=== PATIENT | male | born 1965 | race Caucasian/White ===

== ENCOUNTER → 2016-09-25 | Outpatient (CLI) | payer BC ==
[2016-09-25 17:41] LABS: Basophils % (A) 0 %; CH 32.7; CHCM 33.3; Eosinophils # (A) 0.2 k/uL (0-0.7); Eosinophils % (A) 3 %; HCT 44.3 % (39.0-53.0); HDW 2.22; HGB 14.6 gm/dL (13.0-17.5); Luc # (Auto) 0.14; Luc % (Auto) 2; Lymphocytes # (A) 1.4 k/uL (1.0-4.8); Lymphocytes % (A) 20 %; MCH 32.5 pg (25.0-35.0); MCHC 32.9 g/dL (31.0-37.0); MCV 98.5 fL (80.0-100.0); Mean Platelet Volume 7.2; Monocytes # (A) 0.7 k/uL (0-1.0); Monocytes % (A) 10 %; Neutrophils # (A) 4.5 k/uL (1.3-7.7); Neutrophils % (A) 66 %; WBC 6.9 k/uL (3.8-10.6); WBC (Perox) 7.45
[2016-09-25 17:45] LABS: INR 1.1 (<1.1); Prothrombin Time 11.4 sec (9.0-12.0)
[2016-09-25 17:52] LABS: Anion Gap 9 mmol/L; Blood Urea Nitrogen 8 mg/dL (9-20); Calcium 9.2 mg/dL (8.4-10.2); Carbon Dioxide 30 mmol/L (22-30); Chloride 96 mmol/L (98-107); Glucose 94 mg/dL (74-99); Non-African American GFR(MDRD) >60 (>60 ml/min/1.73 sqM); Potassium 3.9 mmol/L (3.5-5.1); Sodium 135 mmol/L (137-145)
== END | disposition home or self-care (01) ==
LOC: LABPAT 17:00
PROVIDERS: ATTEND Internal Medicine
DX: Z01.812 Encounter for preprocedural laboratory examination (principal)
CPT/HCPCS: 36415; 80048; 85025; 85027; 85610

== ENCOUNTER → 2016-10-09 | Outpatient (CLI) | payer BC ==
[2016-10-09 18:20] LABS: Anion Gap 11 mmol/L; Blood Urea Nitrogen 10 mg/dL (9-20); Calcium 9.6 mg/dL (8.4-10.2); Carbon Dioxide 30 mmol/L (22-30); Chloride 93 mmol/L (98-107); Glucose 87 mg/dL (74-99); Non-African American GFR(MDRD) >60 (>60 ml/min/1.73 sqM); Potassium 4.3 mmol/L (3.5-5.1); Sodium 134 mmol/L (137-145)
== END | disposition home or self-care (01) ==
LOC: LABWHC1 16:57
PROVIDERS: ATTEND Nurse Practitioner
DX: I50.9 Heart failure, unspecified (principal)
CPT/HCPCS: 36415; 80048; 83880

== ENCOUNTER → 2016-10-16 | Outpatient (CLI) | payer BC ==
[2016-10-16 17:38] LABS: ALT 26 U/L (21-72); AST 28 U/L (17-59); Alkaline Phosphatase 55 U/L (38-126); Anion Gap 10 mmol/L; Blood Urea Nitrogen 10 mg/dL (9-20); Calcium 9.5 mg/dL (8.4-10.2); Carbon Dioxide 32 mmol/L (22-30); Chloride 93 mmol/L (98-107); Glucose 86 mg/dL (74-99); Non-African American GFR(MDRD) >60 (>60 ml/min/1.73 sqM); Potassium 4.2 mmol/L (3.5-5.1); Sodium 135 mmol/L (137-145); Total Bilirubin 0.6 mg/dL (0.2-1.3); Total Protein 7.5 g/dL (6.3-8.2)
== END | disposition home or self-care (01) ==
LOC: LABWHC1 16:57
PROVIDERS: ATTEND Internal Medicine
DX: I50.9 Heart failure, unspecified (principal)
CPT/HCPCS: 36415; 80053; 83880

== ENCOUNTER → 2016-12-27 | Outpatient (CLI) | payer BC ==
[2016-12-27 18:02] LABS: ALT 32 U/L (21-72); AST 26 U/L (17-59); Alkaline Phosphatase 57 U/L (38-126); Anion Gap 11 mmol/L; Blood Urea Nitrogen 13 mg/dL (9-20); Calcium 9.6 mg/dL (8.4-10.2); Carbon Dioxide 27 mmol/L (22-30); Chloride 93 mmol/L (98-107); Glucose 93 mg/dL (74-99); Non-African American GFR(MDRD) >60 (>60 ml/min/1.73 sqM); Potassium 4.3 mmol/L (3.5-5.1); Sodium 131 mmol/L (137-145); Total Bilirubin 0.8 mg/dL (0.2-1.3); Total Protein 7.1 g/dL (6.3-8.2)
== END | disposition home or self-care (01) ==
LOC: LABWHC1 17:12
PROVIDERS: ATTEND Internal Medicine
DX: J84.9 Interstitial pulmonary disease, unspecified (principal); M34.9 Systemic sclerosis, unspecified
CPT/HCPCS: 36415; 80053

== ENCOUNTER → 2017-09-01 | Outpatient (CLI) | payer BC ==
--- NOTE | 2017-09-01 21:34 | EST ---
EXERCISE STRESS DATE OF SERVICE: 09/01/17 AGE: 52 SEX: Male HT: 5'11" WT: 163 lb PROTOCOL: Ariel STAGE: Stage 2 DURATION OF EXERCISE: 4.04 minutes HEART RATE REST: 83 BLOOD PRESSURE REST: 145/65 MAXIMUM HEART RATE ACHIEVED: 150 MAXIMUM BLOOD PRESSURE: 171/103 85% MPHR: 143 100% MPHR: 168 METS: 5.8 INDICATIONS: Abnormal EKG CLINICAL INFORMATION: Abnormal EKG RESULTS: Baseline EKG revealed normal sinus rhythm with leftward axis and incomplete right bundle branch block type pattern with isolated PVCs. Patient walked for 4 minutes 4 seconds on the standard Ariel protocol, developed fatigue and shortness of breath. Maximal heart rate was 150 beats per minute which is more than 85% of predicted maximal. There was a lot of artifact, isolated ventricular ectopy were seen during exercise as well as in the rest and recovery. In the recovery period occasional couplet, 1 or 2 couplets were also noted. EKG did not reveal any significant ST- segment changes to indicate ischemia, but because of resting EKG changes, this is considered an inconclusive stress test. Baseline EKG revealed a sinus mechanism with isolated PVCs, nonspecific ST-T changes and incomplete right bundle branch block pattern. FINAL IMPRESSION: 1. Limited exercise capacity. 2. Technically inconclusive stress test because of resting EKG changes. 3. If ischemia is strongly suspected a Lexiscan stress test may be a more reasonable test under the circumstances. JADEN / WALTER: [id number] /
== END | disposition home or self-care (01) ==
LOC: RADNMMAIN 11:05
PROVIDERS: ATTEND Nurse Practitioner Acute Care
DX: R94.31 Abnormal electrocardiogram [ECG] [EKG] (principal)
CPT/HCPCS: 93017

== ENCOUNTER → 2018-03-24 | Outpatient (CLI) | payer BC ==
[2018-03-24 07:19] LABS: Basophils % (A) 0 %; Eosinophils # (A) 0.2 k/uL (0-0.7); Eosinophils % (A) 3 %; HCT 45.9 % (39.0-53.0); HGB 14.9 gm/dL (13.0-17.5); Lymphocytes % (A) 13 %; MCH 31.5 pg (25.0-35.0); MCHC 32.5 g/dL (31.0-37.0); MCV 97.1 fL (80.0-100.0); Mean Platelet Volume 7.2; Monocytes # (A) 0.7 k/uL (0-1.0); Monocytes % (A) 10 %; Neutrophils # (A) 5.5 k/uL (1.3-7.7); Neutrophils % (A) 72 %; Platelet Count 304 k/uL (150-450); RBC 4.73 m/uL (4.30-5.90); RDW 12.7 % (11.5-15.5); WBC 7.7 k/uL (3.8-10.6)
[2018-03-24 07:24] LABS: INR 1.2 (<1.2); Prothrombin Time 11.8 sec (9.0-12.0)
[2018-03-24 07:38] LABS: Anion Gap 9 mmol/L; Blood Urea Nitrogen 7 mg/dL (9-20); Calcium 9.7 mg/dL (8.4-10.2); Carbon Dioxide 31 mmol/L (22-30); Chloride 94 mmol/L (98-107); Glucose 97 mg/dL (74-99); Potassium 4.7 mmol/L (3.5-5.1); Sodium 134 mmol/L (137-145)
== END | disposition home or self-care (01) ==
LOC: LABWHC1 06:32
PROVIDERS: ATTEND Internal Medicine Cardiovascular Disease
DX: I48.92 Unspecified atrial flutter (principal)
CPT/HCPCS: 36415; 80048; 85025; 85610

== ENCOUNTER → 2018-08-01 | Outpatient (CLI) | payer BC | END | disposition home or self-care (01) | LOC: LABWHC1 11:47 | PROVIDERS: ATTEND Internal Medicine | DX: R63.4 Abnormal weight loss (principal) | CPT/HCPCS: 82656 ==

== ENCOUNTER → 2019-01-06 | Outpatient (CLI) | payer BC ==
[2019-01-06 17:40] LABS: HCT 40.4 % (39.0-53.0); HGB 13.3 gm/dL (13.0-17.5); MCH 32.1 pg (25.0-35.0); MCHC 32.8 g/dL (31.0-37.0); MCV 97.8 fL (80.0-100.0); Mean Platelet Volume 6.9; Platelet Count 296 k/uL (150-450); RBC 4.13 m/uL (4.30-5.90); RDW 13.4 % (11.5-15.5); WBC 7.8 k/uL (3.8-10.6)
[2019-01-06 17:47] LABS: Prothrombin Time 10.4 sec (9.0-12.0)
[2019-01-06 17:51] LABS: African American GFR (CKD) >90 (>60 ml/min/1.73 sqM); Anion Gap 9 mmol/L; Blood Urea Nitrogen 16 mg/dL (9-20); Calcium 9.1 mg/dL (8.4-10.2); Carbon Dioxide 32 mmol/L (22-30); Chloride 96 mmol/L (98-107); Glucose 93 mg/dL (74-99); Non-African American GFR(CKD) >90 (>60 ml/min/1.73 sqM); Potassium 4.5 mmol/L (3.5-5.1); Sodium 137 mmol/L (137-145)
== END | disposition home or self-care (01) ==
LOC: LABWHC1 17:13
PROVIDERS: ATTEND Internal Medicine
DX: Z01.812 Encounter for preprocedural laboratory examination (principal); I25.10 Atherosclerotic heart disease of native coronary artery without angina pectoris
CPT/HCPCS: 36415; 80048; 85027; 85610

== ENCOUNTER 2019-02-27 00:31 | Emergency (ER) | payer BC ==
--- NOTE | 2019-02-27 01:20 | XR ---
EXAMINATION TYPE: XR KUB DATE OF EXAM: 02/27/2019 COMPARISON: 06/27/2014 HISTORY: Lower abdominal pain TECHNIQUE: 2 views FINDINGS: There are some distended gas-filled loops of bowel in the upper abdomen. There is airspace infiltrate in both lower lobes. There is increased density over the abdomen that could relate to asci winifred. IMPRESSION: Distended bowel more likely related to intestinal ileus. No free air. Possible ascites. A bnormal bowel appears new compared to old exam. Interstitial extensive nodular infiltrate in the lowe r lung lehman could be significant fibrosis and has progressed compared to old exam.
[2019-02-27 01:27] LABS: Appearance,Urine Clear (Clear); Bilirubin,Urine Negative (Negative); Blood,Urine Negative (Negative); Calcium Oxalate Crystals,Urine Occasional /hpf; Color,Urine Yellow; Glucose,Urine (UA) Negative (Negative); Hyaline Casts,Urine 25 /lpf (0-2); Ketones,Urine 1+ (Negative); Leukocyte Esterase,Urine Negative (Negative); Mucus,Urine Moderate /hpf; Nitrite,Urine Negative (Negative); Protein,Urine 1+ (Negative); RBC,Urine 3 /hpf (0-5)
[2019-02-27 02:44] LABS: Basophils # (A) 0.1 k/uL (0-0.2); Basophils % (A) 1 %; Eosinophils # (A) 0.1 k/uL (0-0.7); Eosinophils % (A) 1 %; HCT 46.2 % (39.0-53.0); HGB 15.6 gm/dL (13.0-17.5); Lymphocytes # (A) 0.7 k/uL (1.0-4.8); Lymphocytes % (A) 8 %; MCH 32.7 pg (25.0-35.0); MCHC 33.7 g/dL (31.0-37.0); MCV 96.9 fL (80.0-100.0); Mean Platelet Volume 7.4; Monocytes # (A) 0.5 k/uL (0-1.0); Monocytes % (A) 6 %; Neutrophils # (A) 6.7 k/uL (1.3-7.7); Neutrophils % (A) 84 %; Platelet Count 307 k/uL (150-450); RBC 4.77 m/uL (4.30-5.90); RDW 13.5 % (11.5-15.5)
[2019-02-27 02:48] LABS: ALT 20 U/L (21-72); AST 35 U/L (17-59); African American GFR (CKD) >90 (>60 ml/min/1.73 sqM); Albumin 4.3 g/dL (3.5-5.0); Alkaline Phosphatase 56 U/L (38-126); Amylase 44 U/L (30-110); Anion Gap 10 mmol/L; Blood Urea Nitrogen 14 mg/dL (9-20); Calcium 9.5 mg/dL (8.4-10.2); Carbon Dioxide 28 mmol/L (22-30); Chloride 92 mmol/L (98-107); Glucose 93 mg/dL (74-99); Potassium 4.6 mmol/L (3.5-5.1); Sodium 130 mmol/L (137-145); Total Bilirubin 0.7 mg/dL (0.2-1.3); Total Protein 7.5 g/dL (6.3-8.2)
[2019-02-27] MEDS ORDERED: SODIUM CHLORIDE 0.9% 1,000 ML IV STA (03:00)
[2019-02-27] MEDS ORDERED: ONDANSETRON 4 MG/2 ML VIAL IVP STA (03:01)
--- NOTE | 2019-02-27 04:14 | ED ---
Abdominal Pain HPI - General Chief Complaint: Abdominal Pain Stated Complaint: Abdominal Pain Source: patient Mode of arrival: ambulatory Limitations: no limitations - History of Present Illness Initial Comments: The patient is a 54 old male with past medical history scleroderma who presents emergency room with reported abdominal pain for the past week. The patient states that he has a chronic ileus for which she does see a GI doctor out of [facility]. States that he will chronically have abdominal pain. He does have a prokinetic medication which she takes every day. When he does have acute exacerbations of his abdominal pain he will start taking either Au gmentin or rifaximin. He stated he has been taking rifaximin since Friday. He has been having some loose bowel movements which is not uncommon for him. Denies any melanotic stools or hematochezia. Did have a bowel movement earlier today. Denies any recent travel. Around 2 PM this afternoon the patient did have worsening abdominal cramping with bloating. Because of the worsening of his symptoms he did present to the emergency room for evaluation. States he did have a colonoscopy earlier this year. Admits to nausea without vomiting. Has had poor oral intake today. No ripping or tearing sensation to his back. Denies any back pain or chest pain. There are no other alleviating, preci pitating or modifying factors - Related Data Home Medications Medication Instructions Recorded Confirmed Olmesartan/Hydrochlorothiazide 1 tab PO DAILY 05/26/14 05/30/14 [Benicar Hct 40-25 mg Tablet] Pantoprazole Sodium [Protonix] 40 mg PO DAILY 05/26/14 05/30/14 Testosterone Injection 1 injection INJ Q14D 05/26/14 05/30/14 Previous Rx's Medication Instructions Recorded HYDROcodone/APAP 7.5-325MG [[place] 1 each PO Q4-6H PRN #30 tab 06/01/14 7.5-325] Allergies Allergy/AdvReac Type Severity Reaction Status Date / Time No Known Allergies Allergy Verified 02/27/19 00:40 Review of Systems ROS Statement: Those systems with pertinent positive or pertinent negative responses have been documented in the HPI. ROS Other: All systems not noted in ROS Statement are negative. Past Medical History Past Medical History: GERD/Reflux, Hypertension, Supraventricular Tachycardia ( SVT) Additional Past Medical History / Comment(s): Pulmonary fibrosis, scleroderma, SIBO, Raynauds, History of Any Multi-Drug Resistant Organisms: None Reported Past Surgical History: Appendectomy, Heart Catheterization Past Anesthesia/Blood Transfusion Reactions: No Reported Reaction Past Psychological History: No Psychological Hx Reported Smoking Status: Former smoker Past Alcohol Use History: Daily Past Drug Use History: None Reported - Past Family History Father Family Medical History: Myocardial Infarction ([place]) General Exam Limitations: no limitations Course Vital Signs 02/27/19 02/27/19 00:35 04:46 Temperature 98.1 F 98.6 F Pulse Rate 115 H 62 Respiratory 18 16 Rate Blood Pressure 126/87 126/93 O2 Sat by Pulse 96 95 Oximetry Medical Decision Making - Medical Decision Making Upon arrival the patient is placed into room 17. He is hooked up to continuous pulse ox and cardiac monitoring. A thorough history and physical exam was performed. Per 5 is established. Because the patient's poor oral intake he is given a liter bolus of normal saline. I offered the patient something for nausea and pain control however he did refuse pain control. I did provide him with 4 mg of Zofran for nausea. Laboratory studies were conducted. The patient does have a little to count of 8. Sodium 1:30, chloride 92, ALTs 20. Urinalysis is remarkable for 1+ protein one plus ketones. There are occasional calcium oxalate crystals. 25 hyalin casts and moderate mucus. I did recommend a CT of the patient's tendon pelvis because of this significant history. The patient refused stating he has had multiple CTs in the past. I did recommend at least a KUB reports patient did agree. KUB demonstrates distended bowel more likely related to intestinal ileus. No free air. Possible ascites. Abnormal bowel appears new compared to old exam. Interstitial extensive nodular inf iltrate in the lower lung lehman. I discussed this with the patient. The patient reports that this is his chronic ileus. He states that he feels improved at this time. I did once again recommended CT of the patient's abdomen and pelvis however he continues to refuse. I offered hospital admission for evaluation by our GI doctors. The patient states that he wanted to be discharged home and follow-up with his GI physician Julian in the outpatient setting. The patient will be discharged home. I will not make any medication changes. The patient is a new or worsening symptoms he should return to the emergency room. The patient was then discharged with condition - Lab Data Result diagrams: 02/27/19 01:31 02/27/19 01:31 Lab Results 02/27/19 02/27/19 02/27/19 Range/Units 00:40 01:31 01:31 WBC 8.0 (3.8-10.6) k/uL RBC 4.77 (4.30-5.90) m/uL Hgb 15.6 (13.0-17.5) gm/dL Hct 46.2 (39.0-53.0) % MCV 96.9 (80.0-100.0) fL MCH 32.7 (25.0-35.0) pg MCHC 33.7 (31.0-37.0) g/dL RDW 13.5 (11.5-15.5) % Plt Count 307 (150-450) k/uL Neutrophils % 84 % Lymphocytes % 8 % Monocytes % 6 % Eosinophils % 1 % Basophils % 1 % Neutrophils # 6.7 (1.3-7.7) k/uL Lymphocytes # 0.7 L (1.0-4.8) k/uL Monocytes # 0.5 (0-1.0) k/uL Eosinophils # 0.1 (0-0.7) k/uL Basophils # 0.1 (0-0.2) k/uL Sodium 130 L (137-145) mmol/L Potassium 4.6 (3.5-5.1) mmol/L Chloride 92 L (98-107) mmol/L Carbon Dioxide 28 (22-30) mmol/L Anion Gap 10 mmol/L BUN 14 (9-20) mg/dL Creatinine 0.71 (0.66-1.25) mg/dL Est GFR (CKD-EPI)AfAm >90 (>60 ml/min/1.73 sqM) Est GFR (CKD-EPI)NonAf >90 (>60 ml/min/1.73 sqM) Glucose 93 (74-99) mg/dL Calcium 9.5 (8.4-10.2) mg/dL Total Bilirubin 0.7 (0.2-1.3) mg/dL AST 35 (17-59) U/L ALT 20 L (21-72) U/L Alkaline Phosphatase 56 (38-126) U/L Total Protein 7.5 (6.3-8.2) g/dL Albumin 4.3 (3.5-5.0) g/dL Amylase 44 (30-110) U/L Lipase 53 (23-300) U/L Urine Color Yellow Urine Appearance Clear (Clear) Urine pH 6.0 (5.0-8.0) Ur Specific [place] 1.030 (1.001-1.035) Urine Protein 1+ H (Negative) Urine Glucose (UA) Negative (Negative) Urine Ketones 1+ H (Negative) Urine Blood Negative (Negative) Urine Nitrite Negative (Negative) Urine Bilirubin Negative (Negative) Urine Urobilinogen 2.0 (<2.0) mg/dL Ur Leukocyte Esterase Negative (Negative) Urine RBC 3 (0-5) /hpf Urine WBC 1 (0-5) /hpf Calcium Oxalate Crystal Occasional H (None) /hpf Hyaline Casts 25 H (0-2) /lpf Urine Mucus Moderate H (None) /hpf Disposition Clinical Impression: Abdominal pain, Ileus Disposition: HOME SELF-CARE Condition: Serious Instructions (If sedation given, give patient instructions): Abdominal Pain (ED) Additional Instructions: Please follow-up with your doctor at [facility] as soon as possible. I did recommend a CT of your abdomen and pelvis with contrast. Return to the emergency room for any new or worsening symptoms Is patient prescribed a controlled substance at d/c from ED?: No Referrals: Madhavi Melo MD [Primary Care Provider] - 1-2 days Time of Disposition: 04:14
[2019-02-27 04:47] VITALS: BP 126/93; PULSE 62; RESP 16; TEMP 98.6
== END 2019-02-27 04:51 | disposition home or self-care (01) ==
LOC: EC 00:31
DX: K56.7 Ileus, unspecified (principal); K21.9 Gastro-esophageal reflux disease without esophagitis; I10 Essential (primary) hypertension; Z79.899 Other long term (current) drug therapy; Z87.891 Personal history of nicotine dependence; Z95.5 Presence of coronary angioplasty implant and graft
CPT/HCPCS: 36415; 80053; 82150; 83690; 85025; 81001; 74018; 99284; 96374; 96361; J2405

== ENCOUNTER → 2019-05-03 | Outpatient (CLI) | payer BC ==
[2019-05-03 17:56] LABS: Basophils # (A) 0.1 k/uL (0-0.2); Basophils % (A) 2 %; Eosinophils # (A) 0.2 k/uL (0-0.7); Eosinophils % (A) 2 %; HCT 38.8 % (39.0-53.0); Lymphocytes # (A) 0.7 k/uL (1.0-4.8); Lymphocytes % (A) 8 %; MCH 32.6 pg (25.0-35.0); MCHC 33.6 g/dL (31.0-37.0); MCV 96.9 fL (80.0-100.0); Mean Platelet Volume 6.5; Monocytes # (A) 0.7 k/uL (0-1.0); Monocytes % (A) 8 %; Neutrophils % (A) 79 %; Platelet Count 311 k/uL (150-450); RDW 12.6 % (11.5-15.5); WBC 8.9 k/uL (3.8-10.6)
[2019-05-04 06:47] LABS: Albumin/Globulin Ratio 1.67 (1.60-3.17); Anion Gap 8.8 mmol/L (4.00-12.00); BUN/Creat Ratio 17.14 Ratio (12.00-20.00); Calcium 8.9 mg/dL (8.7-10.3); Carbon Dioxide 31.2 mmol/L (21.6-31.8); Globulin 2.4 g/dL (1.6-3.3); Total Bilirubin 0.4 mg/dL (0.3-1.2); Total Protein 6.4 g/dL (6.2-8.2)
== END ==
LOC: LABWHC1 17:36
PROVIDERS: ATTEND Internal Medicine
DX: M34.9 Systemic sclerosis, unspecified (principal); Z51.81 Encounter for therapeutic drug level monitoring
CPT/HCPCS: 36415; 80053; 85025

== ENCOUNTER → 2019-11-02 | Outpatient (CLI) | payer BC | END | disposition home or self-care (01) | LOC: LABWHC1 07:46 | PROVIDERS: ATTEND Internal Medicine | DX: Z20.828 Contact with and (suspected) exposure to other viral communicable diseases (principal) | CPT/HCPCS: 87635 ==

== ENCOUNTER → 2019-11-16 | Outpatient (CLI) | payer BC | END | disposition home or self-care (01) | LOC: LABWHC1 12:57 | PROVIDERS: ATTEND Internal Medicine | DX: U07.1 COVID-19 (principal) ==

== ENCOUNTER → 2020-03-20 | Outpatient (CLI) | payer BC | END | disposition home or self-care (01) | LOC: LABWHC1 08:30 | PROVIDERS: ATTEND Internal Medicine Cardiovascular Disease | DX: Z20.828 Contact with and (suspected) exposure to other viral communicable diseases (principal) | CPT/HCPCS: U0003; C9803 ==

== ENCOUNTER → 2020-03-20 | Outpatient (CLI) | payer BC ==
[2020-03-20 10:27] LABS: HCT 42.9 % (39.0-53.0); HGB 14.3 gm/dL (13.0-17.5); MCHC 33.4 g/dL (31.0-37.0); MCV 101.8 fL (80.0-100.0); Macrocytosis Slight; Mean Platelet Volume 7.7; Platelet Count 216 k/uL (150-450); RBC 4.21 m/uL (4.30-5.90); RDW 13.1 % (11.5-15.5); WBC 7.5 k/uL (3.8-10.6)
[2020-03-20 10:31] LABS: African American GFR (CKD) >90 (>60 ml/min/1.73 sqM); Anion Gap 5 mmol/L; Blood Urea Nitrogen 11 mg/dL (9-20); Calcium 9.2 mg/dL (8.4-10.2); Carbon Dioxide 35 mmol/L (22-30); Chloride 87 mmol/L (98-107); Glucose 94 mg/dL (74-99); Non-African American GFR(CKD) >90 (>60 ml/min/1.73 sqM); Potassium 3.9 mmol/L (3.5-5.1); Sodium 127 mmol/L (137-145)
[2020-03-20 10:32] LABS: Prothrombin Time 10.7 sec (9.0-12.0)
== END | disposition home or self-care (01) ==
LOC: LABWHC1 09:05
PROVIDERS: ATTEND Internal Medicine Cardiovascular Disease
DX: I47.1 Supraventricular tachycardia (principal)
CPT/HCPCS: 36415; 80048; 85027; 85610

== ENCOUNTER 2020-08-05 18:45 | Inpatient (IN) | payer BC ==
--- NOTE | 2020-08-05 19:34 | ED ---
General Adult HPI <Dennis Carreon - Last Filed: 08/05/20 21:22> - General Source: patient Mode of arrival: wheelchair Limitations: no limitations <Shelley Shoemaker - Last Filed: 08/05/20 21:28> - General Chief complaint: Shortness of Breath Stated complaint: SOB Time Seen by Provider: 08/05/20 18:59 - History of Present Illness Initial comments: 55-year-old male patient with past medical history significant for scleroderma with pulmonary arterial hypertension, fibrotic lung disease currently being evaluated for double lung transplant presents to the emergency department today for evaluation of increased shortness of breath and anxiety. Patient states that his daughter and were diagnosed with round the of this month, that symptoms started about 3 days prior. States he has been quarantining in a different area of the house but he is concerned due to his condition. States he has had increased congestion and shortness of breath over the last week. States he did get a test at his doctor's office but they have not gone results yet. Patient denies any fever or chills. States it had decreased appetite. He does wear oxygen at home. Follows with the [facility] for his condition. Patient denies any recent rash, chest pain, abdominal pain, nausea, vomiting, diarrhea, constipation, back pain, numbness, tingling, dizziness, weakness, hematuria, dysuria, urinary urgency, urinary frequency, headache, visual changes, or any other complaints. (Shelley Shoemaker) - Related Data Home Medications Medication Instructions Recorded Confirmed Olmesartan/Hydrochlorothiazide 1 tab PO DAILY 05/26/14 05/30/14 [Benicar Hct 40-25 mg Tablet] Pantoprazole Sodium [Protonix] 40 mg PO DAILY 05/26/14 05/30/14 Testosterone Injection 1 injection INJ Q14D 05/26/14 05/30/14 Previous Rx's Medication Instructions Recorded HYDROcodone/APAP 7.5-325MG [[place] 1 each PO Q4-6H PRN #30 tab 06/01/14 7.5-325] Allergies Allergy/AdvReac Type Severity Reaction Status Date / Time No Known Allergies Allergy Verified 08/05/20 18:53 Review of Systems ROS Other: All systems not noted in ROS Statement are negative. <Dennis Carreon - Last Filed: 08/05/20 21:22> ROS Other: All systems not noted in ROS Statement are negative. <Shelley Shoemaker Joselin - Last Filed: 08/05/20 21:28> ROS Statement: Those systems with pertinent positive or pertinent negative responses have been documented in the HPI. Past Medical History Past Medical History: GERD/Reflux, Hypertension, Supraventricular Tachycardia (SVT) Additional Past Medical History / Comment(s): Pulmonary fibrosis, scleroderma, SIBO, Raynauds, History of Any Multi-Drug Resistant Organisms: None Reported Past Surgical History: Appendectomy, Heart Catheterization Past Anesthesia/Blood Transfusion Reactions: No Reported Reaction Past Psychological History: No Psychological Hx Reported Smoking Status: Former smoker Past Alcohol Use History: Daily Past Drug Use History: None Reported - Past Family History Father Family Medical History: Myocardial Infarction ([place]) <Shelley Shoemaker Joselin - Last Filed: 08/05/20 21:28> General Exam Limitations: no limitations General appearance: alert, in no apparent distress, other (Physical well- developed, well-nourished adult male patient in no acute distress. Vital signs upon presentation are temperature 98.5F, pulse 98, respirations 24, blood pressure 144/94, pulse ox 95% on 3 L.) Eye exam: Present: normal appearance, PERRL, EOMI. Absent: scleral icterus, conjunctival injection, periorbital swelling ENT exam: Present: normal exam, normal oropharynx, mucous membranes moist Respiratory exam: Present: normal lung sounds bilaterally, other (Tachypnea). Absent: respiratory distress, wheezes, rales, rhonchi, stridor Cardiovascular Exam: Present: regular rate, normal rhythm, normal heart sounds. Absent: systolic murmur, diastolic murmur, rubs, gallop, clicks GI/Abdominal exam: Present: soft, normal bowel sounds. Absent: distended, tenderness, guarding, rebound, rigid Neurological exam: Present: alert, oriented X3, CN II-XII intact Psychiatric exam: Present: normal affect, normal mood Skin exam: Present: warm, dry, intact, normal color. Absent: rash <Shelley Shoemaker Joselin - Last Filed: 08/05/20 21:28> Course Vital Signs 08/05/20 08/05/20 18:49 21:06 Temperature 98.5 F Pulse Rate 98 85 Respiratory 24 16 Rate Blood Pressure 144/94 102/73 O2 Sat by Pulse 95 100 Oximetry EKG Findings - EKG Comments: EKG Findings:: EKG obtained in 190 shows sinus rhythm with occasional PVCs. T here is right bundle branch block and left anterior fascicular block. Ventricular rate 95, VA interval 162, QRS duration 122, QT 362, QTc 454. <Shelley Shoemaker - Last Filed: 08/05/20 21:28> Medical Decision Making - Lab Data Result diagrams: 08/05/20 19:35 08/05/20 19:35 <Dennis Carreon - Last Filed: 08/05/20 21:22> - Lab Data Result diagrams: 08/05/20 19:35 08/05/20 19:35 - Radiology Data Radiology results: report reviewed, image reviewed <Shelley Shoemaker - Last Filed: 08/05/20 21:28> - Medical Decision Making Case was discussed with industrial boilermaker Dr. Otoole was 160 patient's care to the ICU. Nephrology was also contacted recommended patient be started on hypertonic normal saline at 20 mL an hour. (Dennis Carreon) 55-year-old male patient with past medical history significant for scleroderma with fibrotic lung disease and pulmonary arterial hypertension presents to the emergency department today with complaints of increased congestion and cough over the last week. 2 family members in his household are positive for COVID- 19. Patient is also reporting increased anxiety and itchiness. Physical examination did reveal diminished lung sounds bilaterally. He is a thin appearing adult. Chest x-ray showed fibrotic changes worse than previous exam as well as possible bilateral pneumonia. Labs reviewed and did reveal decreased sodium at 105, positive COVID-19 test. Case was discussed with my attending Dr. Carreon who consulted critical care and nephrology. (Shelley Shoemaker) - Lab Data Lab Results 08/05/20 08/05/20 08/05/20 Range/Units 19:35 19:35 19:35 WBC 10.7 H (3.8-10.6) k/uL RBC 4.44 (4.30-5.90) m/uL Hgb 14.4 (13.0-17.5) gm/dL Hct 41.0 (39.0-53.0) % MCV 92.3 D (80.0-100.0) fL MCH 32.4 (25.0-35.0) pg MCHC 35.1 (31.0-37.0) g/dL RDW 12.7 (11.5-15.5) % Plt Count 139 L (150-450) k/uL MPV 8.2 Neutrophils % (Manual) 76 % Band Neuts % (Manual) 17 % Lymphocytes % (Manual) 4 % Monocytes % (Manual) 2 % Metamyelocytes % 2 % Neutrophils # (Manual) 9.90 H (1.3-7.7) k/uL Lymphocytes # (Manual) 0.43 L (1.0-4.8) k/uL Monocytes # (Manual) 0.21 (0-1.0) k/uL Metamyelocytes # (Man) 0.21 H (0) k/uL Nucleated RBCs 0 (0-0) /100 WBC Manual Slide Review Performed PT 10.4 (9.0-12.0) sec INR 1.0 (<1.2) APTT 36.9 H (22.0-30.0) sec D-Dimer 0.22 (<0.60) mg/L FEU Sodium 105 L* (137-145) mmol/L Potassium 3.7 (3.5-5.1) mmol/L Chloride 64 L* (98-107) mmol/L Carbon Dioxide 33 H (22-30) mmol/L Anion Gap 8 mmol/L BUN 15 (9-20) mg/dL Creatinine 0.27 L (0.66-1.25) mg/dL Est GFR (CKD-EPI)AfAm >90 (>60 ml/min/1.73 sqM) Est GFR (CKD-EPI)NonAf >90 (>60 ml/min/1.73 sqM) Glucose 108 H (74-99) mg/dL Plasma Lactic Acid Kevin (0.7-2.0) mmol/L Calcium 8.3 L (8.4-10.2) mg/dL Magnesium 1.6 (1.6-2.3) mg/dL Total Bilirubin 0.8 (0.2-1.3) mg/dL AST 80 H (17-59) U/L ALT 34 (4-49) U/L Alkaline Phosphatase 50 (38-126) U/L Lactate Dehydrogenase 563 (313-618) U/L C-Reactive Protein 28.7 H (<10.0) mg/L Total Protein 6.6 (6.3-8.2) g/dL Albumin 3.9 (3.5-5.0) g/dL Coronavirus (PCR) (Not Detectd) 08/05/20 08/05/20 Range/Units 19:35 20:02 WBC (3.8-10.6) k/uL RBC (4.30-5.90) m/uL Hgb (13.0-17.5) gm/dL Hct (39.0-53.0) % MCV (80.0-100.0) fL MCH (25.0-35.0) pg MCHC (31.0-37.0) g/dL RDW (11.5-15.5) % Plt Count (150-450) k/uL MPV Neutrophils % (Manual) % Band Neuts % (Manual) % Lymphocytes % (Manual) % Monocytes % (Manual) % Metamyelocytes % % Neutrophils # (Manual) (1.3-7.7) k/uL Lymphocytes # (Manual) (1.0-4.8) k/uL Monocytes # (Manual) (0-1.0) k/uL Metamyelocytes # (Man) (0) k/uL Nucleated RBCs (0-0) /100 WBC Manual Slide Review PT (9.0-12.0) sec INR (<1.2) APTT (22.0-30.0) sec D-Dimer (<0.60) mg/L FEU Sodium (137-145) mmol/L Potassium (3.5-5.1) mmol/L Chloride (98-107) mmol/L Carbon Dioxide (22-30) mmol/L Anion Gap mmol/L BUN (9-20) mg/dL Creatinine (0.66-1.25) mg/dL Est GFR (CKD-EPI)AfAm (>60 ml/min/1.73 sqM) Est GFR (CKD-EPI)NonAf (>60 ml/min/1.73 sqM) Glucose (74-99) mg/dL Plasma Lactic Acid Kevin 1.0 (0.7-2.0) mmol/L Calcium (8.4-10.2) mg/dL Magnesium (1.6-2.3) mg/dL Total Bilirubin (0.2-1.3) mg/dL AST (17-59) U/L ALT (4-49) U/L Alkaline Phosphatase (38-126) U/L Lactate Dehydrogenase (313-618) U/L C-Reactive Protein (<10.0) mg/L Total Protein (6.3-8.2) g/dL Albumin (3.5-5.0) g/dL Coronavirus (PCR) Detected A (Not Detectd) - Radiology Data One view x-ray of the chest is obtained. Report was reviewed in its entirety. Impression by Dr. Acosta shows extensive pulmonary interstitial fibrosis has progressed compared to old exam. There is probably some degree of acute pn eumonia in both lower lobes. (Shelley Shoemaker) Disposition <Dennis Carreon - Last Filed: 08/05/20 21:22> Decision to Admit Reason: Admit from EC Decision Date: 08/05/20 Decision Time: 21:28 <Shelley Shoemaker - Last Filed: 08/05/20 21:28> Clinical Impression: COVID-19, Pneumonia due to COVID-19 virus, Hyponatremia Disposition: ADMITTED IP TO THIS [facility] Condition: Serious Referrals: Madhavi Melo MD [Primary Care Provider] - 1-2 days
[2020-08-05 19:48] LABS: HGB 14.4 gm/dL (13.0-17.5); MCH 32.4 pg (25.0-35.0); MCHC 35.1 g/dL (31.0-37.0); Mean Platelet Volume 8.2; Platelet Count 139 k/uL (150-450); RBC 4.44 m/uL (4.30-5.90); RDW 12.7 % (11.5-15.5); WBC 10.7 k/uL (3.8-10.6)
[2020-08-05] MEDS ORDERED: LORazepam 2 MG/ML INJ IV STA (19:57)
[2020-08-05 20:10] LABS: Partial Thromboplastin Time 36.9 sec (22.0-30.0); Prothrombin Time 10.4 sec (9.0-12.0)
[2020-08-05 20:19] LABS: ALT 34 U/L (4-49); AST 80 U/L (17-59); African American GFR (CKD) >90 (>60 ml/min/1.73 sqM); Albumin 3.9 g/dL (3.5-5.0); Alkaline Phosphatase 50 U/L (38-126); Anion Gap 8 mmol/L; Blood Urea Nitrogen 15 mg/dL (9-20); C Reactive Protein 28.7 mg/L (<10.0); Calcium 8.3 mg/dL (8.4-10.2); Carbon Dioxide 33 mmol/L (22-30); Glucose 108 mg/dL (74-99); LDH 563 U/L (313-618); Magnesium 1.6 mg/dL (1.6-2.3); Non-African American GFR(CKD) >90 (>60 ml/min/1.73 sqM); Potassium 3.7 mmol/L (3.5-5.1); Total Bilirubin 0.8 mg/dL (0.2-1.3); Total Protein 6.6 g/dL (6.3-8.2)
[2020-08-05 20:20] LABS: Chloride 64 mmol/L (98-107); Sodium 105 mmol/L (137-145)
--- NOTE | 2020-08-05 20:20 | XR ---
EXAMINATION TYPE: XR chest 1V portable DATE OF EXAM: 08/05/2020 COMPARISON: June 10, 2014 HISTORY: Short of breath. Cough TECHNIQUE: Single view FINDINGS: There is general coarsening infiltrate throughout the lungs. There is thickening of the rig ht minor fissure. Heart size is normal. There are chest leads. There is some blunting of the right co stophrenic angle IMPRESSION: Extensive pulmonary interstitial fibrosis that has progressed compared to old exam. There is probably some degree of acute pneumonia in both lower lobes.
[2020-08-05 20:24] LABS: MCV 92.3 fL (80.0-100.0)
[2020-08-05 20:37] LABS: Band Neutrophils % 17 %; Lymphocytes # (M) 0.43 k/uL (1.0-4.8); Metamyelocytes # (M) 0.21 k/uL (0); Metamyelocytes % 2 %; Monocytes # (M) 0.21 k/uL (0-1.0); Neutrophils % (M) 76 %; Nucleated Red Blood Cells 0 /100 WBC (0-0); Total Cells Counted 200
[2020-08-05] MEDS ORDERED: SODIUM CHLORIDE 0.9% 500 ML 500 ML IV ONE (21:04)
[2020-08-05] MEDS ORDERED: SODIUM CHLORIDE 0.9% 1,000 ML IV SCH (21:15)
[2020-08-05] MEDS ORDERED: NALOXONE 0.4 MG/ML 1 ML VIAL IV PRN (21:20)
[2020-08-05] MEDS ORDERED: SODIUM CHLORIDE 3%(HYPERTONIC) 500 ML IV SCH (21:30)
[2020-08-05 23:23] LABS: Ferritin 664.8 ng/mL (22.0-322.0)
[2020-08-06 01:51] LABS: African American GFR (CKD) >90 (>60 ml/min/1.73 sqM); Anion Gap 6 mmol/L; Blood Urea Nitrogen 14 mg/dL (9-20); Calcium 8.1 mg/dL (8.4-10.2); Carbon Dioxide 33 mmol/L (22-30); Glucose 98 mg/dL (74-99); Non-African American GFR(CKD) >90 (>60 ml/min/1.73 sqM); Potassium 3.7 mmol/L (3.5-5.1)
[2020-08-06 01:52] LABS: Chloride 67 mmol/L (98-107); Sodium 106 mmol/L (137-145)
[2020-08-06] MEDS ORDERED: HYDROcodone/APAP 7.5-325MG 1 EACH TAB PO ONE (02:00)
[2020-08-06] MEDS: ACETAMINOPHEN TAB 325 MG TAB PO PRN (02:07)
[2020-08-06 03:59] LABS: African American GFR (CKD) >90 (>60 ml/min/1.73 sqM); Anion Gap 2 mmol/L; Blood Urea Nitrogen 14 mg/dL (9-20); Calcium 7.9 mg/dL (8.4-10.2); Carbon Dioxide 35 mmol/L (22-30); Glucose 90 mg/dL (74-99); Non-African American GFR(CKD) >90 (>60 ml/min/1.73 sqM); Potassium 3.7 mmol/L (3.5-5.1)
[2020-08-06 04:18] LABS: Sodium 105 mmol/L (137-145)
[2020-08-06 04:19] LABS: Chloride 68 mmol/L (98-107)
[2020-08-06 05:57] LABS: African American GFR (CKD) >90 (>60 ml/min/1.73 sqM); Anion Gap 4 mmol/L; Blood Urea Nitrogen 13 mg/dL (9-20); Calcium 7.9 mg/dL (8.4-10.2); Carbon Dioxide 34 mmol/L (22-30); Glucose 88 mg/dL (74-99); Non-African American GFR(CKD) >90 (>60 ml/min/1.73 sqM); Potassium 3.6 mmol/L (3.5-5.1)
[2020-08-06 06:12] LABS: Chloride 69 mmol/L (98-107); Sodium 107 mmol/L (137-145)
[2020-08-06 07:39] LABS: African American GFR (CKD) >90 (>60 ml/min/1.73 sqM); Anion Gap 4 mmol/L; Blood Urea Nitrogen 12 mg/dL (9-20); Calcium 7.9 mg/dL (8.4-10.2); Carbon Dioxide 33 mmol/L (22-30); Glucose 88 mg/dL (74-99); Non-African American GFR(CKD) >90 (>60 ml/min/1.73 sqM); Potassium 3.7 mmol/L (3.5-5.1)
[2020-08-06 07:43] LABS: Sodium 108 mmol/L (137-145)
[2020-08-06 07:44] LABS: Chloride 71 mmol/L (98-107)
[2020-08-06] MEDS ORDERED: Potassium Replacement Protocol 1 EACH MISC MISCELLANE PRN (08:40)
[2020-08-06] MEDS ORDERED: RIFAXIMIN 550 MG TABLET PO PRN (08:59)
[2020-08-06] MEDS ORDERED: ONDANSETRON 4 MG TAB PO PRN (08:59)
[2020-08-06] MEDS ORDERED: ALBUTEROL NEBULIZED 2.5 MG/3 ML INHALATION PRN (08:59)
[2020-08-06] MEDS ORDERED: HYOSCYAMINE SULFATE 0.125 MG TAB PO PRN (08:59)
[2020-08-06] MEDS ORDERED: POTASSIUM CHLORIDE ER 20 MEQ TAB.ER PO SCH (09:00)
--- NOTE | 2020-08-06 09:33 | P.NPCON ---
History of Present Illness - Reason for Consult hyponatremia - History of Present Illness Reason for consultation: Hyponatremia History of present illness: Patient is a 55-year-old male seen in consultation for hyponatremia. Patient states that for the last few days he hasn't been feeling well overall. His oral intake has been poor. He's been drinking Pedialyte as well as premier protein to keep himself hydrated. He does take antihypertensives including hydrochlorothiazide at home. Patient's sodium level on admission last night was 105. He did receive a liter bolus of normal saline and was then started on 3%. Sodium level has been gradually improving. He was 108 as of this morning. No history of kidney disease. GFR at baseline. He did test positive for COVID-19. Patient states his and daughter were tested positive for Covid about a week ago. He denies chest pain or shortness of breath. He does have history of scleroderma and follows at [facility]. He also has history of SVT and has undergone ablations in the past. He denies vomiting or diarrhea. Blood pressure stable. Denies use of nonsteroidals. No edema. Denies family history of renal disease. Vital signs are stable. General: The patient appeared well nourished and normally developed. HEENT: Head exam is unremarkable. Neck is without jugular venous distension. LUNGS: Breath sounds decreased. HEART: Rate and Rhythm are regular. ABDOMEN: Abdominal exam reveals normal bowel sounds. Non-tender and non- distended. No evidence of peritonitis. EXTREMITITES: No soft, nontender. edema. Past Medical History Past Medical History: GERD/Reflux, Hypertension, Supraventricular Tachycardia (SVT) Additional Past Medical History / Comment(s): Pulmonary fibrosis, scleroderma, SIBO, Raynauds, History of Any Multi-Drug Resistant Organisms: None Reported Past Surgical History: Appendectomy, Heart Catheterization Additional Past Surgical History / Comment(s): double lung transplant Past Anesthesia/Blood Transfusion Reactions: No Reported Reaction Past Psychological History: No Psychological Hx Reported Smoking Status: Former smoker Past Alcohol Use History: Daily Past Drug Use History: None Reported - Past Family History Father Family Medical History: Myocardial Infarction ([place]) Medications and Allergies Home Medications Medication Instructions Recorded Confirmed Type Olmesartan/Hydrochlorothiazide 1 tab PO DAILY 05/26/14 08/05/20 History [Benicar Hct 40-25 mg Tablet] Albuterol Inhaler [Ventolin Hfa 4 puff INHALATION RT-Q4H PRN 08/05/20 08/05/20 History Inhaler] Apixaban [Eliquis] 5 mg PO BID 08/05/20 08/05/20 History Fluticasone Nasal [place] [Flonase 2 spr EA NOSTRIL DAILY 08/05/20 08/05/20 History Nasal [place]] Hyoscyamine Sulfate [Levsin-Sl] 0.125 mg SL Q4-6H PRN 08/05/20 08/05/20 History Ipratropium [place] 0.06%Nasal 2 spray EA NOSTRIL BID 08/05/20 08/05/20 History [Atrovent Nasal 0.06%] Metoprolol Succinate [Toprol XL] 25 mg PO DAILY 08/05/20 08/05/20 History Multivitamins, Thera [Multivitamin 1 tab PO DAILY 08/05/20 08/05/20 History (formulary)] Omeprazole 40 mg PO BID 08/05/20 08/05/20 History Ondansetron HCl [Zofran] 4 mg PO Q8H PRN 08/05/20 08/05/20 History Prucalopride Succinate [Motegrity] 2 mg PO DAILY 08/05/20 08/05/20 History Rifaximin [Xifaxan] 550 mg PO BID PRN 08/05/20 08/05/20 History Sandostatin 50mcg/Ml 50 mcg SQ HS 08/05/20 08/05/20 History Sildenafil [Revatio] 20 mg PO TID 08/05/20 08/05/20 History Tyvaso 0.6mg/Ml 3 - 9 puff INHALATION RT-QID 08/05/20 08/05/20 History mycophenolate mofetiL [Cellcept] 1,500 mg PO BID 08/05/20 08/05/20 History Allergies Allergy/AdvReac Type Severity Reaction Status Date / Time hydrochlorothiazide Allergy Confusion Verified 08/06/20 09:03 Physical Exam Vitals: Vital Signs Temp Pulse Resp BP Pulse Ox 08/06/20 08:00 97.9 F 75 28 H 129/93 100 08/06/20 07:00 75 18 124/93 99 08/06/20 06:00 77 18 121/85 98 02/28/21 05:00 76 18 130/86 99 08/06/20 04:00 75 18 135/91 97 08/06/20 03:00 85 18 133/85 98 08/06/20 02:00 78 18 133/85 98 08/06/20 01:00 76 115/79 97 08/06/20 00:13 78 18 115/79 97 08/06/20 00:00 77 125/83 08/05/20 23:00 77 123/89 08/05/20 22:07 87 16 123/89 97 08/05/20 22:00 86 102/73 72 L 08/05/20 21:06 85 16 102/73 100 08/05/20 21:00 88 08/05/20 20:00 89 99 08/05/20 19:05 99 08/05/20 18:49 98.5 F 98 24 144/94 95 Intake and Output 08/05/20 08/06/20 08/06/20 22:59 06:59 14:59 Output Total 800 85 Balance -800 -85 Output: Urine 800 85 Other: Weight 61.235 kg Results - Lab Results Most recent lab results Calcium 7.9 mg/dL (8.4-10.2) L 08/06/20 07:17 Magnesium 1.6 mg/dL (1.6-2.3) 08/05/20 19:35 08/05/20 19:35 08/06/20 07:17 Assessment and Plan Plan: Assessment: 1. Hypovolemic hyponatremia with component of poor solute intake. Sodium level gradually improving with 3% saline. 2. Benign hypertension. Controlled. 3. Scleroderma. Follows at [facility]. 4. Hypomagnesemia from poor intake and diuretics. Because replace. 5. Hypokalemia from poor intake and diuretics. Being replaced. Plan: Maintain 3%. Monitor sodium level every 2 hours. Goal rate of correction 6-7 mEq per 24 hours. Maintain Patterson catheter. Strict I's and O's. Avoid thiazide diuretics in the future. Check serum and urine osmolality and urine random sodium level. Check TSH. Thank you for the consultation. I will continue to follow the patient with you during his hospital stay.
[2020-08-06 09:51] LABS: African American GFR (CKD) >90 (>60 ml/min/1.73 sqM); Anion Gap 6 mmol/L; Blood Urea Nitrogen 12 mg/dL (9-20); Calcium 8.3 mg/dL (8.4-10.2); Carbon Dioxide 34 mmol/L (22-30); Glucose 87 mg/dL (74-99); Non-African American GFR(CKD) >90 (>60 ml/min/1.73 sqM); Potassium 3.6 mmol/L (3.5-5.1)
[2020-08-06 09:53] LABS: Chloride 70 mmol/L (98-107); Sodium 110 mmol/L (137-145)
[2020-08-06] MEDS ORDERED: REMDESIVIR 200 MG in SODIUM CHLORIDE 0.9% 250 ML IVPB ONE (10:00)
[2020-08-06] MEDS: APIXABAN 5 MG TAB PO SCH ×2 (10:03→20:24)
[2020-08-06] MEDS: METOPROLOL SUCCINATE (ER) 25 MG TAB.ER.24H PO SCH (10:03)
[2020-08-06] MEDS: MULTIVITAMINS, THERA 1 EACH TAB PO SCH (10:03)
[2020-08-06] MEDS: SILDENAFIL 20 MG TAB PO SCH ×3 (10:03→20:24)
[2020-08-06] MEDS: PANTOPRAZOLE 40 MG TABLET PO SCH ×2 (10:04→16:36)
[2020-08-06] MEDS: ZINC SULFATE 220 MG CAP PO SCH (10:04)
[2020-08-06] MEDS: FLUTICASONE 50MCG/SPRAY NASAL 16GM EA NOSTRIL SCH (10:04)
[2020-08-06] MEDS: CHOLECALCIFEROL 25 MCG (1000 IU) TABLET PO SCH (10:04)
[2020-08-06] MEDS: dexAMETHasone 2 MG TAB PO SCH (10:04)
[2020-08-06] MEDS: ASCORBIC ACID 500 MG TAB PO SCH (10:04)
[2020-08-06] MEDS: MAGNESIUM SULFATE-D5W PMX 1 GM in DEXTROSE/WATER 1 100ML.BAG IVPB SCH ×2 (10:04→10:06)
[2020-08-06] MEDS: IPRATROPIUM BROMIDE 0.06% NASAL SPRAY (15 ML) EA NOSTRIL SCH ×2 (10:05→20:48)
[2020-08-06] MEDS: PRUCALOPRIDE SUCCINATE PO SCH (11:03)
[2020-08-06 11:39] LABS: African American GFR (CKD) >90 (>60 ml/min/1.73 sqM); Anion Gap 3 mmol/L; Blood Urea Nitrogen 12 mg/dL (9-20); Carbon Dioxide 36 mmol/L (22-30); Glucose 103 mg/dL (74-99); Non-African American GFR(CKD) >90 (>60 ml/min/1.73 sqM); Potassium 3.5 mmol/L (3.5-5.1)
[2020-08-06 11:41] LABS: Chloride 70 mmol/L (98-107); Sodium 109 mmol/L (137-145)
[2020-08-06] MEDS ORDERED: ALBUTEROL NEBULIZED 2.5 MG/3 ML INHALATION SCH (12:00)
--- NOTE | 2020-08-06 12:35 | P.CNPUL ---
History of Present Illness Consult date: 08/06/20 Requesting physician: Madhavi Melo Reason for consult: dyspnea, cough, hypoxemia, pneumonia, pulmonary fibrosis, pulmonary hypertension, abnormal CXR/CT Chief complaint: Shortness of breath, weakness, hyponatremia. History of present illness: 55-year-old male who was seen in the emergency department on 08/05/2020. The patient presents with increasing shortness of breath, and anxiety, as well as cough, and chest congestion. His symptoms began a couple days ago. Both his and his daughter apparently tested positive for coronavirus. He also tested positive for coronavirus. The patient does have baseline shortness of breath, secondary to his history of pulmonary fibrosis secondary to his progressive systemic sclerosis or scleroderma. 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 He is currently being managed at the [facility], by lung doctors and corporate banking officer, and apparently was recently referred to the [facility] for consideration of lung transplantation. The patient denies any phlegm production. His cough is mostly dry. He is on 3 L nasal cannula at home, . His appetite has been poor. He denies any chest pain or pressure. He denies any nausea, vomiting, diarrhea, and he also denies any abdominal pain or any genitourinary complaints. In addition to the above, the ER physician noted that his sodium was quite low, at 105, and I recommended that he start the patient on 3% saline. Nephrology has also been consulted. I asked him whether or not his shortness of breath was at baseline or worse, and he states that his shortness of breath is definitely worse. His medical history includes gastroesophageal reflux disease and esophageal dysmotility, essential hypertension, secondary pulmonary hypertension, supraventricular tachycardia, pulmonary fibrosis, scleroderma, Raynaud disease, among other things. Currently, the patient's on 3 L nasal cannula, and getting 3% saline at 20 mL an hour. He is getting a basic metabolic profile ordered every 2 hours. Review of Systems REVIEW OF SYSTEMS: CONSTITUTIONAL: Weakness. NEUROLOGIC: Anxiety. HEENT: Sore throat and nasal congestion. CARDIAC: [Negative.] PULMONARY: Worsening shortness of breath, mostly dry cough, chest congestion. GI: [Negative.] : [Negative.] RHEUMATOLOGIC: [ Negative.] IMMUNOLOGIC: [ Negative.] ENDOCRINE: [Negative. ] DERMATOLOGIC: Ulcerated fingertip. Past Medical History Past Medical History: GERD/Reflux, Hypertension, Supraventricular Tachycardia (SVT) Additional Past Medical History / Comment(s): Pulmonary fibrosis, scleroderma, SIBO, Raynauds, History of Any Multi-Drug Resistant Organisms: None Reported Past Surgical History: Appendectomy, Heart Catheterization Additional Past Surgical History / Comment(s): double lung transplant Past Anesthesia/Blood Transfusion Reactions: No Reported Reaction Past Psychological History: No Psychological Hx Reported Smoking Status: Former smoker Past Alcohol Use History: Daily Past Drug Use History: None Reported - Past Family History Father Family Medical History: Myocardial Infarction ([place]) Medications and Allergies Home Medications Medication Instructions Recorded Confirmed Type Olmesartan/Hydrochlorothiazide 1 tab PO DAILY 05/26/14 08/05/20 History [Benicar Hct 40-25 mg Tablet] Albuterol Inhaler [Ventolin Hfa 4 puff INHALATION RT-Q4H PRN 08/05/20 08/05/20 History Inhaler] Apixaban [Eliquis] 5 mg PO BID 08/05/20 08/05/20 History Fluticasone Nasal [place] [Flonase 2 spr EA NOSTRIL DAILY 08/05/20 08/05/20 History Nasal [place]] Hyoscyamine Sulfate [Levsin-Sl] 0.125 mg SL Q4-6H PRN 08/05/20 08/05/20 History Ipratropium [place] 0.06%Nasal 2 spray EA NOSTRIL BID 08/05/20 08/05/20 History [Atrovent Nasal 0.06%] Metoprolol Succinate [Toprol XL] 25 mg PO DAILY 08/05/20 08/05/20 History Multivitamins, Thera [Multivitamin 1 tab PO DAILY 08/05/20 08/05/20 History (formulary)] Omeprazole 40 mg PO BID 08/05/20 08/05/20 History Ondansetron HCl [Zofran] 4 mg PO Q8H PRN 08/05/20 08/05/20 History Prucalopride Succinate [Motegrity] 2 mg PO DAILY 08/05/20 08/05/20 History Rifaximin [Xifaxan] 550 mg PO BID PRN 08/05/20 08/05/20 History Sandostatin 50mcg/Ml 50 mcg SQ HS 08/05/20 08/05/20 History Sildenafil [Revatio] 20 mg PO TID 08/05/20 08/05/20 History Tyvaso 0.6mg/Ml 3 - 9 puff INHALATION RT-QID 08/05/20 08/05/20 History mycophenolate mofetiL [Cellcept] 1,500 mg PO BID 08/05/20 08/05/20 History Allergies Allergy/AdvReac Type Severity Reaction Status Date / Time hydrochlorothiazide Allergy Confusion Verified 08/06/20 09:03 Physical Exam Osteopathic Statement: *. No significant issues noted on an osteopathic structural exam other than those noted in the History and Physical/Consult. Vitals: Vital Signs Temp Pulse Resp BP Pulse Ox 08/06/20 11:00 77 31 H 122/92 98 08/06/20 10:00 76 27 H 127/94 94 L 08/06/20 09:00 78 30 H 117/88 98 08/06/20 08:00 97.9 F 75 28 H 129/93 100 08/06/20 07:00 75 18 124/93 99 08/06/20 06:00 77 18 121/85 98 08/06/20 05:00 76 18 130/86 99 08/06/20 04:00 75 18 135/91 97 08/06/20 03:00 85 18 133/85 98 08/06/20 02:00 78 18 133/85 98 08/06/20 01:00 76 115/79 97 08/06/20 00:13 78 18 115/79 97 08/06/20 00:00 77 125/83 08/05/20 23:00 77 123/89 08/05/20 22:07 87 16 123/89 97 08/05/20 22:00 86 102/73 72 L 08/05/20 21:06 85 16 102/73 100 08/05/20 21:00 88 08/05/20 20:00 89 99 08/05/20 19:05 99 08/05/20 18:49 98.5 F 98 24 144/94 95 Intake and Output 08/05/20 08/06/20 08/06/20 22:59 06:59 14:59 Intake Total 360 Output Total 800 305 Balance -800 55 Intake: IV 240 Magnesium Sulfate-D5w Pmx 200 1 gm In Dextrose/Water 1 100ml.bag @ 100 mls/hr IVPB Q1H [facility] Rx#: [id number] Sodium Chloride 3%( 40 Hypertonic) 500 ml @ 20 mls/hr IV .Q24H [facility] Rx#: [id number] Oral 120 Output: Urine 800 305 Other: # Bowel Movements 1 Weight 61.235 kg 61.235 kg No acute distress, oriented 3. Anxious, without audible wheezing, use of accessory muscles, or conversational dyspnea. HEENT examination is grossly unremarkable. Mucous membranes are moist. No oral lesions. Nasal O2 at 3 L noted. Neck supple. Full range of motion. No adenopathy thyromegaly or neck vein distention. Cardiovascular examination reveals regular rhythm rate. S1-S2 normal. No S3 or S4. No discernible murmur noted. Heart rate 77 bpm. Lungs reveal bibasilar Velcro crackles. No wheezes. There are also diffuse rh onchi particularly noted on exhalation. Breath sounds equal bilaterally. He is mildly restricted in his breathing. Abdomen soft bowel sounds are heard. No masses or tenderness. Extremities are intact. No cyanosis clubbing or edema. Skin reveals a fingertip ulcer. In addition, he has the classic findings of cutaneous scleroderma. Neurologic examination is brief but nonfocal. Results - Laboratory Findings CBC and BMP: 08/05/20 19:35 08/06/20 11:17 PT/INR, D-dimer PT 10.4 sec (9.0-12.0) 08/05/20 19:35 INR 1.0 (<1.2) 08/05/20 19:35 D-Dimer 0.22 mg/L FEU (<0.60) 08/05/20 19:35 Abnormal lab findings: Abnormal Labs 08/05/20 08/05/20 08/05/20 19:35 19:35 19:35 WBC 10.7 H Plt Count 139 L Neutrophils # (Manual) 9.90 H Lymphocytes # (Manual) 0.43 L Metamyelocytes # (Man) 0.21 H APTT 36.9 H Sodium 105 L* Chloride 64 L* Carbon Dioxide 33 H Creatinine 0.27 L Glucose 108 H Osmolality Calcium 8.3 L Ferritin 664.8 H AST 80 H C-Reactive Protein 28.7 H Procalcitonin Coronavirus (PCR) 08/05/20 08/05/20 08/05/20 19:35 20:02 21:33 WBC Plt Count Neutrophils # (Manual) Lymphocytes # (Manual) Metamyelocytes # (Man) APTT Sodium 103 L* Chloride Carbon Dioxide Creatinine Glucose Osmolality Calcium Ferritin AST C-Reactive Protein Procalcitonin 0.15 H Coronavirus (PCR) Detected A 08/05/20 08/06/20 08/06/20 23:30 01:22 03:23 WBC Plt Count Neutrophils # (Manual) Lymphocytes # (Manual) Metamyelocytes # (Man) APTT Sodium 106 L* 106 L* 105 L* Chloride 67 L* 68 L* Carbon Dioxide 33 H 35 H Creatinine 0.33 L 0.37 L Glucose Osmolality Calcium 8.1 L 7.9 L Ferritin AST C-Reactive Protein Procalcitonin Coronavirus (PCR) 08/06/20 08/06/20 08/06/20 05:23 07:17 09:24 WBC Plt Count Neutrophils # (Manual) Lymphocytes # (Manual) Metamyelocytes # (Man) APTT Sodium 107 L* 108 L* 110 L* Chloride 69 L* 71 L* 70 L* Carbon Dioxide 34 H 33 H 34 H Creatinine 0.29 L 0.34 L 0.37 L Glucose Osmolality Calcium 7.9 L 7.9 L 8.3 L Ferritin AST C-Reactive Protein Procalcitonin Coronavirus (PCR) 08/06/20 08/06/20 09:24 11:17 WBC Plt Count Neutrophils # (Manual) Lymphocytes # (Manual) Metamyelocytes # (Man) APTT Sodium 109 L* Chloride 70 L* Carbon Dioxide 36 H Creatinine 0.35 L Glucose 103 H Osmolality 229 L* Calcium 8.0 L Ferritin AST C-Reactive Protein Procalcitonin Coronavirus (PCR) - Diagnostic Findings Chest x-ray: image reviewed Assessment and Plan Assessment: Acute hypoxemic respiratory failure, multifactorial, in part related to underlying scleroderma lung/pulmonary fibrosis, as well as a new diagnosis of COVID 19 pneumonitis. Severe hyponatremia, early on 3% saline. History of SVT, status post ablation. 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 History of Raynaud's disease, with digital ulceration. History of essential hypertension. History of pulmonary hypertension. History of gastroesophageal reflux disease. History of hyperlipidemia. Chronic hypoxemic respiratory failure, with recent referral to [facility] for consideration of lung transplantation. Plan: Plan dated 08/06/2020. The patient is started on remdesivir, Decadron, vitamin C, vitamin D3, and zinc, albuterol inhaler, and convalescent plasma. Appropriate inflammatory markers have been ordered. The patient is currently on 3% saline for his severe hyponatremia. This is being monitored by nephrology. The patient is having a basic metabolic profile ordered every 2 hours. Paperwork from the [facility] is reviewed. At one point, the patient was on a research protocol to [facility], but is no longer enrolled in that study. He has recently been referred to the [facility] for consideration of a lung transplantation. His overall prognosis remains guarded. We will continue to follow closely. He will stay in the intensive care unit for the time being. Time with Patient: Greater than 30
[2020-08-06 13:54] LABS: African American GFR (CKD) >90 (>60 ml/min/1.73 sqM); Anion Gap 4 mmol/L; Blood Urea Nitrogen 11 mg/dL (9-20); Calcium 7.8 mg/dL (8.4-10.2); Carbon Dioxide 33 mmol/L (22-30); Glucose 98 mg/dL (74-99); Non-African American GFR(CKD) >90 (>60 ml/min/1.73 sqM); Potassium 3.9 mmol/L (3.5-5.1)
[2020-08-06] MEDS: POTASSIUM CHLORIDE ER 20 MEQ TAB.ER PO SCH ×2 (13:56→15:38)
[2020-08-06] MEDS: ALPRAZolam 0.25 MG TAB PO PRN ×2 (13:56→20:23)
[2020-08-06 14:04] LABS: Chloride 71 mmol/L (98-107); Sodium 108 mmol/L (137-145)
--- NOTE | 2020-08-06 14:38 | P.HPIM ---
History of Present Illness Patient came in with comments of shortness of breath found to have Covid19 infection patient was having cough condition for couple days multiple family members are positive for coronavirus. Patient does have history of scleroderma, systemic sclerosis regards disease and does have some ulcerations in the fingertips because of the nuts and complaining of pain in that area as well. Patient has a lung disease was concerned for lung transplantation the past. Patient usually wears 3-4 oxygen at home. Patient has not been eating well and has been drinking Pedialyte quite a bit and found to have serum sodium of 103 year and patient was started on 3% saline which was later switched to normal saline patient presents sodium is around 109. Patient was also on diuretics that growth is at home Review of Systems REVIEW OF SYSTEMS: CONSTITUTIONAL: As mentioned in HPI HEENT: No recent visual problems or hearing problems. Denied any sore throat. CARDIOVASCULAR: No chest pain, orthopnea, PND, no palpitations, no syncope. PULMONARY: no cough, no hemoptysis. GASTROINTESTINAL: No diarrhea, no nausea, no vomiting, no abdominal pain. NEUROLOGICAL: No headaches, no weakness, no numbness. HEMATOLOGICAL: Denies any bleeding or petechiae. GENITOURINARY: Denies any burning micturition, frequency, or urgency. MUSCULOSKELETAL/RHEUMATOLOGICAL: Denies any joint pain, swelling, or any muscle pain. ENDOCRINE: Denies any polyuria or polydipsia. The rest of the 14-point review of systems is negative. Past Medical History Past Medical History: GERD/Reflux, Hypertension, Supraventricular Tachycardia (SVT) Additional Past Medical History / Comment(s): Pulmonary fibrosis, scleroderma, SIBO, Raynauds, History of Any Multi-Drug Resistant Organisms: None Reported Past Surgical History: Appendectomy, Heart Catheterization Additional Past Surgical History / Comment(s): double lung transplant Past Anesthesia/Blood Transfusion Reactions: No Reported Reaction Past Psychological History: No Psychological Hx Reported Smoking Status: Former smoker Past Alcohol Use History: Daily Past Drug Use History: None Reported - Past Family History Father Family Medical History: Myocardial Infarction ([place]) Medications and Allergies Home Medications Medication Instructions Recorded Confirmed Type Olmesartan/Hydrochlorothiazide 1 tab PO DAILY 05/26/14 08/05/20 History [Benicar Hct 40-25 mg Tablet] Albuterol Inhaler [Ventolin Hfa 4 puff INHALATION RT-Q4H PRN 02/27/21 02/27/21 History Inhaler] Apixaban [Eliquis] 5 mg PO BID 08/05/20 08/05/20 History Fluticasone Nasal [place] [Flonase 2 spr EA NOSTRIL DAILY 08/05/20 08/05/20 History Nasal [place]] Hyoscyamine Sulfate [Levsin-Sl] 0.125 mg SL Q4-6H PRN 08/05/20 08/05/20 History Ipratropium [place] 0.06%Nasal 2 spray EA NOSTRIL BID 08/05/20 08/05/20 History [Atrovent Nasal 0.06%] Metoprolol Succinate [Toprol XL] 25 mg PO DAILY 08/05/20 08/05/20 History Multivitamins, Thera [Multivitamin 1 tab PO DAILY 08/05/20 08/05/20 History (formulary)] Omeprazole 40 mg PO BID 08/05/20 08/05/20 History Ondansetron HCl [Zofran] 4 mg PO Q8H PRN 08/05/20 08/05/20 History Prucalopride Succinate [Motegrity] 2 mg PO DAILY 08/05/20 08/05/20 History Rifaximin [Xifaxan] 550 mg PO BID PRN 08/05/20 08/05/20 History Sandostatin 50mcg/Ml 50 mcg SQ HS 08/05/20 08/05/20 History Sildenafil [Revatio] 20 mg PO TID 08/05/20 08/05/20 History Tyvaso 0.6mg/Ml 3 - 9 puff INHALATION RT-QID 08/05/20 08/05/20 History mycophenolate mofetiL [Cellcept] 1,500 mg PO BID 08/05/20 08/05/20 History Allergies Allergy/AdvReac Type Severity Reaction Status Date / Time hydrochlorothiazide Allergy Confusion Verified 08/06/20 09:03 Physical Exam Vitals: Vital Signs Temp Pulse Resp BP Pulse Ox 08/06/20 14:10 76 18 111/76 92 L 08/06/20 14:00 75 21 91 L 08/06/20 13:50 74 10 L 98 08/06/20 13:40 70 11 L 100 08/06/20 13:30 74 9 L 96 08/06/20 13:20 74 19 99 08/06/20 13:00 78 16 118/85 91 L 08/06/20 12:00 85 23 145/65 99 08/06/20 11:00 77 31 H 122/92 98 08/06/20 10:00 76 27 H 127/94 94 L 08/06/20 09:00 78 30 H 117/88 98 08/06/20 08:00 97.9 F 75 28 H 129/93 100 08/06/20 07:00 75 18 124/93 99 08/06/20 06:00 77 18 121/85 98 08/06/20 05:00 76 18 130/86 99 08/06/20 04:00 75 18 135/91 97 08/06/20 03:00 85 18 133/85 98 08/06/20 02:00 78 18 133/85 98 08/06/20 01:00 76 115/79 97 08/06/20 00:13 78 18 115/79 97 08/06/20 00:00 77 125/83 08/05/20 23:00 77 123/89 08/05/20 22:07 87 16 123/89 97 08/05/20 22:00 86 102/73 72 L 08/05/20 21:06 85 16 102/73 100 08/05/20 21:00 88 08/05/20 20:00 89 99 08/05/20 19:05 99 08/05/20 18:49 98.5 F 98 24 144/94 95 Intake and Output 08/05/20 08/06/20 08/06/20 22:59 06:59 14:59 Intake Total 730 Output Total 800 465 Balance -800 265 Intake: IV 490 Magnesium Sulfate-D5w Pmx 200 1 gm In Dextrose/Water 1 100ml.bag @ 100 mls/hr IVPB Q1H [facility] Rx#: [id number] Remdesivir 200 mg In 250 Sodium Chloride 0.9% 250 ml @ 250 mls/hr IVPB ONCE ONE Rx#:[id number] Sodium Chloride 3%( 40 Hypertonic) 500 ml @ 20 mls/hr IV .Q24H [facility] Rx#: [id number] Oral 240 Blood Product 0 Ffp Convalescent Plasma 0 Cpd Unit [id number] Output: Urine 800 465 Other: # Bowel Movements 1 Weight 61.235 kg 61.235 kg PHYSICAL EXAMINATION: GENERAL: The patient is alert and oriented x3, not in any acute distress. Well developed, well nourished. HEENT: Pupils are round and equally reacting to light. EOMI. No scleral icterus. No conjunctival pallor. Normocephalic, atraumatic. No pharyngeal erythema. No thyromegaly. CARDIOVASCULAR: S1 and S2 present. No murmurs, rubs, or gallops. PULMONARY: Chest is clear to auscultation, no wheezing or crackles. ABDOMEN: Soft, nontender, nondistended, normoactive bowel sounds. No palpable organomegaly. MUSCULOSKELETAL: No joint swelling or deformity. EXTREMITIES: No cyanosis, clubbing, or pedal edema. NEUROLOGICAL: Gross neurological examination did not reveal any focal deficits. SKIN: Shiny skin which is typical of her scleroderma. Some ulcerations in the tips of the fingers and patient is complaining of pain in those areas Results CBC & Chem 7: 08/05/20 19:35 08/06/20 13:19 Labs: Abnormal Lab Results - Last 24 Hours (Table) 08/05/20 08/05/20 08/05/20 Range/Units 19:35 19:35 19:35 WBC 10.7 H (3.8-10.6) k/uL Plt Count 139 L (150-450) k/uL Neutrophils # (Manual) 9.90 H (1.3-7.7) k/uL Lymphocytes # (Manual) 0.43 L (1.0-4.8) k/uL Metamyelocytes # (Man) 0.21 H (0) k/uL APTT 36.9 H (22.0-30.0) sec Sodium 105 L* (137-145) mmol/L Chloride 64 L* (98-107) mmol/L Carbon Dioxide 33 H (22-30) mmol/L Creatinine 0.27 L (0.66-1.25) mg/dL Glucose 108 H (74-99) mg/dL Osmolality (280-301) mosm/kg Calcium 8.3 L (8.4-10.2) mg/dL Ferritin 664.8 H (22.0-322.0) ng/mL AST 80 H (17-59) U/L C-Reactive Protein 28.7 H (<10.0) mg/L Procalcitonin (0.02-0.09) ng/mL Coronavirus (PCR) (Not Detectd) 08/05/20 08/05/20 08/05/20 Range/Units 19:35 20:02 21:33 WBC (3.8-10.6) k/uL Plt Count (150-450) k/uL Neutrophils # (Manual) (1.3-7.7) k/uL Lymphocytes # (Manual) (1.0-4.8) k/uL Metamyelocytes # (Man) (0) k/uL APTT (22.0-30.0) sec Sodium 103 L* (137-145) mmol/L Chloride (98-107) mmol/L Carbon Dioxide (22-30) mmol/L Creatinine (0.66-1.25) mg/dL Glucose (74-99) mg/dL Osmolality (280-301) mosm/kg Calcium (8.4-10.2) mg/dL Ferritin (22.0-322.0) ng/mL AST (17-59) U/L C-Reactive Protein (<10.0) mg/L Procalcitonin 0.15 H (0.02-0.09) ng/mL Coronavirus (PCR) Detected A (Not Detectd) 08/05/20 08/06/20 08/06/20 Range/Units 23:30 01:22 03:23 WBC (3.8-10.6) k/uL Plt Count (150-450) k/uL Neutrophils # (Manual) (1.3-7.7) k/uL Lymphocytes # (Manual) (1.0-4.8) k/uL Metamyelocytes # (Man) (0) k/uL APTT (22.0-30.0) sec Sodium 106 L* 106 L* 105 L* (137-145) mmol/L Chloride 67 L* 68 L* (98-107) mmol/L Carbon Dioxide 33 H 35 H (22-30) mmol/L Creatinine 0.33 L 0.37 L (0.66-1.25) mg/dL Glucose (74-99) mg/dL Osmolality (280-301) mosm/kg Calcium 8.1 L 7.9 L (8.4-10.2) mg/dL Ferritin (22.0-322.0) ng/mL AST (17-59) U/L C-Reactive Protein (<10.0) mg/L Procalcitonin (0.02-0.09) ng/mL Coronavirus (PCR) (Not Detectd) 08/06/20 08/06/20 08/06/20 Range/Units 05:23 07:17 09:24 WBC (3.8-10.6) k/uL Plt Count (150-450) k/uL Neutrophils # (Manual) (1.3-7.7) k/uL Lymphocytes # (Manual) (1.0-4.8) k/uL Metamyelocytes # (Man) (0) k/uL APTT (22.0-30.0) sec Sodium 107 L* 108 L* 110 L* (137-145) mmol/L Chloride 69 L* 71 L* 70 L* (98-107) mmol/L Carbon Dioxide 34 H 33 H 34 H (22-30) mmol/L Creatinine 0.29 L 0.34 L 0.37 L (0.66-1.25) mg/dL Glucose (74-99) mg/dL Osmolality (280-301) mosm/kg Calcium 7.9 L 7.9 L 8.3 L (8.4-10.2) mg/dL Ferritin (22.0-322.0) ng/mL AST (17-59) U/L C-Reactive Protein (<10.0) mg/L Procalcitonin (0.02-0.09) ng/mL Coronavirus (PCR) (Not Detectd) 08/06/20 08/06/20 08/06/20 Range/Units 09:24 11:17 13:19 WBC (3.8-10.6) k/uL Plt Count (150-450) k/uL Neutrophils # (Manual) (1.3-7.7) k/uL Lymphocytes # (Manual) (1.0-4.8) k/uL Metamyelocytes # (Man) (0) k/uL APTT (22.0-30.0) sec Sodium 109 L* 108 L* (137-145) mmol/L Chloride 70 L* 71 L* (98-107) mmol/L Carbon Dioxide 36 H 33 H (22-30) mmol/L Creatinine 0.35 L 0.29 L (0.66-1.25) mg/dL Glucose 103 H (74-99) mg/dL Osmolality 229 L* (280-301) mosm/kg Calcium 8.0 L 7.8 L (8.4-10.2) mg/dL Ferritin (22.0-322.0) ng/mL AST (17-59) U/L C-Reactive Protein (<10.0) mg/L Procalcitonin (0.02-0.09) ng/mL Coronavirus (PCR) (Not Detectd) Thrombosis Risk Factor Assmnt - Choose All That Apply Each Factor Represents 1 point: Age 41-60 years, Hx of IBD, Serious lung disease incl. pneumonia (< 1month) Other Risk Factors: No Other congenital or acquired thrombophilia - If yes, enter type in comment: No Thrombosis Risk Factor Assessment Total Risk Factor Score: 3 Thrombosis Risk Factor Assessment Level: Moderate Risk Assessment and Plan Plan: 1 severe hyponatremia: Secondary to hypovolemia hypovolemic hyponatremia along with hydrochlorothiazide. Patient is presently on normal saline was on 3% saline. 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 Patient is also on Octeotride which will be continued -DVT Prophylaxis: Patient is already on anticoagulation which will be continued
[2020-08-06 16:11] LABS: African American GFR (CKD) >90 (>60 ml/min/1.73 sqM); Anion Gap 3 mmol/L; Blood Urea Nitrogen 10 mg/dL (9-20); Calcium 7.9 mg/dL (8.4-10.2); Carbon Dioxide 36 mmol/L (22-30); Glucose 113 mg/dL (74-99); Non-African American GFR(CKD) >90 (>60 ml/min/1.73 sqM); Potassium 4.1 mmol/L (3.5-5.1)
[2020-08-06 16:12] LABS: Sodium 110 mmol/L (137-145)
[2020-08-06 16:13] LABS: Chloride 71 mmol/L (98-107)
[2020-08-06 17:53] LABS: African American GFR (CKD) >90 (>60 ml/min/1.73 sqM); Anion Gap 4 mmol/L; Blood Urea Nitrogen 9 mg/dL (9-20); Calcium 7.9 mg/dL (8.4-10.2); Carbon Dioxide 34 mmol/L (22-30); Glucose 123 mg/dL (74-99); Non-African American GFR(CKD) >90 (>60 ml/min/1.73 sqM); Potassium 4.1 mmol/L (3.5-5.1)
[2020-08-06 17:54] LABS: Chloride 71 mmol/L (98-107); Sodium 109 mmol/L (137-145)
[2020-08-06 20:09] LABS: African American GFR (CKD) >90 (>60 ml/min/1.73 sqM); Anion Gap 4 mmol/L; Blood Urea Nitrogen 10 mg/dL (9-20); Calcium 7.8 mg/dL (8.4-10.2); Carbon Dioxide 34 mmol/L (22-30); Glucose 118 mg/dL (74-99); Non-African American GFR(CKD) >90 (>60 ml/min/1.73 sqM); Potassium 4.3 mmol/L (3.5-5.1)
[2020-08-06 20:19] LABS: Chloride 73 mmol/L (98-107); Sodium 111 mmol/L (137-145)
[2020-08-06] MEDS: OCTREOTIDE 100 MCG/ML INJ SQ SCH (21:01)
[2020-08-07] MEDS ORDERED: SODIUM CHLORIDE 3%(HYPERTONIC) 500 ML IV SCH (00:30)
[2020-08-07 04:27] LABS: Basophils % (A) 0 %; Eosinophils % (A) 0 %; HCT 34.8 % (39.0-53.0); HGB 12.1 gm/dL (13.0-17.5); Lymphocytes # (A) 0.2 k/uL (1.0-4.8); Lymphocytes % (A) 4 %; MCH 32.5 pg (25.0-35.0); MCHC 34.7 g/dL (31.0-37.0); MCV 93.6 fL (80.0-100.0); Mean Platelet Volume 7.8; Monocytes # (A) 0.5 k/uL (0-1.0); Monocytes % (A) 8 %; Neutrophils # (A) 5.7 k/uL (1.3-7.7); Neutrophils % (A) 87 %; Platelet Count 147 k/uL (150-450); RBC 3.72 m/uL (4.30-5.90); WBC 6.5 k/uL (3.8-10.6)
[2020-08-07 04:37] LABS: ALT 28 U/L (4-49); AST 52 U/L (17-59); African American GFR (CKD) >90 (>60 ml/min/1.73 sqM); Albumin 3.1 g/dL (3.5-5.0); Alkaline Phosphatase 44 U/L (38-126); Anion Gap 2 mmol/L; Blood Urea Nitrogen 10 mg/dL (9-20); C Reactive Protein 45.1 mg/L (<10.0); Carbon Dioxide 34 mmol/L (22-30); Chloride 76 mmol/L (98-107); Creatine Kinase 82 U/L (55-170); Glucose 111 mg/dL (74-99); LDH 407 U/L (313-618); Magnesium 2.1 mg/dL (1.6-2.3); Non-African American GFR(CKD) >90 (>60 ml/min/1.73 sqM); Potassium 4.5 mmol/L (3.5-5.1); Total Bilirubin 0.4 mg/dL (0.2-1.3); Total Protein 5.5 g/dL (6.3-8.2)
[2020-08-07 04:39] LABS: Sodium 112 mmol/L (137-145)
[2020-08-07] MEDS: PANTOPRAZOLE 40 MG TABLET PO SCH ×2 (05:33→17:22)
[2020-08-07] MEDS: BENZOCAINE/MENTHOL LOZENG 1 EACH LOZENGE MUCOUS MEM PRN (05:33)
[2020-08-07 05:46] LABS: T4, Free (Free Thyroxine) 0.93 ng/dL (0.78-2.19)
--- NOTE | 2020-08-07 08:13 | XR ---
EXAMINATION TYPE: XR chest 1V portable DATE OF EXAM: 08/07/2020 COMPARISON: Chest x-ray 08/05/2020 HISTORY: Covid, abnormal chest x-ray TECHNIQUE: Single frontal view of the chest is obtained. FINDINGS: Findings are similar to prior exam. There is no evident pneumothorax. Cardiomediastinal si lhouette is unchanged. No sizable effusion evident. Patchy basilar density is present, interstitium i s increased. Aorta is dense. IMPRESSION: Findings similar to prior exam, interstitial lung disease, difficult to exclude intersti tial edema, pneumonia, there is cardiomegaly.
[2020-08-07] MEDS: ZINC SULFATE 220 MG CAP PO SCH (08:24)
[2020-08-07] MEDS: ASCORBIC ACID 500 MG TAB PO SCH (08:24)
[2020-08-07] MEDS: CHOLECALCIFEROL 25 MCG (1000 IU) TABLET PO SCH (08:24)
[2020-08-07] MEDS: SILDENAFIL 20 MG TAB PO SCH ×3 (08:24→20:27)
[2020-08-07] MEDS: APIXABAN 5 MG TAB PO SCH ×2 (08:24→20:27)
[2020-08-07] MEDS: MULTIVITAMINS, THERA 1 EACH TAB PO SCH (08:24)
[2020-08-07] MEDS: METOPROLOL SUCCINATE (ER) 25 MG TAB.ER.24H PO SCH (08:24)
[2020-08-07] MEDS: dexAMETHasone 2 MG TAB PO SCH (08:25)
[2020-08-07] MEDS: PRUCALOPRIDE SUCCINATE PO SCH (08:25)
[2020-08-07] MEDS: FLUTICASONE 50MCG/SPRAY NASAL 16GM EA NOSTRIL SCH (08:26)
[2020-08-07] MEDS: IPRATROPIUM BROMIDE 0.06% NASAL SPRAY (15 ML) EA NOSTRIL SCH ×2 (08:26→20:27)
[2020-08-07 09:36] LABS: Ferritin 489.4 ng/mL (22.0-322.0)
[2020-08-07] MEDS: REMDESIVIR 100 MG in SODIUM CHLORIDE 0.9% 250 ML IVPB SCH (09:39)
--- NOTE | 2020-08-07 09:47 | P.PN ---
Subjective Progress Note Date: 08/07/20 55-year-old male who was seen in the emergency department on 08/05/2020. The patient presents with increasing shortness of breath, and anxiety, as well as cough, and chest congestion. His symptoms began a couple days ago. Both his and his daughter apparently tested positive for coronavirus. He also tested positive for coronavirus. The patient does have baseline shortness of breath, secondary to his history of pulmonary fibrosis secondary to his progressive systemic sclerosis or scleroderma. 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 for consideration of lung transplantation. The patient denies any phlegm production. His cough is mostly dry. He is on 3 L nasal cannula at home, . His appetite has been poor. He denies any chest pain or pressu re. He denies any nausea, vomiting, diarrhea, and he also denies any abdominal pain or any genitourinary complaints. In addition to the above, the ER physician noted that his sodium was quite low, at 105, and I recommended that he start the patient on 3% saline. Nephrology has also been consulted. I asked him whether or not his shortness of breath was at baseline or worse, and he states that his shortness of breath is definitely worse. His medical history includes gastroesophageal reflux disease and esophageal dysmotility, essential hypertension, secondary pulmonary hypertension, supraventricular tachycardia, pulmonary fibrosis, scleroderma, Raynaud disease, among other things. Current ly, the patient's on 3 L nasal cannula, and getting 3% saline at 20 mL an hour. He is getting a basic metabolic profile ordered every 2 hours. On today's evaluation of 08/07/2020, seeing the patient for a follow-up. The patient is still on 3 L of oxygen by nasal cannula. The chest is a showing diffuse bilateral pulmonary fibrosis related to scleroderma. The patient has scleroderma with crest syndrome. The patient also has pulmonary hypertension. The patient was declined from transplantation is very sensitive and currently is being evaluated at the [facility]. He is als COVID 19 Positive. He presented to us with severe hyponatremia. On today's evaluation, the patient is still on 3% hypertonic saline and sodium gradually is improving and is up 114. We'll continue the hypertonic saline for now. No Altered mentation. No headaches. No focal neurological deficits. He has a chronic dry cough. He was having some limited congestion . There was no significant worsening in his oxygenation on overall respiratory status. He remains on 3 L and the pulses are 99%. He is currently on CellCept and the patient was also started on Decadron 6 mg by mouth daily. He is on Remdesivir day 2 and the patient has a CVA units of bolus and plasma. No other new complaints for now. Is able to swallow although he has history of chronic esophageal dysmotility. IV fluids is in the form of 3%. He is on sildenafil regarding his pulmonary hypertension. Tyvaso was tried in the past and had to be discontinued because of side effects Objective - Vital Signs Vital signs: Vital Signs Temp 97.9 F 08/07/20 08:00 Pulse 63 08/07/20 09:00 Resp 29 H 08/07/20 09:00 BP 106/74 08/07/20 09:00 Pulse Ox 94 L 08/07/20 09:00 Intake & Output 08/06/20 08/07/20 08/07/20 18:59 06:59 18:59 Intake Total 1208 240 280 Output Total 645 515 110 Balance 563 -275 170 Weight 61.235 kg 67.5 kg Intake: IV 550 240 40 Magnesium Sulfate-D5w Pmx 200 1 gm In Dextrose/Water 1 100ml.bag @ 100 mls/hr IVPB Q1H REPLACED BY [facility] Rx#: [id number] Remdesivir 200 mg In 250 Sodium Chloride 0.9% 250 ml @ 250 mls/hr IVPB ONCE ONE Rx#:[id number] Sodium Chloride 3%( 100 240 40 Hypertonic) 500 ml @ 20 mls/hr IV .Q24H REPLACED BY [facility] Rx#: [id number] Oral 360 240 Blood Product 298 Ffp Convalescent Plasma 298 Cpd Unit [id number] Output: Urine 645 515 110 Other: Voiding Method Indwelling Catheter Indwelling Catheter # Bowel Movements 1 - Exam No acute distress, oriented 3. Anxious, without audible wheezing, use of accessory muscles, or conversational dyspnea. HEENT examination is grossly unremarkable. Mucous membranes are moist. No oral lesions. Nasal O2 at 3 L noted. Neck supple. Full range of motion. No adenopathy thyromegaly or neck vein distention. Cardiovascular examination reveals regular rhythm rate. S1-S2 normal. No S3 or S4. No discernible murmur noted. Lungs reveal bibasilar Velcro crackles. No wheezes. There are also diffuse rhonchi particularly noted on exhalation. Breath sounds equal bilaterally. He is mildly restricted in his breathing. Abdominal exam revealed normal bowel sounds. The abdomen was soft, non-tender, and without masses, organomegaly, or appreciable enlargement of the abdominal aorta. Extremities are intact. No cyanosis clubbing or edema. The patient has scleroderma hands with extensive skin fibrosis. Skin reveals a fingertip ulcer. In addition, he has the classic findings of cutaneous scleroderma. The patient has ulcers in his fingertips in addition to calcinosis. Neurologic examination is brief but nonfocal.Neurologically, the patient is awake and alert and the patient does not have any focal neurological deficit. Cranial nerves are essentially intact. - Labs CBC & Chem 7: 08/07/20 04:07 08/07/20 07:16 Labs: Abnormal Lab Results - Last 24 Hours (Table) 08/06/20 08/06/20 08/06/20 Range/Units 09:24 09:24 11:17 RBC (4.30-5.90) m/uL Hgb (13.0-17.5) gm/dL Hct (39.0-53.0) % Plt Count (150-450) k/uL Lymphocytes # (1.0-4.8) k/uL Sodium 110 L* 109 L* (137-145) mmol/L Chloride 70 L* 70 L* (98-107) mmol/L Carbon Dioxide 34 H 36 H (22-30) mmol/L Creatinine 0.37 L 0.35 L (0.66-1.25) mg/dL Glucose 103 H (74-99) mg/dL Osmolality 229 L* (280-301) mosm/kg Calcium 8.3 L 8.0 L (8.4-10.2) mg/dL C-Reactive Protein (<10.0) mg/L Total Protein (6.3-8.2) g/dL Albumin (3.5-5.0) g/dL TSH (0.465-4.680) mIU/L 08/06/20 08/06/20 08/06/20 Range/Units 13:19 15:29 17:24 RBC (4.30-5.90) m/uL Hgb (13.0-17.5) gm/dL Hct (39.0-53.0) % Plt Count (150-450) k/uL Lymphocytes # (1.0-4.8) k/uL Sodium 108 L* 110 L* 109 L* (137-145) mmol/L Chloride 71 L* 71 L* 71 L* (98-107) mmol/L Carbon Dioxide 33 H 36 H 34 H (22-30) mmol/L Creatinine 0.29 L 0.34 L 0.36 L (0.66-1.25) mg/dL Glucose 113 H 123 H (74-99) mg/dL Osmolality (280-301) mosm/kg Calcium 7.8 L 7.9 L 7.9 L (8.4-10.2) mg/dL C-Reactive Protein (<10.0) mg/L Total Protein (6.3-8.2) g/dL Albumin (3.5-5.0) g/dL TSH (0.465-4.680) mIU/L 08/06/20 08/06/20 08/06/20 Range/Units 19:25 21:20 23:45 RBC (4.30-5.90) m/uL Hgb (13.0-17.5) gm/dL Hct (39.0-53.0) % Plt Count (150-450) k/uL Lymphocytes # (1.0-4.8) k/uL Sodium 111 L* 110 L* 109 L* (137-145) mmol/L Chloride 73 L* (98-107) mmol/L Carbon Dioxide 34 H (22-30) mmol/L Creatinine 0.37 L (0.66-1.25) mg/dL Glucose 118 H (74-99) mg/dL Osmolality (280-301) mosm/kg Calcium 7.8 L (8.4-10.2) mg/dL C-Reactive Protein (<10.0) mg/L Total Protein (6.3-8.2) g/dL Albumin (3.5-5.0) g/dL TSH (0.465-4.680) mIU/L 08/07/20 08/07/20 08/07/20 Range/Units 01:52 04:07 04:10 RBC 3.72 L (4.30-5.90) m/uL Hgb 12.1 L (13.0-17.5) gm/dL Hct 34.8 L (39.0-53.0) % Plt Count 147 L (150-450) k/uL Lymphocytes # 0.2 L (1.0-4.8) k/uL Sodium 111 L* 112 L* (137-145) mmol/L Chloride 76 L (98-107) mmol/L Carbon Dioxide 34 H (22-30) mmol/L Creatinine 0.40 L (0.66-1.25) mg/dL Glucose 111 H (74-99) mg/dL Osmolality (280-301) mosm/kg Calcium 8.0 L (8.4-10.2) mg/dL C-Reactive Protein 45.1 H (<10.0) mg/L Total Protein 5.5 L (6.3-8.2) g/dL Albumin 3.1 L (3.5-5.0) g/dL TSH 0.442 L (0.465-4.680) mIU/L 08/07/20 Range/Units 07:16 RBC (4.30-5.90) m/uL Hgb (13.0-17.5) gm/dL Hct (39.0-53.0) % Plt Count (150-450) k/uL Lymphocytes # (1.0-4.8) k/uL Sodium 114 L* (137-145) mmol/L Chloride (98-107) mmol/L Carbon Dioxide (22-30) mmol/L Creatinine (0.66-1.25) mg/dL Glucose (74-99) mg/dL Osmolality (280-301) mosm/kg Calcium (8.4-10.2) mg/dL C-Reactive Protein (<10.0) mg/L Total Protein (6.3-8.2) g/dL Albumin (3.5-5.0) g/dL TSH (0.465-4.680) mIU/L Microbiology - Last 24 Hours (Table) 08/05/20 23:30 Blood Culture - Preliminary Blood No Growth after 24 hours 08/05/20 19:35 Blood Culture - Preliminary Blood No Growth after 24 hours Assessment and Plan Plan: 1 Acute on chronic hypoxemic respiratory failure, multifactorial, in part related to underlying scleroderma lung/pulmonary fibrosis, as well as a new diagnosis of COVID 19 pneumonitis. Nevertheless, the patient has chronic hypoxic respiratory failure. Patient is on oxygen at 3 L per minute nasal cannula regarding chronic pulmonary fibrosis. No previous chest x-rays are available for comparison. The chest x-ray from today was reviewed and showed smaller lung volumes and chronic fibrotic changes in lung bases bilaterally right more than left. Superinfection cannot be completely ruled out because of the chronic bilateral pulmonary infiltration. The patient is oxidation is stable right now and he is on 3 L per minute nasal cannula. Findings on today's chest x-ray is similar compared to yesterday's chest x-ray. 2 Severe hyponatremia, early on 3% saline. The sodium level is up 214 and we decided to continue the hypertonic saline and will increase by increments of milliequivalents every 24 hours. 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 5 History of Raynaud's disease, with digital ulceration. 6 History of essential hypertension. 7 History of pulmonary hypertension. The patient is currently on sildenafil 8 History of gastroesophageal reflux disease, along with history of esophageal dysmotility 9 History of hyperlipidemia. 10 Chronic hypoxemic respiratory failure, with recent referral to [facility] for consideration of lung transplantation. Plan: Continue remdesivir day #2 , Decadron, vitamin C, vitamin D3, and zinc, albuterol inhaler, and 1 U convalescent plasma. CellCept was being given for systemic sclerosis and this will be continued. Appropriate inflammatory markers have been ordered. The CRP is at 45.1 and LDH level is at 407 d-dimer of 0.34. Continue Eliquis 5 mg by mouth twice a day currently on 3% saline for his severe hyponatremia, Na level is 114 we'll continue the hypertonic saline achieve another 5 mEq of increased sodium level over the next 24 hours Paperwork from the [facility] is reviewed. At one point, the patient was on a research protocol to [facility], but is no longer enrolled in that study. He has recently been referred to the [facility] for consideration of a lung transplantation. His overall prognosis remains guarded. We will continue to follow closely. He will stay in the intensive care unit for the time being.
--- NOTE | 2020-08-07 10:35 | P.PN ---
Subjective Patient is seen in follow-up for hyponatremia. Sodium level gradually improving with 3%. Sodium level CXIV this morning. Patient is awake and alert. No chest pain or shortness of breath. Oral intake is just fair. No vomiting or diarrhea. Blood pressure stable. Vital signs are stable. General: The patient appeared well nourished and normally developed. HEENT: Head exam is unremarkable. Neck is without jugular venous distension. LUNGS: Breath sounds decreased. HEART: Rate and Rhythm are regular. ABDOMEN: Soft, nontender. EXTREMITITES: No edema. Objective - Vital Signs Vital signs: Vital Signs Temp 97.9 F 08/07/20 08:00 Pulse 70 08/07/20 10:00 Resp 9 L 08/07/20 10:00 BP 109/77 08/07/20 10:00 Pulse Ox 98 08/07/20 10:00 Intake & Output 08/06/20 08/07/20 08/07/20 18:59 06:59 18:59 Intake Total 1208 240 550 Output Total 645 515 140 Balance 563 -275 410 Weight 61.235 kg 67.5 kg Intake: IV 550 240 310 Magnesium Sulfate-D5w Pmx 200 1 gm In Dextrose/Water 1 100ml.bag @ 100 mls/hr IVPB Q1H [facility] Rx#: [id number] Remdesivir 200 mg In 250 250 Sodium Chloride 0.9% 250 ml @ 250 mls/hr IVPB ONCE ONE Rx#:[id number] Sodium Chloride 3%( 100 240 60 Hypertonic) 500 ml @ 20 mls/hr IV .Q24H [facility] Rx#: [id number] Oral 360 240 Blood Product 298 Ffp Convalescent Plasma 298 Cpd Unit [id number] Output: Urine 645 515 140 Other: Voiding Method Indwelling Catheter Indwelling Catheter # Bowel Movements 1 - Labs CBC & Chem 7: 08/07/20 04:07 08/07/20 07:16 Labs: Abnormal Lab Results - Last 24 Hours (Table) 08/06/20 08/06/20 08/06/20 Range/Units 09:24 11:17 13:19 RBC (4.30-5.90) m/uL Hgb (13.0-17.5) gm/dL Hct (39.0-53.0) % Plt Count (150-450) k/uL Lymphocytes # (1.0-4.8) k/uL Sodium 109 L* 108 L* (137-145) mmol/L Chloride 70 L* 71 L* (98-107) mmol/L Carbon Dioxide 36 H 33 H (22-30) mmol/L Creatinine 0.35 L 0.29 L (0.66-1.25) mg/dL Glucose 103 H (74-99) mg/dL Osmolality 229 L* (280-301) mosm/kg Calcium 8.0 L 7.8 L (8.4-10.2) mg/dL Ferritin (22.0-322.0) ng/mL C-Reactive Protein (<10.0) mg/L Total Protein (6.3-8.2) g/dL Albumin (3.5-5.0) g/dL TSH (0.465-4.680) mIU/L 08/06/20 08/06/20 08/06/20 Range/Units 15:29 17:24 19:25 RBC (4.30-5.90) m/uL Hgb (13.0-17.5) gm/dL Hct (39.0-53.0) % Plt Count (150-450) k/uL Lymphocytes # (1.0-4.8) k/uL Sodium 110 L* 109 L* 111 L* (137-145) mmol/L Chloride 71 L* 71 L* 73 L* (98-107) mmol/L Carbon Dioxide 36 H 34 H 34 H (22-30) mmol/L Creatinine 0.34 L 0.36 L 0.37 L (0.66-1.25) mg/dL Glucose 113 H 123 H 118 H (74-99) mg/dL Osmolality (280-301) mosm/kg Calcium 7.9 L 7.9 L 7.8 L (8.4-10.2) mg/dL Ferritin (22.0-322.0) ng/mL C-Reactive Protein (<10.0) mg/L Total Protein (6.3-8.2) g/dL Albumin (3.5-5.0) g/dL TSH (0.465-4.680) mIU/L 08/06/20 08/06/20 08/07/20 Range/Units 21:20 23:45 01:52 RBC (4.30-5.90) m/uL Hgb (13.0-17.5) gm/dL Hct (39.0-53.0) % Plt Count (150-450) k/uL Lymphocytes # (1.0-4.8) k/uL Sodium 110 L* 109 L* 111 L* (137-145) mmol/L Chloride (98-107) mmol/L Carbon Dioxide (22-30) mmol/L Creatinine (0.66-1.25) mg/dL Glucose (74-99) mg/dL Osmolality (280-301) mosm/kg Calcium (8.4-10.2) mg/dL Ferritin (22.0-322.0) ng/mL C-Reactive Protein (<10.0) mg/L Total Protein (6.3-8.2) g/dL Albumin (3.5-5.0) g/dL TSH (0.465-4.680) mIU/L 08/07/20 08/07/20 08/07/20 Range/Units 04:07 04:10 07:16 RBC 3.72 L (4.30-5.90) m/uL Hgb 12.1 L (13.0-17.5) gm/dL Hct 34.8 L (39.0-53.0) % Plt Count 147 L (150-450) k/uL Lymphocytes # 0.2 L (1.0-4.8) k/uL Sodium 112 L* 114 L* (137-145) mmol/L Chloride 76 L (98-107) mmol/L Carbon Dioxide 34 H (22-30) mmol/L Creatinine 0.40 L (0.66-1.25) mg/dL Glucose 111 H (74-99) mg/dL Osmolality (280-301) mosm/kg Calcium 8.0 L (8.4-10.2) mg/dL Ferritin 489.4 H (22.0-322.0) ng/mL C-Reactive Protein 45.1 H (<10.0) mg/L Total Protein 5.5 L (6.3-8.2) g/dL Albumin 3.1 L (3.5-5.0) g/dL TSH 0.442 L (0.465-4.680) mIU/L Microbiology - Last 24 Hours (Table) 08/05/20 23:30 Blood Culture - Preliminary Blood No Growth after 24 hours 08/05/20 19:35 Blood Culture - Preliminary Blood No Growth after 24 hours Assessment and Plan Plan: Assessment: 1. Hypovolemic hyponatremia with component of poor solute intake and further worsened with the use of thiazide diuretic. Sodium level gradually improving with 3% saline. Urine sodium 13 and urine osmolality 635. TSH slightly on the lower side. 2. Benign hypertension. Controlled. 3. Scleroderma. Follows at [facility]. Maintained on CellCept. 4. Hypomagnesemia from poor intake and diuretics. Improved posterior placement. 5. Hypokalemia from poor intake and diuretics. Improved posterior placement. Plan: Maintain 3%. Monitor sodium level every 2 hours. Goal rate of correction 6-7 mEq per 24 hours. Maintain Patterson catheter. Strict I's and O's. Avoid thiazide diuretics in the future.
[2020-08-07 10:54] LABS: African American GFR (CKD) >90 (>60 ml/min/1.73 sqM); Anion Gap 2 mmol/L; Blood Urea Nitrogen 11 mg/dL (9-20); Carbon Dioxide 35 mmol/L (22-30); Chloride 78 mmol/L (98-107); Glucose 100 mg/dL (74-99); Non-African American GFR(CKD) >90 (>60 ml/min/1.73 sqM); Potassium 4.5 mmol/L (3.5-5.1)
[2020-08-07 10:56] LABS: Sodium 115 mmol/L (137-145)
--- NOTE | 2020-08-07 13:15 | P.PN ---
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 Biopsy in 2013 showed evidence of usual interstitial pneumonia. He follows regularly with pulmonary and rheumatology at [facility] and was recently referred to [facility] for consideration of lung transplantation. Patient presented to the hospital due to increasing shortness of breath, cough without sputum production, poor appetite, anxiety. No nausea, vomiting, diarrhea. He was positive for coronavirus patient also experienced weakness. He came into [facility] emergency center for evaluation was found to have a sodium of 105. He was placed on 3% saline and nephrology, pulmonary medicine have been following him in the intensive care unit. 08/07: Sodium today is 112. Potassium 4.5, chloride 76, CO2 34, BUN 10 and creatinine 0.4. Blood sugar 111. C-reactive protein 45.1. TSH 0.442 with normal free T4 of 0.93. WBC 6.5, hemoglobin 12.1, platelet count 147. Blood cultures are showing no growth at 24 hours. Patient is followed by pulmonary medicine and has been started on Remdesivir day #2/5, dexamethasone and supplements. He is currently on IV fluids of 3% at 20 MLS per hour per nephrology. Afebrile, pulse ox 94% on 3 L nasal cannula, heart rate 68, respiratory rate 24, blood pressure 110/80. end finder twisting department sinus rhythm. He r emains in the intensive care unit with close monitoring. Objective - Vital Signs Vital signs: Vital Signs Temp 97.8 F 08/07/20 04:00 Pulse 58 L 08/07/20 07:00 Resp 24 08/07/20 07:00 BP 110/80 08/07/20 07:00 Pulse Ox 94 L 08/07/20 07:00 Intake & Output 08/06/20 08/07/20 08/07/20 18:59 06:59 18:59 Intake Total 1208 240 20 Output Total 645 515 60 Balance 563 -275 -40 Weight 61.235 kg 67.5 kg Intake: IV 550 240 20 Magnesium Sulfate-D5w Pmx 200 1 gm In Dextrose/Water 1 100ml.bag @ 100 mls/hr IVPB Q1H [facility] Rx#: [id number] Remdesivir 200 mg In 250 Sodium Chloride 0.9% 250 ml @ 250 mls/hr IVPB ONCE ONE Rx#:[id number] Sodium Chloride 3%( 100 240 20 Hypertonic) 500 ml @ 20 mls/hr IV .Q24H [facility] Rx#: [id number] Oral 360 Blood Product 298 Ffp Convalescent Plasma 298 Cpd Unit [id number] Output: Urine 645 515 60 Other: Voiding Method Indwelling Catheter Indwelling Catheter # Bowel Movements 1 - Exam Review Of Systems: Constitutional: No fever, no chills, no night sweats. No weight change. Repor ts weakness, Reports fatigue. No daytime sleepiness. EENT: No headache. No blurred vision or double vision, no loss of vision. No loss of Hearing, no ringing in the ears, no dizziness. No nasal drainage or congestion. No epistaxis. Reports sore throat. Lungs: Reports shortness of breath, Reports cough, no sputum production. No wheezing. Cardiovascular: No chest pain, no lower extremity edema. No palpitations. No paroxysmal nocturnal dyspnea. No orthopnea. No lightheadedness or dizziness. No syncopal episodes. Abdominal: No abdominal pain. No nausea, vomiting. No diarrhea. No con stipation. No bloody or tarry stools.. No loss of appetite. Genitourinary: No dysuria, increased frequency, urgency. No urinary retention. Musculoskeletal: No myalgias. Reports muscle weakness, no gait dysfunction, no frequent falls. No back pain. No neck pain. Integumentary: Reports wounds, no lesions. No rash or pruritus. No unusual bruising. No change in hair or nails. Neurologic: No aphasia. No facial droop. No change in mentation. No head injury. No headache. No paralysis. No paresthesia. Psychiatric: No depression. No anxiety. No mood swings. Endocrine: No abnormal blood sugars. No weight change. Physical Examination Gen: This is a 55-year-old male. He is resting in the ICU bed and appears to be comfortable at restand in no acute distress. HEENT: Head is atraumatic, normocephalic. Pupils equal, round. Sclerae is anicteric. NECK: Supple. No JVD. No lymphadenopathy. No thyromegaly. LUNGS: Rhonchi bilaterally. No intercostal retractions. HEART: Regular rate and rhythm. No murmur. ABDOMEN: Soft. Bowel sounds are present. No masses. No tenderness. EXTREMITIES: No pedal edema. No calf tenderness. Fingertip ulcerations secondary to scleroderma. NEUROLOGICAL: Patient is awake, alert and oriented x3. Cranial nerves 2 through 12 are grossly intact. - Labs CBC & Chem 7: 08/07/20 04:07 08/07/20 10:28 Labs: Abnormal Lab Results - Last 24 Hours (Table) 08/06/20 08/06/20 08/06/20 Range/Units 07:17 09:24 09:24 RBC (4.30-5.90) m/uL Hgb (13.0-17.5) gm/dL Hct (39.0-53.0) % Plt Count (150-450) k/uL Lymphocytes # (1.0-4.8) k/uL Sodium 108 L* 110 L* (137-145) mmol/L Chloride 71 L* 70 L* (98-107) mmol/L Carbon Dioxide 33 H 34 H (22-30) mmol/L Creatinine 0.34 L 0.37 L (0.66-1.25) mg/dL Glucose (74-99) mg/dL Osmolality 229 L* (280-301) mosm/kg Calcium 7.9 L 8.3 L (8.4-10.2) mg/dL C-Reactive Protein (<10.0) mg/L Total Protein (6.3-8.2) g/dL Albumin (3.5-5.0) g/dL TSH (0.465-4.680) mIU/L 08/06/20 08/06/20 08/06/20 Range/Units 11:17 13:19 15:29 RBC (4.30-5.90) m/uL Hgb (13.0-17.5) gm/dL Hct (39.0-53.0) % Plt Count (150-450) k/uL Lymphocytes # (1.0-4.8) k/uL Sodium 109 L* 108 L* 110 L* (137-145) mmol/L Chloride 70 L* 71 L* 71 L* (98-107) mmol/L Carbon Dioxide 36 H 33 H 36 H (22-30) mmol/L Creatinine 0.35 L 0.29 L 0.34 L (0.66-1.25) mg/dL Glucose 103 H 113 H (74-99) mg/dL Osmolality (280-301) mosm/kg Calcium 8.0 L 7.8 L 7.9 L (8.4-10.2) mg/dL C-Reactive Protein (<10.0) mg/L Total Protein (6.3-8.2) g/dL Albumin (3.5-5.0) g/dL TSH (0.465-4.680) mIU/L 08/06/20 08/06/20 08/06/20 Range/Units 17:24 19:25 21:20 RBC (4.30-5.90) m/uL Hgb (13.0-17.5) gm/dL Hct (39.0-53.0) % Plt Count (150-450) k/uL Lymphocytes # (1.0-4.8) k/uL Sodium 109 L* 111 L* 110 L* (137-145) mmol/L Chloride 71 L* 73 L* (98-107) mmol/L Carbon Dioxide 34 H 34 H (22-30) mmol/L Creatinine 0.36 L 0.37 L (0.66-1.25) mg/dL Glucose 123 H 118 H (74-99) mg/dL Osmolality (280-301) mosm/kg Calcium 7.9 L 7.8 L (8.4-10.2) mg/dL C-Reactive Protein (<10.0) mg/L Total Protein (6.3-8.2) g/dL Albumin (3.5-5.0) g/dL TSH (0.465-4.680) mIU/L 08/06/20 08/07/20 08/07/20 Range/Units 23:45 01:52 04:07 RBC 3.72 L (4.30-5.90) m/uL Hgb 12.1 L (13.0-17.5) gm/dL Hct 34.8 L (39.0-53.0) % Plt Count 147 L (150-450) k/uL Lymphocytes # 0.2 L (1.0-4.8) k/uL Sodium 109 L* 111 L* (137-145) mmol/L Chloride (98-107) mmol/L Carbon Dioxide (22-30) mmol/L Creatinine (0.66-1.25) mg/dL Glucose (74-99) mg/dL Osmolality (280-301) mosm/kg Calcium (8.4-10.2) mg/dL C-Reactive Protein (<10.0) mg/L Total Protein (6.3-8.2) g/dL Albumin (3.5-5.0) g/dL TSH (0.465-4.680) mIU/L 08/07/20 Range/Units 04:10 RBC (4.30-5.90) m/uL Hgb (13.0-17.5) gm/dL Hct (39.0-53.0) % Plt Count (150-450) k/uL Lymphocytes # (1.0-4.8) k/uL Sodium 112 L* (137-145) mmol/L Chloride 76 L (98-107) mmol/L Carbon Dioxide 34 H (22-30) mmol/L Creatinine 0.40 L (0.66-1.25) mg/dL Glucose 111 H (74-99) mg/dL Osmolality (280-301) mosm/kg Calcium 8.0 L (8.4-10.2) mg/dL C-Reactive Protein 45.1 H (<10.0) mg/L Total Protein 5.5 L (6.3-8.2) g/dL Albumin 3.1 L (3.5-5.0) g/dL TSH 0.442 L (0.465-4.680) mIU/L Microbiology - Last 24 Hours (Table) 08/05/20 23:30 Blood Culture - Preliminary Blood No Growth after 24 hours 08/05/20 19:35 Blood Culture - Preliminary Blood No Growth after 24 hours Assessment and Plan Plan: 1. Acute hypoxemic respiratory failure, multifactorial, in part related to underlying scleroderma lung/pulmonary fibrosis, as well as a new diagnosis of COVID 19 pneumonitis. Continue Remdesivir day #2/5, dexamethasone 6 mg daily, supplements. Continue Ventolin inhaler 4 times daily as needed. Consult with pulmonary medicine appreciated. 2. Severe hyponatremia. Patient is followed closely in the ICU. Consult with nephrology appreciated. Patient is currently on 3% saline at 20 MLS per hour. 3. Paroxysmal atrial fibrillation, status post ablation. Continue eliquis 5 mg twice daily, Toprol-XL 25 mg daily. 4. 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 Patient had recent referral to [facility] for consideration of lung transplantation. 5. Raynaud's disease, with digital ulceration. 6. Hypertension. Continue Toprol-XL 25 mg daily. 7. Pulmonary hypertension. Continue Revatio 20 mg 3 times daily oral. 8. Gastroesophageal reflux disease and GI prophylaxis. Continue Protonix 40 mg oral twice daily. 9. Esophageal dysmotility secondary to scleroderma. Continue rifaximin 550 mg twice daily as needed, Revatio 20 mg 3 times daily, Prucalopride 2 mg daily. 10. Hyperlipidemia. 10. Chronic hypoxemic respiratory failure on home O2 at 3 L nasal cannula. 11. Thrombocytopenia, continue to monitor. 12. DVT prophylaxis. Continue eliquis 5 mg twice daily. Discharge plan: Most likely return home Impression and plan of care have been directed as dictated by the signing physician. Shana Iverson nurse practitioner acting as scribe for signing physician.
[2020-08-07 13:16] LABS: African American GFR (CKD) >90 (>60 ml/min/1.73 sqM); Anion Gap 4 mmol/L; Blood Urea Nitrogen 10 mg/dL (9-20); Calcium 8.1 mg/dL (8.4-10.2); Carbon Dioxide 32 mmol/L (22-30); Chloride 80 mmol/L (98-107); Glucose 108 mg/dL (74-99); Non-African American GFR(CKD) >90 (>60 ml/min/1.73 sqM); Potassium 4.6 mmol/L (3.5-5.1)
[2020-08-07 13:18] LABS: Sodium 116 mmol/L (137-145)
[2020-08-07 14:33] LABS: African American GFR (CKD) >90 (>60 ml/min/1.73 sqM); Anion Gap 4 mmol/L; Blood Urea Nitrogen 11 mg/dL (9-20); Calcium 7.9 mg/dL (8.4-10.2); Carbon Dioxide 32 mmol/L (22-30); Chloride 79 mmol/L (98-107); Glucose 120 mg/dL (74-99); Non-African American GFR(CKD) >90 (>60 ml/min/1.73 sqM); Potassium 4.8 mmol/L (3.5-5.1)
[2020-08-07 14:47] LABS: Sodium 115 mmol/L (137-145)
[2020-08-07 16:32] LABS: African American GFR (CKD) >90 (>60 ml/min/1.73 sqM); Anion Gap 2 mmol/L; Blood Urea Nitrogen 10 mg/dL (9-20); Carbon Dioxide 34 mmol/L (22-30); Chloride 79 mmol/L (98-107); Glucose 118 mg/dL (74-99); Non-African American GFR(CKD) >90 (>60 ml/min/1.73 sqM); Potassium 4.6 mmol/L (3.5-5.1)
[2020-08-07 16:46] LABS: Sodium 115 mmol/L (137-145)
[2020-08-07 18:45] LABS: African American GFR (CKD) >90 (>60 ml/min/1.73 sqM); Anion Gap 3 mmol/L; Blood Urea Nitrogen 10 mg/dL (9-20); Calcium 8.1 mg/dL (8.4-10.2); Carbon Dioxide 34 mmol/L (22-30); Chloride 80 mmol/L (98-107); Glucose 118 mg/dL (74-99); Non-African American GFR(CKD) >90 (>60 ml/min/1.73 sqM); Potassium 4.4 mmol/L (3.5-5.1)
[2020-08-07 19:01] LABS: Sodium 117 mmol/L (137-145)
[2020-08-07] MEDS: ALPRAZolam 0.25 MG TAB PO PRN (19:04)
[2020-08-07] MEDS ORDERED: PETROLATUM, WHITE OINT 50 GM TUBE TOPICAL PRN (20:14)
[2020-08-07] MEDS: OCTREOTIDE 100 MCG/ML INJ SQ SCH (20:26)
[2020-08-07] MEDS: ACETAMINOPHEN TAB 325 MG TAB PO PRN (20:28)
[2020-08-07 20:35] LABS: African American GFR (CKD) >90 (>60 ml/min/1.73 sqM); Anion Gap 5 mmol/L; Blood Urea Nitrogen 12 mg/dL (9-20); Calcium 8.2 mg/dL (8.4-10.2); Carbon Dioxide 33 mmol/L (22-30); Chloride 79 mmol/L (98-107); Glucose 111 mg/dL (74-99); Non-African American GFR(CKD) >90 (>60 ml/min/1.73 sqM); Potassium 4.4 mmol/L (3.5-5.1)
[2020-08-07 20:38] LABS: Sodium 117 mmol/L (137-145)
[2020-08-07 23:33] LABS: African American GFR (CKD) >90 (>60 ml/min/1.73 sqM); Anion Gap 5 mmol/L; Blood Urea Nitrogen 13 mg/dL (9-20); Carbon Dioxide 32 mmol/L (22-30); Chloride 79 mmol/L (98-107); Glucose 155 mg/dL (74-99); Non-African American GFR(CKD) >90 (>60 ml/min/1.73 sqM); Potassium 5.2 mmol/L (3.5-5.1)
[2020-08-07 23:46] LABS: Sodium 116 mmol/L (137-145)
[2020-08-08 00:56] LABS: African American GFR (CKD) >90 (>60 ml/min/1.73 sqM); Blood Urea Nitrogen 12 mg/dL (9-20); Carbon Dioxide 33 mmol/L (22-30); Chloride 81 mmol/L (98-107); Glucose 140 mg/dL (74-99); Non-African American GFR(CKD) >90 (>60 ml/min/1.73 sqM)
[2020-08-08 01:04] LABS: Anion Gap 1 mmol/L; Potassium 4.6 mmol/L (3.5-5.1)
[2020-08-08 01:14] LABS: Sodium 115 mmol/L (137-145)
[2020-08-08 02:29] LABS: African American GFR (CKD) >90 (>60 ml/min/1.73 sqM); Anion Gap 1 mmol/L; Blood Urea Nitrogen 12 mg/dL (9-20); Calcium 8.1 mg/dL (8.4-10.2); Carbon Dioxide 32 mmol/L (22-30); Chloride 82 mmol/L (98-107); Glucose 125 mg/dL (74-99); Non-African American GFR(CKD) >90 (>60 ml/min/1.73 sqM); Potassium 4.7 mmol/L (3.5-5.1)
[2020-08-08 02:45] LABS: Sodium 115 mmol/L (137-145)
[2020-08-08] MEDS: ACETAMINOPHEN TAB 325 MG TAB PO PRN (03:06)
[2020-08-08] MEDS: SODIUM CHLORIDE 3%(HYPERTONIC) 500 ML IV SCH (03:21)
[2020-08-08] MEDS: ALPRAZolam 0.25 MG TAB PO PRN (04:00)
[2020-08-08 04:18] LABS: Basophils % (A) 0 %; Eosinophils % (A) 0 %; HCT 34.6 % (39.0-53.0); Lymphocytes # (A) 0.4 k/uL (1.0-4.8); Lymphocytes % (A) 6 %; MCH 32.9 pg (25.0-35.0); MCHC 34.6 g/dL (31.0-37.0); MCV 95.2 fL (80.0-100.0); Mean Platelet Volume 7.8; Monocytes # (A) 0.5 k/uL (0-1.0); Monocytes % (A) 8 %; Neutrophils # (A) 5.4 k/uL (1.3-7.7); Neutrophils % (A) 85 %; Platelet Count 165 k/uL (150-450); RBC 3.64 m/uL (4.30-5.90); RDW 12.3 % (11.5-15.5); WBC 6.3 k/uL (3.8-10.6)
[2020-08-08 04:31] LABS: African American GFR (CKD) >90 (>60 ml/min/1.73 sqM); Anion Gap 2 mmol/L; Blood Urea Nitrogen 13 mg/dL (9-20); Calcium 8.2 mg/dL (8.4-10.2); Carbon Dioxide 34 mmol/L (22-30); Chloride 81 mmol/L (98-107); Glucose 111 mg/dL (74-99); Non-African American GFR(CKD) >90 (>60 ml/min/1.73 sqM)
[2020-08-08 04:39] LABS: Potassium 4.6 mmol/L (3.5-5.1); Sodium 117 mmol/L (137-145)
[2020-08-08 07:15] LABS: African American GFR (CKD) >90 (>60 ml/min/1.73 sqM); Blood Urea Nitrogen 13 mg/dL (9-20); Calcium 8.1 mg/dL (8.4-10.2); Carbon Dioxide 34 mmol/L (22-30); Chloride 82 mmol/L (98-107); Glucose 108 mg/dL (74-99); Non-African American GFR(CKD) >90 (>60 ml/min/1.73 sqM); Potassium 4.5 mmol/L (3.5-5.1)
[2020-08-08] MEDS: PANTOPRAZOLE 40 MG TABLET PO SCH ×2 (07:16→16:35)
[2020-08-08 07:19] LABS: Anion Gap 1 mmol/L; Sodium 117 mmol/L (137-145)
[2020-08-08 08:36] LABS: African American GFR (CKD) >90 (>60 ml/min/1.73 sqM); Anion Gap 1 mmol/L; Blood Urea Nitrogen 13 mg/dL (9-20); Calcium 8.2 mg/dL (8.4-10.2); Carbon Dioxide 35 mmol/L (22-30); Chloride 82 mmol/L (98-107); Glucose 93 mg/dL (74-99); Non-African American GFR(CKD) >90 (>60 ml/min/1.73 sqM); Potassium 4.8 mmol/L (3.5-5.1)
[2020-08-08 08:43] LABS: Sodium 118 mmol/L (137-145)
[2020-08-08] MEDS: MULTIVITAMINS, THERA 1 EACH TAB PO SCH (08:48)
[2020-08-08] MEDS: dexAMETHasone 2 MG TAB PO SCH (08:48)
[2020-08-08] MEDS: PRUCALOPRIDE SUCCINATE PO SCH (08:48)
[2020-08-08] MEDS: ZINC SULFATE 220 MG CAP PO SCH (08:48)
[2020-08-08] MEDS: ASCORBIC ACID 500 MG TAB PO SCH (08:49)
[2020-08-08] MEDS: SILDENAFIL 20 MG TAB PO SCH ×3 (08:49→22:12)
[2020-08-08] MEDS: CHOLECALCIFEROL 25 MCG (1000 IU) TABLET PO SCH (08:49)
[2020-08-08] MEDS: METOPROLOL SUCCINATE (ER) 25 MG TAB.ER.24H PO SCH ×2 (08:49→22:11)
[2020-08-08] MEDS: APIXABAN 5 MG TAB PO SCH ×2 (08:49→22:11)
[2020-08-08] MEDS: IPRATROPIUM BROMIDE 0.06% NASAL SPRAY (15 ML) EA NOSTRIL SCH (08:49)
[2020-08-08] MEDS: FLUTICASONE 50MCG/SPRAY NASAL 16GM EA NOSTRIL SCH (08:49)
--- NOTE | 2020-08-08 08:54 | XR ---
EXAMINATION TYPE: XR chest 1V portable DATE OF EXAM: 08/08/2020 COMPARISON: Prior chest x-ray 08/07/2020 HISTORY: Covid pneumonia TECHNIQUE: Single frontal view of the chest is obtained. FINDINGS: Pleural parenchymal changes are similar to prior exam. No evident pneumothorax or pleural effusion. Right hemidiaphragm is elevated. Cardiac mediastinal silhouette is unchanged. IMPRESSION: No significant interval change. Findings consistent with patient's history of pneumonia. Interstitial lung disease, cardiomegaly
[2020-08-08] MEDS: REMDESIVIR 100 MG in SODIUM CHLORIDE 0.9% 250 ML IVPB SCH (08:57)
--- NOTE | 2020-08-08 09:03 | P.PN ---
Subjective Progress Note Date: 08/08/20 55-year-old male who was seen in the emergency department on 08/05/2020. The patient presents with increasing shortness of breath, and anxiety, as well as cough, and chest congestion. His symptoms began a couple days ago. Both his and his daughter apparently tested positive for coronavirus. He also tested positive for coronavirus. The patient does have baseline shortness of breath, secondary to his history of pulmonary fibrosis secondary to his progressive systemic sclerosis or scleroderma. 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 He is currently being managed at the [facility], by lung doctors and auto clutch rebuilder, and apparently was recently referred to the [facility] for consideration of lung transplantation. The patient denies any phlegm production. His cough is mostly dry. He is on 3 L nasal cannula at home, . His appetite has been poor. He denies any chest pain or pressu re. He denies any nausea, vomiting, diarrhea, and he also denies any abdominal pain or any genitourinary complaints. In addition to the above, the ER physician noted that his sodium was quite low, at 105, and I recommended that he start the patient on 3% saline. Nephrology has also been consulted. I asked him whether or not his shortness of breath was at baseline or worse, and he states that his shortness of breath is definitely worse. His medical history includes gastroesophageal reflux disease and esophageal dysmotility, essential hypertension, secondary pulmonary hypertension, supraventricular tachycardia, pulmonary fibrosis, scleroderma, Raynaud disease, among other things. Current ly, the patient's on 3 L nasal cannula, and getting 3% saline at 20 mL an hour. He is getting a basic metabolic profile ordered every 2 hours. On today's evaluation of 08/07/2020, seeing the patient for a follow-up. The patient is still on 3 L of oxygen by nasal cannula. The chest is a showing diffuse bilateral pulmonary fibrosis related to scleroderma. The patient has scleroderma with crest syndrome. The patient also has pulmonary hypertension. The patient was declined from transplantation is very sensitive and currently is being evaluated at the [place]. He is als COVID 19 Positive. He presented to us with severe hyponatremia. On today's evaluation, the patient is still on 3% hypertonic saline and sodium gradually is improving and is up 114. We'll continue the hypertonic saline for now. No Altered mentation. No headaches. No focal neurological deficits. He has a chronic dry cough. He was having some limited congestion . There was no significant worsening in his oxygenation on overall respiratory status. He remains on 3 L and the pulses are 99%. He is currently on CellCept and the patient was also started on Decadron 6 mg by mouth daily. He is on Remdesivir day 2 and the patient has a CVA units of bolus and plasma. No other new complaints for now. Is able to swallow although he has history of chronic esophageal dysmotility. IV fluids is in the form of 3%. He is on sildenafil regarding his pulmonary hypertension. Tyvaso was tried in the past and had to be discontinued because of side effects On 08/08/2020 the patient is being seen for a follow-up. The patient is currently on 2 L of oxygen by nasal cannula. No worsening in his respiratory status and he is still being treated for COVID 19 infection. Remdesivir day 3 and the patient is also on Decadron 6 mg by mouth daily. They communicated with his auto clutch rebuilder with eyes stopping the also for now. In terms of his sodium level, the patient 25 on hypertonic saline at rate of these an hour. The sodium level monitoring shows that his sodium level is gradually coming up at 118. No altered mentation. No headaches. No focal neurological deficits. No other significant events otherwise over the past 24 hours. Creatinine is stable at 0.4. Inflammatory markers showed a normal LDH of 407 and his CRP is down to 45.1. He remains on long-term anticoagulation with Eliquis 4 previous history of SVT, cardiac arrhythmias and ablation Objective - Vital Signs Vital signs: Vital Signs Temp 97.8 F 08/08/20 04:00 Pulse 60 08/08/20 07:00 Resp 20 08/08/20 07:00 BP 128/91 08/08/20 07:00 Pulse Ox 100 08/08/20 07:00 Intake & Output 08/07/20 08/08/20 08/08/20 18:59 06:59 18:59 Intake Total 970 400 25 Output Total 740 490 35 Balance 230 -90 -10 Weight 61.1 kg Intake: IV 370 40 Remdesivir 200 mg In 250 Sodium Chloride 0.9% 250 ml @ 250 mls/hr IVPB ONCE ONE Rx#:[id number] Sodium Chloride 3%( 120 40 Hypertonic) 500 ml @ 20 mls/hr IV .Q24H [facility] Rx#: [id number] Intake, IV Titration 240 25 Amount Sodium Chloride 3%( 140 Hypertonic) 500 ml @ 20 mls/hr IV .Q24H [facility] Rx#: [id number] Sodium Chloride 3%( 100 25 Hypertonic) 500 ml @ 25 mls/hr IV .Q20H [facility] Rx#: [id number] Oral 600 120 Output: Urine 740 490 35 Other: Voiding Method Indwelling Catheter Indwelling Catheter - Exam No acute distress, oriented 3. Anxious, without audible wheezing, use of accessory muscles, or conversational dyspnea. HEENT examination is grossly unremarkable. Mucous membranes are moist. No oral lesions. Nasal O2 at 3 L noted. Neck supple. Full range of motion. No adenopathy thyromegaly or neck vein distention. Cardiovascular examination reveals regular rhythm rate. S1-S2 normal. No S3 or S4. No discernible murmur noted. Lungs reveal bibasilar Velcro crackles. No wheezes. There are also diffuse rhonchi particularly noted on exhalation. Breath sounds equal bilaterally. He is mildly restricted in his breathing. Abdominal exam revealed normal bowel sounds. The abdomen was soft, non-tender, and without masses, organomegaly, or appreciable enlargement of the abdominal ao rta. Extremities are intact. No cyanosis clubbing or edema. The patient has scleroderma hands with extensive skin fibrosis. Skin reveals a fingertip ulcer. In addition, he has the classic findings of cutaneous scleroderma. The patient has ulcers in his fingertips in addition to calcinosis. Neurologic examination is brief but nonfocal.Neurologically, the patient is awake and alert and the patient does not have any focal neurological deficit. Cranial nerves are essentially intact. - Labs CBC & Chem 7: 08/08/20 03:58 08/08/20 07:59 Labs: Abnormal Lab Results - Last 24 Hours (Table) 08/07/20 08/07/20 08/07/20 Range/Units 04:10 10:28 12:24 RBC (4.30-5.90) m/uL Hgb (13.0-17.5) gm/dL Hct (39.0-53.0) % Lymphocytes # (1.0-4.8) k/uL Sodium 115 L* 116 L* (137-145) mmol/L Potassium (3.5-5.1) mmol/L Chloride 78 L 80 L (98-107) mmol/L Carbon Dioxide 35 H 32 H (22-30) mmol/L Creatinine 0.45 L 0.36 L (0.66-1.25) mg/dL Glucose 100 H 108 H (74-99) mg/dL Calcium 8.0 L 8.1 L (8.4-10.2) mg/dL Ferritin 489.4 H (22.0-322.0) ng/mL 08/07/20 08/07/20 08/07/20 Range/Units 14:10 16:08 18:05 RBC (4.30-5.90) m/uL Hgb (13.0-17.5) gm/dL Hct (39.0-53.0) % Lymphocytes # (1.0-4.8) k/uL Sodium 115 L* 115 L* 117 L* (137-145) mmol/L Potassium (3.5-5.1) mmol/L Chloride 79 L 79 L 80 L (98-107) mmol/L Carbon Dioxide 32 H 34 H 34 H (22-30) mmol/L Creatinine 0.40 L 0.39 L 0.39 L (0.66-1.25) mg/dL Glucose 120 H 118 H 118 H (74-99) mg/dL Calcium 7.9 L 8.0 L 8.1 L (8.4-10.2) mg/dL Ferritin (22.0-322.0) ng/mL 08/07/20 08/07/20 08/08/20 Range/Units 20:09 22:15 00:04 RBC (4.30-5.90) m/uL Hgb (13.0-17.5) gm/dL Hct (39.0-53.0) % Lymphocytes # (1.0-4.8) k/uL Sodium 117 L* 116 L* 115 L* (137-145) mmol/L Potassium 5.2 H (3.5-5.1) mmol/L Chloride 79 L 79 L 81 L (98-107) mmol/L Carbon Dioxide 33 H 32 H 33 H (22-30) mmol/L Creatinine 0.40 L 0.39 L 0.42 L (0.66-1.25) mg/dL Glucose 111 H 155 H 140 H (74-99) mg/dL Calcium 8.2 L 8.0 L 8.0 L (8.4-10.2) mg/dL Ferritin (22.0-322.0) ng/mL 08/08/20 08/08/20 08/08/20 Range/Units 01:54 03:58 03:58 RBC 3.64 L (4.30-5.90) m/uL Hgb 12.0 L (13.0-17.5) gm/dL Hct 34.6 L (39.0-53.0) % Lymphocytes # 0.4 L (1.0-4.8) k/uL Sodium 115 L* 117 L* (137-145) mmol/L Potassium (3.5-5.1) mmol/L Chloride 82 L 81 L (98-107) mmol/L Carbon Dioxide 32 H 34 H (22-30) mmol/L Creatinine 0.41 L 0.45 L (0.66-1.25) mg/dL Glucose 125 H 111 H (74-99) mg/dL Calcium 8.1 L 8.2 L (8.4-10.2) mg/dL Ferritin (22.0-322.0) ng/mL 08/08/20 08/08/20 Range/Units 06:16 07:59 RBC (4.30-5.90) m/uL Hgb (13.0-17.5) gm/dL Hct (39.0-53.0) % Lymphocytes # (1.0-4.8) k/uL Sodium 117 L* 118 L* (137-145) mmol/L Potassium (3.5-5.1) mmol/L Chloride 82 L 82 L (98-107) mmol/L Carbon Dioxide 34 H 35 H (22-30) mmol/L Creatinine 0.49 L 0.41 L (0.66-1.25) mg/dL Glucose 108 H (74-99) mg/dL Calcium 8.1 L 8.2 L (8.4-10.2) mg/dL Ferritin (22.0-322.0) ng/mL Microbiology - Last 24 Hours (Table) 08/05/20 23:30 Blood Culture - Preliminary Blood No Growth after 48 hours 08/05/20 19:35 Blood Culture - Preliminary Blood No Growth after 48 hours Assessment and Plan Plan: 1 Acute on chronic hypoxemic respiratory failure, multifactorial, in part related to underlying scleroderma lung/pulmonary fibrosis, as well as a new diagnosis of COVID 19 pneumonitis. Nevertheless, the patient has chronic hypoxic respiratory failure. Patient is on oxygen at 3 L per minute nasal cannula regarding chronic pulmonary fibrosis. No previous chest x-rays are available for comparison. The chest x-ray from today was reviewed and showed smaller lung volumes and chronic fibrotic changes in lung bases bilaterally right more than left. Superinfection cannot be completely ruled out because of the chronic bilateral pulmonary infiltration. The patient is has a stable oxygenation between 2 and 3 L in the x-ray findings are consistent with chronic bilateral pulmonary fibrosis with some interval improvement and they basilar infiltration. 2 Severe hyponatremia, early on 3% saline. The sodium level is up 118 and we decided to continue the hypertonic saline and will increase by increments of 4-5 milliequivalents every 24 hours. 3 History of SVT, status post ablation.This was done at [facility], still on long-term anticoagulation with Eliquis 4 Progressive systemic sclerosis and possibly CREST syndrome. 5 History of Raynaud's disease, with digital ulceration. 6 History of essential hypertension. 7 History of pulmonary hypertension. The patient is currently on sildenafil 8 History of gastroesophageal reflux disease, along with history of esophageal dysmotility 9 History of hyperlipidemia. 10 Chronic hypoxemic respiratory failure, with recent referral to [facility] for consideration of lung transplantation. Plan: Continue remdesivir day #4 , Decadron 6mg , vitamin C, vitamin D3, and zinc, albuterol inhaler, and 1 U convalescent plasma. CellCept on hold Appropriate inflammatory markers have been ordered. The CRP is at 45.1 and LDH level is at 407 d-dimer of 0.34 and these levels are from yesterday, Continue Eliquis 5 mg by mouth twice a day Currently on 3% saline for his severe hyponatremia, Na level is 118 we'll continue the hypertonic saline and nephrology is to follow Paperwork from the [facility] is reviewed. At one point, the patient was on a research protocol to [facility], but is no longer enrolled in that study. He has recently been referred to the [place] for consideration of a lung transplantation. His overall prognosis remains guarded. We will continue to follow closely. He will stay in the intensive care unit for the time being.
--- NOTE | 2020-08-08 10:26 | P.PN ---
Subjective Patient is seen in follow-up for hyponatremia. Sodium level gradually improving with 3%. Sodium level 118 this morning. Patient is awake and alert. No chest pain or shortness of breath. Oral intake is slowly improving. No vomiting or diarrhea. Blood pressure stable. Vital signs are stable. General: The patient appeared well nourished and normally developed. HEENT: Head exam is unremarkable. Neck is without jugular venous distension. LUNGS: Breath sounds decreased. HEART: Rate and Rhythm are regular. ABDOMEN: Soft, nontender. EXTREMITITES: No edema. Objective - Vital Signs Vital signs: Vital Signs Temp 98.1 F 08/08/20 08:00 Pulse 61 08/08/20 09:00 Resp 27 H 08/08/20 09:00 BP 108/91 08/08/20 09:00 Pulse Ox 95 08/08/20 08:00 Intake & Output 08/07/20 08/08/20 08/08/20 18:59 06:59 18:59 Intake Total 970 400 685 Output Total 740 490 85 Balance 230 -90 600 Weight 61.1 kg Intake: IV 370 40 250 Remdesivir 200 mg In 250 250 Sodium Chloride 0.9% 250 ml @ 250 mls/hr IVPB ONCE ONE Rx#:[id number] Sodium Chloride 3%( 120 40 Hypertonic) 500 ml @ 20 mls/hr IV .Q24H [facility] Rx#: [id number] Intake, IV Titration 240 75 Amount Sodium Chloride 3%( 140 Hypertonic) 500 ml @ 20 mls/hr IV .Q24H [facility] Rx#: [id number] Sodium Chloride 3%( 100 75 Hypertonic) 500 ml @ 25 mls/hr IV .Q20H [facility] Rx#: [id number] Oral 600 120 360 Output: Urine 740 490 85 Other: Voiding Method Indwelling Catheter Indwelling Catheter - Labs CBC & Chem 7: 08/08/20 03:58 08/08/20 07:59 Labs: Abnormal Lab Results - Last 24 Hours (Table) 08/07/20 08/07/20 08/07/20 Range/Units 10:28 12:24 14:10 RBC (4.30-5.90) m/uL Hgb (13.0-17.5) gm/dL Hct (39.0-53.0) % Lymphocytes # (1.0-4.8) k/uL Sodium 115 L* 116 L* 115 L* (137-145) mmol/L Potassium (3.5-5.1) mmol/L Chloride 78 L 80 L 79 L (98-107) mmol/L Carbon Dioxide 35 H 32 H 32 H (22-30) mmol/L Creatinine 0.45 L 0.36 L 0.40 L (0.66-1.25) mg/dL Glucose 100 H 108 H 120 H (74-99) mg/dL Calcium 8.0 L 8.1 L 7.9 L (8.4-10.2) mg/dL 08/07/20 08/07/20 08/07/20 Range/Units 16:08 18:05 20:09 RBC (4.30-5.90) m/uL Hgb (13.0-17.5) gm/dL Hct (39.0-53.0) % Lymphocytes # (1.0-4.8) k/uL Sodium 115 L* 117 L* 117 L* (137-145) mmol/L Potassium (3.5-5.1) mmol/L Chloride 79 L 80 L 79 L (98-107) mmol/L Carbon Dioxide 34 H 34 H 33 H (22-30) mmol/L Creatinine 0.39 L 0.39 L 0.40 L (0.66-1.25) mg/dL Glucose 118 H 118 H 111 H (74-99) mg/dL Calcium 8.0 L 8.1 L 8.2 L (8.4-10.2) mg/dL 08/07/20 08/08/20 08/08/20 Range/Units 22:15 00:04 01:54 RBC (4.30-5.90) m/uL Hgb (13.0-17.5) gm/dL Hct (39.0-53.0) % Lymphocytes # (1.0-4.8) k/uL Sodium 116 L* 115 L* 115 L* (137-145) mmol/L Potassium 5.2 H (3.5-5.1) mmol/L Chloride 79 L 81 L 82 L (98-107) mmol/L Carbon Dioxide 32 H 33 H 32 H (22-30) mmol/L Creatinine 0.39 L 0.42 L 0.41 L (0.66-1.25) mg/dL Glucose 155 H 140 H 125 H (74-99) mg/dL Calcium 8.0 L 8.0 L 8.1 L (8.4-10.2) mg/dL 08/08/20 08/08/20 08/08/20 Range/Units 03:58 03:58 06:16 RBC 3.64 L (4.30-5.90) m/uL Hgb 12.0 L (13.0-17.5) gm/dL Hct 34.6 L (39.0-53.0) % Lymphocytes # 0.4 L (1.0-4.8) k/uL Sodium 117 L* 117 L* (137-145) mmol/L Potassium (3.5-5.1) mmol/L Chloride 81 L 82 L (98-107) mmol/L Carbon Dioxide 34 H 34 H (22-30) mmol/L Creatinine 0.45 L 0.49 L (0.66-1.25) mg/dL Glucose 111 H 108 H (74-99) mg/dL Calcium 8.2 L 8.1 L (8.4-10.2) mg/dL 08/08/20 Range/Units 07:59 RBC (4.30-5.90) m/uL Hgb (13.0-17.5) gm/dL Hct (39.0-53.0) % Lymphocytes # (1.0-4.8) k/uL Sodium 118 L* (137-145) mmol/L Potassium (3.5-5.1) mmol/L Chloride 82 L (98-107) mmol/L Carbon Dioxide 35 H (22-30) mmol/L Creatinine 0.41 L (0.66-1.25) mg/dL Glucose (74-99) mg/dL Calcium 8.2 L (8.4-10.2) mg/dL Microbiology - Last 24 Hours (Table) 08/05/20 23:30 Blood Culture - Preliminary Blood No Growth after 48 hours 08/05/20 19:35 Blood Culture - Preliminary Blood No Growth after 48 hours Assessment and Plan Plan: Assessment: 1. Hypovolemic hyponatremia with component of poor solute intake and further worsened with the use of thiazide diuretic. Sodium level gradually improving with 3% saline. Urine sodium 13 and urine osmolality 635. TSH slightly on the lower side. 2. Benign hypertension. Controlled. 3. Scleroderma. Follows at [facility]. Maintained on CellCept. 4. Hypomagnesemia from poor intake and diuretics. Improved post placement. 5. Hypokalemia from poor intake and diuretics. Improved post placement. Plan: Maintain 3%. Monitor sodium level closely. Goal rate of correction 6-7 mEq per 24 hours. Maintain Patterson catheter. Strict I's and O's. Avoid thiazide diuretics in the future.
[2020-08-08 12:34] LABS: Potassium 4.1 mmol/L (3.5-5.1)
[2020-08-08 12:35] LABS: African American GFR (CKD) >90 (>60 ml/min/1.73 sqM); Anion Gap 3 mmol/L; Blood Urea Nitrogen 14 mg/dL (9-20); Carbon Dioxide 33 mmol/L (22-30); Chloride 84 mmol/L (98-107); Glucose 93 mg/dL (74-99); Non-African American GFR(CKD) >90 (>60 ml/min/1.73 sqM); Sodium 120 mmol/L (137-145)
[2020-08-08] MEDS ORDERED: FUROSEMIDE 10 MG/ML 2 ML VIAL IV ONE (14:00)
[2020-08-08 17:39] LABS: African American GFR (CKD) >90 (>60 ml/min/1.73 sqM); Anion Gap 7 mmol/L; Blood Urea Nitrogen 15 mg/dL (9-20); Calcium 8.1 mg/dL (8.4-10.2); Carbon Dioxide 30 mmol/L (22-30); Chloride 83 mmol/L (98-107); Glucose 116 mg/dL (74-99); Non-African American GFR(CKD) >90 (>60 ml/min/1.73 sqM); Potassium 4.5 mmol/L (3.5-5.1); Sodium 120 mmol/L (137-145)
[2020-08-08 22:07] LABS: African American GFR (CKD) >90 (>60 ml/min/1.73 sqM); Anion Gap 2 mmol/L; Blood Urea Nitrogen 17 mg/dL (9-20); Calcium 7.8 mg/dL (8.4-10.2); Carbon Dioxide 31 mmol/L (22-30); Chloride 86 mmol/L (98-107); Glucose 105 mg/dL (74-99); Non-African American GFR(CKD) >90 (>60 ml/min/1.73 sqM); Potassium 4.1 mmol/L (3.5-5.1)
[2020-08-08] MEDS: OCTREOTIDE 100 MCG/ML INJ SQ SCH (22:12)
[2020-08-08 22:39] LABS: Sodium 119 mmol/L (137-145)
[2020-08-09 02:27] LABS: Basophils % (A) 0 %; Eosinophils % (A) 0 %; HCT 37.7 % (39.0-53.0); HGB 12.4 gm/dL (13.0-17.5); Lymphocytes # (A) 0.6 k/uL (1.0-4.8); Lymphocytes % (A) 7 %; MCV 96.9 fL (80.0-100.0); Mean Platelet Volume 7.6; Monocytes # (A) 0.7 k/uL (0-1.0); Monocytes % (A) 8 %; Neutrophils # (A) 7.4 k/uL (1.3-7.7); Neutrophils % (A) 84 %; Platelet Count 247 k/uL (150-450); RBC 3.89 m/uL (4.30-5.90); WBC 8.8 k/uL (3.8-10.6)
[2020-08-09 03:27] LABS: African American GFR (CKD) >90 (>60 ml/min/1.73 sqM); Anion Gap 3 mmol/L; Blood Urea Nitrogen 17 mg/dL (9-20); Carbon Dioxide 33 mmol/L (22-30); Chloride 85 mmol/L (98-107); Glucose 140 mg/dL (74-99); Non-African American GFR(CKD) >90 (>60 ml/min/1.73 sqM); Sodium 121 mmol/L (137-145)
[2020-08-09] MEDS ORDERED: SODIUM CHLORIDE 3%(HYPERTONIC) 500 ML IV SCH ×2 (03:30→22:45)
[2020-08-09] MEDS: PANTOPRAZOLE 40 MG TABLET PO SCH ×2 (06:52→19:02)
[2020-08-09] MEDS: SODIUM CHLORIDE 3%(HYPERTONIC) 500 ML IV SCH (06:52)
--- NOTE | 2020-08-09 08:08 | P.PN ---
Subjective Progress Note Date: 08/09/20 55-year-old male who was seen in the emergency department on 08/05/2020. The patient presents with increasing shortness of breath, and anxiety, as well as cough, and chest congestion. His symptoms began a couple days ago. Both his and his daughter apparently tested positive for coronavirus. He also tested positive for coronavirus. The patient does have baseline shortness of breath, secondary to his history of pulmonary fibrosis secondary to his progressive systemic sclerosis or scleroderma. 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 He is currently being managed at the [facility], by lung doctors and web marketing coordinator, and apparently was recently referred to the [facility] for consideration of lung transplantation. The patient denies any phlegm production. His cough is mostly dry. He is on 3 L nasal cannula at home, . His appetite has been poor. He denies any chest pain or pressu re. He denies any nausea, vomiting, diarrhea, and he also denies any abdominal pain or any genitourinary complaints. In addition to the above, the ER physician noted that his sodium was quite low, at 105, and I recommended that he start the patient on 3% saline. Nephrology has also been consulted. I asked him whether or not his shortness of breath was at baseline or worse, and he states that his shortness of breath is definitely worse. His medical history includes gastroesophageal reflux disease and esophageal dysmotility, essential hypertension, secondary pulmonary hypertension, supraventricular tachycardia, pulmonary fibrosis, scleroderma, Raynaud disease, among other things. Current ly, the patient's on 3 L nasal cannula, and getting 3% saline at 20 mL an hour. He is getting a basic metabolic profile ordered every 2 hours. On today's evaluation of 08/07/2020, seeing the patient for a follow-up. The patient is still on 3 L of oxygen by nasal cannula. The chest is a showing diffuse bilateral pulmonary fibrosis related to scleroderma. The patient has scleroderma with crest syndrome. The patient also has pulmonary hypertension. The patient was declined from transplantation is very sensitive and currently is being evaluated at the [facility]. He is als COVID 19 Positive. He presented to us with severe hyponatremia. On today's evaluation, the patient is still on 3% hypertonic saline and sodium gradually is improving and is up 114. We'll continue the hypertonic saline for now. No Altered mentation. No headaches. No focal neurological deficits. He has a chronic dry cough. He was having some limited congestion . There was no significant worsening in his oxygenation on overall respiratory status. He remains on 3 L and the pulses are 99%. He is currently on CellCept and the patient was also started on Decadron 6 mg by mouth daily. He is on Remdesivir day 2 and the patient has a CVA units of bolus and plasma. No other new complaints for now. Is able to swallow although he has history of chronic esophageal dysmotility. IV fluids is in the form of 3%. He is on sildenafil regarding his pulmonary hypertension. Tyvaso was tried in the past and had to be discontinued because of side effects On 08/08/2020 the patient is being seen for a follow-up. The patient is currently on 2 L of oxygen by nasal cannula. No worsening in his respiratory status and he is still being treated for COVID 19 infection. Remdesivir day 3 and the patient is also on Decadron 6 mg by mouth daily. They communicated with his web marketing coordinator with eyes stopping the also for now. In terms of his sodium level, the patient 25 on hypertonic saline at rate of these an hour. The sodium level monitoring shows that his sodium level is gradually coming up at 118. No altered mentation. No headaches. No focal neurological deficits. No other significant events otherwise over the past 24 hours. Creatinine is stable at 0.4. Inflammatory markers showed a normal LDH of 407 and his CRP is down to 45.1. He remains on long-term anticoagulation with Eliquis 4 previous history of SVT, cardiac arrhythmias and ablation 2020 the patient is stable. He is on 2 L of Oxymizer nasal cannula. In terms of his Covid 19, remains on Decadron 6 malignancy oh daily and he is taken before of Remdesivir and a chest x-ray shows chronic stable bilateral pulmonary fibrosis without any major interval change. No worsening shortness of breath. He is off the CellCept for now. In terms of his hyponatremia, the sodium level today is at 122 and the patient remains on 3% hypertonic saline and nephrology is monitoring this and hopefully they'll be able to 60 sodium within the next few days. The patient's inflammatory markers were nonelevated. I think he is only a mild case of Covid 19. He is tolerating diet. No nausea. No vomiting. No diarrhea. No abdominal pain. He has chronic dysphagia related to his systemic sclerosis. He remains on anticoagulation with Eliquis. No bleeding complications for now. Her neck rhythm is sinus for now. Objective - Vital Signs Vital signs: Vital Signs Temp 97.0 F L 08/08/20 21:00 Pulse 57 L 08/09/20 07:00 Resp 12 08/09/20 07:00 BP 110/86 08/09/20 07:00 Pulse Ox 97 08/09/20 06:00 Intake & Output 08/08/20 08/09/20 08/09/20 18:59 06:59 18:59 Intake Total 1265 820 30 Output Total 1395 495 30 Balance -130 325 0 Weight 66 kg Intake: IV 400 340 30 Remdesivir 200 mg In 250 Sodium Chloride 0.9% 250 ml @ 250 mls/hr IVPB ONCE ONE Rx#:[id number] Sodium Chloride 3%( 150 25 Hypertonic) 500 ml @ 20 mls/hr IV .Q24H [facility] Rx#: [id number] Sodium Chloride 3%( 315 30 Hypertonic) 500 ml @ 30 mls/hr IV .[id number] COUNTS INCLUDE 234 BEDS AT THE [facility] Rx #:[id number] Intake, IV Titration 25 Amount Sodium Chloride 3%( 25 Hypertonic) 500 ml @ 30 mls/hr IV .[id number] COUNTS INCLUDE 234 BEDS AT THE [facility] Rx #:[id number] Oral 840 480 Output: Urine 1395 495 30 Other: Voiding Method Indwelling Catheter Indwelling Catheter # Bowel Movements 1 - Exam No acute distress, oriented 3. Anxious, without audible wheezing, use of accessory muscles, or conversational dyspnea. HEENT examination is grossly unremarkable. Mucous membranes are moist. No oral lesions. Nasal O2 at 2 L noted. Neck supple. Full range of motion. No adenopathy thyromegaly or neck vein distention. Cardiovascular examination reveals regular rhythm rate. S1-S2 normal. No S3 or S4. No discernible murmur noted. Lungs reveal bibasilar Velcro crackles. No wheezes. There are also diffuse rhonchi particularly noted on exhalation. Breath sounds equal bilaterally. He is mildly restricted in his breathing. Abdominal exam revealed normal bowel sounds. The abdomen was soft, non-tender, and without masses, organomegaly, or appreciable enlargement of the abdominal aorta. Extremities are intact. No cyanosis clubbing or edema. The patient has scleroderma hands with extensive skin fibrosis. Skin reveals a fingertip ulcer. In addition, he has the classic findings of cutaneous scleroderma. The patient has ulcers in his fingertips in addition to calcinosis. Neurologic examination is brief but nonfocal.Neurologically, the patient is awake and alert and the patient does not have any focal neurological deficit. Cranial nerves are essentially intact. - Labs CBC & Chem 7: 08/09/20 02:19 08/09/20 05:58 Labs: Abnormal Lab Results - Last 24 Hours (Table) 08/08/20 08/08/20 08/08/20 Range/Units 07:59 12:06 16:57 RBC (4.30-5.90) m/uL Hgb (13.0-17.5) gm/dL Hct (39.0-53.0) % Lymphocytes # (1.0-4.8) k/uL Sodium 118 L* 120 L 120 L (137-145) mmol/L Chloride 82 L 84 L 83 L (98-107) mmol/L Carbon Dioxide 35 H 33 H (22-30) mmol/L Creatinine 0.41 L 0.35 L 0.35 L (0.66-1.25) mg/dL Glucose 116 H (74-99) mg/dL Calcium 8.2 L 8.0 L 8.1 L (8.4-10.2) mg/dL 08/08/20 08/09/20 08/09/20 Range/Units 21:18 02:19 02:19 RBC 3.89 L (4.30-5.90) m/uL Hgb 12.4 L (13.0-17.5) gm/dL Hct 37.7 L (39.0-53.0) % Lymphocytes # 0.6 L (1.0-4.8) k/uL Sodium 119 L* 121 L (137-145) mmol/L Chloride 86 L 85 L (98-107) mmol/L Carbon Dioxide 31 H 33 H (22-30) mmol/L Creatinine 0.33 L 0.46 L (0.66-1.25) mg/dL Glucose 105 H 140 H (74-99) mg/dL Calcium 7.8 L 8.0 L (8.4-10.2) mg/dL 08/09/20 Range/Units 05:58 RBC (4.30-5.90) m/uL Hgb (13.0-17.5) gm/dL Hct (39.0-53.0) % Lymphocytes # (1.0-4.8) k/uL Sodium 122 L (137-145) mmol/L Chloride (98-107) mmol/L Carbon Dioxide (22-30) mmol/L Creatinine (0.66-1.25) mg/dL Glucose (74-99) mg/dL Calcium (8.4-10.2) mg/dL Microbiology - Last 24 Hours (Table) 08/05/20 23:30 Blood Culture - Preliminary Blood No Growth after 72 hours 08/05/20 19:35 Blood Culture - Preliminary Blood No Growth after 72 hours Assessment and Plan Plan: 1 Acute on chronic hypoxemic respiratory failure, multifactorial, in part related to underlying scleroderma lung/pulmonary fibrosis, as well as a new diagnosis of COVID 19 pneumonitis. Nevertheless, the patient has chronic hypoxic respiratory failure. Patient is on oxygen at 3 L per minute nasal cannula regarding chronic pulmonary fibrosis. No previous chest x-rays are available for comparison. He continues to show stable bilateral pulmonary infiltrates/fibrosis which is probably chronic. He is currently on 2 L about 2 by nasal cannula. He remains on Decadron patient is currently off CellCept. 2 Severe hyponatremia, early on 3% saline. The sodium level is up 122 patient is currently on 3% hypertonic saline at the rate of 30 mL an hour. 3 History of SVT, status post ablation.This was done at [facility], still on long-term anticoagulation with Eliquis 4 Progressive systemic sclerosis and possibly CREST syndrome. 5 History of Raynaud's disease, with digital ulceration. 6 History of essential hypertension. 7 History of pulmonary hypertension. The patient is currently on sildenafil 8 History of gastroesophageal reflux disease, along with history of esophageal dysmotility 9 History of hyperlipidemia. 10 Chronic hypoxemic respiratory failure, with recent referral to [facility] for consideration of lung transplantation. Plan: Continue remdesivir day #4 , Decadron 6 mg , vitamin C, vitamin D3, and zinc, albuterol inhaler, and 1 U convalescent plasma. CellCept on hold Appropriate inflammatory markers drawn today and a follow-up levels will be obtained tomorrow Continue Eliquis 5 mg by mouth twice a day Currently on 3% saline for his severe hyponatremia at the rate of 30 mL an hour and sodium level is up to 122 and nephrology is to follow His overall prognosis remains guarded. We will continue to follow closely. He will stay in the intensive care unit for the time being.
--- NOTE | 2020-08-09 08:24 | XR ---
EXAMINATION TYPE: XR chest 1V portable DATE OF EXAM: 08/09/2020 COMPARISON: Prior chest x-ray 08/08/2020 HISTORY: Covid pneumonia TECHNIQUE: Single frontal view of the chest is obtained. FINDINGS: Pleural-parenchymal changes are similar to prior exam. Heart size is stable. No evident pn eumothorax or sizable effusion. IMPRESSION: Correlate for pneumonia.
[2020-08-09] MEDS: IPRATROPIUM BROMIDE 0.06% NASAL SPRAY (15 ML) EA NOSTRIL SCH ×2 (09:24→12:30)
[2020-08-09] MEDS: dexAMETHasone 2 MG TAB PO SCH (09:28)
[2020-08-09] MEDS: CHOLECALCIFEROL 25 MCG (1000 IU) TABLET PO SCH (09:28)
[2020-08-09] MEDS: ASCORBIC ACID 500 MG TAB PO SCH (09:28)
[2020-08-09] MEDS: APIXABAN 5 MG TAB PO SCH ×2 (09:28→21:19)
[2020-08-09] MEDS: METOPROLOL SUCCINATE (ER) 25 MG TAB.ER.24H PO SCH ×2 (09:28→21:19)
[2020-08-09] MEDS: MULTIVITAMINS, THERA 1 EACH TAB PO SCH (09:28)
[2020-08-09] MEDS: ZINC SULFATE 220 MG CAP PO SCH (09:29)
[2020-08-09] MEDS: PRUCALOPRIDE SUCCINATE PO SCH (09:29)
[2020-08-09] MEDS: SILDENAFIL 20 MG TAB PO SCH ×3 (09:29→21:19)
--- NOTE | 2020-08-09 10:32 | P.PN ---
Subjective Patient is seen in follow-up for hyponatremia. Sodium level gradually improving with 3%. Sodium level 124 this morning. Patient is awake and alert. No chest pain or shortness of breath. Oral intake is slowly improving. No vomiting or diarrhea. Blood pressure stable. Currently on 2 L nasal cannula. Vital signs are stable. General: The patient appeared well nourished and normally developed. HEENT: Head exam is unremarkable. Neck is without jugular venous distension. LUNGS: Breath sounds decreased. HEART: Rate and Rhythm are regular. ABDOMEN: Soft, nontender. EXTREMITITES: No edema. Objective - Vital Signs Vital signs: Vital Signs Temp 97.0 F L 08/08/20 21:00 Pulse 57 L 08/09/20 07:00 Resp 12 08/09/20 07:00 BP 110/86 08/09/20 07:00 Pulse Ox 97 08/09/20 06:00 Intake & Output 08/08/20 08/09/20 08/09/20 18:59 06:59 18:59 Intake Total 1265 820 90 Output Total 1395 495 105 Balance -130 325 -15 Weight 66 kg Intake: IV 400 340 90 Remdesivir 200 mg In 250 Sodium Chloride 0.9% 250 ml @ 250 mls/hr IVPB ONCE ONE Rx#:[id number] Sodium Chloride 3%( 150 25 Hypertonic) 500 ml @ 20 mls/hr IV .Q24H [facility] Rx#: [id number] Sodium Chloride 3%( 315 90 Hypertonic) 500 ml @ 30 mls/hr IV .[id number] [facility] Rx #:[id number] Intake, IV Titration 25 Amount Sodium Chloride 3%( 25 Hypertonic) 500 ml @ 30 mls/hr IV .[id number] [facility] Rx #:[id number] Oral 840 480 Output: Urine 1395 495 105 Other: Voiding Method Indwelling Catheter Indwelling Catheter Indwelling Catheter # Bowel Movements 1 - Labs CBC & Chem 7: 08/09/20 02:19 08/09/20 09:11 Labs: Abnormal Lab Results - Last 24 Hours (Table) 08/08/20 08/08/20 08/08/20 Range/Units 12:06 16:57 21:18 RBC (4.30-5.90) m/uL Hgb (13.0-17.5) gm/dL Hct (39.0-53.0) % Lymphocytes # (1.0-4.8) k/uL Sodium 120 L 120 L 119 L* (137-145) mmol/L Chloride 84 L 83 L 86 L (98-107) mmol/L Carbon Dioxide 33 H 31 H (22-30) mmol/L Creatinine 0.35 L 0.35 L 0.33 L (0.66-1.25) mg/dL Glucose 116 H 105 H (74-99) mg/dL Calcium 8.0 L 8.1 L 7.8 L (8.4-10.2) mg/dL 08/09/20 08/09/20 08/09/20 Range/Units 02:19 02:19 05:58 RBC 3.89 L (4.30-5.90) m/uL Hgb 12.4 L (13.0-17.5) gm/dL Hct 37.7 L (39.0-53.0) % Lymphocytes # 0.6 L (1.0-4.8) k/uL Sodium 121 L 122 L (137-145) mmol/L Chloride 85 L (98-107) mmol/L Carbon Dioxide 33 H (22-30) mmol/L Creatinine 0.46 L (0.66-1.25) mg/dL Glucose 140 H (74-99) mg/dL Calcium 8.0 L (8.4-10.2) mg/dL 08/09/20 Range/Units 09:11 RBC (4.30-5.90) m/uL Hgb (13.0-17.5) gm/dL Hct (39.0-53.0) % Lymphocytes # (1.0-4.8) k/uL Sodium 124 L (137-145) mmol/L Chloride (98-107) mmol/L Carbon Dioxide (22-30) mmol/L Creatinine (0.66-1.25) mg/dL Glucose (74-99) mg/dL Calcium (8.4-10.2) mg/dL Microbiology - Last 24 Hours (Table) 08/05/20 23:30 Blood Culture - Preliminary Blood No Growth after 72 hours 08/05/20 19:35 Blood Culture - Preliminary Blood No Growth after 72 hours Assessment and Plan Plan: Assessment: 1. Hypovolemic hyponatremia with component of poor solute intake and further worsened with the use of thiazide diuretic. Sodium level gradually improving with 3% saline. Urine sodium 13 and urine osmolality 635. TSH slightly on the lower side. 2. Benign hypertension. Controlled. 3. Scleroderma. Follows at [facility]. 4. Hypomagnesemia from poor intake and diuretics. Improved post placement. 5. Hypokalemia from poor intake and diuretics. Improved post replacement. Plan: Stop 3%. Encouraged oral intake, particularly protein. Add sodium chloride tablets 1 g twice daily. Monitor sodium level closely. Goal rate of correction 6-7 mEq per 24 hours. Okay to remove Patterson catheter. Avoid thiazide diuretics in the future.
[2020-08-09] MEDS: REMDESIVIR 100 MG in SODIUM CHLORIDE 0.9% 250 ML IVPB SCH (10:53)
[2020-08-09] MEDS: FLUTICASONE 50MCG/SPRAY NASAL 16GM EA NOSTRIL SCH (12:30)
--- NOTE | 2020-08-09 16:38 | P.PN ---
Subjective Progress Note Date: 08/08/20 This is a 55-year-old male patient with past medical history of gastroesophageal reflux disease and esophageal dysmotility, hypertension, secondary pulmonary hypertension, paroxysmal atrial fibrillation on eliquis, Raynaud's disease, remote history of tobacco use, chronic hypoxic respiratory failure on home O2 at 3 L nasal cannula, pulmonary fibrosis secondary to progressive systemic sclerosis or scleroderma. Biopsy in 2013 showed evidence of usual interstitial pneumonia. He follows regularly with pulmonary and rheumatology at [facility] and has considered lung transplant but has declined moving forward with this. Patient presented to the hospital due to increasing shortness of breath, cough without sputum production, poor appetite, anxiety. No nausea, vomiting, diarrhea. He was positive for coronavirus patient also experienced weakness. He came into [facility] emergency center for evaluation was found to have a sodium of 105. He was placed on 3% saline and nephrology, pulmonary medicine have been following him in the intensive care unit. 08/07: Sodium today is 112. Potassium 4.5, chloride 76, CO2 34, BUN 10 and creatinine 0.4. Blood sugar 111. C-reactive protein 45.1. TSH 0.442 with normal free T4 of 0.93. WBC 6.5, hemoglobin 12.1, platelet count 147. Blood cultures are showing no growth at 24 hours. Patient is followed by pulmonary medicine and has been started on Remdesivir day #2/5, dexamethasone and supplements. He is currently on IV fluids of 3% at 20 MLS per hour per nephrology. Afebrile, pulse ox 94% on 3 L nasal cannula, heart rate 68, respiratory rate 24, blood pressure 110/80. court recording monitor sinus rhythm. He remains in the intensive care unit with close monitoring. 08/08: Patient remains in the intensive care unit. He is seen today sitting up in a chair. Pulse ox is 100% on 2 L nasal cannula. He has been afebrile, heart rate in the 50s and 60s, blood pressure 128/91. 38 monitor is sinus rhythm with PACs. Metoprolol increased to twice daily Sodium this morning is 117, potassium 4.5, chloride 82, CO2 34, BUN 13 and creatinine 0.49. Hemoglobin 12, WBC 6.3, platelet count 165. Blood cultures show no growth at 48 hours. Repeat chest x- ray reveals no significant. Patient is on day #3/5 of Remdesivir. He is currently on 3% saline at 25 mL per hour. Objective - Vital Signs Vital signs: Vital Signs Temp 97.8 F 08/08/20 04:00 Pulse 60 08/08/20 07:00 Resp 20 08/08/20 07:00 BP 128/91 08/08/20 07:00 Pulse Ox 100 08/08/20 07:00 Intake & Output 08/07/20 08/08/20 08/08/20 18:59 06:59 18:59 Intake Total 970 400 25 Output Total 740 490 35 Balance 230 -90 -10 Weight 61.1 kg Intake: IV 370 40 Remdesivir 200 mg In 250 Sodium Chloride 0.9% 250 ml @ 250 mls/hr IVPB ONCE ONE Rx#:[id number] Sodium Chloride 3%( 120 40 Hypertonic) 500 ml @ 20 mls/hr IV .Q24H [facility] Rx#: [id number] Intake, IV Titration 240 25 Amount Sodium Chloride 3%( 140 Hypertonic) 500 ml @ 20 mls/hr IV .Q24H [facility] Rx#: [id number] Sodium Chloride 3%( 100 25 Hypertonic) 500 ml @ 25 mls/hr IV .Q20H [facility] Rx#: [id number] Oral 600 120 Output: Urine 740 490 35 Other: Voiding Method Indwelling Catheter Indwelling Catheter - Exam Review Of Systems: Constitutional: No fever, no chills, no night sweats. No weight change. Reports weakness, Reports fatigue. No daytime sleepiness. EENT: No headache. No blurred vision or double vision, no loss of vision. No loss of Hearing, no ringing in the ears, no dizziness. No nasal drainage or congestion. No epistaxis. Reports sore throat. Lungs: Reports shortness of breath, Reports cough, no sputum production. No wheezing. Cardiovascular: No chest pain, no lower extremity edema. No palpitations. No paroxysmal nocturnal dyspnea. No orthopnea. No lightheadedness or dizziness. No syncopal episodes. Abdominal: No abdominal pain. No nausea, vomiting. No diarrhea. No constipation. No bloody or tarry stools.. No loss of appetite. Genitourinary: No dysuria, increased frequency, urgency. No urinary retention. Musculoskeletal: No myalgias. Reports muscle weakness, no gait dysfunction, no frequent falls. No back pain. No neck pain. Integumentary: Reports wounds, no lesions. No rash or pruritus. No unusual bruising. No change in hair or nails. Neurologic: No aphasia. No facial droop. No change in mentation. No head injury. No headache. No paralysis. No paresthesia. Psychiatric: No depression. No anxiety. No mood swings. Endocrine: No abnormal blood sugars. No weight change. Physical Examination Gen: This is a 55-year-old male. He is resting in the ICU bed and appears to be comfortable at restand in no acute distress. HEENT: Head is atraumatic, normocephalic. Pupils equal, round. Sclerae is anicteric. NECK: Supple. No JVD. No lymphadenopathy. No thyromegaly. LUNGS: Rhonchi bilaterally. No intercostal retractions. HEART: Regular rate and rhythm. No murmur. ABDOMEN: Soft. Bowel sounds are present. No masses. No tenderness. EXTREMITIES: No pedal edema. No calf tenderness. Fingertip ulcerations secondary to scleroderma. NEUROLOGICAL: Patient is awake, alert and oriented x3. Cranial nerves 2 through 12 are grossly intact. - Labs CBC & Chem 7: 08/09/20 02:19 08/09/20 12:51 Labs: Abnormal Lab Results - Last 24 Hours (Table) 08/07/20 08/07/20 08/07/20 Range/Units 04:10 07:16 10:28 RBC (4.30-5.90) m/uL Hgb (13.0-17.5) gm/dL Hct (39.0-53.0) % Lymphocytes # (1.0-4.8) k/uL Sodium 114 L* 115 L* (137-145) mmol/L Potassium (3.5-5.1) mmol/L Chloride 78 L (98-107) mmol/L Carbon Dioxide 35 H (22-30) mmol/L Creatinine 0.45 L (0.66-1.25) mg/dL Glucose 100 H (74-99) mg/dL Calcium 8.0 L (8.4-10.2) mg/dL Ferritin 489.4 H (22.0-322.0) ng/mL 08/07/20 08/07/20 08/07/20 Range/Units 12:24 14:10 16:08 RBC (4.30-5.90) m/uL Hgb (13.0-17.5) gm/dL Hct (39.0-53.0) % Lymphocytes # (1.0-4.8) k/uL Sodium 116 L* 115 L* 115 L* (137-145) mmol/L Potassium (3.5-5.1) mmol/L Chloride 80 L 79 L 79 L (98-107) mmol/L Carbon Dioxide 32 H 32 H 34 H (22-30) mmol/L Creatinine 0.36 L 0.40 L 0.39 L (0.66-1.25) mg/dL Glucose 108 H 120 H 118 H (74-99) mg/dL Calcium 8.1 L 7.9 L 8.0 L (8.4-10.2) mg/dL Ferritin (22.0-322.0) ng/mL 08/07/20 08/07/20 08/07/20 Range/Units 18:05 20:09 22:15 RBC (4.30-5.90) m/uL Hgb (13.0-17.5) gm/dL Hct (39.0-53.0) % Lymphocytes # (1.0-4.8) k/uL Sodium 117 L* 117 L* 116 L* (137-145) mmol/L Potassium 5.2 H (3.5-5.1) mmol/L Chloride 80 L 79 L 79 L (98-107) mmol/L Carbon Dioxide 34 H 33 H 32 H (22-30) mmol/L Creatinine 0.39 L 0.40 L 0.39 L (0.66-1.25) mg/dL Glucose 118 H 111 H 155 H (74-99) mg/dL Calcium 8.1 L 8.2 L 8.0 L (8.4-10.2) mg/dL Ferritin (22.0-322.0) ng/mL 08/08/20 08/08/20 08/08/20 Range/Units 00:04 01:54 03:58 RBC 3.64 L (4.30-5.90) m/uL Hgb 12.0 L (13.0-17.5) gm/dL Hct 34.6 L (39.0-53.0) % Lymphocytes # 0.4 L (1.0-4.8) k/uL Sodium 115 L* 115 L* (137-145) mmol/L Potassium (3.5-5.1) mmol/L Chloride 81 L 82 L (98-107) mmol/L Carbon Dioxide 33 H 32 H (22-30) mmol/L Creatinine 0.42 L 0.41 L (0.66-1.25) mg/dL Glucose 140 H 125 H (74-99) mg/dL Calcium 8.0 L 8.1 L (8.4-10.2) mg/dL Ferritin (22.0-322.0) ng/mL 08/08/20 08/08/20 Range/Units 03:58 06:16 RBC (4.30-5.90) m/uL Hgb (13.0-17.5) gm/dL Hct (39.0-53.0) % Lymphocytes # (1.0-4.8) k/uL Sodium 117 L* 117 L* (137-145) mmol/L Potassium (3.5-5.1) mmol/L Chloride 81 L 82 L (98-107) mmol/L Carbon Dioxide 34 H 34 H (22-30) mmol/L Creatinine 0.45 L 0.49 L (0.66-1.25) mg/dL Glucose 111 H 108 H (74-99) mg/dL Calcium 8.2 L 8.1 L (8.4-10.2) mg/dL Ferritin (22.0-322.0) ng/mL Microbiology - Last 24 Hours (Table) 08/05/20 23:30 Blood Culture - Preliminary Blood No Growth after 48 hours 08/05/20 19:35 Blood Culture - Preliminary Blood No Growth after 48 hours Assessment and Plan Plan: 1. Acute hypoxemic respiratory failure, multifactorial, in part related to underlying scleroderma lung/pulmonary fibrosis, as well as a new diagnosis of COVID 19 pneumonitis. Continue Remdesivir day #3/5, dexamethasone 6 mg daily, supplements. Continue Ventolin inhaler 4 times daily as needed. Consult with pulmonary medicine appreciated. 2. Severe hyponatremia. Patient is followed closely in the ICU. Consult with nephrology appreciated. Patient is currently on 3% saline at 25 MLS per hour. 3. Paroxysmal atrial fibrillation, status post ablation. Continue eliquis 5 mg twice daily, Toprol-XL 25 mg increased frequency to twice daily. 4. 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 [facility] on hold. 5. Raynaud's disease, with digital ulceration. 6. Hypertension. Continue Toprol-XL 25 mg daily. 7. Pulmonary hypertension. Continue Revatio 20 mg 3 times daily oral. 8. Gastroesophageal reflux disease and GI prophylaxis. Continue Protonix 40 mg oral twice daily. 9. Esophageal dysmotility secondary to scleroderma. Continue rifaximin 550 mg twice daily as needed, Revatio 20 mg 3 times daily, Prucalopride 2 mg daily. 10. Hyperlipidemia. 10. Chronic hypoxemic respiratory failure on home O2 at 3 L nasal cannula. 11. Thrombocytopenia, continue to monitor. 12. DVT prophylaxis. Continue eliquis 5 mg twice daily. Discharge plan: Most likely return home Impression and plan of care have been directed as dictated by the signing physician. Shana Iverson nurse practitioner acting as scribe for signing kelley manley.
--- NOTE | 2020-08-09 16:39 | P.PN ---
Subjective Progress Note Date: 08/09/20 This is a 55-year-old male patient with past medical history of gastroesophageal reflux disease and esophageal dysmotility, hypertension, secondary pulmonary hypertension, paroxysmal atrial fibrillation on eliquis, Raynaud's disease, remote history of tobacco use, chronic hypoxic respiratory failure on home O2 at 3 L nasal cannula, pulmonary fibrosis secondary to progressive systemic sclerosis or scleroderma. Biopsy in 2013 showed evidence of usual interstitial pneumonia. He follows regularly with pulmonary and rheumatology at [facility] and has considered lung transplant but has declined moving forward with this. Patient presented to the hospital due to increasing shortness of breath, cough without sputum production, poor appetite, anxiety. No nausea, vomiting, diarrhea. He was positive for coronavirus patient also experienced weakness. He came into [facility] emergency center for evaluation was found to have a sodium of 105. He was placed on 3% saline and nephrology, pulmonary medicine have been following him in the intensive care unit. 08/07: Sodium today is 112. Potassium 4.5, chloride 76, CO2 34, BUN 10 and creatinine 0.4. Blood sugar 111. C-reactive protein 45.1. TSH 0.442 with normal free T4 of 0.93. WBC 6.5, hemoglobin 12.1, platelet count 147. Blood cultures are showing no growth at 24 hours. Patient is followed by pulmonary medicine and has been started on Remdesivir day #2/5, dexamethasone and supplements. He is currently on IV fluids of 3% at 20 MLS per hour per nephrology. Afebrile, pulse ox 94% on 3 L nasal cannula, heart rate 68, respiratory rate 24, blood pressure 110/80. cafeteria monitor sinus rhythm. He remains in the intensive care unit with close monitoring. 08/08: Patient remains in the intensive care unit. He is seen today sitting up in a chair. Pulse ox is 100% on 2 L nasal cannula. He has been afebrile, heart rate in the 50s and 60s, blood pressure 128/91. 38 monitor is sinus rhythm with PACs. Metoprolol increased to twice daily Sodium this morning is 117, potassium 4.5, chloride 82, CO2 34, BUN 13 and creatinine 0.49. Hemoglobin 12, WBC 6.3, platelet count 165. Blood cultures show no growth at 48 hours. Repeat chest x- ray reveals no significant. Patient is on day #3/5 of Remdesivir. He is currently on 3% saline at 25 mL per hour. 08/09: Patient remains in the ICU. Repeat sodium is 124. Dr. Aguilar has discontinued 3% normal saline and started him on sodium chloride tablets 1 g twice daily. Patterson catheter to be discontinued. Patient has had no vomiting or diarrhea. No chest pain. Repeat chest x-ray reveals correlate for pneumonia. He has been afebrile, heart rate in the 60s, respiratory rate 28, blood pressure 108/74, pulse ox 98% on 2 L nasal cannula. WBC 8.8, hemoglobin 12.4, platelet count 247. Sodium 124, potassium 4.0, chloride 85, CO2 33, BUN 17 and creatinine 0.46. Blood sugar 140. Patient is on day #4 of Remdesivir. Objective - Vital Signs Vital signs: Vital Signs Temp 98 F 08/09/20 12:00 Pulse 65 08/09/20 14:00 Resp 28 H 08/09/20 14:00 BP 108/74 08/09/20 14:00 Pulse Ox 98 08/09/20 14:00 Intake & Output 08/08/20 08/09/20 08/09/20 18:59 06:59 18:59 Intake Total 1265 820 90 Output Total 1395 495 305 Balance -130 325 -215 Weight 66 kg Intake: IV 400 340 90 Remdesivir 200 mg In 250 Sodium Chloride 0.9% 250 ml @ 250 mls/hr IVPB ONCE ONE Rx#:[id number] Sodium Chloride 3%( 150 25 Hypertonic) 500 ml @ 20 mls/hr IV .Q24H [facility] Rx#: [id number] Sodium Chloride 3%( 315 90 Hypertonic) 500 ml @ 30 mls/hr IV .[id number] [facility] Rx #:[id number] Intake, IV Titration 25 Amount Sodium Chloride 3%( 25 Hypertonic) 500 ml @ 30 mls/hr IV .[id number] [facility] Rx #:[id number] Oral 840 480 Output: Urine 1395 495 305 Other: Voiding Method Indwelling Catheter Indwelling Catheter Urinal # Voids 1 # Bowel Movements 1 1 - Exam Review Of Systems: Constitutional: No fever, no chills, no night sweats. No weight change. Reports weakness, Reports fatigue. No daytime sleepiness. EENT: No headache. No blurred vision or double vision, no loss of vision. No loss of Hearing, no ringing in the ears, no dizziness. No nasal drainage or congestion. No epistaxis. Reports sore throat. Lungs: Reports shortness of breath, Reports cough, no sputum production. No wheezing. Cardiovascular: No chest pain, no lower extremity edema. No palpitations. No paroxysmal nocturnal dyspnea. No orthopnea. No lightheadedness or dizziness. No syncopal episodes. Abdominal: No abdominal pain. No nausea, vomiting. No diarrhea. No constipation. No bloody or tarry stools.. No loss of appetite. Genitourinary: No dysuria, increased frequency, urgency. No urinary retention. Musculoskeletal: No myalgias. Reports muscle weakness, no gait dysfunction, no frequent falls. No back pain. No neck pain. Integumentary: Reports wounds, no lesions. No rash or pruritus. No unusual bruising. No change in hair or nails. Neurologic: No aphasia. No facial droop. No change in mentation. No head injury. No headache. No paralysis. No paresthesia. Psychiatric: No depression. No anxiety. No mood swings. Endocrine: No abnormal blood sugars. No weight change. Physical Examination Gen: This is a 55-year-old male. He is resting in the ICU bed and appears to be comfortable at rest and in no acute distress. HEENT: Head is atraumatic, normocephalic. Pupils equal, round. Sclerae is anicteric. NECK: Supple. No JVD. No lymphadenopathy. No thyromegaly. LUNGS: Rhonchi bilaterally. No intercostal retractions. HEART: Regular rate and rhythm. No murmur. ABDOMEN: Soft. Bowel sounds are present. No masses. No tenderness. EXTREMITIES: No pedal edema. No calf tenderness. Fingertip ulcerations secondary to scleroderma. NEUROLOGICAL: Patient is awake, alert and oriented x3. Cranial nerves 2 through 12 are grossly intact. - Labs CBC & Chem 7: 08/09/20 02:19 08/09/20 12:51 Labs: Abnormal Lab Results - Last 24 Hours (Table) 08/08/20 08/08/20 08/09/20 Range/Units 16:57 21:18 02:19 RBC 3.89 L (4.30-5.90) m/uL Hgb 12.4 L (13.0-17.5) gm/dL Hct 37.7 L (39.0-53.0) % Lymphocytes # 0.6 L (1.0-4.8) k/uL Sodium 120 L 119 L* (137-145) mmol/L Chloride 83 L 86 L (98-107) mmol/L Carbon Dioxide 31 H (22-30) mmol/L Creatinine 0.35 L 0.33 L (0.66-1.25) mg/dL Glucose 116 H 105 H (74-99) mg/dL Calcium 8.1 L 7.8 L (8.4-10.2) mg/dL 08/09/20 08/09/20 08/09/20 Range/Units 02:19 05:58 09:11 RBC (4.30-5.90) m/uL Hgb (13.0-17.5) gm/dL Hct (39.0-53.0) % Lymphocytes # (1.0-4.8) k/uL Sodium 121 L 122 L 124 L (137-145) mmol/L Chloride 85 L (98-107) mmol/L Carbon Dioxide 33 H (22-30) mmol/L Creatinine 0.46 L (0.66-1.25) mg/dL Glucose 140 H (74-99) mg/dL Calcium 8.0 L (8.4-10.2) mg/dL 08/09/20 Range/Units 12:51 RBC (4.30-5.90) m/uL Hgb (13.0-17.5) gm/dL Hct (39.0-53.0) % Lymphocytes # (1.0-4.8) k/uL Sodium 124 L (137-145) mmol/L Chloride (98-107) mmol/L Carbon Dioxide (22-30) mmol/L Creatinine (0.66-1.25) mg/dL Glucose (74-99) mg/dL Calcium (8.4-10.2) mg/dL Microbiology - Last 24 Hours (Table) 08/05/20 23:30 Blood Culture - Preliminary Blood No Growth after 72 hours 08/05/20 19:35 Blood Culture - Preliminary Blood No Growth after 72 hours Assessment and Plan Plan: 1. Acute hypoxemic respiratory failure, multifactorial, in part related to underlying scleroderma lung/pulmonary fibrosis, as well as a new diagnosis of COVID 19 pneumonitis. Continue Remdesivir day #4/5, dexamethasone 6 mg daily, supplements. Continue Ventolin inhaler 4 times daily as needed. Consult with pulmonary medicine appreciated. 2. Severe hyponatremia. Patient is followed closely in the ICU. Consult with nephrology appreciated. 3% saline has been discontinued and patient started on sodium chloride tablets 1 g twice daily. Patterson catheter be discontinued. 3. Paroxysmal atrial fibrillation, status post ablation. Continue eliquis 5 mg twice daily, Toprol-XL 25 mg increased frequency to twice daily. 4. 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 [facility] on hold. Patient does not have plans for lung transplant. 5. Raynaud's disease, with digital ulceration. 6. Hypertension. Continue Toprol-XL 25 mg daily. 7. Pulmonary hypertension. Continue Revatio 20 mg 3 times daily oral. 8. Gastroesophageal reflux disease and GI prophylaxis. Continue Protonix 40 mg oral twice daily. 9. Esophageal dysmotility secondary to scleroderma. Continue rifaximin 550 mg twice daily as needed, Revatio 20 mg 3 times daily, Prucalopride 2 mg daily. 10. Hyperlipidemia. 10. Chronic hypoxemic respiratory failure on home O2 at 3 L nasal cannula. 11. Thrombocytopenia, continue to monitor. 12. DVT prophylaxis. Continue eliquis 5 mg twice daily. Discharge plan: Most likely return home Impression and plan of care have been directed as dictated by the signing phys santiago. Shana Iverson nurse practitioner acting as scribe for signing physician.
[2020-08-09] MEDS: ALBUTEROL HFA INHALER INHALATION PRN (20:56)
[2020-08-09] MEDS: OCTREOTIDE 100 MCG/ML INJ SQ SCH (21:18)
[2020-08-09] MEDS: SODIUM CHLORIDE TAB 1 GM TAB PO SCH (21:18)
[2020-08-09] MEDS: ALPRAZolam 0.25 MG TAB PO PRN (21:19)
[2020-08-10 05:47] LABS: HCT 34.2 % (39.0-53.0); HGB 11.2 gm/dL (13.0-17.5); MCH 31.6 pg (25.0-35.0); MCHC 32.8 g/dL (31.0-37.0); MCV 96.2 fL (80.0-100.0); Mean Platelet Volume 7.2; Platelet Count 269 k/uL (150-450); RBC 3.56 m/uL (4.30-5.90); RDW 12.8 % (11.5-15.5); WBC 8.1 k/uL (3.8-10.6)
[2020-08-10 06:10] LABS: African American GFR (CKD) >90 (>60 ml/min/1.73 sqM); Anion Gap 2 mmol/L; Blood Urea Nitrogen 19 mg/dL (9-20); C Reactive Protein 14.4 mg/L (<10.0); Carbon Dioxide 34 mmol/L (22-30); Chloride 88 mmol/L (98-107); Glucose 78 mg/dL (74-99); LDH 362 U/L (313-618); Magnesium 1.6 mg/dL (1.6-2.3); Non-African American GFR(CKD) >90 (>60 ml/min/1.73 sqM); Phosphorus 3.4 mg/dL (2.5-4.5); Potassium 3.9 mmol/L (3.5-5.1); Sodium 124 mmol/L (137-145)
[2020-08-10] MEDS ORDERED: Magnesium Replacement Protocol 1 EACH MISC MISCELLANE PRN (06:19)
[2020-08-10] MEDS: PANTOPRAZOLE 40 MG TABLET PO SCH ×2 (06:53→16:56)
[2020-08-10] MEDS: MAGNESIUM SULFATE-D5W PMX 1 GM in DEXTROSE/WATER 1 100ML.BAG IVPB SCH ×2 (06:54→07:58)
[2020-08-10] MEDS: ALBUTEROL HFA INHALER INHALATION PRN ×4 (07:27→19:10)
[2020-08-10] MEDS: IPRATROPIUM BROMIDE 0.06% NASAL SPRAY (15 ML) EA NOSTRIL SCH ×3 (07:43→22:55)
[2020-08-10] MEDS: PRUCALOPRIDE SUCCINATE PO SCH (07:59)
[2020-08-10] MEDS: dexAMETHasone 2 MG TAB PO SCH (07:59)
[2020-08-10] MEDS ORDERED: POTASSIUM CHLORIDE ER 20 MEQ TAB.ER PO SCH (08:00)
[2020-08-10] MEDS: ZINC SULFATE 220 MG CAP PO SCH (08:00)
[2020-08-10] MEDS: APIXABAN 5 MG TAB PO SCH ×2 (08:00→19:59)
[2020-08-10] MEDS: ASCORBIC ACID 500 MG TAB PO SCH (08:00)
[2020-08-10] MEDS: SILDENAFIL 20 MG TAB PO SCH ×3 (08:01→19:59)
[2020-08-10] MEDS: MULTIVITAMINS, THERA 1 EACH TAB PO SCH (08:01)
[2020-08-10] MEDS: SODIUM CHLORIDE TAB 1 GM TAB PO SCH ×2 (08:01→19:59)
[2020-08-10] MEDS: CHOLECALCIFEROL 25 MCG (1000 IU) TABLET PO SCH (08:01)
[2020-08-10] MEDS: FLUTICASONE 50MCG/SPRAY NASAL 16GM EA NOSTRIL SCH (08:02)
[2020-08-10] MEDS: METOPROLOL SUCCINATE (ER) 25 MG TAB.ER.24H PO SCH (08:02)
--- NOTE | 2020-08-10 08:12 | P.PN ---
Subjective Progress Note Date: 08/10/20 55-year-old male who was seen in the emergency department on 08/05/2020. The patient presents with increasing shortness of breath, and anxiety, as well as cough, and chest congestion. His symptoms began a couple days ago. Both his and his daughter apparently tested positive for coronavirus. He also tested positive for coronavirus. The patient does have baseline shortness of breath, secondary to his history of pulmonary fibrosis secondary to his progressive systemic sclerosis or scleroderma. 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 He is currently being managed at the [facility], by lung doctors and territory business manager, and apparently was recently referred to the [facility] for consideration of lung transplantation. The patient denies any phlegm production. His cough is mostly dry. He is on 3 L nasal cannula at home, . His appetite has been poor. He denies any chest pain or pressu re. He denies any nausea, vomiting, diarrhea, and he also denies any abdominal pain or any genitourinary complaints. In addition to the above, the ER physician noted that his sodium was quite low, at 105, and I recommended that he start the patient on 3% saline. Nephrology has also been consulted. I asked him whether or not his shortness of breath was at baseline or worse, and he states that his shortness of breath is definitely worse. His medical history includes gastroesophageal reflux disease and esophageal dysmotility, essential hypertension, secondary pulmonary hypertension, supraventricular tachycardia, pulmonary fibrosis, scleroderma, Raynaud disease, among other things. Current ly, the patient's on 3 L nasal cannula, and getting 3% saline at 20 mL an hour. He is getting a basic metabolic profile ordered every 2 hours. On today's evaluation of 08/07/2020, seeing the patient for a follow-up. The patient is still on 3 L of oxygen by nasal cannula. The chest is a showing diffuse bilateral pulmonary fibrosis related to scleroderma. The patient has scleroderma with crest syndrome. The patient also has pulmonary hypertension. The patient was declined from transplantation is very sensitive and currently is being evaluated at the [facility]. He is als COVID 19 Positive. He presented to us with severe hyponatremia. On today's evaluation, the patient is still on 3% hypertonic saline and sodium gradually is improving and is up 114. We'll continue the hypertonic saline for now. No Altered mentation. No headaches. No focal neurological deficits. He has a chronic dry cough. He was having some limited congestion . There was no significant worsening in his oxygenation on overall respiratory status. He remains on 3 L and the pulses are 99%. He is currently on CellCept and the patient was also started on Decadron 6 mg by mouth daily. He is on Remdesivir day 2 and the patient has a CVA units of bolus and plasma. No other new complaints for now. Is able to swallow although he has history of chronic esophageal dysmotility. IV fluids is in the form of 3%. He is on sildenafil regarding his pulmonary hypertension. Tyvaso was tried in the past and had to be discontinued because of side effects On 08/08/2020 the patient is being seen for a follow-up. The patient is currently on 2 L of oxygen by nasal cannula. No worsening in his respiratory status and he is still being treated for COVID 19 infection. Remdesivir day 3 and the patient is also on Decadron 6 mg by mouth daily. They communicated with his territory business manager with eyes stopping the also for now. In terms of his sodium level, the patient 25 on hypertonic saline at rate of these an hour. The sodium level monitoring shows that his sodium level is gradually coming up at 118. No altered mentation. No headaches. No focal neurological deficits. No other significant events otherwise over the past 24 hours. Creatinine is stable at 0.4. Inflammatory markers showed a normal LDH of 407 and his CRP is down to 45.1. He remains on long-term anticoagulation with Eliquis 4 previous history of SVT, cardiac arrhythmias and ablation 2020 the patient is stable. He is on 2 L of Oxymizer nasal cannula. In terms of his Covid 19, remains on Decadron 6 malignancy oh daily and he is taken before of Remdesivir and a chest x-ray shows chronic stable bilateral pulmonary fibrosis without any major interval change. No worsening shortness of breath. He is off the CellCept for now. In terms of his hyponatremia, the sodium level today is at 122 and the patient remains on 3% hypertonic saline and nephrology is monitoring this and hopefully they'll be able to 60 sodium within the next few days. The patient's inflammatory markers were nonelevated. I think he is only a mild case of Covid 19. He is tolerating diet. No nausea. No vomiting. No diarrhea. No abdominal pain. He has chronic dysphagia related to his systemic sclerosis. He remains on anticoagulation with Eliquis. No bleeding complications for now. Her neck rhythm is sinus for now. 08/10/2020, the patient remains on oxygen at 2 L. Doing well. No worsening shortness of breath. He is taken Decadron 6 mg by mouth daily and he is also on Remdesivir day 5 of treatment. No respiratory issues. Sodium level continues to be low at 124. He was taken off the hypertonic saline solution and he is also on fluid restriction. Inflammatory markers were nonelevated. His d-dimer is at 0.4 and his CRP is down to 14. He is doing well. No specific complaints. He remains on Eliquis is on long-term anticoagulants for cardiac arrhythmias and SVTs for which she has undergone ablation. No other significant events overnight. He is able to swallow. He is currently off CellCept. He has been declined for transplantation and [facility] and he is seeking lung transplantation through the [facility]. Objective - Vital Signs Vital signs: Vital Signs Temp 97.8 F 08/10/20 04:00 Pulse 47 L 08/10/20 07:00 Resp 20 08/10/20 07:00 BP 103/83 08/10/20 07:00 Pulse Ox 99 08/10/20 07:27 Intake & Output 08/09/20 08/10/20 08/10/20 18:59 06:59 18:59 Intake Total 790 525 Output Total 405 200 Balance 385 325 Intake: IV 90 165 Sodium Chloride 3%( 90 Hypertonic) 500 ml @ 30 mls/hr IV .[id number] [facility] Rx #:[id number] Sodium Chloride 3%( 165 Hypertonic) 500 ml @ 30 mls/hr IV .[id number] [facility] Rx #:[id number] Oral 700 360 Output: Urine 405 200 Other: Voiding Method Urinal Urinal # Voids 1 0 0 # Bowel Movements 1 1 - Exam No acute distress, oriented 3. Anxious, without audible wheezing, use of accessory muscles, or conversational dyspnea. HEENT examination is grossly unremarkable. Mucous membranes are moist. No oral lesions. Nasal O2 at 2 L noted. Neck supple. Full range of motion. No adenopathy thyromegaly or neck vein distention. Cardiovascular examination reveals regular rhythm rate. S1-S2 normal. No S3 or S4. No discernible murmur noted. Lungs reveal bibasilar Velcro crackles. No wheezes. There are also diffuse rhonchi particularly noted on exhalation. Breath sounds equal bilaterally. He is mildly restricted in his breathing. Abdominal exam revealed normal bowel sounds. The abdomen was soft, non-tender, and without masses, organomegaly, or appreciable enlargement of the abdominal aorta. Extremities are intact. No cyanosis clubbing or edema. The patient has scleroderma hands with extensive skin fibrosis. Skin reveals a fingertip ulcer. In addition, he has the classic findings of cutaneous scleroderma. The patient has ulcers in his fingertips in addition to calcinosis. Neurologic examination is brief but nonfocal.Neurologically, the patient is awake and alert and the patient does not have any focal neurological deficit. Cranial nerves are essentially intact. - Labs CBC & Chem 7: 08/10/20 05:08/10/20 05:04 Labs: Abnormal Lab Results - Last 24 Hours (Table) 08/09/20 08/09/20 08/09/20 Range/Units 09:11 12:51 19:25 RBC (4.30-5.90) m/uL Hgb (13.0-17.5) gm/dL Hct (39.0-53.0) % Sodium 124 L 124 L 123 L (137-145) mmol/L Chloride (98-107) mmol/L Carbon Dioxide (22-30) mmol/L Creatinine (0.66-1.25) mg/dL Calcium (8.4-10.2) mg/dL C-Reactive Protein (<10.0) mg/L 08/10/20 08/10/20 08/10/20 Range/Units 01:45 05:04 05:04 RBC 3.56 L (4.30-5.90) m/uL Hgb 11.2 L (13.0-17.5) gm/dL Hct 34.2 L (39.0-53.0) % Sodium 123 L 124 L (137-145) mmol/L Chloride 88 L (98-107) mmol/L Carbon Dioxide 34 H (22-30) mmol/L Creatinine 0.40 L (0.66-1.25) mg/dL Calcium 8.0 L (8.4-10.2) mg/dL C-Reactive Protein 14.4 H (<10.0) mg/L Microbiology - Last 24 Hours (Table) 08/05/20 23:30 Blood Culture - Preliminary Blood No Growth after 96 hours 08/05/20 19:35 Blood Culture - Preliminary Blood No Growth after 96 hours Assessment and Plan Plan: 1 Acute on chronic hypoxemic respiratory failure, multifactorial, in part related to underlying scleroderma lung/pulmonary fibrosis, as well as a new diagnosis of COVID 19 pneumonitis. Nevertheless, the patient has chronic hypoxi c respiratory failure. Patient is on oxygen at 3 L per minute nasal cannula regarding chronic pulmonary fibrosis. No previous chest x-rays are available for comparison. He continues to show stable bilateral pulmonary infiltrates/fibrosis which is probably chronic. He is currently on 2 L about 2 by nasal cannula. He remains on Decadron patient is currently off CellCept. The inflammatory markers including CRP has declined and the d-dimer is low and the patient's overall respiratory status is stable and there is no signs of any acute respiratory decompensation on top of his chronic hypoxemic respiratory failure. His condition is consistent with chronic stable pulmonary fibrosis at this point in time. 2 Severe hyponatremia, early on 3% saline. The sodium level is up 124 patient is currently on 3% hypertonic saline and he was taken off them hypertonic saline 5 AM this morning. 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 5 History of Raynaud's disease, with digital ulceration. 6 History of essential hypertension. 7 History of pulmonary hypertension. The patient is currently on sildenafil 8 History of gastroesophageal reflux disease, along with history of esophageal dysmotility 9 History of hyperlipidemia. 10 Chronic hypoxemic respiratory failure, with recent referral to [facility] for consideration of lung transplantation. Plan: Continue remdesivir day #5 , Decadron 6 mg , vitamin C, vitamin D3, and zinc, albuterol inhaler, and 1 U convalescent plasma. CellCept on hold Appropriate inflammatory markers drawn today and CRP is dropping and the d-dimer is low Continue Eliquis 5 mg by mouth twice a day Currently is off hypertonic saline and the Na level is at 124 We will continue to follow closely. He May transfer outside the intensive care unit if okay with nephrology..
[2020-08-10 09:40] VITALS: BMI 20.8
[2020-08-10] MEDS ORDERED: SODIUM CHLORIDE 3%(HYPERTONIC) 500 ML IV SCH (10:15)
--- NOTE | 2020-08-10 10:49 | P.PN ---
Subjective Patient is seen in follow-up for hyponatremia. Sodium level stable at 124 this morning. He has been receiving 3% intermittently. He was also started on sodium chloride tablets yesterday. Oral intake is gradually improving. Patient is awake and alert. No chest pain or shortness of breath. No vomiting or diarrhea. Blood pressure stable. Vital signs are stable. General: The patient appeared well nourished and normally developed. HEENT: Head exam is unremarkable. Neck is without jugular venous distension. LUNGS: Breath sounds decreased. HEART: Rate and Rhythm are regular. ABDOMEN: Soft, nontender. EXTREMITITES: No edema. Objective - Vital Signs Vital signs: Vital Signs Temp 98.2 F 08/10/20 08:00 Pulse 54 L 08/10/20 10:00 Resp 18 08/10/20 10:00 BP 119/79 08/10/20 10:00 Pulse Ox 100 08/10/20 10:00 Intake & Output 08/09/20 08/10/20 08/10/20 18:59 06:59 18:59 Intake Total 790 525 200 Output Total 405 200 Balance 385 325 200 Weight 66 kg Intake: IV 90 165 Sodium Chloride 3%( 90 Hypertonic) 500 ml @ 30 mls/hr IV .[id number] [facility] Rx #:[id number] Sodium Chloride 3%( 165 Hypertonic) 500 ml @ 30 mls/hr IV .[id number] [facility] Rx #:[id number] Oral 700 360 200 Output: Urine 405 200 Other: Voiding Method Urinal Urinal # Voids 1 0 0 # Bowel Movements 1 1 1 - Labs CBC & Chem 7: 08/10/20 05:04 08/10/20 09:26 Labs: Abnormal Lab Results - Last 24 Hours (Table) 08/09/20 08/09/20 08/10/20 Range/Units 12:51 19:25 01:45 RBC (4.30-5.90) m/uL Hgb (13.0-17.5) gm/dL Hct (39.0-53.0) % Sodium 124 L 123 L 123 L (137-145) mmol/L Chloride (98-107) mmol/L Carbon Dioxide (22-30) mmol/L Creatinine (0.66-1.25) mg/dL Calcium (8.4-10.2) mg/dL C-Reactive Protein (<10.0) mg/L 08/10/20 08/10/20 08/10/20 Range/Units 05:04 05:04 09:26 RBC 3.56 L (4.30-5.90) m/uL Hgb 11.2 L (13.0-17.5) gm/dL Hct 34.2 L (39.0-53.0) % Sodium 124 L 124 L (137-145) mmol/L Chloride 88 L (98-107) mmol/L Carbon Dioxide 34 H (22-30) mmol/L Creatinine 0.40 L (0.66-1.25) mg/dL Calcium 8.0 L (8.4-10.2) mg/dL C-Reactive Protein 14.4 H (<10.0) mg/L Microbiology - Last 24 Hours (Table) 08/05/20 23:30 Blood Culture - Preliminary Blood No Growth after 96 hours 08/05/20 19:35 Blood Culture - Preliminary Blood No Growth after 96 hours Assessment and Plan Plan: Assessment: 1. Hypovolemic hyponatremia with component of poor solute intake and further worsened with the use of thiazide diuretic. Sodium level stable at 124 this morning. Urine sodium 13 and urine osmolality 635. TSH slightly on the lower side. 2. Benign hypertension. Controlled. 3. Scleroderma. Follows at [facility]. 4. Hypomagnesemia from poor intake and diuretics. Replaced. 5. Hypokalemia from poor intake and diuretics. Replaced. Plan: Resume 3% for another 2-3 hours. Encouraged oral intake, particularly protein. Maintain sodium chloride tablets 1 g twice daily. Repeat sodium level this afternoon. Avoid thiazide diuretics in the future. Okay to transfer out of the intensive care unit later today. Repeat urine sodium and urine osmolality.
[2020-08-10] MEDS: REMDESIVIR 100 MG in SODIUM CHLORIDE 0.9% 250 ML IVPB SCH (10:59)
--- NOTE | 2020-08-10 13:18 | P.PN ---
Subjective Progress Note Date: 08/10/20 This is a 55-year-old male patient with past medical history of gastroesophageal reflux disease and esophageal dysmotility, hypertension, secondary pulmonary hypertension, paroxysmal atrial fibrillation on eliquis, Raynaud's disease, remote history of tobacco use, chronic hypoxic respiratory failure on home O2 at 3 L nasal cannula, pulmonary fibrosis secondary to progressive systemic sclerosis or scleroderma. Biopsy in 2013 showed evidence of usual interstitial pneumonia. He follows regularly with pulmonary and rheumatology at [facility] and has considered lung transplant but has declined moving forward with this. Patient presented to the hospital due to increasing shortness of breath, cough without sputum production, poor appetite, anxiety. No nausea, vomiting, diarrhea. He was positive for coronavirus patient also experienced weakness. He came into [facility] emergency center for evaluation was found to have a sodium of 105. He was placed on 3% saline and nephrology, pulmonary medicine have been following him in the intensive care unit. 08/07: Sodium today is 112. Potassium 4.5, chloride 76, CO2 34, BUN 10 and creatinine 0.4. Blood sugar 111. C-reactive protein 45.1. TSH 0.442 with normal free T4 of 0.93. WBC 6.5, hemoglobin 12.1, platelet count 147. Blood cultures are showing no growth at 24 hours. Patient is followed by pulmonary medicine and has been started on Remdesivir day #2/5, dexamethasone and supplements. He is currently on IV fluids of 3% at 20 MLS per hour per nephrology. Afebrile, pulse ox 94% on 3 L nasal cannula, heart rate 68, respiratory rate 24, blood pressure 110/80. 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 He remains in the intensive care unit with close monitoring. 08/08: Patient remains in the intensive care unit. He is seen today sitting up in a chair. Pulse ox is 100% on 2 L nasal cannula. He has been afebrile, heart rate in the 50s and 60s, blood pressure 128/91. 38 monitor is sinus rhythm with PACs. Metoprolol increased to twice daily Sodium this morning is 117, potassium 4.5, chloride 82, CO2 34, BUN 13 and creatinine 0.49. Hemoglobin 12, WBC 6.3, platelet count 165. Blood cultures show no growth at 48 hours. Repeat chest x- ray reveals no significant. Patient is on day #3/5 of Remdesivir. He is currently on 3% saline at 25 mL per hour. 3/: Patient remains in the ICU. Repeat sodium is 124. Dr. Aguilar has discontinued 3% normal saline and started him on sodium chloride tablets 1 g twice daily. Patterson catheter to be discontinued. Patient has had no vomiting or diarrhea. No chest pain. Repeat chest x-ray reveals correlate for pneumonia. He has been afebrile, heart rate in the 60s, respiratory rate 28, blood pressure 108/74, pulse ox 98% on 2 L nasal cannula. WBC 8.8, hemoglobin 12.4, platelet count 247. Sodium 124, potassium 4.0, chloride 85, CO2 33, BUN 17 and creatinine 0.46. Blood sugar 140. Patient is on day #4/ of Remdesivir. 3: Repeat sodium today is [address] Aguilar has recommended to put patient back on 3% saline IV fluids for 2-3 hours, continue sodium chloride tablets and cleared for transfer out of the intensive care unit. He has been afebrile, heart rate 54, blood pressure 113/74, pulse ox 100% WBC 8.1, hemoglobin 11.2, platelet count 269. D-dimer 0.42. CRP 14.4, LDH 362. Magnesium 1.6. Sodium 124, potassium 3.9, chloride 88, CO2 34, BUN 19 and creatinine 0.4, blood sugar 78. Patient has completed course of Remdesivir.. Objective - Vital Signs Vital signs: Vital Signs Temp 97.8 F 08/10/20 04:00 Pulse 47 L 08/10/20 07:00 Resp 20 08/10/20 07:00 BP 103/83 08/10/20 07:00 Pulse Ox 99 08/10/20 07:00 Intake & Output 08/09/20 08/10/20 08/10/20 18:59 06:59 18:59 Intake Total 790 525 Output Total 405 200 Balance 385 325 Intake: IV 90 165 Sodium Chloride 3%( 90 Hypertonic) 500 ml @ 30 mls/hr IV .[id number] [facility] Rx #:[id number] Sodium Chloride 3%( 165 Hypertonic) 500 ml @ 30 mls/hr IV .[id number] [facility] Rx #:[id number] Oral 700 360 Output: Urine 405 200 Other: Voiding Method Urinal # Voids 1 0 0 # Bowel Movements 1 1 - Exam Review Of Systems: Constitutional: No fever, no chills, no night sweats. No weight change. Reports weakness, Reports fatigue. No daytime sleepiness. EENT: No headache. No blurred vision or double vision, no loss of vision. No loss of Hearing, no ringing in the ears, no dizziness. No nasal drainage or congestion. No epistaxis. Reports sore throat. Lungs: Reports shortness of breath, Reports cough, no sputum production. No wheezing. Reports shortness of breath with activity. Cardiovascular: No chest pain, no lower extremity edema. No palpitations. No paroxysmal nocturnal dyspnea. No orthopnea. No lightheadedness or dizziness. No syncopal episodes. Abdominal: No abdominal pain. No nausea, vomiting. No diarrhea. No constipation. No bloody or tarry stools.. No loss of appetite. Genitourinary: No dysuria, increased frequency, urgency. No urinary retention. Musculoskeletal: No myalgias. Reports muscle weakness, no gait dysfunction, no frequent falls. No back pain. No neck pain. Integumentary: Reports wounds, no lesions. No rash or pruritus. No unusual bruising. No change in hair or nails. Neurologic: No aphasia. No facial droop. No change in mentation. No head injury. No headache. No paralysis. No paresthesia. Psychiatric: No depression. No anxiety. No mood swings. Endocrine: No abnormal blood sugars. No weight change. Physical Examination Gen: This is a 55-year-old male. He is resting in recliner and appears to be comfortable at rest and in no acute distress. HEENT: Head is atraumatic, normocephalic. Pupils equal, round. Sclerae is anicteric. NECK: Supple. No JVD. No lymphadenopathy. No thyromegaly. LUNGS: Rhonchi bilaterally. No intercostal retractions. HEART: Regular rate and rhythm. No murmur. ABDOMEN: Soft. Bowel sounds are present. No masses. No tenderness. EXTREMITIES: No pedal edema. No calf tenderness. Fingertip ulcerations secondary to scleroderma. NEUROLOGICAL: Patient is awake, alert and oriented x3. Cranial nerves 2 through 12 are grossly intact. - Labs CBC & Chem 7: 08/10/20 05:04 08/10/20 09:26 Labs: Abnormal Lab Results - Last 24 Hours (Table) 08/09/20 08/09/20 08/09/20 Range/Units 09:11 12:51 19:25 RBC (4.30-5.90) m/uL Hgb (13.0-17.5) gm/dL Hct (39.0-53.0) % Sodium 124 L 124 L 123 L (137-145) mmol/L Chloride (98-107) mmol/L Carbon Dioxide (22-30) mmol/L Creatinine (0.66-1.25) mg/dL Calcium (8.4-10.2) mg/dL C-Reactive Protein (<10.0) mg/L 08/10/20 08/10/20 08/10/20 Range/Units 01:45 05:04 05:04 RBC 3.56 L (4.30-5.90) m/uL Hgb 11.2 L (13.0-17.5) gm/dL Hct 34.2 L (39.0-53.0) % Sodium 123 L 124 L (137-145) mmol/L Chloride 88 L (98-107) mmol/L Carbon Dioxide 34 H (22-30) mmol/L Creatinine 0.40 L (0.66-1.25) mg/dL Calcium 8.0 L (8.4-10.2) mg/dL C-Reactive Protein 14.4 H (<10.0) mg/L Microbiology - Last 24 Hours (Table) 08/05/20 23:30 Blood Culture - Preliminary Blood No Growth after 96 hours 08/05/20 19:35 Blood Culture - Preliminary Blood No Growth after 96 hours Assessment and Plan Plan: 1. Acute hypoxemic respiratory failure, multifactorial, in part related to underlying scleroderma lung/pulmonary fibrosis, as well as a new diagnosis of COVID 19 pneumonitis. Continue Remdesivir day #5/5, dexamethasone 6 mg daily, supplements. Continue Ventolin inhaler 4 times daily as needed. Consult with pulmonary medicine appreciated. 2. Severe hyponatremia. Patient is followed closely in the ICU. Consult with nephrology appreciated. 3% saline fluids for 2-3 hours, continue sodium chloride tablets 1 g twice daily. Patterson catheter discontinued. 3. Paroxysmal atrial fibrillation, status post ablation. Continue eliquis 5 mg twice daily, Toprol-XL 25 mg increased frequency to twice daily. 4. 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 [facility] on hold. Patient does not have plans for lung transplant. 5. Raynaud's disease, with digital ulceration. 6. Hypertension. Continue Toprol-XL 25 mg daily. 7. Pulmonary hypertension. Continue Revatio 20 mg 3 times daily oral. 8. Gastroesophageal reflux disease and GI prophylaxis. Continue Protonix 40 mg oral twice daily. 9. Esophageal dysmotility secondary to scleroderma. Continue rifaximin 550 mg twice daily as needed, Revatio 20 mg 3 times daily, Prucalopride 2 mg daily. 10. Hyperlipidemia. 10. Chronic hypoxemic respiratory failure on home O2 at 3 L nasal cannula. 11. Thrombocytopenia, continue to monitor. 12. DVT prophylaxis. Continue eliquis 5 mg twice daily. Discharge plan: Most likely return home Impression and plan of care have been directed as dictated by the signing physician. Shana Iverson nurse practitioner acting as scribe for signing physician.
[2020-08-10] MEDS ORDERED: FUROSEMIDE 10 MG/ML 2 ML VIAL IV ONE (15:45)
[2020-08-10] MEDS: OCTREOTIDE 100 MCG/ML INJ SQ SCH (19:59)
[2020-08-10] MEDS: ALPRAZolam 0.25 MG TAB PO PRN (22:54)
[2020-08-11 05:35] LABS: ALT 37 U/L (4-49); AST 43 U/L (17-59); African American GFR (CKD) >90 (>60 ml/min/1.73 sqM); Albumin 3.1 g/dL (3.5-5.0); Alkaline Phosphatase 47 U/L (38-126); Anion Gap 2 mmol/L; Blood Urea Nitrogen 16 mg/dL (9-20); Calcium 8.1 mg/dL (8.4-10.2); Carbon Dioxide 36 mmol/L (22-30); Chloride 86 mmol/L (98-107); Glucose 79 mg/dL (74-99); Magnesium 1.8 mg/dL (1.6-2.3); Non-African American GFR(CKD) >90 (>60 ml/min/1.73 sqM); Sodium 124 mmol/L (137-145); Total Bilirubin 0.4 mg/dL (0.2-1.3); Total Protein 5.5 g/dL (6.3-8.2)
[2020-08-11 05:36] LABS: HCT 34.9 % (39.0-53.0); HGB 11.7 gm/dL (13.0-17.5); MCH 32.6 pg (25.0-35.0); MCHC 33.5 g/dL (31.0-37.0); MCV 97.2 fL (80.0-100.0); Mean Platelet Volume 7.2; Platelet Count 310 k/uL (150-450); RBC 3.59 m/uL (4.30-5.90); RDW 12.4 % (11.5-15.5); WBC 8.6 k/uL (3.8-10.6)
[2020-08-11] MEDS: PANTOPRAZOLE 40 MG TABLET PO SCH ×2 (06:37→16:43)
[2020-08-11] MEDS: ALBUTEROL HFA INHALER INHALATION PRN ×4 (08:21→17:00)
--- NOTE | 2020-08-11 08:41 | P.PN ---
Subjective Progress Note Date: 08/11/20 This is a 55-year-old male patient with past medical history of gastroesophageal reflux disease and esophageal dysmotility, hypertension, secondary pulmonary hypertension, paroxysmal atrial fibrillation on eliquis, Raynaud's disease, remote history of tobacco use, chronic hypoxic respiratory failure on home O2 at 3 L nasal cannula, pulmonary fibrosis secondary to progressive systemic sclerosis or scleroderma. Biopsy in 2013 showed evidence of usual interstitial pneumonia. He follows regularly with pulmonary and rheumatology at [facility] and has considered lung transplant but has declined moving forward with this. Patient presented to the hospital due to increasing shortness of breath, cough without sputum production, poor appetite, anxiety. No nausea, vomiting, diarrhea. He was positive for coronavirus patient also experienced weakness. He came into [facility] emergency center for evaluation was found to have a sodium of 105. He was placed on 3% saline and nephrology, pulmonary medicine have been following him in the intensive care unit. 08/07: Sodium today is 112. Potassium 4.5, chloride 76, CO2 34, BUN 10 and creatinine 0.4. Blood sugar 111. C-reactive protein 45.1. TSH 0.442 with normal free T4 of 0.93. WBC 6.5, hemoglobin 12.1, platelet count 147. Blood cultures are showing no growth at 24 hours. Patient is followed by pulmonary medicine and has been started on Remdesivir day #2/5, dexamethasone and supplements. He is currently on IV fluids of 3% at 20 MLS per hour per nephrology. Afebrile, pulse ox 94% on 3 L nasal cannula, heart rate 68, respiratory rate 24, blood pressure 110/80. lunchroom monitor sinus rhythm. He remains in the intensive care unit with close monitoring. 08/08: Patient remains in the intensive care unit. He is seen today sitting up in a chair. Pulse ox is 100% on 2 L nasal cannula. He has been afebrile, heart rate in the 50s and 60s, blood pressure 128/91. 38 monitor is sinus rhythm with PACs. Metoprolol increased to twice daily Sodium this morning is 117, potassium 4.5, chloride 82, CO2 34, BUN 13 and creatinine 0.49. Hemoglobin 12, WBC 6.3, platelet count 165. Blood cultures show no growth at 48 hours. Repeat chest x- ray reveals no significant. Patient is on day #3/5 of Remdesivir. He is currently on 3% saline at 25 mL per hour. 3/3: Patient remains in the ICU. Repeat sodium is 124. Dr. Aguilar has discontinued 3% normal saline and started him on sodium chloride tablets 1 g twice daily. Patterson catheter to be discontinued. Patient has had no vomiting or diarrhea. No chest pain. Repeat chest x-ray reveals correlate for pneumonia. He has been afebrile, heart rate in the 60s, respiratory rate 28, blood pressure 108/74, pulse ox 98% on 2 L nasal cannula. WBC 8.8, hemoglobin 12.4, platelet count 247. Sodium 124, potassium 4.0, chloride 85, CO2 33, BUN 17 and creatinine 0.46. Blood sugar 140. Patient is on day #4/5 of Remdesivir. 3/: Repeat sodium today is [address] Aguilar has recommended to put patient back on 3% saline IV fluids for 2-3 hours, continue sodium chloride tablets and cleared for transfer out of the intensive care unit. He has been afebrile, heart rate 54, blood pressure 113/74, pulse ox 100% WBC 8.1, hemoglobin 11.2, platelet count 269. D-dimer 0.42. CRP 14.4, LDH 362. Magnesium 1.6. Sodium 124, potassium 3.9, chloride 88, CO2 34, BUN 19 and creatinine 0.4, blood sugar 78. Patient has completed course of Remdesivir.. 3/: Patient has been afebrile, heart rate 53, blood pressure 115/84, pulse ox 98% on 2 L nasal cannula. Repeat blood work reveals WBC 8.6, hemoglobin 11.7, platelet count 310. Sodium is 124. Potassium 4.0, chloride 86, CO2 36, BUN 16 and creatinine 0.36. Urine osmolality 802, urine sodium 151. D-dimer 0.42. Bl ood cultures remain with no growth. Case discussed with Dr. Aguilar and he is planning to give Lasix today, repeat sodium level this afternoon and may consider giving Samsca for 1 dose. If patient's sodium is stable by tomorrow, patient could be discharged tomorrow. He does not feel the patient is safe to go home today. Patient is very anxious to be discharged. Objective - Vital Signs Vital signs: Vital Signs Temp 98 F 03/05/21 04:00 Pulse 53 L 08/11/20 04:00 Resp 13 08/11/20 04:00 BP 115/84 08/11/20 04:00 Pulse Ox 98 08/11/20 04:00 Intake & Output 08/10/20 08/11/20 08/11/20 18:59 06:59 18:59 Intake Total 370 0 Output Total 500 Balance 370 -500 Weight 66 kg 62.596 kg Intake: IV 120 0 Sodium Chloride 3%( 120 0 Hypertonic) 500 ml @ 30 mls/hr IV .[id number] [facility] Rx #:[id number] Oral 250 Output: Urine 500 Other: Voiding Method Urinal Urinal Urinal # Voids 0 1 # Bowel Movements 1 1 - Exam Review Of Systems: Constitutional: No fever, no chills, no night sweats. No weight change. Reports weakness, Reports fatigue. No daytime sleepiness. EENT: No headache. No blurred vision or double vision, no loss of vision. No loss of Hearing, no ringing in the ears, no dizziness. No nasal drainage or congestion. No epistaxis. Reports sore throat. Lungs: Reports shortness of breath, Reports cough, no sputum production. No wheezing. Reports shortness of breath with activity. Cardiovascular: No chest pain, no lower extremity edema. No palpitations. No paroxysmal nocturnal dyspnea. No orthopnea. No lightheadedness or dizziness. No syncopal episodes. Abdominal: No abdominal pain. No nausea, vomiting. No diarrhea. No constipation. No bloody or tarry stools.. No loss of appetite. Genitourinary: No dysuria, increased frequency, urgency. No urinary retention. Musculoskeletal: No myalgias. Reports muscle weakness, no gait dysfunction, no frequent falls. No back pain. No neck pain. Integumentary: Reports wounds, no lesions. No rash or pruritus. No unusual bruising. No change in hair or nails. Neurologic: No aphasia. No facial droop. No change in mentation. No head injury. No headache. No paralysis. No paresthesia. Psychiatric: No depression. No anxiety. No mood swings. Endocrine: No abnormal blood sugars. No weight change. Physical Examination Gen: This is a 55-year-old male. He is resting in bed and appears to be comfortable at rest and in no acute distress. HEENT: Head is atraumatic, normocephalic. Pupils equal, round. Sclerae is anicteric. NECK: Supple. No JVD. No lymphadenopathy. No thyromegaly. LUNGS: Rhonchi bilaterally. No intercostal retractions. HEART: Regular rate and rhythm. No murmur. ABDOMEN: Soft. Bowel sounds are present. No masses. No tenderness. EXTREMITIES: No pedal edema. No calf tenderness. Fingertip ulcerations secondary to scleroderma. NEUROLOGICAL: Patient is awake, alert and oriented x3. Cranial nerves 2 through 12 are grossly intact. - Labs CBC & Chem 7: 08/11/20 04:40 08/11/20 04:40 Labs: Abnormal Lab Results - Last 24 Hours (Table) 08/10/20 08/10/20 08/10/20 Range/Units 09:26 14:03 17:28 RBC (4.30-5.90) m/uL Hgb (13.0-17.5) gm/dL Hct (39.0-53.0) % Sodium 124 L 125 L 124 L (137-145) mmol/L Chloride (98-107) mmol/L Carbon Dioxide (22-30) mmol/L Creatinine (0.66-1.25) mg/dL Calcium (8.4-10.2) mg/dL Total Protein (6.3-8.2) g/dL Albumin (3.5-5.0) g/dL 08/10/20 08/11/20 08/11/20 Range/Units 20:13 04:40 04:40 RBC 3.59 L (4.30-5.90) m/uL Hgb 11.7 L (13.0-17.5) gm/dL Hct 34.9 L (39.0-53.0) % Sodium 125 L 124 L (137-145) mmol/L Chloride 86 L (98-107) mmol/L Carbon Dioxide 36 H (22-30) mmol/L Creatinine 0.36 L (0.66-1.25) mg/dL Calcium 8.1 L (8.4-10.2) mg/dL Total Protein 5.5 L (6.3-8.2) g/dL Albumin 3.1 L (3.5-5.0) g/dL Microbiology - Last 24 Hours (Table) 08/05/20 23:30 Blood Culture - Preliminary Blood No Growth after 120 hours 08/05/20 19:35 Blood Culture - Preliminary Blood No Growth after 120 hours Assessment and Plan Plan: 1. Acute hypoxemic respiratory failure, multifactorial, in part related to underlying scleroderma lung/pulmonary fibrosis, as well as a new diagnosis of COVID 19 pneumonitis. Completed course of Remdesivir, continue dexamethasone 6 mg daily, supplements. Continue Ventolin inhaler 4 times daily as needed. Consult with pulmonary medicine appreciated. 2. Severe hyponatremia. Patient is followed closely in the ICU. Consult with nephrology appreciated. Continue sodium chloride tablets [address] Aguilar May consider Samsca. 3. Paroxysmal atrial fibrillation, status post ablation. Continue eliquis 5 mg twice daily, Toprol-XL 25 mg increased frequency to twice daily. 4. 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 [facility] on hold. Patient does not have plans for lung transplant. 5. Raynaud's disease, with digital ulceration. 6. Hypertension. Continue Toprol-XL 25 mg daily. 7. Pulmonary hypertension. Continue Revatio 20 mg 3 times daily oral. 8. Gastroesophageal reflux disease and GI prophylaxis. Continue Protonix 40 mg oral twice daily. 9. Esophageal dysmotility secondary to scleroderma. Continue rifaximin 550 mg twice daily as needed, Revatio 20 mg 3 times daily, Prucalopride 2 mg daily. 10. Hyperlipidemia. 10. Chronic hypoxemic respiratory failure on home O2 at 3 L nasal cannula. 11. Thrombocytopenia, continue to monitor. 12. DVT prophylaxis. Continue eliquis 5 mg twice daily. Discharge plan: Most likely return home on Friday Impression and plan of care have been directed as dictated by the signing physician. Shana Iverson nurse practitioner acting as scribe for signing physician.
--- NOTE | 2020-08-11 09:06 | P.PN ---
Subjective Progress Note Date: 08/11/20 55-year-old male who was seen in the emergency department on 08/05/2020. The patient presents with increasing shortness of breath, and anxiety, as well as cough, and chest congestion. His symptoms began a couple days ago. Both his and his daughter apparently tested positive for coronavirus. He also tested positive for coronavirus. The patient does have baseline shortness of breath, secondary to his history of pulmonary fibrosis secondary to his progressive systemic sclerosis or scleroderma. 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 He is currently being managed at the [facility], by lung doctors and property field inspector, and apparently was recently referred to the [facility] for consideration of lung transplantation. The patient denies any phlegm production. His cough is mostly dry. He is on 3 L nasal cannula at home, . His appetite has been poor. He denies any chest pain or pressu re. He denies any nausea, vomiting, diarrhea, and he also denies any abdominal pain or any genitourinary complaints. In addition to the above, the ER physician noted that his sodium was quite low, at 105, and I recommended that he start the patient on 3% saline. Nephrology has also been consulted. I asked him whether or not his shortness of breath was at baseline or worse, and he states that his shortness of breath is definitely worse. His medical history includes gastroesophageal reflux disease and esophageal dysmotility, essential hypertension, secondary pulmonary hypertension, supraventricular tachycardia, pulmonary fibrosis, scleroderma, Raynaud disease, among other things. Current ly, the patient's on 3 L nasal cannula, and getting 3% saline at 20 mL an hour. He is getting a basic metabolic profile ordered every 2 hours. On today's evaluation of 08/07/2020, seeing the patient for a follow-up. The patient is still on 3 L of oxygen by nasal cannula. The chest is a showing diffuse bilateral pulmonary fibrosis related to scleroderma. The patient has scleroderma with crest syndrome. The patient also has pulmonary hypertension. The patient was declined from transplantation is very sensitive and currently is being evaluated at the [facility]. He is als COVID 19 Positive. He presented to us with severe hyponatremia. On today's evaluation, the patient is still on 3% hypertonic saline and sodium gradually is improving and is up 114. We'll continue the hypertonic saline for now. No Altered mentation. No headaches. No focal neurological deficits. He has a chronic dry cough. He was having some limited congestion . There was no significant worsening in his oxygenation on overall respiratory status. He remains on 3 L and the pulses are 99%. He is currently on CellCept and the patient was also started on Decadron 6 mg by mouth daily. He is on Remdesivir day 2 and the patient has a CVA units of bolus and plasma. No other new complaints for now. Is able to swallow although he has history of chronic esophageal dysmotility. IV fluids is in the form of 3%. He is on sildenafil regarding his pulmonary hypertension. Tyvaso was tried in the past and had to be discontinued because of side effects On 08/08/2020 the patient is being seen for a follow-up. The patient is currently on 2 L of oxygen by nasal cannula. No worsening in his respiratory status and he is still being treated for COVID 19 infection. Remdesivir day 3 and the patient is also on Decadron 6 mg by mouth daily. They communicated with his property field inspector with eyes stopping the also for now. In terms of his sodium level, the patient 25 on hypertonic saline at rate of these an hour. The sodium level monitoring shows that his sodium level is gradually coming up at 118. No altered mentation. No headaches. No focal neurological deficits. No other significant events otherwise over the past 24 hours. Creatinine is stable at 0.4. Inflammatory markers showed a normal LDH of 407 and his CRP is down to 45.1. He remains on long-term anticoagulation with Eliquis 4 previous history of SVT, cardiac arrhythmias and ablation 2020 the patient is stable. He is on 2 L of Oxymizer nasal cannula. In terms of his Covid 19, remains on Decadron 6 malignancy oh daily and he is taken before of Remdesivir and a chest x-ray shows chronic stable bilateral pulmonary fibrosis without any major interval change. No worsening shortness of breath. He is off the CellCept for now. In terms of his hyponatremia, the sodium level today is at 122 and the patient remains on 3% hypertonic saline and nephrology is monitoring this and hopefully they'll be able to 60 sodium within the next few days. The patient's inflammatory markers were nonelevated. I think he is only a mild case of Covid 19. He is tolerating diet. No nausea. No vomiting. No diarrhea. No abdominal pain. He has chronic dysphagia related to his systemic sclerosis. He remains on anticoagulation with Eliquis. No bleeding complications for now. Her neck rhythm is sinus for now. 08/10/2020, the patient remains on oxygen at 2 L. Doing well. No worsening shortness of breath. He is taken Decadron 6 mg by mouth daily and he is also on Remdesivir day 5 of treatment. No respiratory issues. Sodium level continues to be low at 124. He was taken off the hypertonic saline solution and he is also on fluid restriction. Inflammatory markers were nonelevated. His d-dimer is at 0.4 and his CRP is down to 14. He is doing well. No specific complaints. He remains on Eliquis is on long-term anticoagulants for cardiac arrhythmias and SVTs for which she has undergone ablation. No other significant events overnight. He is able to swallow. He is currently off CellCept. He has been declined for transplantation and [facility] and [facility] and he is seeking lung transplantation through the [facility]. 08/11/2020, the patient is doing well. No complaints. Sodium level is at 124 and the patient will be given a dose of Lasix with a repeat sodium level. No respiratory difficulties. He remains on Decadron 6 mg orally. He has completed Remdesivir admission and the patient is off the hypertonic saline solution. No other new issues for now. No chest pain. No nausea. No vomiting. No diarrhea. No abdominal pain. Remains on anticoagulation. No bleeding complications. No altered mentation. Cardiac rhythm is sinus. Objective - Vital Signs Vital signs: Vital Signs Temp 98 F 08/11/20 04:00 Pulse 53 L 08/11/20 04:00 Resp 13 08/11/20 04:00 BP 115/84 08/11/20 04:00 Pulse Ox 98 08/11/20 04:00 Intake & Output 08/10/20 08/11/20 08/11/20 18:59 06:59 18:59 Intake Total 370 0 Output Total 500 Balance 370 -500 Weight 66 kg 62.596 kg Intake: IV 120 0 Sodium Chloride 3%( 120 0 Hypertonic) 500 ml @ 30 mls/hr IV .[id number] [facility] Rx #:[id number] Oral 250 Output: Urine 500 Other: Voiding Method Urinal Urinal Urinal # Voids 0 1 # Bowel Movements 1 1 - Exam No acute distress, oriented 3. Anxious, without audible wheezing, use of accessory muscles, or conversational dyspnea. HEENT examination is grossly unremarkable. Mucous membranes are moist. No oral lesions. The patient is on room air oxygen for now. Neck supple. Full range of motion. No adenopathy thyromegaly or neck vein distention. Cardiovascular examination reveals regular rhythm rate. S1-S2 normal. No S3 or S4. No discernible murmur noted. Lungs reveal bibasilar Velcro crackles. No wheezes. There are also diffuse rhonchi particularly noted on exhalation. Breath sounds equal bilaterally. He is mildly restricted in his breathing. Abdominal exam revealed normal bowel sounds. The abdomen was soft, non-tender, and without masses, organomegaly, or appreciable enlargement of the abdominal aorta. Extremities are intact. No cyanosis clubbing or edema. The patient has scleroderma hands with extensive skin fibrosis. Skin reveals a fingertip ulcer. In addition, he has the classic findings of cutaneous scleroderma. The patient has ulcers in his fingertips in addition to calcinosis. Neurologic examination is brief but nonfocal.Neurologically, the patient is awake and alert and the patient does not have any focal neurological deficit. Cranial nerves are essentially intact. - Labs CBC & Chem 7: 08/11/20 04:40 08/11/20 04:40 Labs: Abnormal Lab Results - Last 24 Hours (Table) 08/10/20 08/10/20 08/10/20 Range/Units 09:26 14:03 17:28 RBC (4.30-5.90) m/uL Hgb (13.0-17.5) gm/dL Hct (39.0-53.0) % Sodium 124 L 125 L 124 L (137-145) mmol/L Chloride (98-107) mmol/L Carbon Dioxide (22-30) mmol/L Creatinine (0.66-1.25) mg/dL Calcium (8.4-10.2) mg/dL Total Protein (6.3-8.2) g/dL Albumin (3.5-5.0) g/dL 08/10/20 08/11/20 08/11/20 Range/Units 20:13 04:40 04:40 RBC 3.59 L (4.30-5.90) m/uL Hgb 11.7 L (13.0-17.5) gm/dL Hct 34.9 L (39.0-53.0) % Sodium 125 L 124 L (137-145) mmol/L Chloride 86 L (98-107) mmol/L Carbon Dioxide 36 H (22-30) mmol/L Creatinine 0.36 L (0.66-1.25) mg/dL Calcium 8.1 L (8.4-10.2) mg/dL Total Protein 5.5 L (6.3-8.2) g/dL Albumin 3.1 L (3.5-5.0) g/dL Microbiology - Last 24 Hours (Table) 08/05/20 23:30 Blood Culture - Preliminary Blood No Growth after 120 hours 08/05/20 19:35 Blood Culture - Preliminary Blood No Growth after 120 hours Assessment and Plan Plan: 1 Acute on chronic hypoxemic respiratory failure, multifactorial, in part related to underlying scleroderma lung/pulmonary fibrosis, as well as a new diagnosis of COVID 19 pneumonitis. Nevertheless, the patient has chronic hypoxic respiratory failure. P He is currently on 2 L about 2 by nasal cannula. He remains on Decadron patient is currently off CellCept. The inflammatory markers including CRP has declined and the d-dimer is low and the patient's overall respiratory status is stable 2 Severe hyponatremia, CANDICE level is at 124, asymptomatic 3 History of SVT, status post ablation.This was done at [facility], still on long-term anticoagulation with Eliquis 4 Progressive systemic sclerosis and possibly CREST syndrome. 5 History of Raynaud's disease, with digital ulceration. 6 History of essential hypertension. 7 History of pulmonary hypertension. The patient is currently on sildenafil 8 History of gastroesophageal reflux disease, along with history of esophageal dysmotility 9 History of hyperlipidemia. 10 Chronic hypoxemic respiratory failure, with recent referral to [facility] for consideration of lung transplantation. Plan: Completed remdesivir , Decadron 6 mg , vitamin C, vitamin D3, and zinc, albuterol inhaler, and 1 U convalescent plasma. CellCept on hold Appropriate inflammatory markers drawn today and CRP is dropping and the d-dimer is low Continue Eliquis 5 mg by mouth twice a day Currently is off hypertonic saline and the Na level is at 124 , will be given a dose of Lasix We will continue to follow closely. Transfer out of the ICU please
[2020-08-11] MEDS: PRUCALOPRIDE SUCCINATE PO SCH (09:44)
[2020-08-11] MEDS: ASCORBIC ACID 500 MG TAB PO SCH (09:47)
[2020-08-11] MEDS: APIXABAN 5 MG TAB PO SCH ×2 (09:47→20:34)
[2020-08-11] MEDS: dexAMETHasone 2 MG TAB PO SCH (09:48)
[2020-08-11] MEDS: CHOLECALCIFEROL 25 MCG (1000 IU) TABLET PO SCH (09:48)
[2020-08-11] MEDS: FLUTICASONE 50MCG/SPRAY NASAL 16GM EA NOSTRIL SCH (09:49)
[2020-08-11] MEDS: IPRATROPIUM BROMIDE 0.06% NASAL SPRAY (15 ML) EA NOSTRIL SCH ×2 (09:49→20:48)
[2020-08-11] MEDS: MULTIVITAMINS, THERA 1 EACH TAB PO SCH (09:50)
[2020-08-11] MEDS: ZINC SULFATE 220 MG CAP PO SCH (09:50)
[2020-08-11] MEDS: SILDENAFIL 20 MG TAB PO SCH ×3 (09:50→20:35)
[2020-08-11] MEDS: SODIUM CHLORIDE TAB 1 GM TAB PO SCH ×2 (09:50→20:35)
[2020-08-11] MEDS ORDERED: FUROSEMIDE 10 MG/ML 4 ML VIAL IV STA (10:02)
--- NOTE | 2020-08-11 10:03 | P.PN ---
Subjective Patient is seen in follow-up for hyponatremia. Sodium level stable at 124 this morning. He has been receiving 3% intermittently. He is also on sodium chloride tablets. He is maintained on fluid restriction. Oral intake is good. Patient is awake and alert. No chest pain or shortness of breath. No vomiting or diarrhea. Blood pressure stable. Vital signs are stable. General: The patient appeared well nourished and normally developed. HEENT: Head exam is unremarkable. Neck is without jugular venous distension. LUNGS: Breath sounds decreased. HEART: Rate and Rhythm are regular. ABDOMEN: Soft, nontender. EXTREMITITES: No edema. Objective - Vital Signs Vital signs: Vital Signs Temp 98 F 08/11/20 04:00 Pulse 53 L 08/11/20 04:00 Resp 13 08/11/20 04:00 BP 115/84 08/11/20 04:00 Pulse Ox 98 08/11/20 04:00 Intake & Output 08/10/20 08/11/20 08/11/20 18:59 06:59 18:59 Intake Total 370 0 Output Total 500 Balance 370 -500 Weight 66 kg 62.596 kg Intake: IV 120 0 Sodium Chloride 3%( 120 0 Hypertonic) 500 ml @ 30 mls/hr IV .[id number] [facility] Rx #:[id number] Oral 250 Output: Urine 500 Other: Voiding Method Urinal Urinal Urinal # Voids 0 1 # Bowel Movements 1 1 - Labs CBC & Chem 7: 08/11/20 04:40 08/11/20 04:40 Labs: Abnormal Lab Results - Last 24 Hours (Table) 08/10/20 08/10/20 08/10/20 Range/Units 09:26 14:03 17:28 RBC (4.30-5.90) m/uL Hgb (13.0-17.5) gm/dL Hct (39.0-53.0) % Sodium 124 L 125 L 124 L (137-145) mmol/L Chloride (98-107) mmol/L Carbon Dioxide (22-30) mmol/L Creatinine (0.66-1.25) mg/dL Calcium (8.4-10.2) mg/dL Total Protein (6.3-8.2) g/dL Albumin (3.5-5.0) g/dL 08/10/20 08/11/2021 Range/Units 20:13 04:40 04:40 RBC 3.59 L (4.30-5.90) m/uL Hgb 11.7 L (13.0-17.5) gm/dL Hct 34.9 L (39.0-53.0) % Sodium 125 L 124 L (137-145) mmol/L Chloride 86 L (98-107) mmol/L Carbon Dioxide 36 H (22-30) mmol/L Creatinine 0.36 L (0.66-1.25) mg/dL Calcium 8.1 L (8.4-10.2) mg/dL Total Protein 5.5 L (6.3-8.2) g/dL Albumin 3.1 L (3.5-5.0) g/dL Microbiology - Last 24 Hours (Table) 08/05/20 23:30 Blood Culture - Preliminary Blood No Growth after 120 hours 08/05/20 19:35 Blood Culture - Preliminary Blood No Growth after 120 hours Assessment and Plan Plan: Assessment: 1. Hypovolemic hyponatremia with component of poor solute intake and further worsened with the use of thiazide diuretic. Sodium level stable at 124 this morning. Urine sodium 13 and urine osmolality 635 on admission. Repeat urine sodium 151 and urine osmolality 802. TSH slightly on the lower side. 2. Benign hypertension. Controlled. 3. Scleroderma. Follows at [facility]. 4. Hypomagnesemia from poor intake and diuretics. Replaced. 5. Hypokalemia from poor intake and diuretics. Replaced. Plan: Lasix 40 mg IV once now. Encouraged oral intake, particularly protein. Maintain sodium chloride tablets 1 g twice daily. Repeat sodium level this afternoon. Avoid thiazide diuretics in the future. If no improvement in his sodium level, will give him a dose of Samsca.
[2020-08-11] MEDS: BENZOCAINE/MENTHOL LOZENG 1 EACH LOZENGE MUCOUS MEM PRN (14:48)
[2020-08-11] MEDS ORDERED: METOPROLOL SUCCINATE (ER) 25 MG TAB.ER.24H PO STA (18:06)
[2020-08-11] MEDS ORDERED: FUROSEMIDE 10 MG/ML 2 ML VIAL IV ONE (18:23)
[2020-08-11] MEDS: OCTREOTIDE 100 MCG/ML INJ SQ SCH (20:48)
[2020-08-12] MEDS: ALPRAZolam 0.25 MG TAB PO PRN (01:23)
[2020-08-12 05:39] LABS: African American GFR (CKD) >90 (>60 ml/min/1.73 sqM); Anion Gap 2 mmol/L; Blood Urea Nitrogen 18 mg/dL (9-20); Calcium 8.1 mg/dL (8.4-10.2); Carbon Dioxide 38 mmol/L (22-30); Chloride 84 mmol/L (98-107); Glucose 73 mg/dL (74-99); Non-African American GFR(CKD) >90 (>60 ml/min/1.73 sqM); Potassium 3.8 mmol/L (3.5-5.1); Sodium 124 mmol/L (137-145)
[2020-08-12 05:47] LABS: HCT 33.7 % (39.0-53.0); HGB 11.4 gm/dL (13.0-17.5); MCH 32.8 pg (25.0-35.0); MCV 96.6 fL (80.0-100.0); Platelet Count 329 k/uL (150-450); RBC 3.49 m/uL (4.30-5.90); RDW 12.4 % (11.5-15.5); WBC 10.9 k/uL (3.8-10.6)
[2020-08-12] MEDS: PANTOPRAZOLE 40 MG TABLET PO SCH (06:50)
[2020-08-12] MEDS: ALBUTEROL HFA INHALER INHALATION PRN (08:46)
--- NOTE | 2020-08-12 08:50 | P.PN ---
Subjective Progress Note Date: 08/12/20 55-year-old male who was seen in the emergency department on 08/05/2020. The patient presents with increasing shortness of breath, and anxiety, as well as cough, and chest congestion. His symptoms began a couple days ago. Both his and his daughter apparently tested positive for coronavirus. He also tested positive for coronavirus. The patient does have baseline shortness of breath, secondary to his history of pulmonary fibrosis secondary to his progressive systemic sclerosis or scleroderma. 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 He is currently being managed at the [facility], by lung doctors and ordnance corps officer, and apparently was recently referred to the [facility] for consideration of lung transplantation. The patient denies any phlegm production. His cough is mostly dry. He is on 3 L nasal cannula at home, . His appetite has been poor. He denies any chest pain or pressu re. He denies any nausea, vomiting, diarrhea, and he also denies any abdominal pain or any genitourinary complaints. In addition to the above, the ER physician noted that his sodium was quite low, at 105, and I recommended that he start the patient on 3% saline. Nephrology has also been consulted. I asked him whether or not his shortness of breath was at baseline or worse, and he states that his shortness of breath is definitely worse. His medical history includes gastroesophageal reflux disease and esophageal dysmotility, essential hypertension, secondary pulmonary hypertension, supraventricular tachycardia, pulmonary fibrosis, scleroderma, Raynaud disease, among other things. Current ly, the patient's on 3 L nasal cannula, and getting 3% saline at 20 mL an hour. He is getting a basic metabolic profile ordered every 2 hours. On today's evaluation of 08/07/2020, seeing the patient for a follow-up. The patient is still on 3 L of oxygen by nasal cannula. The chest is a showing diffuse bilateral pulmonary fibrosis related to scleroderma. The patient has scleroderma with crest syndrome. The patient also has pulmonary hypertension. The patient was declined from transplantation is very sensitive and currently is being evaluated at the [facility]. He is als COVID 19 Positive. He presented to us with severe hyponatremia. On today's evaluation, the patient is still on 3% hypertonic saline and sodium gradually is improving and is up 114. We'll continue the hypertonic saline for now. No Altered mentation. No headaches. No focal neurological deficits. He has a chronic dry cough. He was having some limited congestion . There was no significant worsening in his oxygenation on overall respiratory status. He remains on 3 L and the pulses are 99%. He is currently on CellCept and the patient was also started on Decadron 6 mg by mouth daily. He is on Remdesivir day 2 and the patient has a CVA units of bolus and plasma. No other new complaints for now. Is able to swallow although he has history of chronic esophageal dysmotility. IV fluids is in the form of 3%. He is on sildenafil regarding his pulmonary hypertension. Tyvaso was tried in the past and had to be discontinued because of side effects On 08/08/2020 the patient is being seen for a follow-up. The patient is currently on 2 L of oxygen by nasal cannula. No worsening in his respiratory status and he is still being treated for COVID 19 infection. Remdesivir day 3 and the patient is also on Decadron 6 mg by mouth daily. They communicated with his ordnance corps officer with eyes stopping the also for now. In terms of his sodium level, the patient 25 on hypertonic saline at rate of these an hour. The sodium level monitoring shows that his sodium level is gradually coming up at 118. No altered mentation. No headaches. No focal neurological deficits. No other significant events otherwise over the past 24 hours. Creatinine is stable at 0.4. Inflammatory markers showed a normal LDH of 407 and his CRP is down to 45.1. He remains on long-term anticoagulation with Eliquis 4 previous history of SVT, cardiac arrhythmias and ablation 2020 the patient is stable. He is on 2 L of Oxymizer nasal cannula. In terms of his Covid 19, remains on Decadron 6 malignancy oh daily and he is taken before of Remdesivir and a chest x-ray shows chronic stable bilateral pulmonary fibrosis without any major interval change. No worsening shortness of breath. He is off the CellCept for now. In terms of his hyponatremia, the sodium level today is at 122 and the patient remains on 3% hypertonic saline and nephrology is monitoring this and hopefully they'll be able to 60 sodium within the next few days. The patient's inflammatory markers were nonelevated. I think he is only a mild case of Covid 19. He is tolerating diet. No nausea. No vomiting. No diarrhea. No abdominal pain. He has chronic dysphagia related to his systemic sclerosis. He remains on anticoagulation with Eliquis. No bleeding complications for now. Her neck rhythm is sinus for now. 08/10/2020, the patient remains on oxygen at 2 L. Doing well. No worsening shortness of breath. He is taken Decadron 6 mg by mouth daily and he is also on Remdesivir day 5 of treatment. No respiratory issues. Sodium level continues to be low at 124. He was taken off the hypertonic saline solution and he is also on fluid restriction. Inflammatory markers were nonelevated. His d-dimer is at 0.4 and his CRP is down to 14. He is doing well. No specific complaints. He remains on Eliquis is on long-term anticoagulants for cardiac arrhythmias and SVTs for which she has undergone ablation. No other significant events overnight. He is able to swallow. He is currently off CellCept. He has been declined for transplantation and [facility] and he is seeking lung transplantation through the [facility]. 08/11/2020, the patient is doing well. No complaints. Sodium level is at 124 and the patient will be given a dose of Lasix with a repeat sodium level. No respiratory difficulties. He remains on Decadron 6 mg orally. He has completed Remdesivir admission and the patient is off the hypertonic saline solution. No other new issues for now. No chest pain. No nausea. No vomiting. No diarrhea. No abdominal pain. Remains on anticoagulation. No bleeding complications. No altered mentation. Cardiac rhythm is sinus. 08/12/2020, the patient has no complaints. Na level is at 124.he is completely asymptomatic. No complaints for now. He is on oxygenroom air, no respiratory difficulties above and beyond his baseline. He is pulse oxing 95% on room air oxygen. No nausea. No vomiting. No altered mentation. Blood work otherwise is stable and the BUN is 18 with a creatinine of 0.4. He is on fluid restriction and drinking excess fluid at this point in time. He has completed Remdesivir and taking salt tablets. Objective - Vital Signs Vital signs: Vital Signs Temp 97.8 F 08/12/20 04:00 Pulse 57 L 08/12/20 04:00 Resp 18 08/12/20 04:00 BP 122/84 08/12/20 04:00 Pulse Ox 95 08/12/20 04:00 Intake & Output 08/11/20 08/12/20 08/12/20 18:59 06:59 18:59 Output Total 2200 600 Balance -2200 -600 Weight 62.9 kg Output: Urine 2200 600 Other: Voiding Method Urinal Urinal Urinal # Bowel Movements 1 - Exam No acute distress, oriented 3. Anxious, without audible wheezing, use of ac cessory muscles, or conversational dyspnea. HEENT examination is grossly unremarkable. Mucous membranes are moist. No oral lesions. The patient is on room air oxygen for now. Neck supple. Full range of motion. No adenopathy thyromegaly or neck vein distention. Cardiovascular examination reveals regular rhythm rate. S1-S2 normal. No S3 or S4. No discernible murmur noted. Lungs reveal bibasilar Velcro crackles. No wheezes. There are also diffuse rhonchi particularly noted on exhalation. Breath sounds equal bilaterally. He is mildly restricted in his breathing. Abdominal exam revealed normal bowel sounds. The abdomen was soft, non-tender, and without masses, organomegaly, or appreciable enlargement of the abdominal aorta. Extremities are intact. No cyanosis clubbing or edema. The patient has scleroderma hands with extensive skin fibrosis. Skin reveals a fingertip ulcer. In addition, he has the classic findings of cutaneous scleroderma. The patient has ulcers in his fingertips in addition to calcinosis. Neurologic examination is brief but nonfocal.Neurologically, the patient is awake and alert and the patient does not have any focal neurological deficit. Cranial nerves are essentially intact. - Labs CBC & Chem 7: 08/12/20 04:41 08/12/20 04:41 Labs: Abnormal Lab Results - Last 24 Hours (Table) 08/11/20 08/12/20 08/12/20 Range/Units 16:00 04:41 04:41 WBC 10.9 H (3.8-10.6) k/uL RBC 3.49 L (4.30-5.90) m/uL Hgb 11.4 L (13.0-17.5) gm/dL Hct 33.7 L (39.0-53.0) % Sodium 125 L 124 L (137-145) mmol/L Chloride 84 L (98-107) mmol/L Carbon Dioxide 38 H (22-30) mmol/L Creatinine 0.45 L (0.66-1.25) mg/dL Glucose 73 L (74-99) mg/dL Calcium 8.1 L (8.4-10.2) mg/dL Microbiology - Last 24 Hours (Table) 08/05/20 23:30 Blood Culture - Final Blood No Growth after 144 hours 08/05/20 19:35 Blood Culture - Final Blood No Growth after 144 hours Assessment and Plan Plan: 1 Acute on chronic hypoxemic respiratory failure, multifactorial, in part related to underlying scleroderma lung/pulmonary fibrosis, as well as a new diagnosis of COVID 19 pneumonitis. Nevertheless, the patient has chronic hypoxic respiratory failure. the patient is on room air oxygen. He is on Decadron. He completed Remdesivir and he is stable and in fact he looks great today on room air oxygen. 2 Severe hyponatremia, CANDICE level is at 124, asymptomatic 3 History of SVT, status post ablation.This was done at [facility], still on long-term anticoagulation with Eliquis 4 Progressive systemic sclerosis and possibly CREST syndrome. 5 History of Raynaud's disease, with digital ulceration. 6 History of essential hypertension. 7 History of pulmonary hypertension. The patient is currently on sildenafil 8 History of gastroesophageal reflux disease, along with history of esophageal dysmotility 9 History of hyperlipidemia. 10 Chronic hypoxemic respiratory failure, with recent referral to [facility] for consideration of lung transplantation. Plan: Completed remdesivir , Decadron 6 mgand will complete a total of 10 day course , vitamin C, vitamin D3, and zinc, albuterol inhaler, and 1 U convalescent plasma. CellCept on hold Appropriate inflammatory markers drawn today and CRP is dropping and the d-dimer is low Continue Eliquis 5 mg by mouth twice a day Currently is off hypertonic saline and the Na level is at 124 , consider fell back then and following that the patient can be discharged home and this will largely depend on his primary care physician and his field underwriter. I will like him to leave the ICU today. We will continue to follow closely. Transfer out of the ICU please
[2020-08-12 08:52] VITALS: BP 153/110; PULSE 77; RESP 20; TEMP 98
[2020-08-12] MEDS: CHOLECALCIFEROL 25 MCG (1000 IU) TABLET PO SCH (08:52)
[2020-08-12] MEDS: ASCORBIC ACID 500 MG TAB PO SCH (08:52)
[2020-08-12] MEDS: ZINC SULFATE 220 MG CAP PO SCH (08:52)
[2020-08-12] MEDS: APIXABAN 5 MG TAB PO SCH (08:52)
[2020-08-12] MEDS: SODIUM CHLORIDE TAB 1 GM TAB PO SCH (08:52)
[2020-08-12] MEDS: dexAMETHasone 2 MG TAB PO SCH (08:52)
[2020-08-12] MEDS: MULTIVITAMINS, THERA 1 EACH TAB PO SCH (08:52)
[2020-08-12] MEDS: SILDENAFIL 20 MG TAB PO SCH (08:52)
[2020-08-12] MEDS: FLUTICASONE 50MCG/SPRAY NASAL 16GM EA NOSTRIL SCH (08:53)
[2020-08-12] MEDS: PRUCALOPRIDE SUCCINATE PO SCH (08:53)
[2020-08-12] MEDS: IPRATROPIUM BROMIDE 0.06% NASAL SPRAY (15 ML) EA NOSTRIL SCH (08:53)
--- NOTE | 2020-08-12 10:07 | P.DS ---
Providers Date of admission: 08/05/20 21:21 Expected date of discharge: 08/12/20 Attending physician: Madhavi Melo Consults: 08/05/20 21:20 Consult Physician Stat Consulting Provider: Oscar Aguilar Consult Reason/Comments: hyponatremia Do you want consulting provider notified?: Already Contacted 08/05/20 21:21 Consult Physician Stat Consulting Provider: [place] Consult Reason/Comments: icu patient Do you want consulting provider notified?: Already Contacted Primary care physician: Madhavi Melo [facility] Course: This is a 55-year-old male patient with past medical history of gastroesophageal reflux disease and esophageal dysmotility, hypertension, secondary pulmonary hypertension, paroxysmal atrial fibrillation on eliquis, Raynaud's disease, remote history of tobacco use, chronic hypoxic respiratory failure on home O2 at 3 L nasal cannula, pulmonary fibrosis secondary to progressive systemic sclerosis or scleroderma. Biopsy in 2013 showed evidence of usual interstitial pneumonia. He follows regularly with pulmonary and rheumatology at [facility] and has considered lung transplant but has declined moving forward with this. Patient presented to the hospital due to increasing shortness of breath, cough without sputum production, poor appetite, anxiety. No nausea, vomiting, diarrhea. He was positive for coronavirus patient also experienced weakness. He came into [facility] emergency center for evaluation was found to have a sodium of 105. He was placed on 3% saline and nephrology, pulmonary medicine have been following him in the intensive care unit. 08/07: Sodium today is 112. Potassium 4.5, chloride 76, CO2 34, BUN 10 and creatinine 0.4. Blood sugar 111. C-reactive protein 45.1. TSH 0.442 with normal free T4 of 0.93. WBC 6.5, hemoglobin 12.1, platelet count 147. Blood cultures are showing no growth at 24 hours. Patient is followed by pulmonary medicine and has been started on Remdesivir day #2/5, dexamethasone and supplements. He is currently on IV fluids of 3% at 20 MLS per hour per nephrology. Afebrile, pulse ox 94% on 3 L nasal cannula, heart rate 68, respiratory rate 24, blood pressure 110/80. library monitor sinus rhythm. He remains in the intensive care unit with close monitoring. 08/08: Patient remains in the intensive care unit. He is seen today sitting up in a chair. Pulse ox is 100% on 2 L nasal cannula. He has been afebrile, heart rate in the 50s and 60s, blood pressure 128/91. 38 monitor is sinus rhythm with PACs. Metoprolol increased to twice daily Sodium this morning is 117, potassium 4.5, chloride 82, CO2 34, BUN 13 and creatinine 0.49. Hemoglobin 12, WBC 6.3, platelet count 165. Blood cultures show no growth at 48 hours. Repeat chest x- ray reveals no significant. Patient is on day #3/5 of Remdesivir. He is currently on 3% saline at 25 mL per hour. 3: Patient remains in the ICU. Repeat sodium is 124. Dr. Aguilar has discontinued 3% normal saline and started him on sodium chloride tablets 1 g twice daily. Patterson catheter to be discontinued. Patient has had no vomiting or diarrhea. No chest pain. Repeat chest x-ray reveals correlate for pneumonia. He has been afebrile, heart rate in the 60s, respiratory rate 28, blood pressure 108/74, pulse ox 98% on 2 L nasal cannula. WBC 8.8, hemoglobin 12.4, platelet count 247. Sodium 124, potassium 4.0, chloride 85, CO2 33, BUN 17 and creatinine 0.46. Blood sugar 140. Patient is on day #4/ of Remdesivir. 08/10: Repeat sodium today is [address] Aguilar has recommended to put patient back on 3% saline IV fluids for 2-3 hours, continue sodium chloride tablets and cleared for transfer out of the intensive care unit. He has been afebrile, heart rate 54, blood pressure 113/74, pulse ox 100% WBC 8.1, hemoglobin 11.2, platelet count 269. D-dimer 0.42. CRP 14.4, LDH 362. Magnesium 1.6. Sodium 124, potassium 3.9, chloride 88, CO2 34, BUN 19 and creatinine 0.4, blood sugar 78. Patient has completed course of Remdesivir.. 08/11: Patient has been afebrile, heart rate 53, blood pressure 115/84, pulse ox 98% on 2 L nasal cannula. Repeat blood work reveals WBC 8.6, hemoglobin 11.7, platelet count 310. Sodium is 124. Potassium 4.0, chloride 86, CO2 36, BUN 16 and creatinine 0.36. Urine osmolality 802, urine sodium 151. D-dimer 0.42. Blood cultures remain with no growth. Case discussed with Dr. Aguilar and he is planning to give Lasix today, repeat sodium level this afternoon and may consider giving Samsca for 1 dose. If patient's sodium is stable by tomorrow, patient could be discharged tomorrow. He does not feel the patient is safe to go home today. Patient is very anxious to be discharged. Discharge diagnoses: 1. Acute hypoxemic respiratory failure, multifactorial, in part related to underlying scleroderma lung/pulmonary fibrosis, as well as a new diagnosis of COVID 19 pneumonitis. 2. Severe hypovolemic hyponatremia with low solute intake. Post hypertonic sa line 3% infusion. 3. Paroxysmal atrial fibrillation, status post ablation. 4. 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 Cellcept on hold. Patient does not have plans for lung transplant. 5. Raynaud's disease, with sclerodactyly 6. Hypertension and hypertensive cardio vascular disease. 7. Pulmonary hypertension. 8. Gastroesophageal reflux disease and GI prophylaxis. 9. Esophageal dysmotility secondary to scleroderma. 10. Hyperlipidemia. 10. Chronic hypoxemic respiratory failure on home O2 at 3 L nasal cannula. 11. Thrombocytopenia 12. Covid pneumonia. 13. Moderate protein calorie malnutrition 14. Pulmonary fibrosis. 15. Medical debility. Patient Condition at Discharge: Serious Plan - Discharge Summary Discharge Rx Participant: Yes New Discharge Prescriptions: No Action Olmesartan/Hydrochlorothiazide [Benicar Hct 40-25 mg Tablet] 1 tab PO DAILY Hyoscyamine Sulfate [Levsin-Sl] 0.125 mg SL Q4-6H PRN PRN Reason: CRAMPING Multivitamins, Thera [Multivitamin (formulary)] 1 tab PO DAILY Metoprolol Succinate [Toprol XL] 25 mg PO DAILY Fluticasone Nasal [place] [Flonase Nasal [place]] 2 spr EA NOSTRIL DAILY Albuterol Inhaler [Ventolin Hfa Inhaler] 4 puff INHALATION RT-Q4H PRN PRN Reason: Shortness Of Breath Prucalopride Succinate [Motegrity] 2 mg PO DAILY Ondansetron HCl [Zofran] 4 mg PO Q8H PRN PRN Reason: Nausea And Vomiting Rifaximin [Xifaxan] 550 mg PO BID PRN PRN Reason: IBS Sildenafil [Revatio] 20 mg PO TID Omeprazole 40 mg PO BID Apixaban [Eliquis] 5 mg PO BID mycophenolate mofetiL [Cellcept] 1,500 mg PO BID Sandostatin 50mcg/Ml 50 mcg SQ HS Ipratropium [place] 0.06%Nasal [Atrovent Nasal 0.06%] 2 spray EA NOSTRIL BID Tyvaso 0.6mg/Ml 3 - 9 puff INHALATION RT-QID Discharge Medication List Olmesartan/Hydrochlorothiazide [Benicar Hct 40-25 mg Tablet] 1 tab PO DAILY 05/26/14 [History] Albuterol Inhaler [Ventolin Hfa Inhaler] 4 puff INHALATION RT-Q4H PRN 08/05/20 [History] Apixaban [Eliquis] 5 mg PO BID 08/05/20 [History] Fluticasone Nasal [place] [Flonase Nasal [place]] 2 spr EA NOSTRIL DAILY 08/05/20 [History] Hyoscyamine Sulfate [Levsin-Sl] 0.125 mg SL Q4-6H PRN 08/05/20 [History] Ipratropium [place] 0.06%Nasal [Atrovent Nasal 0.06%] 2 spray EA NOSTRIL BID 08/05/20 [History] Metoprolol Succinate [Toprol XL] 25 mg PO DAILY 08/05/20 [History] Multivitamins, Thera [Multivitamin (formulary)] 1 tab PO DAILY 08/05/20 [History ] Omeprazole 40 mg PO BID 08/05/20 [History] Ondansetron HCl [Zofran] 4 mg PO Q8H PRN 08/05/20 [History] Prucalopride Succinate [Motegrity] 2 mg PO DAILY 08/05/20 [History] Rifaximin [Xifaxan] 550 mg PO BID PRN 08/05/20 [History] Sandostatin 50mcg/Ml 50 mcg SQ HS 08/05/20 [History] Sildenafil [Revatio] 20 mg PO TID 08/05/20 [History] Tyvaso 0.6mg/Ml 3 - 9 puff INHALATION RT-QID 08/05/20 [History] mycophenolate mofetiL [Cellcept] 1,500 mg PO BID 08/05/20 [History] Follow up Appointment(s)/Referral(s): Madhavi Melo MD [Primary Care Provider] - 1-2 days
[2020-08-12] MEDS ORDERED: TOLVAPTAN 15 MG 1/2 TABLET PO ONE (12:00)
== END 2020-08-12 11:14 | disposition home or self-care (01) | DRG 177 ==
LOC: EC 18:45 → 2SICU 21:21
PROVIDERS: ADMIT Internal Medicine; ATTEND Internal Medicine
PROC: XW033E5 Introduction of Remdesivir Anti-infective into Peripheral Vein, Percutaneous Approach, New Technology Group 5 (ICD-10-PCS; principal; 2020-08-06)
PROC: XW13325 Transfusion of Convalescent Plasma (Nonautologous) into Peripheral Vein, Percutaneous Approach, New Technology Group 5 (ICD-10-PCS; principal; 2020-08-06)
DX: U07.1 COVID-19 (principal); J12.82 Pneumonia due to coronavirus disease 2019; J96.21 Acute and chronic respiratory failure with hypoxia; E87.1 Hypo-osmolality and hyponatremia; I45.2 Bifascicular block; E44.0 Moderate protein-calorie malnutrition; Z68.1 Body mass index [BMI] 19.9 or less, adult; Z76.82 Awaiting organ transplant status; I27.21 Secondary pulmonary arterial hypertension; D69.6 Thrombocytopenia, unspecified; I48.0 Paroxysmal atrial fibrillation; M34.1 CR(E)ST syndrome; J84.178 Other interstitial pulmonary diseases with fibrosis in diseases classified elsewhere; I27.29 Other secondary pulmonary hypertension; I73.00 Raynaud's syndrome without gangrene; E86.1 Hypovolemia; E83.42 Hypomagnesemia; E87.6 Hypokalemia; K22.4 Dyskinesia of esophagus; E78.5 Hyperlipidemia, unspecified; I10 Essential (primary) hypertension; K21.9 Gastro-esophageal reflux disease without esophagitis; F41.9 Anxiety disorder, unspecified; R53.81 Other malaise; Z99.81 Dependence on supplemental oxygen; Z79.01 Long term (current) use of anticoagulants; Z79.899 Other long term (current) drug therapy; Z86.79 Personal history of other diseases of the circulatory system; Z87.891 Personal history of nicotine dependence; Z90.49 Acquired absence of other specified parts of digestive tract; Z87.19 Personal history of other diseases of the digestive system; Z95.810 Presence of automatic (implantable) cardiac defibrillator; Z71.3 Dietary counseling and surveillance; Z88.8 Allergy status to other drugs, medicaments and biological substances; Z82.49 Family history of ischemic heart disease and other diseases of the circulatory system
CPT/HCPCS: 36415; 51702; 71045; 80048; 80053; 82550; 82728; 83605; 83615; 83735; 83930; 83935; 84100; 84145; 84295; 84300; 84439; 84443; 85025; 85027; 85379; 85610; 85730; 86140; 86850; 86900; 86901; 87040; 87635; 93005; 94640; 96361; 96374; 99285

== ENCOUNTER 2020-08-14 15:54 | Inpatient (IN) | payer BC ==
--- NOTE | 2020-08-14 16:38 | ED ---
General Adult HPI - General Chief complaint: Shortness of Breath Stated complaint: ams Time Seen by Provider: 08/14/20 15:59 Source: patient, EMS, old records reviewed Mode of arrival: EMS Limitations: no limitations - History of Present Illness Initial comments: 55-year-old male sent in from primary care office with hypoxia. Recent diagnosis of coronavirus. Patient was admitted approximately 10 days ago, was admitted for hyponatremia. He had been discharged home and was seen his primary care physician in follow-up. He was noted to be hypoxic. 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 He wears 2 L normally. He states his oxygen concentrator had run out of battery and he was unaware that is not plugged in. He states that he does have shortness of breath but this is his baseline. Denies new complaints. No fever. No chest pain. - Related Data Home Medications Medication Instructions Recorded Confirmed Albuterol Inhaler [Ventolin Hfa 4 puff INHALATION RT-Q4H PRN 08/05/20 08/05/20 Inhaler] Apixaban [Eliquis] 5 mg PO BID 08/05/20 08/05/20 Fluticasone Nasal [place] [Flonase 2 spr EA NOSTRIL DAILY 08/05/20 08/05/20 Nasal [place]] Hyoscyamine Sulfate [Levsin-Sl] 0.125 mg SL Q4-6H PRN 08/05/20 08/05/20 Ipratropium [place] 0.06%Nasal 2 spray EA NOSTRIL BID 08/05/20 08/05/20 [Atrovent Nasal 0.06%] Metoprolol Succinate [Toprol XL] 25 mg PO DAILY 08/05/20 08/05/20 Multivitamins, Thera [Multivitamin 1 tab PO DAILY 08/05/20 08/05/20 (formulary)] Omeprazole 40 mg PO BID 08/05/20 08/05/20 Ondansetron HCl [Zofran] 4 mg PO Q8H PRN 08/05/20 08/05/20 Prucalopride Succinate [Motegrity] 2 mg PO DAILY 08/05/20 08/05/20 Rifaximin [Xifaxan] 550 mg PO BID PRN 08/05/20 08/05/20 Sandostatin 50mcg/Ml 50 mcg SQ HS 08/05/20 08/05/20 Sildenafil [Revatio] 20 mg PO TID 08/05/20 08/05/20 Tyvaso 0.6mg/Ml 3 - 9 puff INHALATION RT-QID 08/05/20 08/05/20 Previous Rx's Medication Instructions Recorded Ascorbic Acid [Vitamin C] 1,000 mg PO DAILY tab 08/12/20 Cholecalciferol [Vitamin D3 (25 25 mcg PO DAILY tablet 08/12/20 Mcg = 1000 Iu)] Sodium Chloride Tab 1 gm PO BID #60 tab 08/12/20 Zinc Sulfate [Orazinc] 220 mg PO DAILY #30 cap 08/12/20 Allergies Allergy/AdvReac Type Severity Reaction Status Date / Time hydrochlorothiazide Allergy Confusion Verified 08/14/20 15:58 Review of Systems ROS Statement: Those systems with pertinent positive or pertinent negative responses have been documented in the HPI. ROS Other: All systems not noted in ROS Statement are negative. Past Medical History Past Medical History: GERD/Reflux, Hypertension, Supraventricular Tachycardia (SVT) Additional Past Medical History / Comment(s): Pulmonary fibrosis, scleroderma, SIBO, Raynauds, History of Any Multi-Drug Resistant Organisms: None Reported Past Surgical History: Appendectomy, Heart Catheterization Additional Past Surgical History / Comment(s): double lung transplant Past Anesthesia/Blood Transfusion Reactions: No Reported Reaction Past Psychological History: No Psychological Hx Reported Smoking Status: Former smoker Past Alcohol Use History: Daily Past Drug Use History: None Reported - Past Family History Father Family Medical History: Myocardial Infarction ([place]) General Exam Limitations: no limitations General appearance: alert, in no apparent distress Head exam: Present: atraumatic, normocephalic Eye exam: Present: normal appearance, PERRL ENT exam: Present: normal exam Neck exam: Present: normal inspection. Absent: tenderness, meningismus Respiratory exam: Present: rales, decreased breath sounds. Absent: respiratory distress Cardiovascular Exam: Present: regular rate, normal rhythm GI/Abdominal exam: Present: soft. Absent: distended, tenderness, guarding Extremities exam: Present: normal inspection, normal capillary refill. Absent: pedal edema, calf tenderness Neurological exam: Present: alert, oriented X3, CN II-XII intact. Absent: motor sensory deficit Psychiatric exam: Present: normal affect, normal mood Skin exam: Present: warm, dry, intact. Absent: cyanosis, diaphoretic Course Vital Signs 08/14/20 15:58 Temperature 97.5 F L Pulse Rate 76 Respiratory 18 Rate Blood Pressure 130/94 O2 Sat by Pulse 100 Oximetry EKG Findings - EKG Comments: EKG Findings:: EKG: Narrow complex rhythm, sinus tachycardia with occasional PVC incomplete right bundle, T-wave inversion in the precordial leads which appears similar to previous EKG. Rate of 103, WI interval 188, QRS duration 114, QTC 513. Medical Decision Making - Medical Decision Making 55-year-old male with recent coronavirus pneumonia, and hyponatremia presenting for evaluation of hypoxia at the primary care office. Chest x-ray showing bilateral infiltrates similar to prior. Patient has a mild leukocytosis. Stable hemoglobin. Sodium is 128 which is improved. I did discuss case with Dr. Melo who is familiar with this patient, will admit for close monitoring, repeat laboratory testing, consultation with pulmonology and nephrology. - Lab Data Result diagrams: 08/14/20 16:57 08/14/20 16:57 Lab Results 08/14/20 08/14/20 08/14/20 Range/Units 16:57 16:57 16:57 WBC 14.5 H (3.8-10.6) k/uL RBC 4.03 L (4.30-5.90) m/uL Hgb 13.0 (13.0-17.5) gm/dL Hct 38.5 L (39.0-53.0) % MCV 95.4 (80.0-100.0) fL MCH 32.3 (25.0-35.0) pg MCHC 33.9 (31.0-37.0) g/dL RDW 12.9 (11.5-15.5) % Plt Count 436 (150-450) k/uL MPV 6.7 Neutrophils % 91 % Lymphocytes % 3 % Monocytes % 4 % Eosinophils % 1 % Basophils % 0 % Neutrophils # 13.3 H (1.3-7.7) k/uL Lymphocytes # 0.5 L (1.0-4.8) k/uL Monocytes # 0.5 (0-1.0) k/uL Eosinophils # 0.1 (0-0.7) k/uL Basophils # 0.0 (0-0.2) k/uL PT 12.2 H (9.0-12.0) sec INR 1.2 H (<1.2) APTT 31.2 H (22.0-30.0) sec Sodium 128 L (137-145) mmol/L Potassium 3.7 (3.5-5.1) mmol/L Chloride 86 L (98-107) mmol/L Carbon Dioxide 35 H (22-30) mmol/L Anion Gap 7 mmol/L BUN 21 H (9-20) mg/dL Creatinine 0.42 L (0.66-1.25) mg/dL Est GFR (CKD-EPI)AfAm >90 (>60 ml/min/1.73 sqM) Est GFR (CKD-EPI)NonAf >90 (>60 ml/min/1.73 sqM) Glucose 67 L (74-99) mg/dL Plasma Lactic Acid Kevin (0.7-2.0) mmol/L Calcium 8.7 (8.4-10.2) mg/dL Magnesium 1.8 (1.6-2.3) mg/dL Total Bilirubin 1.2 (0.2-1.3) mg/dL AST 53 (17-59) U/L ALT 40 (4-49) U/L Alkaline Phosphatase 64 (38-126) U/L Total Protein 6.4 (6.3-8.2) g/dL Albumin 3.7 (3.5-5.0) g/dL 08/14/20 Range/Units 16:57 WBC (3.8-10.6) k/uL RBC (4.30-5.90) m/uL Hgb (13.0-17.5) gm/dL Hct (39.0-53.0) % MCV (80.0-100.0) fL MCH (25.0-35.0) pg MCHC (31.0-37.0) g/dL RDW (11.5-15.5) % Plt Count (150-450) k/uL MPV Neutrophils % % Lymphocytes % % Monocytes % % Eosinophils % % Basophils % % Neutrophils # (1.3-7.7) k/uL Lymphocytes # (1.0-4.8) k/uL Monocytes # (0-1.0) k/uL Eosinophils # (0-0.7) k/uL Basophils # (0-0.2) k/uL PT (9.0-12.0) sec INR (<1.2) APTT (22.0-30.0) sec Sodium (137-145) mmol/L Potassium (3.5-5.1) mmol/L Chloride (98-107) mmol/L Carbon Dioxide (22-30) mmol/L Anion Gap mmol/L BUN (9-20) mg/dL Creatinine (0.66-1.25) mg/dL Est GFR (CKD-EPI)AfAm (>60 ml/min/1.73 sqM) Est GFR (CKD-EPI)NonAf (>60 ml/min/1.73 sqM) Glucose (74-99) mg/dL Plasma Lactic Acid Kevin 1.1 (0.7-2.0) mmol/L Calcium (8.4-10.2) mg/dL Magnesium (1.6-2.3) mg/dL Total Bilirubin (0.2-1.3) mg/dL AST (17-59) U/L ALT (4-49) U/L Alkaline Phosphatase (38-126) U/L Total Protein (6.3-8.2) g/dL Albumin (3.5-5.0) g/dL Disposition Clinical Impression: COVID-19, Pneumonia due to COVID-19 virus, Hyponatremia Disposition: ADMITTED IP TO THIS [facility] Condition: Stable Is patient prescribed a controlled substance at d/c from ED?: No Referrals: Madhavi Melo MD [Primary Care Provider] - 1-2 days Decision to Admit Reason: Admit from EC Decision Date: 08/14/20 Decision Time: 18:20
[2020-08-14 17:10] LABS: Basophils % (A) 0 %; Eosinophils # (A) 0.1 k/uL (0-0.7); Eosinophils % (A) 1 %; HCT 38.5 % (39.0-53.0); Lymphocytes # (A) 0.5 k/uL (1.0-4.8); Lymphocytes % (A) 3 %; MCH 32.3 pg (25.0-35.0); MCHC 33.9 g/dL (31.0-37.0); MCV 95.4 fL (80.0-100.0); Mean Platelet Volume 6.7; Monocytes # (A) 0.5 k/uL (0-1.0); Monocytes % (A) 4 %; Neutrophils # (A) 13.3 k/uL (1.3-7.7); Neutrophils % (A) 91 %; Platelet Count 436 k/uL (150-450); RBC 4.03 m/uL (4.30-5.90); RDW 12.9 % (11.5-15.5); WBC 14.5 k/uL (3.8-10.6)
[2020-08-14 17:17] LABS: INR 1.2 (<1.2); Partial Thromboplastin Time 31.2 sec (22.0-30.0); Prothrombin Time 12.2 sec (9.0-12.0)
[2020-08-14 17:20] LABS: ALT 40 U/L (4-49); AST 53 U/L (17-59); African American GFR (CKD) >90 (>60 ml/min/1.73 sqM); Albumin 3.7 g/dL (3.5-5.0); Alkaline Phosphatase 64 U/L (38-126); Anion Gap 7 mmol/L; Blood Urea Nitrogen 21 mg/dL (9-20); Calcium 8.7 mg/dL (8.4-10.2); Carbon Dioxide 35 mmol/L (22-30); Chloride 86 mmol/L (98-107); Glucose 67 mg/dL (74-99); Magnesium 1.8 mg/dL (1.6-2.3); Non-African American GFR(CKD) >90 (>60 ml/min/1.73 sqM); Potassium 3.7 mmol/L (3.5-5.1); Sodium 128 mmol/L (137-145); Total Bilirubin 1.2 mg/dL (0.2-1.3); Total Protein 6.4 g/dL (6.3-8.2)
--- NOTE | 2020-08-14 18:11 | XR ---
EXAMINATION TYPE: XR chest 2V DATE OF EXAM: 08/14/2020 COMPARISON: Correlation made with x-rays from 09/05/2020. HISTORY: Shortness of breath TECHNIQUE: Frontal and lateral views of the chest are obtained. FINDINGS: There is redemonstration of bilateral airspace opacities as seen before. Airspace opacitie s are similar or slightly worse compared to prior examination. There is no pleural effusion or pneumo thorax. Heart and mediastinum are midline and within normal limits. IMPRESSION: Multifocal bilateral airspace opacities related to [place] pneumonia is unchanged or sligh tly worse compared to x-rays from 08/09/2020.
[2020-08-14] MEDS ORDERED: NALOXONE 0.4 MG/ML 1 ML VIAL IV PRN (18:16)
[2020-08-14] MEDS ORDERED: DEXAMETHASONE SOD PHOSPHATE 10 MG/ML 1 ML VIAL IV STA (18:16)
[2020-08-14] MEDS: SODIUM CHLORIDE 0.9% 1,000 ML IV SCH (19:48)
[2020-08-14] MEDS ORDERED: RIFAXIMIN 550 MG TABLET PO PRN (22:14)
[2020-08-14] MEDS ORDERED: ONDANSETRON 4 MG TAB PO PRN (22:14)
[2020-08-14] MEDS: PANTOPRAZOLE 40 MG TABLET PO SCH (22:48)
[2020-08-14] MEDS: METOPROLOL SUCCINATE (ER) 25 MG TAB.ER.24H PO SCH (22:48)
[2020-08-14] MEDS ORDERED: HYOSCYAMINE SULFATE 0.125 MG TAB PO PRN (23:00)
[2020-08-14] MEDS: SILDENAFIL 20 MG TAB PO SCH (23:39)
[2020-08-15] MEDS: ALBUTEROL HFA INHALER INHALATION PRN ×4 (02:29→16:31)
[2020-08-15] MEDS: SODIUM CHLORIDE 0.9% 1,000 ML IV SCH (08:09)
[2020-08-15] MEDS: SODIUM CHLORIDE TAB 1 GM TAB PO SCH ×2 (08:10→22:35)
[2020-08-15] MEDS: SILDENAFIL 20 MG TAB PO SCH ×3 (08:10→22:35)
[2020-08-15] MEDS: MULTIVITAMINS, THERA 1 EACH TAB PO SCH (08:10)
[2020-08-15] MEDS: FLUTICASONE 50MCG/SPRAY NASAL 16GM EA NOSTRIL SCH (08:10)
[2020-08-15] MEDS: APIXABAN 5 MG TAB PO SCH ×2 (08:10→22:35)
[2020-08-15] MEDS: METOPROLOL SUCCINATE (ER) 25 MG TAB.ER.24H PO SCH (08:10)
[2020-08-15] MEDS: PANTOPRAZOLE 40 MG TABLET PO SCH ×2 (08:10→22:36)
[2020-08-15 08:36] LABS: Basophils # (A) 0.01 X 10*3/uL (0.00-0.10); Basophils % (A) 0.1 %; Eosinophils # (A) 0 X 10*3/uL (0.04-0.35); Eosinophils % (A) 0 %; HCT 36.7 % (39.6-50.0); HGB 12.5 g/dL (13.0-17.0); Lymphocytes # (A) 0.51 X 10*3/uL (0.90-5.00); Lymphocytes % (A) 7.5 %; MCH 32.5 pg (27.0-32.0); MCHC 34.1 g/dL (32.0-37.0); MCV 95.3 fL (80.0-97.0); Mean Platelet Volume 9.3 fL (9.5-12.2); Monocytes # (A) 0.18 X 10*3/uL (0.20-1.00); Monocytes % (A) 2.6 %; Neutrophils % (A) 89.2 %; Platelet Count 395 X 10*3/uL (140-440); RBC 3.85 X 10*6/uL (4.40-5.60); RDW 12.5 % (11.5-14.5); WBC 6.84 X 10*3/uL (4.50-10.00)
[2020-08-15] MEDS ORDERED: PRUCALOPRIDE SUCCINATE 2 MG PO SCH (09:00)
[2020-08-15 09:39] LABS: African American GFR (CKD) 141.4 (60.0-200.0); Anion Gap 6.6 mmol/L (4.00-12.00); Calcium 8.7 mg/dL (8.7-10.3); Carbon Dioxide 34.4 mmol/L (21.6-31.8); Potassium 4.4 mmol/L (3.5-5.5)
[2020-08-15 13:39] VITALS: BMI 18.3
--- NOTE | 2020-08-15 14:27 | P.HPIM ---
History of Present Illness H&P Date: 08/15/20 HISTORY OF PRESENT ILLNESS This is a 55-year-old male patient with past medical history of gastroesophageal reflux disease and esophageal dysmotility, hypertension, secondary pulmonary hypertension, paroxysmal atrial fibrillation on eliquis, Raynaud's disease, remote history of tobacco use, chronic hypoxic respiratory failure on home O2 at 3 L nasal cannula, pulmonary fibrosis secondary to progressive systemic sclerosis or scleroderma. Biopsy in 2013 showed evidence of usual interstitial pneumonia. He follows regularly with pulmonary and rheumatology at [facility] and has considered lung transplant but has declined moving forward with this. He was hospitalized from August 05 through August 12 which time he was treated for acute hypoxic respiratory failure still secondary to scleroderma lung and pulmonary fibrosis along with COVID19 pneumonitis completed course of Remdesivir. Patient came into the office yesterday to have a recheck following admission and have blood work done. While in the office patient was found to be dyspneic with a pulse ox of 70% and that his portable oxygen tank was not working. Patient was afebrile, heart rate 76, blood pressure 130/94. Pulse ox 100% on oxygen. WBC 14.5, hemoglobin 13, platelet count 436. Sodium 128, potassium 3.7, chloride 86, BUN 35, creatinine 21, BUN 0.42. Blood sugar 67. Liver function tests normal. Lactic acid 1.16. Chest x-ray reveals multifocal bilateral airspace opacities related to Covid pneumonia unchanged. This morning, patient states that he is feeling much better from yesterday. He is complaining of significant right index finger pain due to ulceration. He states he woke up coughing this morning but improved at the time of the valve. He denies any nausea or vomiting. REVIEW OF SYSTEMS Constitutional: No fever, no chills, no night sweats. No weight change. Reports weakness, reports fatigue. No daytime sleepiness. EENT: No headache. No blurred vision or double vision, no loss of vision. No loss of Hearing, no ringing in the ears, no dizziness. No nasal drainage or congestion. No epistaxis. No sore throat. Lungs: Reports shortness of breath, reports cough, no sputum production. No wheezing. Cardiovascular: No chest pain, no lower extremity edema. No palpitations. No paroxysmal nocturnal dyspnea. No orthopnea. No lightheadedness or dizziness. No syncopal episodes. Abdominal: No abdominal pain. No nausea, vomiting. No diarrhea. No constipation. No bloody or tarry stools.. No loss of appetite. Genitourinary: No dysuria, increased frequency, urgency. No urinary retention. Musculoskeletal: No myalgias. No muscle weakness, no gait dysfunction, no frequent falls. No back pain. No neck pain. Integumentary: Reports wounds, no lesions. No rash or pruritus. No unusual bruising. No change in hair or nails. Neurologic: No aphasia. No facial droop. No change in mentation. No head injury. No headache. No paralysis. No paresthesia. Psychiatric: No depression. No anxiety. No mood swings. Endocrine: No abnormal blood sugars. No weight change. No excessive sweating or thirst. No cold intolerance. SOCIAL HISTORY Patient was a smoker of half a pack per day for 11 years and quit in 1993. Denies alcohol abuse. Patient lives at home with his . FAMILY HISTORY Mother at age 47 and causes not known to the patient, father at age 56 from his second heart attack with history of heavy smoking and alcohol intake. Patient's 1 brother with no major medical problems. Patient has 2 sisters and one is from a motor vehicle accident. Second sister he does not have any contact with. Patient is one daughter with no major medical problems. PHYSICAL EXAMINATION Gen: This is a 55-year-old male. He is resting in bed and appears to be comfortable at rest and in no acute distress. HEENT: Head is atraumatic, normocephalic. Pupils equal, round. Sclerae is anicteric. NECK: Supple. No JVD. No lymphadenopathy. No thyromegaly. LUNGS: Rhonchi bilaterally. No intercostal retractions. HEART: Regular rate and rhythm. No murmur. ABDOMEN: Soft. Bowel sounds are present. No masses. No tenderness. EXTREMITIES: No pedal edema. No calf tenderness. Fingertip ulcerations secondary to scleroderma. NEUROLOGICAL: Patient is awake, alert and oriented x3. Cranial nerves 2 through 12 are grossly intact. ASSESSMENT AND PLAN 1. Acute chronic hypoxemic respiratory failure, multifactorial, in part related to underlying scleroderma lung/pulmonary fibrosis, as well as COVID 19 pne umonitis. Continue Ventolin inhaler, eliquis, pulmonary medicine consult. 2. Chronic hyponatremia. Consult with nephrology. 3. Paroxysmal atrial fibrillation, status post ablation. Continue eliquis 5 mg twice daily, Toprol-XL 25 mg daily. 4. 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 No history of of lung transplantation. 5. Raynaud's disease, with digital ulceration and pain worse to the right index finger. 6. Hypertension. Continue Toprol-XL 25 mg daily. 7. Pulmonary hypertension. Continue Revatio 20 mg 3 times daily oral. 8. Gastroesophageal reflux disease and GI prophylaxis. Continue Protonix 40 mg oral twice daily. 9. Esophageal dysmotility secondary to scleroderma. Continue rifaximin 550 mg twice daily as needed, Revatio 20 mg 3 times daily, Prucalopride 2 mg daily. 10. Hyperlipidemia. 10. Chronic hypoxemic respiratory failure on home O2 at 3 L nasal cannula. 11. Thrombocytopenia, continue to monitor. 12. DVT prophylaxis. Continue eliquis 5 mg twice daily. Patient will be admitted to the hospital for a minimum of 2 night stay. DISCHARGE PLAN Return home. Impression and plan of care have been directed as dictated by the signing physician. Shana Iverson nurse practitioner acting as scribe for signing physician. Past Medical History Past Medical History: GERD/Reflux, Hypertension, Supraventricular Tachycardia (SVT) Additional Past Medical History / Comment(s): Pulmonary fibrosis, scleroderma, SIBO, Raynauds, History of Any Multi-Drug Resistant Organisms: None Reported Past Surgical History: Appendectomy, Heart Catheterization Additional Past Surgical History / Comment(s): double lung transplant Past Anesthesia/Blood Transfusion Reactions: No Reported Reaction Past Psychological History: No Psychological Hx Reported Smoking Status: Former smoker Past Alcohol Use History: Daily Past Drug Use History: None Reported - Past Family History Father Family Medical History: Myocardial Infarction (MD) Medications and Allergies Home Medications Medication Instructions Recorded Confirmed Type Albuterol Inhaler [Ventolin Hfa 4 puff INHALATION RT-Q4H PRN 08/05/20 08/14/20 History Inhaler] Apixaban [Eliquis] 5 mg PO BID 08/05/20 08/14/20 History Fluticasone Nasal [place] [Flonase 2 spr EA NOSTRIL DAILY 08/05/20 08/14/20 History Nasal [place]] Hyoscyamine Sulfate [Levsin-Sl] 0.125 mg SL Q4-6H PRN 08/05/20 08/14/20 History Ipratropium [place] 0.06%Nasal 2 spray EA NOSTRIL BID 08/05/20 08/14/20 History [Atrovent Nasal 0.06%] Metoprolol Succinate [Toprol XL] 25 mg PO DAILY 08/05/20 08/14/20 History Multivitamins, Thera [Multivitamin 1 tab PO DAILY 08/05/20 08/14/20 History (formulary)] Omeprazole 40 mg PO BID 08/05/20 08/14/20 History Ondansetron HCl [Zofran] 4 mg PO Q8H PRN 08/05/20 08/14/20 History Prucalopride Succinate [Motegrity] 2 mg PO DAILY 08/05/20 08/14/20 History Rifaximin [Xifaxan] 550 mg PO BID PRN 08/05/20 08/14/20 History Sandostatin 50mcg/Ml 50 mcg SQ HS 08/05/20 08/14/20 History Sildenafil [Revatio] 20 mg PO TID 08/05/20 08/14/20 History Tyvaso 0.6mg/Ml 3 - 9 puff INHALATION RT-QID 08/05/20 08/14/20 History Sodium Chloride Tab 1 gm PO BID #60 tab 08/12/20 08/14/20 Rx Allergies Allergy/AdvReac Type Severity Reaction Status Date / Time hydrochlorothiazide Allergy Confusion Verified 08/14/20 19:04 Physical Exam Vitals: Vital Signs Temp Pulse Pulse Resp BP BP Pulse Ox 08/15/20 07:04 95 08/15/20 05:28 97.8 F 62 14 141/90 98 08/15/20 02:23 97.6 F 76 13 142/93 100 08/14/20 20:51 97.9 F 80 18 128/81 08/14/20 20:32 18 08/14/20 20:20 18 92 L 08/14/20 19:52 80 16 120/87 99 08/14/20 15:58 97.5 F L 76 18 130/94 100 Intake and Output 08/14/20 08/15/20 08/15/20 22:59 06:59 14:59 Other: Voiding Method Toilet # Voids 2 Weight 56.245 kg Results CBC & Chem 7: 08/15/20 06:03 08/15/20 06:03 Labs: Abnormal Lab Results - Last 24 Hours (Table) 08/14/20 08/14/20 08/14/20 Range/Units 16:57 16:57 16:57 WBC 14.5 H (3.8-10.6) k/uL RBC 4.03 L (4.30-5.90) m/uL Hct 38.5 L (39.0-53.0) % Neutrophils # 13.3 H (1.3-7.7) k/uL Lymphocytes # 0.5 L (1.0-4.8) k/uL PT 12.2 H (9.0-12.0) sec INR 1.2 H (<1.2) APTT 31.2 H (22.0-30.0) sec Sodium 128 L (137-145) mmol/L Chloride 86 L (98-107) mmol/L Carbon Dioxide 35 H (22-30) mmol/L BUN 21 H (9-20) mg/dL Creatinine 0.42 L (0.66-1.25) mg/dL Glucose 67 L (74-99) mg/dL Thrombosis Risk Factor Assmnt - Choose All That Apply Each Factor Represents 1 point: Age 41-60 years Thrombosis Risk Factor Assessment Total Risk Factor Score: 1 Thrombosis Risk Factor Assessment Level: Low Risk
--- NOTE | 2020-08-15 15:16 | P.CNPUL ---
History of Present Illness Consult date: 08/15/20 Reason for consult: dyspnea (Chronic hypoxic respiratory failure, dyspnea), other Chief complaint: Chronic hypoxic respiratory failure, dyspnea History of present illness: 55-year-old white male patient with past medical history of scleroderma lung/pulmonary fibrosis on home oxygen usually at 3 L, patient follows with the scleroderma specialist at the [facility] scleroderma clinic and [facility], and undergoing evaluation for possible lung transplantation. Locally patient sees Dr. 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 Other medical history includes hypertension, hyperlipidemia, GERD. Patient is on mycophenolate on the regular basis. States his most recent vital Was on 2 L, overall he had a steady mild trend downward since 2014 his vital From 3.2 L down to 2 L most recently. Patient was recently hospitalized with severe hyponatremia related to poor oral intake, and COVID 19 infection from 08/05/2020 through 08/12/2020. Patient has recently had increasing esophageal dysmotility syndrome, and has been on promotility agents. Patient was treated with a combination of Remdesivir, dexamethasone, multivitamins for his acute COVID 19 pneumonia, clinically patient had improved, never required intubation. Nephrology managed patient's hyponatremia with 3% hypertonic saline. Patient was discharged home in stable condition on 08/12/2020. On 08/14/2020 patient came into the hospital sent in by his PCP with hypoxia. He stated the battery ran out on his oxygen concentrator as the patient did not plug again. He s tarted experiencing some mild increased shortness of breath, however patient has chronic shortness of breath at his baseline and this was not significantly worse. Denied any fever no chest pain, no increasing cough, he does have a dry cough at baseline, occasional, no phlegm production. No hemoptysis. His chest x-ray shows multifocal bilateral airspace opacities related to recent history of COVID 19 pneumonia which is unchanged. he was tested for COVID 19 and his PCR was negative. Vital signs are stable, he is on 2 L of oxygen, pulse ox 100%, afebrile, hemodynamically patient has been stable, lab work showed a white blood cell count of 14.5, hemoglobin of 13, INR is 1.2, sodium was 128, potassium 3.7, chloride is 86, CO2 35, BUN is 21 creatinine 0.42, LFTs within normal limits. His sodium has improved since his discharge when he was at 124. No nausea vomiting or diarrhea. Patient was restarted on all of his home medications he has completed his course of Decadron, he is on Eliquis for history of paroxysmal A. fib, EKG showed sinus tachycardia with PACs. His breathing is at his baseline today, he denies any acute complaints Review of Systems All systems: negative Constitutional: Denies chills, Denies fever Eyes: denies blurred vision, denies pain Ears, nose, mouth and throat: Denies headache, Denies sore throat Cardiovascular: Denies chest pain, Denies shortness of breath Respiratory: Reports dyspnea, Reports home oxygen, Denies cough Gastrointestinal: Denies abdominal pain, Denies diarrhea, Denies nausea, Denies vomiting Musculoskeletal: Denies myalgias Integumentary: Denies pruritus, Denies rash Neurological: Denies numbness, Denies weakness Psychiatric: Denies anxiety, Denies depression Endocrine: Denies fatigue, Denies weight change Past Medical History Past Medical History: GERD/Reflux, Hypertension, Supraventricular Tachycardia (SVT) Additional Past Medical History / Comment(s): Pulmonary fibrosis, scleroderma, SIBO, Raynauds, History of Any Multi-Drug Resistant Organisms: None Reported Past Surgical History: Appendectomy, Heart Catheterization Additional Past Surgical History / Comment(s): double lung transplant Past Anesthesia/Blood Transfusion Reactions: No Reported Reaction Past Psychological History: No Psychological Hx Reported Smoking Status: Former smoker Past Alcohol Use History: Daily Past Drug Use History: None Reported - Past Family History Father Family Medical History: Myocardial Infarction ([place]) Medications and Allergies Home Medications Medication Instructions Recorded Confirmed Type Albuterol Inhaler [Ventolin Hfa 4 puff INHALATION RT-Q4H PRN 08/05/20 08/14/20 History Inhaler] Apixaban [Eliquis] 5 mg PO BID 08/05/20 08/14/20 History Fluticasone Nasal [place] [Flonase 2 spr EA NOSTRIL DAILY 08/05/20 08/14/20 History Nasal [place]] Hyoscyamine Sulfate [Levsin-Sl] 0.125 mg SL Q4-6H PRN 08/05/20 08/14/20 History Ipratropium [place] 0.06%Nasal 2 spray EA NOSTRIL BID 08/05/20 08/14/20 History [Atrovent Nasal 0.06%] Metoprolol Succinate [Toprol XL] 25 mg PO DAILY 08/05/20 08/14/20 History Multivitamins, Thera [Multivitamin 1 tab PO DAILY 08/05/20 08/14/20 History (formulary)] Omeprazole 40 mg PO BID 08/05/20 08/14/20 History Ondansetron HCl [Zofran] 4 mg PO Q8H PRN 08/05/20 08/14/20 History Prucalopride Succinate [Motegrity] 2 mg PO DAILY 08/05/20 08/14/20 History Rifaximin [Xifaxan] 550 mg PO BID PRN 08/05/20 08/14/20 History Sandostatin 50mcg/Ml 50 mcg SQ HS 08/05/20 08/14/20 History Sildenafil [Revatio] 20 mg PO TID 08/05/20 08/14/20 History Tyvaso 0.6mg/Ml 3 - 9 puff INHALATION RT-QID 08/05/20 08/14/20 History Sodium Chloride Tab 1 gm PO BID #60 tab 08/12/20 08/14/20 Rx Allergies Allergy/AdvReac Type Severity Reaction Status Date / Time hydrochlorothiazide Allergy Confusion Verified 08/14/20 19:04 Physical Exam Vitals: Vital Signs Temp Pulse Pulse Resp BP BP Pulse Ox 08/15/20 10:00 97.4 F L 60 16 116/77 96 08/15/20 07:04 95 08/15/20 05:28 97.8 F 62 14 141/90 98 08/15/20 02:23 97.6 F 76 13 142/93 100 08/14/20 20:51 97.9 F 80 18 128/81 08/14/20 20:32 18 08/14/20 20:20 18 92 L 08/14/20 19:52 80 16 120/87 99 08/14/20 15:58 97.5 F L 76 18 130/94 100 Intake and Output 08/14/20 08/15/20 08/15/20 22:59 06:59 14:59 Other: Voiding Method Toilet # Voids 2 Weight 56.245 kg 56.245 kg GENERAL EXAM: Alert, very pleasant, 55-year-old white male, on 2 L of oxygen pulse ox of 100%, mildly short of breath with conversation which is baseline for this patient with history of chronic scleroderma lung/pulmonary fibrosis, comfortable in no apparent distress. HEAD: Normocephalic/atraumatic. EYES: Normal reaction of pupils, equal size. Conjunctiva pink, sclera white. NOSE: Clear with pink turbinates. THROAT: No erythema or exudates. NECK: No masses, no JVD, no thyroid enlargement, no adenopathy. CHEST: No chest wall deformity. Symmetrical expansion. LUNGS: Equal air entry with mild bibasilar crackles at the bases, wheeze, rhonchi or dullness. CVS: Regular rate and rhythm, normal S1 and S2, no gallops, no murmurs, no rubs ABDOMEN: Soft, nontender. No hepatosplenomegaly, normal bowel sounds, no guarding or rigidity. EXTREMITIES: No clubbing, no edema, no cyanosis, 2+ pulses and upper and lower extremities. MUSCULOSKELETAL: Muscle strength and tone normal. SPINE: No scoliosis or deformity SKIN: No rashes CENTRAL NERVOUS SYSTEM: Alert and oriented -3. No focal deficits, tone is normal in all 4 extremities. PSYCHIATRIC: Alert and oriented -3. Appropriate affect. Intact judgment and insight. Results - Laboratory Findings CBC and BMP: 08/15/20 06:03 08/15/20 06:03 PT/INR, D-dimer PT 12.2 sec (9.0-12.0) H 08/14/20 16:57 INR 1.2 (<1.2) H 08/14/20 16:57 Abnormal lab findings: Abnormal Labs 08/14/20 08/14/20 08/14/20 16:57 16:57 16:57 WBC 14.5 H RBC 4.03 L Hgb Hct 38.5 L MCH MPV Neutrophils # 13.3 H Lymphocytes # 0.5 L Monocytes # Eosinophils # PT 12.2 H INR 1.2 H APTT 31.2 H Sodium 128 L Chloride 86 L Carbon Dioxide 35 H BUN 21 H Creatinine 0.42 L BUN/Creatinine Ratio Glucose 67 L 08/15/20 08/15/20 06:03 06:03 WBC RBC 3.85 L Hgb 12.5 L Hct 36.7 L MCH 32.5 H MPV 9.3 L Neutrophils # Lymphocytes # 0.51 L Monocytes # 0.18 L Eosinophils # 0 L PT INR APTT Sodium 131 L Chloride 90 L Carbon Dioxide 34.4 H BUN Creatinine 0.5 L BUN/Creatinine Ratio 44.00 H Glucose - Diagnostic Findings Chest x-ray: report reviewed, image reviewed Additional studies: EKG reviewed Assessment and Plan Plan: Assessment: #1. Chronic hypoxia and dyspnea, related to recent history of COVID 19 pneumonitis, and underlying history of scleroderma lung, pulmonary fibrosis. #2. Recent history of COVID 19 pneumonitis, patient received treatment in the form of Decadron, and Remdesivir, hospitalized from 08/05/2020 through 08/12/2020 #3. 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 History of Raynaud's disease, with a digital ulceration #5. Recent history of severe hyponatremia requiring hospitalization patient was treated in the ICU and required hypertonic saline infusion #6. History of SVT status post ablation #7. History of scleroderma lung/pulmonary fibrosis diagnosed in 2014, patient follows at the [facility] scleroderma clinic and at [facility], she is undergoing evaluation for possibility of lung transplantation #8. Chronic hypoxic respiratory failure related to the above #9. History of esophageal dysmotility #10. History of pulmonary hypertension #11. History of hyperlipidemia Plan: Patient is at his baseline in terms of breathing, he is on his usual 2-3 L, maintaining stable O2 saturations, continue his usual inhalers. His sodium has improved, his vitals have been stable, he is having no fever chills, his chest x-ray has been reviewed socially multifocal bilateral airspace opacities related to recent history of COVID 19 pneumonia. Clinically stable, he can be considered for discharge home today. Follow-up with Dr. Jerez in the office in 7-10 days I performed a history & physical examination of the patient and discussed their management with my nurse practitioner, Cookie Pena. I reviewed the nurse practitioner's note and agree with the documented findings and plan of care. Lung sounds are positive for mild bibasilar crackles. The findings and the impression was discussed with the patient. I attest to the documentation by the nurse practitioner. Time with Patient: Greater than 30
[2020-08-15] MEDS: TYVASO 0.6 MG/ML INHALATION SCH ×2 (16:06→16:07)
[2020-08-15] MEDS: IPRATROPIUM BROMIDE 0.06% NASAL SPRAY (15 ML) EA NOSTRIL SCH ×2 (16:07→22:35)
[2020-08-15] MEDS: PRUCALOPRIDE SUCCINATE 2 MG PO SCH (16:07)
[2020-08-15 19:26] LABS: Glucose,Whole Blood 170 mg/dL (75-99)
--- NOTE | 2020-08-15 20:17 | P.EN ---
A team note Activated at 7:22 pm. Arrived on the scene shortly after. Discussed the case with the RN and reviewed the chart. The patient had a PMH of scleroderma with chronic hypoxic respiratory failure and was admitted to the hospital on 08/14 due to hypoxia. The patient was speaking to the RN, walking in his room when he stated that he doesn't feel well and proceeded to lay down on the bed. The RN notes that he subsequently became pale, closed his eyes, and became unresponsiveness. The patient was seen at the bedside. Vitals were BP 132/70, P 65, SpO2 95% on 15 L NC. The patient was previously on 3 L NC oxygen which was being tolerated well. He was then placed on non-rebreather. ABG was obtained which revealed pO2 276, pCO2 57, HCO3 28 (on non-rebreather 100%). EKG was obtained which revealed sinus rhythm with marked sinus arrhythma and RBBB @ 80 bpm. Physical examination immediately upon arrival was as follows: General: Thin chronically ill appearing M, in no acute distress, appears older than stated age HEENT: NC/AT, anicteric sclerae, moist conjunctiva, PERRL Cardiovascular: S1/S2 wnl, no murmurs, rubs, or gallops Lungs: Bilateral ronchi noted without wheezing, normal respiratory effort, no accessory muscle use Abdominal: Soft, non-tender, non-distended, no guarding, rebound, or rigidity Skin: Warm, dry Extremities: No edema or contractures Psychiatric: Unresponsive to sternal rub Neuro: Unable to perform During the evaluation, the patient's mentation gradually improved. He regained consciousness and began following directions and answer questions appropriately. Within 5-10 minutes of regaining consciousness, the patient was oriented to self and place but not to time. No urinary or bowel incontinence was noted. No tongue bites noted. RN denied noticing shaking movements. Patient did not have active complaints but reported feeling tired. Telemetry reported PVCs. Assessment/Plan Syncope, suspected secondary to seizure vs less likely arrhythmia -No prior history of seizure found in the chart -Hold off anti-epileptics for now since initial episode -Neuro-checks -Neurology consult -Fall, Aspiration, and seizure precautions -Repeat labs ordered. Patient previously admitted to the hospital with COVID and severe hyponatremia. Na from this am was 131. -Prolactin levels ordered -Primary notified by RN
[2020-08-15 20:37] LABS: Basophils % (A) 0 %; Eosinophils % (A) 0 %; HCT 34.3 % (39.0-53.0); HGB 11.2 gm/dL (13.0-17.5); Lymphocytes # (A) 0.7 k/uL (1.0-4.8); Lymphocytes % (A) 4 %; MCH 31.7 pg (25.0-35.0); MCHC 32.7 g/dL (31.0-37.0); Mean Platelet Volume 6.6; Monocytes # (A) 0.7 k/uL (0-1.0); Monocytes % (A) 4 %; Neutrophils # (A) 16.2 k/uL (1.3-7.7); Neutrophils % (A) 91 %; Platelet Count 442 k/uL (150-450); RBC 3.54 m/uL (4.30-5.90); WBC 17.8 k/uL (3.8-10.6)
--- NOTE | 2020-08-15 20:57 | XR ---
EXAMINATION TYPE: XR chest 1V portable DATE OF EXAM: 08/15/2020 CLINICAL HISTORY: Difficulty breathing progress study. TECHNIQUE: Single AP portable upright view of the chest is obtained. COMPARISON: Chest x-ray from one day earlier and older studies. FINDINGS: Background chronic parenchymal change with increased multifocal opacities bilaterally rede monstrated. Cardiac silhouette size is stable and upper limits of normal with atherosclerotic aorta. Osseous structures are intact. IMPRESSION: Chronic parenchymal changes with bilateral multifocal opacities consistent with covid-19 infection, no significant change from most recent x-ray.
[2020-08-15 20:59] LABS: African American GFR (CKD) >90 (>60 ml/min/1.73 sqM); Anion Gap 8 mmol/L; Blood Urea Nitrogen 30 mg/dL (9-20); Calcium 8.8 mg/dL (8.4-10.2); Carbon Dioxide 32 mmol/L (22-30); Chloride 88 mmol/L (98-107); Glucose 128 mg/dL (74-99); Magnesium 1.9 mg/dL (1.6-2.3); Non-African American GFR(CKD) >90 (>60 ml/min/1.73 sqM); Potassium 4.1 mmol/L (3.5-5.1); Sodium 128 mmol/L (137-145)
--- NOTE | 2020-08-15 22:05 | CONS ---
CONSULTATION REASON FOR CONSULT: Hyponatremia. HISTORY OF PRESENT ILLNESS: Patient is a 55-year-old male with a history of chronic hyponatremia, maintained on sodium chloride tabs as outpatient. He has a history of pulmonary fibrosis and severe chronic hypoxic respiratory failure. He also has a history of hypertension, secondary pulmonary hypertension, paroxysmal atrial fibrillation, Raynaud's disease. Patient was admitted to the hospital with complaints of shortness of breath and fever. He was found to have COVID-19 pneumonia. He is currently maintained on oxygen and states he is feeling slightly better. He has had good urine output. His sodium was 128 yesterday. Today it is up to 131. PAST MEDICAL HISTORY: Significant for hypertension, SVT, gastroesophageal reflux disease, pulmonary fibrosis, scleroderma, possible CREST syndrome, chronic hypoxic respiratory failure. PAST SURGICAL HISTORY: Appendectomy, cardiac catheterization. SOCIAL HISTORY: Patient is a former smoker. MEDICATIONS: Medications prior to admission included Eliquis, Toprol, Zofran, omeprazole, Sandostatin, Revatio, sodium chloride tabs. ALLERGIES: ALLERGIES include HYDROCHLOROTHIAZIDE, which causes confusion and worsening hyponatremia. PHYSICAL EXAMINATION: On examination today, patient is currently comfortable. He is not in any acute distress. Blood pressure was 116/77, heart rate 60 per minute. He is afebrile. Examination of lower extremities shows no evidence of edema. BOAT PILOT exam is grossly intact. Lungs and heart are not examined. LABS: Sodium 131, potassium 4.4, serum creatinine 0.5, hemoglobin of 12.5 g/dL. ASSESSMENT: 1. Chronic hyponatremia, maintained on sodium chloride tabs. Previous urine osmolality has been elevated as high as 800 on 08/11/2019. 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 If patient is maintained with sodium chloride tabs for now, we will continue with that. 2. COVID-19 pneumonia, status post Decadron. 3. Pulmonary hypertension. 4. History of atrial fibrillation. PLAN: Continue with the current dose of sodium chloride tabs. Increase protein intake. Maintain some degree of free water restriction. Repeat labs in a.m. Thank you for this consultation. Will continue to follow the patient with you during his hospitalization. MMODL / IJN: [id number] /
[2020-08-15] MEDS: OCTREOTIDE 100 MCG/ML INJ SQ SCH ×2 (23:13→23:19)
[2020-08-16] MEDS: TYVASO 0.6 MG/ML INHALATION SCH ×4 (06:40→19:17)
[2020-08-16] MEDS: ALBUTEROL HFA INHALER INHALATION PRN ×3 (07:55→15:40)
[2020-08-16] MEDS: SODIUM CHLORIDE TAB 1 GM TAB PO SCH ×2 (08:38→22:03)
[2020-08-16] MEDS: SILDENAFIL 20 MG TAB PO SCH ×3 (08:39→22:03)
[2020-08-16] MEDS: PANTOPRAZOLE 40 MG TABLET PO SCH ×2 (08:39→22:04)
[2020-08-16] MEDS: APIXABAN 5 MG TAB PO SCH ×2 (08:39→22:03)
[2020-08-16] MEDS: MULTIVITAMINS, THERA 1 EACH TAB PO SCH (08:39)
[2020-08-16] MEDS: METOPROLOL SUCCINATE (ER) 25 MG TAB.ER.24H PO SCH (08:39)
[2020-08-16] MEDS: PRUCALOPRIDE SUCCINATE 2 MG PO SCH (08:40)
[2020-08-16] MEDS: FLUTICASONE 50MCG/SPRAY NASAL 16GM EA NOSTRIL SCH (08:42)
--- NOTE | 2020-08-16 10:15 | P.CRDCN ---
History of Present Illness History of present illness: HISTORY OF PRESENTING ILLNESS This is a pleasant 55-year-old male past medical history significant for scleroderma, pulmonary fibrosis, paroxysmal atrial fibrillation on long-term anticoagulation, history of SVT status post ablation, hypertension and former nicotine dependence. He denies prior history of coronary artery disease. 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 We have been asked to see in consultation for normal EKG. He was diagnosed with COVID 08/03 and had a lengthy stay in the ICU. He was discharged from the hospital 08/12/2020. He was sent back to the hospital by his PCP for hypoxia. He states he accidentally had fallen asleep at home in the living room while using his portable oxygen concentrator and the battery is only good for up to 4 hours. So he believes he was without oxygen for around 6 hours times. Last night he was getting up to move around the room and eat when he knocked over this dinner tray. 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 He is not sure if he had positive LOC. He denies feeling chest pain, shortness of breath, palpitations, nausea/vomiting or diaphoresis prior to this episode or the reafter. According to the documentation there was some concern about a possible seizure. The patient denies having a history of seizure. Denies loss of bowel or bladder and did not bite his tongue. He is very adament that he stood up to quick and lost his balance. EKG obtained at the time revealed sinus mechanism with APC's and right bundle branch block and T-wave inversion in the septal anterior leads. Consistent with previous EKG with no acute changes. Telemetry tracings indicate he is having intermittent episodes of atrial fibrillation, however they do not correlate with last night episode. At that time he was in sinus with heart rates in the 70-80's range. Chest xray obtained reveals chronic parenchymal changes with bilateral multi-focal opacities consistent with Covid 19 infection. No significant change from previous. Laboratory data reviewed, WBC 17.8, hemoglobin 11.2, platelets 442, sodium 128, potassium 4.1, creatinine 0.42, lactic acid 2. 4 repeat 1.0, magnesium 1.9. Crit daily cardiac medications include Eliquis 5 mg twice a day, Toprol 25 mg daily, sildenafil 20 mg 3 times a day. Most recent echocardiogram obtained 2013 revealed preserved LV systolic function with ejection fraction 60-65%, mild to moderate enlarged right ventricle, mildly dilated left atrium, mild tricuspid regurgitation and at that time mild pulmonary hypertension with an RVSP of 43 mmHg. He also had a dilated aortic root measuring 4.1 cm. Aortic valve is trileaflet. REVIEW OF SYSTEMS At the time of my exam: CONSTITUTIONAL: Denies fever or chills. CARDIOVASCULAR: Denies chest pain, shortness of breath, orthopnea, PND or palpitations. RESPIRATORY: Complains of cough. GASTROINTESTINAL: Denies abdominal pain, diarrhea, constipation, nausea or vomiting. MUSCULOSKELETAL: Denies myalgias. NEUROLOGIC: Denies numbness, tingling, headacbe or weakness. ENDOCRINE: Denies fatigue, weight change, polydipsia or polyurina. GENITOURINARY: Denies burning, hematuria or urgency with micturation. HEMATOLOGIC: Denies history of anemia or bleeding. PHYSICAL EXAMINATION Blood pressure 102/70 heart rate 63 afebrile and maintaining oxygen saturation on days. CONSTITUTIONAL: No apparent distress. HEENT: Head is normocephalic. Pupils are equal, round. Sclerae anicteric. Mucous membranes of the mouth are moist. No JVD. No carotid bruit. CHEST EXAMINATION: Bilateral crackles and rhonchi throughout lung lehman. Faint expiratory wheeze noted. No chest wall tenderness is noted on palpation or with deep breathing. HEART EXAMINATION: Irregular rate and rhythm. S1, S2 heard. Soft systolic ejecti on murmur at the left sternal border, no gallops or rub. ABDOMEN: Soft, nontender. Positive bowel sounds. EXTREMITIES: 2+ peripheral pulses, no lower extremity edema and no calf tenderness. NEUROLOGIC EXAMINATION: Patient is awake, alert and oriented x3. ASSESSMENT Questionable syncope, sounds vasovagal in nature Hyponatremia Lactic acidosis Covid 19 Pulmonary fibrosis Paroxysmal atrial fibrillation, currently maintaining sinus mechanism. On Eliquis for thromboembolic protection. Right bundle branch block History of SVT status post ablation Hypertension Former nicotine dependence PLAN Telemetry tracings unremarkable for an arrhythmia at the time in question. No EKG changes when compared to previous. Clinically sounds like he had a vasovagal reaction. Obtain 2D echocardiogram and doppler study to assess cardiac structure and function. Thank you kindly for this consultation. Nurse Practitioner note has been reviewed, I agree with a documented findings and plan of care. Patient was seen and examined. Past Medical History Past Medical History: GERD/Reflux, Hypertension, Supraventricular Tachycardia (SVT) Additional Past Medical History / Comment(s): Pulmonary fibrosis, scleroderma, SIBO, Raynauds, History of Any Multi-Drug Resistant Organisms: None Reported Past Surgical History: Appendectomy, Heart Catheterization Additional Past Surgical History / Comment(s): double lung transplant Past Anesthesia/Blood Transfusion Reactions: No Reported Reaction Past Psychological History: No Psychological Hx Reported Smoking Status: Former smoker Past Alcohol Use History: Daily Past Drug Use History: None Reported - Past Family History Father Family Medical History: Myocardial Infarction (NH) Medications and Allergies Home Medications Medication Instructions Recorded Confirmed Type Albuterol Inhaler [Ventolin Hfa 4 puff INHALATION RT-Q4H PRN 08/05/20 08/14/20 History Inhaler] Apixaban [Eliquis] 5 mg PO BID 08/05/20 08/14/20 History Fluticasone Nasal [place] [Flonase 2 spr EA NOSTRIL DAILY 08/05/20 08/14/20 History Nasal [place]] Hyoscyamine Sulfate [Levsin-Sl] 0.125 mg SL Q4-6H PRN 08/05/20 08/14/20 History Ipratropium [place] 0.06%Nasal 2 spray EA NOSTRIL BID 08/05/20 08/14/20 History [Atrovent Nasal 0.06%] Metoprolol Succinate [Toprol XL] 25 mg PO DAILY 08/05/20 08/14/20 History Multivitamins, Thera [Multivitamin 1 tab PO DAILY 08/05/20 08/14/20 History (formulary)] Omeprazole 40 mg PO BID 08/05/20 08/14/20 History Ondansetron HCl [Zofran] 4 mg PO Q8H PRN 08/05/20 08/14/20 History Prucalopride Succinate [Motegrity] 2 mg PO DAILY 08/05/20 08/14/20 History Rifaximin [Xifaxan] 550 mg PO BID PRN 08/05/20 08/14/20 History Sandostatin 50mcg/Ml 50 mcg SQ HS 08/05/20 08/14/20 History Sildenafil [Revatio] 20 mg PO TID 08/05/20 08/14/20 History Tyvaso 0.6mg/Ml 3 - 9 puff INHALATION RT-QID 08/05/20 08/14/20 History Sodium Chloride Tab 1 gm PO BID #60 tab 08/12/20 08/14/20 Rx Allergies Allergy/AdvReac Type Severity Reaction Status Date / Time hydrochlorothiazide Allergy Confusion Verified 08/14/20 19:04 Physical Exam Vitals: Vital Signs Temp Pulse Resp BP Pulse Ox 08/16/20 06:00 99.1 F 63 18 102/70 93 L 08/16/20 02:14 98.4 F 70 16 101/62 98 08/15/20 22:00 97.9 F 87 19 132/84 94 L 08/15/20 18:00 98.2 F 61 16 106/69 100 08/15/20 14:00 98.2 F 86 16 118/74 96 08/15/20 10:00 97.4 F L 60 16 116/77 96 Intake and Output 08/15/20 08/16/20 08/16/20 22:59 06:59 14:59 Other: Voiding Method Toilet Urinal # Voids 5 3 Results 08/15/20 19:58 08/15/20 19:58 CBC 08/15/20 Range/Units 19:58 WBC 17.8 H (3.8-10.6) k/uL RBC 3.54 L (4.30-5.90) m/uL Hgb 11.2 L (13.0-17.5) gm/dL Hct 34.3 L (39.0-53.0) % Plt Count 442 (150-450) k/uL Comprehensive Metabolic Panel 08/15/20 08/15/20 Range/Units 06:03 19:58 Sodium 131 L 128 L (135-145) mmol/L Potassium 4.4 4.1 (3.5-5.5) mmol/L Chloride 90 L 88 L (96-109) mmol/L Carbon Dioxide 34.4 H 32 H (21.6-31.8) mmol/L BUN 22.0 30 H (9.0-27.0) mg/dL Creatinine 0.5 L 0.42 L (0.6-1.5) mg/dL Glucose 106 128 H (70-110) mg/dL Calcium 8.7 8.8 (8.7-10.3) mg/dL Current Medications Generic Name Dose Route Start Last Admin Trade Name Freq PRN Reason Stop Dose Admin Albuterol Sulfate 4 puff 08/14/20 22:14 08/16/20 07:55 Albuterol Hfa Inhaler INHALATION 4 puff RT-Q4H PRN Administration Shortness Of Breath Apixaban 5 mg 08/15/20 09:00 08/16/20 08:39 Apixaban 5 Mg Tab PO 5 mg BID PERCY Administration Fluticasone Propionate 2 spray 08/15/20 09:00 08/16/20 08:42 Fluticasone 50mcg/[place] Nasal 16gm EA NOSTRIL Not Given DAILY PERCY Hyoscyamine 0.125 mg 08/14/20 23:00 Hyoscyamine Sulfate 0.125 Mg Tab PO Q6H PRN CRAMPING Ipratropium [place]cl[place] 2 spray 08/15/20 09:00 08/15/20 22:35 Ipratropium [place] 0.06% Nasal [place] (15 Ml) EA NOSTRIL 2 spray BID PERCY Administration Metoprolol Succinate 25 mg 08/14/20 22:15 08/16/20 08:39 Metoprolol Succinate (Er) 25 Mg Tab.Er.24h PO 25 mg DAILY PERCY Administration Multivitamins 1 each 08/15/20 09:00 08/16/20 08:39 Multivitamins, Thera 1 Each Tab PO 1 each DAILY PERCY Administration Naloxone HCl 0.2 mg 08/14/20 18:16 Naloxone 0.4 Mg/Ml 1 Ml Vial IV Q2M PRN Opioid Reversal Non-Formulary Medication 2 mg 08/15/20 12:00 08/16/20 08:40 Prucalopride Succinate [Motegrity] PO 2 mg DAILY PERCY Administration Non-Formulary Medication 3 - 9 puff 08/16/20 02:44 08/16/20 08:42 Tyvaso 0.6mg/Ml INHALATION Not Given RT-QID PERCY Octreotide Acetate 50 mcg 08/15/20 21:00 08/15/20 23:19 Octreotide 100 Mcg/Ml Inj SQ 50 mcg HS PERCY Administration Ondansetron HCl 4 mg 08/14/20 22:14 Ondansetron 4 Mg Tab PO Q8H PRN Nausea And Vomiting Pantoprazole Sodium 40 mg 08/14/20 22:15 08/16/20 08:39 Pantoprazole 40 Mg Tablet PO 40 mg BID PERCY Administration Rifaximin 550 mg 08/14/20 22:14 Rifaximin 550 Mg Tablet PO 09/13/20 22:15 BID PRN IBS Sildenafil Citrate 20 mg 08/14/20 23:00 08/16/20 08:39 Sildenafil 20 Mg Tab PO 20 mg TID PERCY Administration Sodium Chloride 1 gm 08/15/20 09:00 08/16/20 08:38 Sodium Chloride Tab 1 Gm Tab PO 1 gm BID PERCY Administration Intake and Output 08/15/20 08/16/20 08/16/20 22:59 06:59 14:59 Other: Voiding Method Toilet Urinal # Voids 5 3 08/15/20 19:58 08/15/20 19:58
[2020-08-16] MEDS ORDERED: LIDOCAINE TOPICAL PRN (10:38)
[2020-08-16] MEDS ORDERED: [UNRECOGNIZED DRUG - OTHER] TOPICAL PRN (10:38)
[2020-08-16] MEDS: IPRATROPIUM BROMIDE 0.06% NASAL SPRAY (15 ML) EA NOSTRIL SCH ×2 (13:22→22:04)
--- NOTE | 2020-08-16 13:35 | ECHOF ---
Referral Reason:syncope, covid + 08/03 MEASUREMENTS -------- HEIGHT: 175.3 cm WEIGHT: 56.2 kg BP: 102/70 RVIDd: 4.4 cm (< 3.3) IVSd: 1.4 cm (0.6 - 1.1) LVIDd: 4.4 cm (3.9 - 5.3) LVPWd: 1.3 cm (0.6 - 1.1) IVSs: 1.6 cm LVIDs: 3.4 cm LVPWs: 1.9 cm Ao Diam: 3.2 cm (2.0 - 3.7) AV Cusp: 1.9 cm (1.5 - 2.6) LA Diam: 4.8 cm (2.7 - 3.8) MV EXCURSION: 14.703 mm (> 18.000) MV EF SLOPE: 67 mm/s (70 - 150) EPSS: 1.0 cm MV E Jethro: 0.76 m/s MV DecT: 182 ms MV A Jethro: 0.79 m/s MV E/A Ratio: 0.96 RAP: 5.00 mmHg RVSP: 38.11 mmHg FINDINGS -------- Sinus rhythm. This was a technically adequate study. The left ventricular size is normal. There is moderate concentric left ventricular hypertrophy. O verall left ventricular systolic function is low-normal with, an EF between 50 - 55 %. The right ventricle is moderate to severely enlarged. The right ventricular systolic function is m ildly impaired. The left atrial size is normal. The right atrial size is normal. Interatrial and interventricular septum intact. The aortic valve is trileaflet, and appears structurally normal. No aortic stenosis or regurgitation. There is no evidence of aortic regurgitation. The mitral valve is normal. Mild mitral regurgitation is present. The tricuspid valve appears structurally normal. [id number] tricuspid regurgitation present. There is mild pulmonary hypertension. The right ventricular systolic pressure, as measured by Dop pler, is 38.11mmHg. Trace/mild (physiologic) pulmonic regurgitation. The aortic root size is normal. IVC Not well visulized. There is no pericardial effusion. CONCLUSIONS -------- 1. There is moderate concentric left ventricular hypertrophy. 2. Overall left ventricular systolic function is low-normal with, an EF between 50 - 55 %. 3. The right ventricle is moderate to severely enlarged. 4. The left atrial size is normal. 5. The aortic valve is trileaflet, and appears structurally normal. No aortic stenosis or regurgitati on. 6. Mild mitral regurgitation is present. 7. There is mild pulmonary hypertension. 8. Trace/mild (physiologic) pulmonic regurgitation. 9. There is no pericardial effusion. AIRLINE CUSTOMER SERVICE AGENT: Lenore Bhardwaj RDCS
--- NOTE | 2020-08-16 15:06 | PN ---
PROGRESS NOTE The patient is seen for followup for hyponatremia. His sodium has been fluctuating between 128 and 131 mEq/L. Two labs were drawn yesterday and the sodium has been at 128 am and 131. The patient is maintained on sodium chloride tabs. I added fluid restriction. Repeat sodium from this morning was 129. Patient is not examined due to COVID pneumonia. Vital signs are reviewed. Blood pressure is 103/69, heart rate 86 per minute. He is afebrile. Patient is awake and alert, oriented x3. [employer] PILOT exam is grossly intact. No significant edema present. LABS: Labs show sodium 129 today. ASSESSMENT: 1. 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 May continue with the sodium chloride tabs for now. I added fluid restriction to about 1.2 L. This is discussed with the patient. 2. COVID-19 pneumonia, maintained on steroids, status post Decadron. PLAN: Add fluid restriction. Continue with sodium chloride tabs. Repeat sodium next a.m. MMODL / IJN: [id number] /
[2020-08-16 17:35] LABS: Prolactin 17.8 ng/mL (2.1-17.7)
--- NOTE | 2020-08-16 23:31 | P.CNNES ---
History of Present Illness Consult date: 08/16/20 Requesting physician: Omar Yuen Reason for Consult: Possible seizure History of Present Illness: Patient is a 55-year-old male came to the hospital at 3:54 PM on 08/14/2020 by ambulance for hypoxia. Patient has been diagnosed with porras vrus. Patient was recently admitted to the hospital for hyponatremia. Patient was noted to be hypoxic, and also has a pre-existing history of pulmonary fibrosis. He usually uses 2 L by nasal cannula. Patient states that his oxygen concentrator had run out of battery and he was unaware, that it is not plugged in. Patient was admitted to the hospital. Patient had a syncopal spell versus seizure yesterday at around 3:30 PM. He was speaking to the nurse walking in his room when he stated that he was not feeling well and proceeded to lay down on the bed. The RN noted that he subsequently became pale, closed his eyes and became unresponsive. The patient was seen at bedside by the house physician. His vitals were blood pressure 132/70, pulse rate 65, saturation 95% on 15 L nasal cannula. He was placed on nonrebreather. ABG revealed pCO2 57, pO2 276, HCO3 28 on nonrebreather mask. EKG shows sinus rhythm with marked sinus arrhythmia and right bundle branch block. Patient's mentation improved while he was being evaluated and he regained consciousness and began following directions and answering questions appropriately. He was back to baseline about 5-10 minutes after this event. There was no urinary or bowel incontinence. No tongue bite. No convulsive movement was noted. Telemetry monitoring at that time reported PVCs. Neurology was consulted to ru le out seizure. No previous history of seizures. Chest x-ray showed bilateral infiltrates. Patient has mild leukocytosis. Blood test shows sodium 128, potassium 4.1, BUN 30, creatinine 0.42, prolactin is very borderline elevated 17.8/17.7 hepatic panel normal. Porras virus was positive on 08/05/2020. Patient had a 2-D echo which revealed moderate concentric LVH, EF is 50-55%. Left atrial size is normal. Mild pulmonary hypertension. Patient has been seen by cardiology and felt it was vasovagal syncope. Patient does have hyponatremia, pulmonary fibrosis, covid 19. He has paroxysmal atrial fibrillation, maintained on eliquis. Patient also has history of SVT status post ablation. Telemetry tracing unremarkable for any arrhythmia at the time of the syncopal spell. 2-D echo was ordered. I came in to see the patient at 10:15 PM. Patient appears to have some mental status change now. According to the nurse, he was fine yesterday, talking, walking without any assistance. Now he is stuttering speech, some left-sided weakness noted. He continues to repeat that he has Raynauds and is feeling cold. He keeps on repeating that he is left-handed, then say is right-handed. Patient appears very delirious, confused. Per nursing report, the last known well was around 7:53 PM. He denies any history of seizures. Patient is also having problems with ambulation, and requires assist particularly for turning around. Patient states that he has smoked half pack per day for 5 years, quit in 1993. Review of Systems Patient denies headache or any problem with the vision. Patient complains of cold hands, feeling cold, and raynauds in his hands. ROS unobtainable: due to mental status Past Medical History Past Medical History: GERD/Reflux, Hypertension, Supraventricular Tachycardia (SVT) Additional Past Medical History / Comment(s): Pulmonary fibrosis, scleroderma, SIBO, Raynauds, History of Any Multi-Drug Resistant Organisms: None Reported Past Surgical History: Appendectomy, Heart Catheterization Additional Past Surgical History / Comment(s): double lung transplant Past Anesthesia/Blood Transfusion Reactions: No Reported Reaction Past Psychological History: No Psychological Hx Reported Smoking Status: Former smoker Past Alcohol Use History: Daily Past Drug Use History: None Reported - Past Family History Father Family Medical History: Myocardial Infarction (SD) Medications and Allergies Home Medications Medication Instructions Recorded Confirmed Type Albuterol Inhaler [Ventolin Hfa 4 puff INHALATION RT-Q4H PRN 08/05/20 08/14/20 History Inhaler] Apixaban [Eliquis] 5 mg PO BID 08/05/20 08/14/20 History Fluticasone Nasal [place] [Flonase 2 spr EA NOSTRIL DAILY 08/05/20 08/14/20 History Nasal [place]] Hyoscyamine Sulfate [Levsin-Sl] 0.125 mg SL Q4-6H PRN 08/05/20 08/14/20 History Ipratropium [place] 0.06%Nasal 2 spray EA NOSTRIL BID 08/05/20 08/14/20 History [Atrovent Nasal 0.06%] Metoprolol Succinate [Toprol XL] 25 mg PO DAILY 08/05/20 08/14/20 History Multivitamins, Thera [Multivitamin 1 tab PO DAILY 08/05/20 08/14/20 History (formulary)] Omeprazole 40 mg PO BID 08/05/20 08/14/20 History Ondansetron HCl [Zofran] 4 mg PO Q8H PRN 08/05/20 08/14/20 History Prucalopride Succinate [Motegrity] 2 mg PO DAILY 08/05/20 08/14/20 History Rifaximin [Xifaxan] 550 mg PO BID PRN 08/05/20 08/14/20 History Sandostatin 50mcg/Ml 50 mcg SQ HS 08/05/20 08/14/20 History Sildenafil [Revatio] 20 mg PO TID 08/05/20 08/14/20 History Tyvaso 0.6mg/Ml 3 - 9 puff INHALATION RT-QID 08/05/20 08/14/20 History Sodium Chloride Tab 1 gm PO BID #60 tab 08/12/20 08/14/20 Rx Lidocaine HCl/Benzyl Alcohol 1 applic TOPICAL Q6H PRN 08/16/20 08/16/20 History [Salonpas Lidocain Pls 4-10% Cr] Allergies Allergy/AdvReac Type Severity Reaction Status Date / Time hydrochlorothiazide Allergy Confusion Verified 08/14/20 19:04 Physical Examination - Vital Signs Vital Signs: Vital Signs Temp Pulse Resp BP Pulse Ox 08/16/20 18:00 98.4 F 74 16 105/66 96 08/16/20 14:00 97.4 F L 78 18 112/72 93 L 08/16/20 10:00 97.8 F 86 20 103/69 98 08/16/20 06:00 99.1 F 63 18 102/70 93 L 08/16/20 02:14 98.4 F 70 16 101/62 98 08/15/20 22:00 97.9 F 87 19 132/84 94 L Intake and Output 08/16/20 08/16/20 08/16/20 06:59 14:59 22:59 Other: # Voids 3 2 On examination patient is a middle aged male, appears older than his stated age. He is alert and awake, but appears delirious, slightly encephalopathic, also has problems with speech, stuttering, perseverating. He can name. On cranial examination pupils are round and reactive to light, visual lehman could not be tested reliably, but he was seen on either side. He has very short attention span, concentration. Face is symmetric and tongue protrudes the midline. Palatal elevation is normal, hearing appears normal shoulder shrug normal muscle strength patient has slight weakness on the left arm. Right side is normal. Left arm is slightly weaker in the instrument checker as well as proximally. Patient hip flexion also appears weaker on the left as compared to right. Ankle dorsiflexion appears normal. Reflexes are symmetric and plantars are withdrawal. Sensory touch could not be tested reliably. Patient did not cooperate for cerebellar functions. Tone and bulk of muscles normal. He is somewhat cachectic. Gait was deferred. On general examination there is no obvious bruit, S1 and S2 audible, abdomen soft nontender. Results - Laboratory Findings CBC and BMP: 08/15/20 19:58 08/16/20 10:47 Abnormal Lab Findings: Abnormal Labs 08/14/20 08/14/20 08/14/20 16:57 16:57 16:57 WBC 14.5 H RBC 4.03 L Hgb Hct 38.5 L MCH MPV Neutrophils # 13.3 H Lymphocytes # 0.5 L Monocytes # Eosinophils # PT 12.2 H INR 1.2 H APTT 31.2 H Sodium 128 L Chloride 86 L Carbon Dioxide 35 H BUN 21 H Creatinine 0.42 L BUN/Creatinine Ratio Glucose 67 L POC Glucose (mg/dL) Plasma Lactic Acid Kevin Prolactin 08/15/20 08/15/20 08/15/20 06:03 06:03 19:25 WBC RBC 3.85 L Hgb 12.5 L Hct 36.7 L MCH 32.5 H MPV 9.3 L Neutrophils # Lymphocytes # 0.51 L Monocytes # 0.18 L Eosinophils # 0 L PT INR APTT Sodium 131 L Chloride 90 L Carbon Dioxide 34.4 H BUN Creatinine 0.5 L BUN/Creatinine Ratio 44.00 H Glucose POC Glucose (mg/dL) 170 H Plasma Lactic Acid Kevin Prolactin 08/15/20 08/15/20 08/15/20 19:58 19:58 19:58 WBC 17.8 H RBC 3.54 L Hgb 11.2 L Hct 34.3 L MCH MPV Neutrophils # 16.2 H Lymphocytes # 0.7 L Monocytes # Eosinophils # PT INR APTT Sodium 128 L Chloride 88 L Carbon Dioxide 32 H BUN 30 H Creatinine 0.42 L BUN/Creatinine Ratio Glucose 128 H POC Glucose (mg/dL) Plasma Lactic Acid Kevin 2.4 H* Prolactin 17.8 H 08/16/20 10:47 WBC RBC Hgb Hct MCH MPV Neutrophils # Lymphocytes # Monocytes # Eosinophils # PT INR APTT Sodium 129 L Chloride Carbon Dioxide BUN Creatinine BUN/Creatinine Ratio Glucose POC Glucose (mg/dL) Plasma Lactic Acid Kevin Prolactin Assessment and Plan Assessment: * 55-year-old male with COVID 19 infection, also has history of pulmonary fibrosis, had a syncopal spell last night. Event appears vasovagal, less likely seizure. No arrhythmia noted on telemetry monitoring or hypotension noted during this event. * New onset altered mental status, with mild speech difficulty and left-sided weakness, rule out CVA. * History of pulmonary fibrosis. * Hyponatremia possibly from SIADH. Plan: * Patient will undergo stat computed tomography scan of the head to rule out CVA versus intracranial hemorrhage. We will also check stat CTA of head and neck to rule out any large vessel occlusion. * Patient is not a candidate for TPA, as he is on Eliquis, and the last dose he received was this evening. * Arterial blood gases rule out worsening respiratory status. * We will follow.
--- NOTE | 2020-08-16 23:36 | CT ---
EXAMINATION TYPE: CT brain wo con DATE OF EXAM: 08/16/2020 COMPARISON: None HISTORY: change in speech CT DLP: 2490.4 mGycm Automated exposure control for dose reduction was used. Ventricles and sulci appear normal. There is no mass effect nor midline shift. There is no sign of in tracranial hemorrhage. The calvarium is intact. There is no evidence of cerebral edema. There is mild mucosal thickening in the left maxillary sinus with small fluid level. IMPRESSION: Negative CT scan of the brain. Minimal left maxillary sinusitis.
--- NOTE | 2020-08-16 23:59 | CT ---
EXAMINATION TYPE: CT angio head neck DATE OF EXAM: 08/16/2020 COMPARISON: None HISTORY: left sided weakness CT DLP: 387 mGycm Automated exposure control for dose reduction was used. CONTRAST: Performed with IV Contrast, patient injected with 65 mL of Isovue 370. There are 3-D post processed images. There are images from the aortic arch to the vertex of the brain with IV contrast. There is extensive reticular and nodular infiltrate at the lung apices with pleural thickening. Super ior mediastinum is intact. There is normal branching pattern of the great vessels on the aortic arch. There is bilateral arterial flow in the subclavian arteries. There is arterial flow in the common in ternal and external carotid arteries bilaterally. There is no evidence of stenosis. There is arterial flow in both vertebral arteries which appear widely patent. There is no evidence of carotid or verte bral artery aneurysm or dissection. Basilar artery fills mostly from the left side. There is arterial flow in the vertebrobasilar artery system. There is arterial flow in the anterior m iddle and posterior cerebral arteries. There is no evidence of intracranial aneurysm or neovascularit y. There is no mass effect. There is no evidence of hemodynamic stenosis. There is normal enhancement of the venous sinuses. IMPRESSION: Negative CT angiogram of the neck. Negative CT angiogram of the brain. Pleural and pulmonary density at the lung apices probably related to inflammatory disease.
[2020-08-17 03:49] LABS: ABG Base Excess 15.7 mmol/L; ABG Oxygen Saturation 99.2 % (94-97); ABG PCO2 58 mmHg (35-45); ABG PH 7.44 (7.35-7.45); ABG PO2 120 mmHg (83-108); ABG TCO2 42 mmol/L (19-24); Allen Test Performed? Yes
[2020-08-17 03:51] LABS: ABG HCO3 40 mmol/L (21-25)
[2020-08-17 05:33] LABS: Allen Test Performed? Yes
[2020-08-17 05:35] LABS: ABG Base Excess 1.5 mmol/L; ABG HCO3 28 mmol/L (21-25); ABG PCO2 57 mmHg (35-45); ABG PH 7.29 (7.35-7.45); ABG PO2 276 mmHg (83-108); ABG TCO2 30 mmol/L (19-24)
[2020-08-17 08:08] LABS: HCT 36.7 % (39.0-53.0); HGB 12.3 gm/dL (13.0-17.5); MCH 32.2 pg (25.0-35.0); MCHC 33.5 g/dL (31.0-37.0); MCV 96.1 fL (80.0-100.0); Mean Platelet Volume 6.6; Platelet Count 379 k/uL (150-450); RBC 3.81 m/uL (4.30-5.90); RDW 12.2 % (11.5-15.5); WBC 9.5 k/uL (3.8-10.6)
[2020-08-17] MEDS: APIXABAN 5 MG TAB PO SCH ×2 (08:12→20:41)
[2020-08-17] MEDS: PANTOPRAZOLE 40 MG TABLET PO SCH ×2 (08:12→20:41)
[2020-08-17] MEDS: METOPROLOL SUCCINATE (ER) 25 MG TAB.ER.24H PO SCH (08:12)
[2020-08-17] MEDS: MULTIVITAMINS, THERA 1 EACH TAB PO SCH (08:12)
[2020-08-17] MEDS: dexAMETHasone 2 MG TAB PO SCH (08:12)
[2020-08-17 08:14] LABS: ALT 34 U/L (4-49); AST 43 U/L (17-59); African American GFR (CKD) >90 (>60 ml/min/1.73 sqM); Albumin 3.3 g/dL (3.5-5.0); Albumin/Globulin Ratio 1.2; Alkaline Phosphatase 55 U/L (38-126); Anion Gap 3 mmol/L; Blood Urea Nitrogen 14 mg/dL (9-20); Calcium 8.4 mg/dL (8.4-10.2); Carbon Dioxide 37 mmol/L (22-30); Chloride 87 mmol/L (98-107); Globulin 2.7 g/dL; Glucose 86 mg/dL (74-99); Non-African American GFR(CKD) >90 (>60 ml/min/1.73 sqM); Potassium 3.6 mmol/L (3.5-5.1); Sodium 127 mmol/L (137-145); Total Bilirubin 1.1 mg/dL (0.2-1.3)
[2020-08-17] MEDS: SODIUM CHLORIDE TAB 1 GM TAB PO SCH ×2 (08:18→21:08)
[2020-08-17] MEDS: SILDENAFIL 20 MG TAB PO SCH ×3 (08:18→20:41)
[2020-08-17] MEDS: PRUCALOPRIDE SUCCINATE 2 MG PO SCH (08:23)
[2020-08-17] MEDS: FLUTICASONE 50MCG/SPRAY NASAL 16GM EA NOSTRIL SCH (08:36)
[2020-08-17] MEDS: IPRATROPIUM BROMIDE 0.06% NASAL SPRAY (15 ML) EA NOSTRIL SCH ×2 (08:37→20:42)
[2020-08-17] MEDS: ALBUTEROL HFA INHALER INHALATION PRN ×4 (08:38→20:29)
[2020-08-17] MEDS: TYVASO 0.6 MG/ML INHALATION SCH ×4 (08:56→20:38)
--- NOTE | 2020-08-17 10:00 | P.PN ---
Subjective HISTORY OF PRESENTING ILLNESS This is a pleasant 55-year-old male past medical history significant for scleroderma, pulmonary fibrosis, paroxysmal atrial fibrillation on long-term anticoagulation, history of SVT status post ablation, hypertension and former nicotine dependence. He denies prior history of coronary artery disease. 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 We have been asked to see in consultation for normal EKG. He was diagnosed with COVID 08/03 and had a lengthy stay in the ICU. He was discharged from the hospital 08/12/2020. He was sent back to the hospital by his PCP for hypoxia. He states he accidentally had fallen asleep at home in the living room while using his portable oxygen concentrator and the battery is only good for up to 4 hours. So he believes he was without oxygen for around 6 hours times. Last night he was getting up to move around the room and eat when he knocked over this dinner tray. 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 He is not sure if he had positive LOC. He denies feeling chest pain, shortness of breath, palpitations, nausea/vomiting or diaphoresis prior to this episode or thereafter. According to the documentation there was some concern about a possible seizure. The patient denies having a history of seizure. Denies loss of bowel or bladder and did not bite his tongue. He is very adament that he stood up to quick and lost his balance. EKG obtained at the time revealed sinus mechanism with APC's and right bundle branch block and T-wave inversion in the septal anterior leads. Consistent with previous EKG with no acute changes. Telemetry tracings indicate he is having intermittent episodes of atrial fibrillation, however they do not correlate with last night episode. At that time he was in sinus with heart rates in the 70-80's range. Chest xray obtained reveals chronic parenchymal changes with bilateral multi-focal opacities consistent with Covid 19 infection. No significant change from previous. Laboratory data reviewed, WBC 17.8, hemoglobin 11.2, platelets 442, sodium 128, potassium 4.1, creatinine 0.42, lactic acid 2. 4 repeat 1.0, magnesium 1.9. Crit daily cardiac medications include Eliquis 5 mg twice a day, Toprol 25 mg daily, sildenafil 20 mg 3 times a day. Most recent echocardiogram obtained 2013 revealed preserved LV systolic function with ejection fraction 60-65%, mild to moderate enlarged right ventricle, mildly dilated left atrium, mild tricuspid regurgitation and at that time mild pulmonary hypertension with an RVSP of 43 mmHg. He also had a dilated aortic root measuring 4.1 cm. Aortic valve is trileaflet. 08/17/2020 Pt is seen sitting up in bed in no acute distress. He is eating breakfast. He states he is continuing to cough and is clearing more mucous today. He denies any further symptoms of near syncope. Telemetry tracings reveal sinus mechanism with some intermittent sinus tachycardia. No significant arrhythmia or pauses. Echocardiogram obtained reveals preserved LV systolic function with ejection fraction 50-55%, moderate concentric LVH, mild pulmonary hypertension with an R VSP of 38 mmHg and moderate to severely enlarged right ventricle. PHYSICAL EXAMINATION CONSTITUTIONAL: No apparent distress. HEENT: Head is normocephalic. Pupils are equal, round. Sclerae anicteric. Mucous membranes of the mouth are moist. No JVD. No carotid bruit. CHEST EXAMINATION: Bilateral crackles and rhonchi throughout lung lehman. Faint expiratory wheeze noted. No chest wall tenderness is noted on palpation or with deep breathing. HEART EXAMINATION: Irregular rate and rhythm. S1, S2 heard. Soft systolic ejection murmur at the left sternal border, no gallops or rub. EXTREMITIES: 2+ peripheral pulses, no lower extremity edema and no calf tenderness. ASSESSMENT Questionable syncope, sounds vasovagal in nature Hyponatremia Lactic acidosis Covid 19 Pulmonary fibrosis Paroxysmal atrial fibrillation, currently maintaining sinus mechanism. On Eliquis for thromboembolic protection. Right bundle branch block History of SVT status post ablation Hypertension Former nicotine dependence PLAN Stable from a cardiac perspective. Ongoing management of COVID and other co-morbid conditions. We will follow along as needed, please call with further questions or concerns. Nurse Practitioner note has been reviewed, I agree with a documented findings and plan of care. Patient was seen and examined. Objective - Vital Signs Vital signs: Vital Signs Temp 98.3 F 08/17/20 05:44 Pulse 76 08/17/20 05:44 Resp 18 08/17/20 05:44 BP 110/73 08/17/20 05:44 Pulse Ox 96 08/17/20 05:44 Intake & Output 0308/17/20 08/17/20 18:59 06:59 18:59 Intake Total 240 Balance 240 Intake: Oral 240 Other: Voiding Method Toilet Urinal # Voids 2 5 - Labs CBC & Chem 7: 08/17/20 07:52 08/17/20 07:52 Labs: Abnormal Lab Results - Last 24 Hours (Table) 08/15/20 08/15/20 08/16/20 Range/Units 19:35 19:58 10:47 RBC (4.30-5.90) m/uL Hgb (13.0-17.5) gm/dL Hct (39.0-53.0) % ABG pH 7.29 L (7.35-7.45) ABG pCO2 57 H (35-45) mmHg ABG pO2 276 H (83-108) mmHg ABG HCO3 28 H (21-25) mmol/L ABG Total CO2 30 H (19-24) mmol/L ABG O2 Saturation 100.0 H (94-97) % Sodium 129 L (137-145) mmol/L Chloride (98-107) mmol/L Carbon Dioxide (22-30) mmol/L Creatinine (0.66-1.25) mg/dL Total Protein (6.3-8.2) g/dL Albumin (3.5-5.0) g/dL Prolactin 17.8 H (2.1-17.7) ng/mL 08/17/20 08/17/20 08/17/20 Range/Units 03:42 07:52 07:52 RBC 3.81 L (4.30-5.90) m/uL Hgb 12.3 L (13.0-17.5) gm/dL Hct 36.7 L (39.0-53.0) % ABG pH (7.35-7.45) ABG pCO2 58 H (35-45) mmHg ABG pO2 120 H (83-108) mmHg ABG HCO3 40 H* (21-25) mmol/L ABG Total CO2 42 H (19-24) mmol/L ABG O2 Saturation 99.2 H (94-97) % Sodium 127 L (137-145) mmol/L Chloride 87 L (98-107) mmol/L Carbon Dioxide 37 H (22-30) mmol/L Creatinine 0.36 L (0.66-1.25) mg/dL Total Protein 6.0 L (6.3-8.2) g/dL Albumin 3.3 L (3.5-5.0) g/dL Prolactin (2.1-17.7) ng/mL
[2020-08-17] MEDS ORDERED: TOLVAPTAN 15 MG 1/2 TABLET PO ONE (10:45)
--- NOTE | 2020-08-17 14:33 | P.PN ---
Subjective Progress Note Date: 08/17/20 Patient is much more better today. His mentation, speech and language functions are back to normal. No more stuttering. Patient does remember events from yesterday that he was having trouble speaking, blames it on Covid infection. Denies any focal symptoms. Patient states that he has been diagnosed with scleroderma, systemic type. It is affecting his organs as well. Telemetry monitoring showing sinus rhythm, with transient PSVT lasting for a few seconds. Objective - Vital Signs Vital signs: Vital Signs Temp 97.7 F 08/17/20 09:14 Pulse 98 08/17/20 09:14 Resp 17 08/17/20 09:14 BP 96/67 08/17/20 09:14 Pulse Ox 96 08/17/20 05:44 Intake & Output 08/16/20 08/17/20 08/17/20 18:59 06:59 18:59 Intake Total 240 Balance 240 Weight 56.245 kg Intake: Oral 240 Other: Voiding Method Toilet Urinal # Voids 2 5 - Exam Patient's mentation, speech and language function are normal. Patient is very fluent. No aphasia. Cranial nerves are normal. On muscle strength is no drift. The strength appears normal. No ataxia for [id number] testing. Sensations are equal with no neglect. - Labs CBC & Chem 7: 08/17/20 07:52 08/17/20 07:52 Labs: Abnormal Lab Results - Last 24 Hours (Table) 08/15/20 08/15/20 08/17/20 Range/Units 19:35 19:58 03:42 RBC (4.30-5.90) m/uL Hgb (13.0-17.5) gm/dL Hct (39.0-53.0) % ABG pH 7.29 L (7.35-7.45) ABG pCO2 57 H 58 H (35-45) mmHg ABG pO2 276 H 120 H (83-108) mmHg ABG HCO3 28 H 40 H* (21-25) mmol/L ABG Total CO2 30 H 42 H (19-24) mmol/L ABG O2 Saturation 100.0 H 99.2 H (94-97) % Sodium (137-145) mmol/L Chloride (98-107) mmol/L Carbon Dioxide (22-30) mmol/L Creatinine (0.66-1.25) mg/dL Total Protein (6.3-8.2) g/dL Albumin (3.5-5.0) g/dL Prolactin 17.8 H (2.1-17.7) ng/mL 08/17/20 08/17/20 Range/Units 07:52 07:52 RBC 3.81 L (4.30-5.90) m/uL Hgb 12.3 L (13.0-17.5) gm/dL Hct 36.7 L (39.0-53.0) % ABG pH (7.35-7.45) ABG pCO2 (35-45) mmHg ABG pO2 (83-108) mmHg ABG HCO3 (21-25) mmol/L ABG Total CO2 (19-24) mmol/L ABG O2 Saturation (94-97) % Sodium 127 L (137-145) mmol/L Chloride 87 L (98-107) mmol/L Carbon Dioxide 37 H (22-30) mmol/L Creatinine 0.36 L (0.66-1.25) mg/dL Total Protein 6.0 L (6.3-8.2) g/dL Albumin 3.3 L (3.5-5.0) g/dL Prolactin (2.1-17.7) ng/mL Assessment and Plan Assessment: * 55-year-old male with COVID 19 infection, also has history of pulmonary fibrosis, had a syncopal spell last night. Event appears vasovagal, less likely seizure. No arrhythmia noted on telemetry monitoring or hypotension noted during this event. * New onset altered mental status, with mild speech difficulty and left-sided weakness, now resolved. Possible delirium, versus TIA. * History of pulmonary fibrosis. * Hyponatremia possibly from SIADH. Plan: * Patient had computed tomography scan of the head which was negative for any acute process. Minimal left maxillary sinusitis. * CTA of head and neck was normal. No large vessel occlusion, no aneurysm. * 2-D echo showed moderate concentric LVH. EF is 50-55%. Right ventricle is moderate to severely enlarged. * Continue Eliquis 5 mg twice a day. * Syncopal spell was likely vasovagal. No further workup indicated. * Arterial blood gases again showed pH of 7.44, pCO2 58, pO2 120 and saturation 99.2. * Sodium 127, nephrology following. * Neurology will sign off. Please reconsult neurology if any concerns.
--- NOTE | 2020-08-17 14:50 | P.PN ---
Subjective Progress Note Date: 08/17/20 HISTORY OF PRESENT ILLNESS This is a 55-year-old male patient with past medical history of gastroesophageal reflux disease and esophageal dysmotility, hypertension, secondary pulmonary hypertension, paroxysmal atrial fibrillation on eliquis, Raynaud's disease, remote history of tobacco use, chronic hypoxic respiratory failure on home O2 at 3 L nasal cannula, pulmonary fibrosis secondary to progressive systemic sclerosis or scleroderma. Biopsy in 2013 showed evidence of usual interstitial pneumonia. He follows regularly with pulmonary and rheumatology at [facility] and has considered lung transplant but has declined moving forward with this. He was hospitalized from August 05 through August 12 which time he was treated for acute hypoxic respiratory failure still secondary to scleroderma lung and pulmonary fibrosis along with COVID19 pneumonitis completed course of Remdesivir. Patient came into the office yesterday to have a recheck following admission and have blood work done. While in the office patient was found to be dyspneic with a pulse ox of 70% and that his portable oxygen tank was not working. Patient was afebrile, heart rate 76, blood pressure 130/94. Pulse ox 100% on oxygen. WBC 14.5, hemoglobin 13, platelet count 436. Sodium 128, potassium 3.7, chloride 86, BUN 35, creatinine 21, BUN 0.42. Blood sugar 67. Liver function tests normal. Lactic acid 1.16. Chest x-ray reveals multifocal bilateral airspace opacities related to Covid pneumonia unchanged. This morning, patient states that he is feeling much better from yesterday. He is complaining of significant right index finger pain due to ulceration. He states he woke up coughing this morning but improved at the time of the valve. He denies any nausea or vomiting. 08/17: Patient had episode of slurred speech, left-sided weakness and episode of unresponsiveness last night. Consult with neurology has been added and patient was seen by Dr. Duvall. He feels syncopal episode was vasovagal. No arrhythmia was noted. Less likely to be seizure activity. He also had the altered mental status with mild speech difficulty and left-sided weakness that is resolved this morning. Patient underwent a CAT scan of the brain that shows negative for acute process. Minimal left maxillary sinusitis. CTA of head and neck was normal. No large vessel occlusion, no aneurysm. Echocardiogram reveals EF of 50-55%. Recommendations to continue eliquis 5 mg daily and neurology has signed off. Patient is followed by nephrology regarding hyponatremia secondary to SIADH maintained on sodium chloride tablets and fluid restriction of 1.2 l. And mental status is back to his baseline this morning. He is complaining of stuffy nose and ears plugged sensation. We will add on Decadron 6 mg daily. PT and OT. Patient is on ensure 3 times daily. Patient is afebrile, heart rate 98, blood pressure 96/67, pulse ox 96% on 4 L nasal cannula. Repeat blood work reveals hemoglobin of 12.3. Sodium 127, potassium 3.6, chloride 87, CO2 37, BUN 14 and creatinine 0.36. REVIEW OF SYSTEMS Constitutional: No fever, no chills, no night sweats. No weight change. Reports weakness, reports fatigue. No daytime sleepiness. EENT: No headache. No blurred vision or double vision, no loss of vision. No loss of Hearing, no ringing in the ears, no dizziness. No nasal drainage or congestion. No epistaxis. No sore throat. Lungs: Reports shortness of breath, reports cough, no sputum production. No wheezing. Cardiovascular: No chest pain, no lower extremity edema. No palpitations. No paroxysmal nocturnal dyspnea. No orthopnea. No lightheadedness or dizziness. No syncopal episodes. Abdominal: No abdominal pain. No nausea, vomiting. No diarrhea. No constipation. No bloody or tarry stools.. No loss of appetite. Genitourinary: No dysuria, increased frequency, urgency. No urinary retention. Musculoskeletal: No myalgias. No muscle weakness, no gait dysfunction, no frequent falls. No back pain. No neck pain. Integumentary: Reports wounds, no lesions. No rash or pruritus. No unusual bruising. No change in hair or nails. Neurologic: No aphasia. No facial droop. No change in mentation. No head injury. No headache. No paralysis. No paresthesia. Psychiatric: No depression. No anxiety. No mood swings. Endocrine: No abnormal blood sugars. No weight change. No excessive sweating or thirst. No cold intolerance. PHYSICAL EXAMINATION Gen: This is a 55-year-old male. He is resting in bed and appears to be comfortable at rest and in no acute distress. HEENT: Head is atraumatic, normocephalic. Pupils equal, round. Sclerae is anicteric. NECK: Supple. No JVD. No lymphadenopathy. No thyromegaly. LUNGS: Rhonchi bilaterally. No intercostal retractions. HEART: Regular rate and rhythm. No murmur. ABDOMEN: Soft. Bowel sounds are present. No masses. No tenderness. EXTREMITIES: No pedal edema. No calf tenderness. Fingertip ulcerations secondary to scleroderma. NEUROLOGICAL: Patient is awake, alert and oriented x3. Cranial nerves 2 through 12 are grossly intact. ASSESSMENT AND PLAN 1. Acute chronic hypoxemic respiratory failure, multifactorial, in part related to underlying scleroderma lung/pulmonary fibrosis, as well as COVID 19 pneumonitis. Continue Ventolin inhaler, eliquis, pulmonary medicine consult. 2. Chronic hyponatremia secondary to SIADH. Consult with nephrology appreciated. Continue sodium chloride tablets and fluid restriction of 1.2 L added. 3. Paroxysmal atrial fibrillation, status post ablation. Continue eliquis 5 mg twice daily, Toprol-XL 25 mg daily. 4. 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 No history of of lung transplantation. 5. Raynaud's disease, with digital ulceration and pain worse to the right index finger. 6. Hypertension. Continue Toprol-XL 25 mg daily. 7. Pulmonary hypertension. Continue Revatio 20 mg 3 times daily oral. 8. Gastroesophageal reflux disease and GI prophylaxis. Continue Protonix 40 mg oral twice daily. 9. Esophageal dysmotility secondary to scleroderma. Continue rifaximin 550 mg twice daily as needed, Revatio 20 mg 3 times daily, Prucalopride 2 mg daily. 10. Hyperlipidemia. 10. Chronic hypoxemic respiratory failure on home O2 at 3 L nasal cannula. 11. Thrombocytopenia, continue to monitor. 12. Unresponsive episode secondary to vasovagal, resolved. 13. Brief episode of altered mental status with mild speech difficulty and left-sided weakness now resolved. Possible delirium versus TIA. Patient is back to baseline. 14. DVT prophylaxis. Continue eliquis 5 mg twice daily. DISCHARGE PLAN Return home. Impression and plan of care have been directed as dictated by the signing physician. Shana Iverson nurse practitioner acting as scribe for signing physician. Objective - Vital Signs Vital signs: Vital Signs Temp 98.3 F 08/17/20 05:44 Pulse 76 08/17/20 05:44 Resp 18 08/17/20 05:44 BP 110/73 08/17/20 05:44 Pulse Ox 96 08/17/20 05:44 Intake & Output 08/16/20 08/17/20 08/17/20 18:59 06:59 18:59 Intake Total 240 Balance 240 Intake: Oral 240 Other: Voiding Method Toilet Urinal # Voids 2 5 - Labs CBC & Chem 7: 08/17/20 07:52 08/17/20 07:52 Labs: Abnormal Lab Results - Last 24 Hours (Table) 08/15/20 08/15/20 08/16/20 Range/Units 19:35 19:58 10:47 ABG pH 7.29 L (7.35-7.45) ABG pCO2 57 H (35-45) mmHg ABG pO2 276 H (83-108) mmHg ABG HCO3 28 H (21-25) mmol/L ABG Total CO2 30 H (19-24) mmol/L ABG O2 Saturation 100.0 H (94-97) % Sodium 129 L (137-145) mmol/L Prolactin 17.8 H (2.1-17.7) ng/mL 08/17/20 Range/Units 03:42 ABG pH (7.35-7.45) ABG pCO2 58 H (35-45) mmHg ABG pO2 120 H (83-108) mmHg ABG HCO3 40 H* (21-25) mmol/L ABG Total CO2 42 H (19-24) mmol/L ABG O2 Saturation 99.2 H (94-97) % Sodium (137-145) mmol/L Prolactin (2.1-17.7) ng/mL
--- NOTE | 2020-08-17 15:23 | PN ---
PROGRESS NOTE Patient is seen for followup for hyponatremia. He has underlying history of chronic hyponatremia secondary to SIADH. Patient is maintained on sodium chloride tabs. He is admitted to the hospital this time with COVID-19 pneumonia. The patient has underlying history of scleroderma with evidence of end-organ damage with involvement of the lungs and was maintained on CellCept, which he has now discontinued. Mostly for the current infection. Patient's sodium level has been slowly trending down and it was down to 127 today. It had been 131 during his hospitalization at one time. On examination today, blood pressure was 96/67, heart rate 98 per minute. There is no evidence of edema in lower extremities. 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 Labs show sodium 127, potassium 3.6, BUN 14, serum creatinine 0.36, hemoglobin 12.3 g/dL. ASSESSMENT: 1. Euvolemic hyponatremia associated with syndrome of inappropriate antidiuretic hormone. Urine osmolality was elevated at 544. Patient is maintained on sodium chloride tabs, which I will continue. I will also give him a dose of tolvaptan. 2. COVID-19 pneumonia, status post Decadron. 3. History of scleroderma, maintained on CellCept as outpatient, currently off in view of current infection. PLAN: Tolvaptan x1. Repeat labs in a.m. MMODL / IJN: [id number] /
[2020-08-17] MEDS: OCTREOTIDE 100 MCG/ML INJ SQ SCH (20:41)
[2020-08-18 06:52] LABS: HCT 33.8 % (39.0-53.0); HGB 11.5 gm/dL (13.0-17.5); MCH 33.3 pg (25.0-35.0); MCHC 34.1 g/dL (31.0-37.0); MCV 97.7 fL (80.0-100.0); Mean Platelet Volume 6.9; Platelet Count 346 k/uL (150-450); RBC 3.46 m/uL (4.30-5.90); RDW 12.3 % (11.5-15.5); WBC 9.3 k/uL (3.8-10.6)
[2020-08-18 07:10] LABS: ALT 33 U/L (4-49); AST 36 U/L (17-59); African American GFR (CKD) >90 (>60 ml/min/1.73 sqM); Albumin 3.4 g/dL (3.5-5.0); Albumin/Globulin Ratio 1.2; Alkaline Phosphatase 54 U/L (38-126); Blood Urea Nitrogen 16 mg/dL (9-20); Calcium 8.9 mg/dL (8.4-10.2); Chloride 90 mmol/L (98-107); Globulin 2.8 g/dL; Glucose 80 mg/dL (74-99); Non-African American GFR(CKD) >90 (>60 ml/min/1.73 sqM); Potassium 4.2 mmol/L (3.5-5.1); Sodium 134 mmol/L (137-145); Total Bilirubin 0.7 mg/dL (0.2-1.3); Total Protein 6.2 g/dL (6.3-8.2)
[2020-08-18 07:19] LABS: Anion Gap 5 mmol/L; Carbon Dioxide 39 mmol/L (22-30)
--- NOTE | 2020-08-18 07:44 | P.TRANS ---
Providers Date of admission: 08/14/20 18:16 Expected date of discharge: 08/18/20 Attending physician: Madhavi Melo Consults: 08/14/20 18:17 Consult Physician Routine Consulting Provider: Noreen Chaves Consult Reason/Comments: Scleroderma, pulmonary fibrosis pulmonary hypertension Do you want consulting provider notified?: Yes 08/14/20 18:18 Consult Physician Routine Consulting Provider: Anny Jaimes Consult Reason/Comments: Hyponatremia Do you want consulting provider notified?: Yes 08/15/20 19:49 Consult Physician Routine Consulting Provider: Sabas Duvall Consult Reason/Comments: possible seizure Do you want consulting provider notified?: Yes, Notify in am 08/15/20 19:51 Consult Physician Routine Consulting Provider: Kym Reza Consult Reason/Comments: abnormal EKG Do you want consulting provider notified?: Yes, Notify in am Primary care physician: Madhavi Melo [facility] Course: HISTORY OF PRESENT ILLNESS This is a 55-year-old male patient with past medical history of gastroesophageal reflux disease and esophageal dysmotility, hypertension, secondary pulmonary hypertension, paroxysmal atrial fibrillation on eliquis, Raynaud's disease, remote history of tobacco use, chronic hypoxic respiratory failure on home O2 at 3 L nasal cannula, pulmonary fibrosis secondary to progressive systemic sclerosis or scleroderma. Biopsy in 2013 showed evidence of usual interstitial pneumonia. He follows regularly with pulmonary and rheumatology at [facility] and has considered lung transplant but has declined moving forward with this. He was hospitalized from August 05 through August 12 which time he was treated for acute hypoxic respiratory failure still secondary to scleroderma lung and pulmonary fibrosis along with COVID19 pneumonitis completed course of Remdesivir. Patient came into the office yesterday to have a recheck following admission and have blood work done. While in the office patient was found to be dyspneic with a pulse ox of 70% and that his portable oxygen tank was not working. Patient was afebrile, heart rate 76, blood pressure 130/94. Pulse ox 100% on oxygen. WBC 14.5, hemoglobin 13, platelet count 436. Sodium 128, potassium 3.7, chloride 86, BUN 35, creatinine 21, BUN 0.42. Blood sugar 67. Liver function tests normal. Lactic acid 1.16. Chest x-ray reveals multifocal bilateral airspace opacities related to Covid pneumonia unchanged. This morning, patient states that he is feeling much better from yesterday. He is complaining of significant right index finger pain due to ulceration. He states he woke up coughing this morning but improved at the time of the valve. He denies any nausea or vomiting. 08/17: Patient had episode of slurred speech, left-sided weakness and episode of unresponsiveness last night. Consult with neurology has been added and patient was seen by Dr. Duvall. He feels syncopal episode was vasovagal. No arrhythmia was noted. Less likely to be seizure activity. He also had the altered mental status with mild speech difficulty and left-sided weakness that is resolved this morning. Patient underwent a CAT scan of the brain that shows negative for acute process. Minimal left maxillary sinusitis. CTA of head and neck was normal. No large vessel occlusion, no aneurysm. Echocardiogram reveals EF of 50-55%. Recommendations to continue eliquis 5 mg daily and neurology has signed off. Patient is followed by nephrology regarding hyponatremia secondary to SIADH maintained on sodium chloride tablets and fluid restriction of 1.2 l. And mental status is back to his baseline this morning. He is complaining of stuffy nose and ears plugged sensation. We will add on Decadron 6 mg daily. PT and OT. Patient is on ensure 3 times daily. Patient is afebrile, heart rate 98, blood pressure 96/67, pulse ox 96% on 4 L nasal cannula. Repeat blood work reveals hemoglobin of 12.3. Sodium 127, potassium 3.6, chloride 87, CO2 37, BUN 14 and creatinine 0.36. REVIEW OF SYSTEMS Constitutional: No fever, no chills, no night sweats. No weight change. Reports weakness, reports fatigue. No daytime sleepiness. EENT: No headache. No blurred vision or double vision, no loss of vision. No loss of Hearing, no ringing in the ears, no dizziness. No nasal drainage or congestion. No epistaxis. No sore throat. Lungs: Reports shortness of breath, reports cough, no sputum production. No wheezing. Cardiovascular: No chest pain, no lower extremity edema. No palpitations. No paroxysmal nocturnal dyspnea. No orthopnea. No lightheadedness or dizziness. No syncopal episodes. Abdominal: No abdominal pain. No nausea, vomiting. No diarrhea. No constipation. No bloody or tarry stools.. No loss of appetite. Genitourinary: No dysuria, increased frequency, urgency. No urinary retention. Musculoskeletal: No myalgias. No muscle weakness, no gait dysfunction, no frequent falls. No back pain. No neck pain. Integumentary: Reports wounds, no lesions. No rash or pruritus. No unusual bruising. No change in hair or nails. Neurologic: No aphasia. No facial droop. No change in mentation. No head injury. No headache. No paralysis. No paresthesia. Psychiatric: No depression. No anxiety. No mood swings. Endocrine: No abnormal blood sugars. No weight change. No excessive sweating or thirst. No cold intolerance. PHYSICAL EXAMINATION Gen: This is a 55-year-old male. He is resting in bed and appears to be comfortable at rest and in no acute distress. HEENT: Head is atraumatic, normocephalic. Pupils equal, round. Sclerae is anicteric. NECK: Supple. No JVD. No lymphadenopathy. No thyromegaly. LUNGS: Rhonchi bilaterally. No intercostal retractions. HEART: Regular rate and rhythm. No murmur. ABDOMEN: Soft. Bowel sounds are present. No masses. No tenderness. EXTREMITIES: No pedal edema. No calf tenderness. Fingertip ulcerations secondary to scleroderma. NEUROLOGICAL: Patient is awake, alert and oriented x3. Cranial nerves 2 through 12 are grossly intact. ASSESSMENT AND PLAN 1. Acute chronic hypoxemic respiratory failure, multifactorial, in part related to underlying scleroderma lung/pulmonary fibrosis, as well as COVID 19 pneumonitis. Continue Ventolin inhaler, eliquis, pulmonary medicine consult. 2. Chronic hyponatremia secondary to SIADH. Consult with nephrology appreciated. Continue sodium chloride tablets and fluid restriction of 1.2 L added. 3. Paroxysmal atrial fibrillation, status post ablation. Continue eliquis 5 mg twice daily, Toprol-XL 25 mg daily. 4. 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 No history of of lung transplantation. 5. Raynaud's disease, with digital ulceration and pain worse to the right index finger. 6. Hypertension. Continue Toprol-XL 25 mg daily. 7. Pulmonary hypertension. Continue Revatio 20 mg 3 times daily oral. 8. Gastroesophageal reflux disease and GI prophylaxis. Continue Protonix 40 mg oral twice daily. 9. Esophageal dysmotility secondary to scleroderma. Continue rifaximin 550 mg twice daily as needed, Revatio 20 mg 3 times daily, Prucalopride 2 mg daily. 10. Hyperlipidemia. 10. Chronic hypoxemic respiratory failure on home O2 at 3 L nasal cannula. 11. Thrombocytopenia, continue to monitor. 12. Unresponsive episode secondary to vasovagal, resolved. 13. Brief episode of altered mental status with mild speech difficulty and left-sided weakness now resolved. Possible delirium versus TIA. Patient is back to baseline. 14. DVT prophylaxis. Continue eliquis 5 mg twice daily. DISCHARGE PLAN Return home. Impression and plan of care have been directed as dictated by the signing physician. Shana Iverson nurse practitioner acting as scribe for signing physician. Patient Condition at Discharge: Stable Plan - Transfer Summary Transfer Medications: Active Medications Generic Name Dose Route Start Last Admin Trade Name Freq PRN Reason Stop Dose Admin Albuterol Sulfate 4 puff 08/14/20 22:14 08/17/20 20:29 Albuterol Hfa Inhaler INHALATION 4 puff RT-Q4H PRN Administration Shortness Of Breath Apixaban 5 mg 08/15/20 09:00 08/17/20 20:41 Apixaban 5 Mg Tab PO 5 mg BID PERCY Administration Dexamethasone 6 mg 08/17/20 09:00 08/17/20 08:12 Dexamethasone 2 Mg Tab PO 6 mg DAILY PERCY Administration Fluticasone Propionate 2 spray 08/15/20 09:00 08/17/20 08:36 Fluticasone 50mcg/Hidalgo Nasal 16gm EA NOSTRIL Not Given DAILY PERCY Hyoscyamine 0.125 mg 08/14/20 23:00 Hyoscyamine Sulfate 0.125 Mg Tab PO Q6H PRN CRAMPING Ipratropium Calvin 2 spray 08/15/20 09:00 08/17/20 20:42 Ipratropium Calvin 0.06% Nasal Hidalgo (15 Ml) EA NOSTRIL Not Given BID PERCY Metoprolol Succinate 25 mg 08/14/20 22:15 08/17/20 08:12 Metoprolol Succinate (Er) 25 Mg Tab.Er.24h PO 25 mg DAILY PERCY Administration Multivitamins 1 each 08/15/20 09:00 08/17/20 08:12 Multivitamins, Thera 1 Each Tab PO 1 each DAILY PERCY Administration Naloxone HCl 0.2 mg 08/14/20 18:16 Naloxone 0.4 Mg/Ml 1 Ml Vial IV Q2M PRN Opioid Reversal Non-Formulary Medication 2 mg 08/15/20 12:00 08/17/20 08:23 Prucalopride Succinate [Motegrity] PO 2 mg DAILY PERCY Administration Non-Formulary Medication 3 - 9 puff 08/16/20 02:44 08/17/20 20:38 Tyvaso 0.6mg/Ml INHALATION Not Given RT-QID PERCY Lidocaine Hcl/Benzyl 1 applic 08/16/20 10:38 Alcohol [Salonpas TOPICAL Lidocain Pls 4-10% Q6H PRN Cr] 85 Gm Cr Pain Octreotide Acetate 50 mcg 08/15/20 21:00 08/17/20 20:41 Octreotide 100 Mcg/Ml Inj SQ 50 mcg HS PERCY Administration Ondansetron HCl 4 mg 08/14/20 22:14 Ondansetron 4 Mg Tab PO Q8H PRN Nausea And Vomiting Pantoprazole Sodium 40 mg 08/14/20 22:15 08/17/20 20:41 Pantoprazole 40 Mg Tablet PO 40 mg BID PERCY Administration Rifaximin 550 mg 08/14/20 22:14 Rifaximin 550 Mg Tablet PO 09/13/20 22:15 BID PRN IBS Sildenafil Citrate 20 mg 08/14/20 23:00 08/17/20 20:41 Sildenafil 20 Mg Tab PO 20 mg TID PERCY Administration Sodium Chloride 1 gm 08/15/20 09:00 08/17/20 21:08 Sodium Chloride Tab 1 Gm Tab PO 1 gm BID PERCY Administration Follow up Appointment(s)/Referral(s): Anne-Marie Helton MD [STAFF PHYSICIAN] - 2 Weeks Madhavi Melo MD [Primary Care Provider] - 1-2 days Activity/Diet/Wound Care/Special Instructions: HOME MEDS DOWN IN PHARMACY AND ALSO IN MED ROOM!!!!!!!!!!!!!
[2020-08-18] MEDS: ALBUTEROL HFA INHALER INHALATION PRN ×4 (08:25→21:28)
[2020-08-18] MEDS: APIXABAN 5 MG TAB PO SCH ×2 (08:42→20:34)
[2020-08-18] MEDS: FLUTICASONE 50MCG/SPRAY NASAL 16GM EA NOSTRIL SCH (08:42)
[2020-08-18] MEDS: PANTOPRAZOLE 40 MG TABLET PO SCH ×2 (08:42→20:34)
[2020-08-18] MEDS: MULTIVITAMINS, THERA 1 EACH TAB PO SCH (08:42)
[2020-08-18] MEDS: dexAMETHasone 2 MG TAB PO SCH (08:42)
[2020-08-18] MEDS: METOPROLOL SUCCINATE (ER) 25 MG TAB.ER.24H PO SCH (08:42)
[2020-08-18] MEDS: IPRATROPIUM BROMIDE 0.06% NASAL SPRAY (15 ML) EA NOSTRIL SCH ×2 (08:43→20:34)
[2020-08-18] MEDS: SILDENAFIL 20 MG TAB PO SCH ×3 (08:45→20:34)
[2020-08-18] MEDS: PRUCALOPRIDE SUCCINATE 2 MG PO SCH (08:45)
[2020-08-18] MEDS: SODIUM CHLORIDE TAB 1 GM TAB PO SCH ×2 (08:46→20:34)
[2020-08-18] MEDS: TYVASO 0.6 MG/ML INHALATION SCH ×4 (08:52→21:26)
--- NOTE | 2020-08-18 15:13 | P.PN ---
Subjective Progress Note Date: 08/18/20 HISTORY OF PRESENT ILLNESS This is a 55-year-old male patient with past medical history of gastroesophageal reflux disease and esophageal dysmotility, hypertension, secondary pulmonary hypertension, paroxysmal atrial fibrillation on eliquis, Raynaud's disease, remote history of tobacco use, chronic hypoxic respiratory failure on home O2 at 3 L nasal cannula, pulmonary fibrosis secondary to progressive systemic sclerosis or scleroderma. Biopsy in 2013 showed evidence of usual interstitial pneumonia. He follows regularly with pulmonary and rheumatology at [facility] and has considered lung transplant but has declined moving forward with this. He was hospitalized from August 05 through August 12 which time he was treated for acute hypoxic respiratory failure still secondary to scleroderma lung and pulmonary fibrosis along with COVID19 pneumonitis completed course of Remdesivir. Patient came into the office yesterday to have a recheck following admission and have blood work done. While in the office patient was found to be dyspneic with a pulse ox of 70% and that his portable oxygen tank was not working. Patient was afebrile, heart rate 76, blood pressure 130/94. Pulse ox 100% on oxygen. WBC 14.5, hemoglobin 13, platelet count 436. Sodium 128, potassium 3.7, chloride 86, BUN 35, creatinine 21, BUN 0.42. Blood sugar 67. Liver function tests normal. Lactic acid 1.16. Chest x-ray reveals multifocal bilateral airspace opacities related to Covid pneumonia unchanged. This morning, patient states that he is feeling much better from yesterday. He is complaining of significant right index finger pain due to ulceration. He states he woke up coughing this morning but improved at the time of the valve. He denies any nausea or vomiting. 08/17: Patient had episode of slurred speech, left-sided weakness and episode of unresponsiveness last night. Consult with neurology has been added and patient was seen by Dr. Duvall. He feels syncopal episode was vasovagal. No arrhythmia was noted. Less likely to be seizure activity. He also had the altered mental status with mild speech difficulty and left-sided weakness that is resolved this morning. Patient underwent a CAT scan of the brain that shows negative for acute process. Minimal left maxillary sinusitis. CTA of head and neck was normal. No large vessel occlusion, no aneurysm. Echocardiogram reveals EF of 50-55%. Recommendations to continue eliquis 5 mg daily and neurology has signed off. Patient is followed by nephrology regarding hyponatremia secondary to SIADH maintained on sodium chloride tablets and fluid restriction of 1.2 l. And mental status is back to his baseline this morning. He is complaining of stuffy nose and ears plugged sensation. We will add on Decadron 6 mg daily. PT and OT. Patient is on ensure 3 times daily. Patient is afebrile, heart rate 98, blood pressure 96/67, pulse ox 96% on 4 L nasal cannula. Repeat blood work reveals hemoglobin of 12.3. Sodium 127, potassium 3.6, chloride 87, CO2 37, BUN 14 and creatinine 0.36. 08/18: Patient breathing status is stable. He has pulse ox 100% on 4 L nasal cannula. Blood pressure 118/74, heart rate 77, afebrile. Repeat blood work reveals 70 BC 9.3, hemoglobin 11.5, platelet count 346. Sodium 134, potassium 4.2, chloride 90, CO2 39, BUN 16 creatinine 0.77. Liver function tests are nor mal. Patient's mental status is at his baseline. He is requesting to go to [facility] today. [facility] has been contacted and at this point, no beds are available that they will reassess tomorrow and see if patient even qualifies for transfer. This time they are refusing transfer as of today. REVIEW OF SYSTEMS Constitutional: No fever, no chills, no night sweats. No weight change. Reports weakness, reports fatigue. No daytime sleepiness. EENT: No headache. No blurred vision or double vision, no loss of vision. No loss of Hearing, no ringing in the ears, no dizziness. No nasal drainage or congestion. No epistaxis. No sore throat. Lungs: Reports shortness of breath, reports cough, no sputum production. No wheezing. Cardiovascular: No chest pain, no lower extremity edema. No palpitations. No paroxysmal nocturnal dyspnea. No orthopnea. No lightheadedness or dizziness. No syncopal episodes. Abdominal: No abdominal pain. No nausea, vomiting. No diarrhea. No constipation. No bloody or tarry stools.. No loss of appetite. Genitourinary: No dysuria, increased frequency, urgency. No urinary retention. Musculoskeletal: No myalgias. No muscle weakness, no gait dysfunction, no frequent falls. No back pain. No neck pain. Integumentary: Reports wounds, no lesions. No rash or pruritus. No unusual bruising. No change in hair or nails. Neurologic: No aphasia. No facial droop. No change in mentation. No head injury. No headache. No paralysis. No paresthesia. Psychiatric: No depression. No anxiety. No mood swings. Endocrine: No abnormal blood sugars. No weight change. No excessive sweating or thirst. No cold intolerance. PHYSICAL EXAMINATION Gen: This is a 55-year-old male. He is resting in bed and appears to be comfortable at rest and in no acute distress. HEENT: Head is atraumatic, normocephalic. Pupils equal, round. Sclerae is anicteric. NECK: Supple. No JVD. No lymphadenopathy. No thyromegaly. LUNGS: Rhonchi bilaterally. No intercostal retractions. HEART: Regular rate and rhythm. No murmur. ABDOMEN: Soft. Bowel sounds are present. No masses. No tenderness. EXTREMITIES: No pedal edema. No calf tenderness. Fingertip ulcerations secondary to scleroderma. NEUROLOGICAL: Patient is awake, alert and oriented x3. Cranial nerves 2 through 12 are grossly intact. ASSESSMENT AND PLAN 1. Acute chronic hypoxemic respiratory failure, multifactorial, in part related to underlying scleroderma lung/pulmonary fibrosis, as well as COVID 19 pneumonitis. Continue Ventolin inhaler, eliquis, pulmonary medicine consult appreciated. 2. Chronic hyponatremia secondary to SIADH. Consult with nephrology appreciated. Continue sodium chloride tablets. 3. Paroxysmal atrial fibrillation, status post ablation. Continue eliquis 5 mg twice daily, Toprol-XL 25 mg daily. 4. 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 No history of of lung transplantation. 5. Raynaud's disease, with digital ulceration and pain worse to the right index finger. 6. Hypertension. Continue Toprol-XL 25 mg daily. 7. Pulmonary hypertension. Continue Revatio 20 mg 3 times daily oral. 8. Gastroesophageal reflux disease and GI prophylaxis. Continue Protonix 40 mg oral twice daily. 9. Esophageal dysmotility secondary to scleroderma. Continue rifaximin 550 mg twice daily as needed, Revatio 20 mg 3 times daily, Prucalopride 2 mg daily. 10. Hyperlipidemia. 10. Chronic hypoxemic respiratory failure on home O2 at 3 L nasal cannula. 11. Thrombocytopenia, continue to monitor. 12. Unresponsive episode secondary to vasovagal, resolved. 13. Brief episode of altered mental status with mild speech difficulty and left -sided weakness now resolved. Possible delirium versus TIA. Patient is back to baseline. 14. DVT prophylaxis. Continue eliquis 5 mg twice daily. DISCHARGE PLAN Return home. Impression and plan of care have been directed as dictated by the signing physician. Shana Iverson nurse practitioner acting as scribe for signing physician. Objective - Vital Signs Vital signs: Vital Signs Temp 98.5 F 08/18/20 05:28 Pulse 61 08/18/20 05:28 Resp 18 08/17/20 17:49 BP 122/80 08/18/20 05:28 Pulse Ox 99 08/18/20 05:28 Intake & Output 08/17/20 08/18/20 08/18/20 18:59 06:59 18:59 Output Total 200 Balance -200 Weight 56.245 kg Output: Urine 200 Other: Voiding Method Toilet Urinal # Voids 1 3 - Labs CBC & Chem 7: 08/18/20 06:04 08/18/20 06:04 Labs: Abnormal Lab Results - Last 24 Hours (Table) 08/17/20 08/17/20 08/18/20 Range/Units 07:52 07:52 06:04 RBC 3.81 L 3.46 L (4.30-5.90) m/uL Hgb 12.3 L 11.5 L (13.0-17.5) gm/dL Hct 36.7 L 33.8 L (39.0-53.0) % Sodium 127 L (137-145) mmol/L Chloride 87 L (98-107) mmol/L Carbon Dioxide 37 H (22-30) mmol/L Creatinine 0.36 L (0.66-1.25) mg/dL Total Protein 6.0 L (6.3-8.2) g/dL Albumin 3.3 L (3.5-5.0) g/dL 08/18/20 Range/Units 06:04 RBC (4.30-5.90) m/uL Hgb (13.0-17.5) gm/dL Hct (39.0-53.0) % Sodium 134 L (137-145) mmol/L Chloride 90 L (98-107) mmol/L Carbon Dioxide 39 H (22-30) mmol/L Creatinine 0.44 L (0.66-1.25) mg/dL Total Protein 6.2 L (6.3-8.2) g/dL Albumin 3.4 L (3.5-5.0) g/dL
--- NOTE | 2020-08-18 16:03 | P.PN ---
Subjective Progress Note Date: 08/18/20 Patient states he is feeling much better today. His breathing is better, and is not requiring as much oxygen. Denies any focal symptoms. Denies headache. Wants to go home. Patient states that he has been diagnosed with scleroderma, systemic type. It is affecting his organs as well. Objective - Vital Signs Vital signs: Vital Signs Temp 97.8 F 08/18/20 13:25 Pulse 64 08/18/20 13:25 Resp 18 08/18/20 13:25 BP 108/75 08/18/20 13:25 Pulse Ox 98 08/18/20 13:25 Intake & Output 08/17/20 08/18/20 08/18/20 18:59 06:59 18:59 Output Total 200 Balance -200 Weight 56.245 kg Output: Urine 200 Other: Voiding Method Toilet Toilet Urinal Urinal # Voids 1 3 - Exam Patient's mentation, speech and language function are normal. Patient is very fluent. No aphasia. Cranial nerves are normal. On muscle strength is no drift. The strength appears normal. No ataxia for [id number] testing. Sensations are equal with no neglect. - Labs CBC & Chem 7: 08/18/20 06:04 08/18/20 06:04 Labs: Abnormal Lab Results - Last 24 Hours (Table) 08/18/20 08/18/20 Range/Units 06:04 06:04 RBC 3.46 L (4.30-5.90) m/uL Hgb 11.5 L (13.0-17.5) gm/dL Hct 33.8 L (39.0-53.0) % Sodium 134 L (137-145) mmol/L Chloride 90 L (98-107) mmol/L Carbon Dioxide 39 H (22-30) mmol/L Creatinine 0.44 L (0.66-1.25) mg/dL Total Protein 6.2 L (6.3-8.2) g/dL Albumin 3.4 L (3.5-5.0) g/dL Assessment and Plan Assessment: * 55-year-old male with COVID 19 infection, also has history of pulmonary fibrosis, had a syncopal spell last night. Event appears vasovagal, less likely seizure. No arrhythmia noted on telemetry monitoring or hypotension noted during this event. * New onset altered mental status, with mild speech difficulty and left-sided weakness, now resolved. Possible delirium, versus TIA. * History of pulmonary fibrosis. * Hyponatremia possibly from SIADH. Plan: * Patient continues to be stable neurologically. No further syncopal spells, no focal symptoms. Exam is back to baseline. * Patient had computed tomography scan of the head which was negative for any acute process. Minimal left maxillary sinusitis. * CTA of head and neck was normal. No large vessel occlusion, no aneurysm. * 2-D echo showed moderate concentric LVH. EF is 50-55%. Right ventricle is moderate to severely enlarged. * Continue Eliquis 5 mg twice a day. * Syncopal spell was likely vasovagal. No further workup indicated. * Arterial blood gases again showed pH of 7.44, pCO2 58, pO2 120 and saturation 99.2. * Sodium much better 134, nephrology following. * Neurology will sign off. Please reconsult neurology if any concerns.
--- NOTE | 2020-08-18 17:55 | PN ---
PROGRESS NOTE Patient is seen for followup for hyponatremia which is secondary to SIADH. Currently patient is admitted with COVID pneumonia. His respiratory status seems to have improved. He does have underlying scleroderma with lung fibrosis and was maintained on CellCept as outpatient. Patient has chronic hyponatremia and is maintained on sodium chloride tabs. His sodium had dropped to 127 this admission from 131. He did get a dose of tolvaptan yesterday and his sodium is up to 134 today. PHYSICAL EXAMINATION: On examination today, blood pressure was 118/74, heart rate 77 per minute. Patient is afebrile. He is euvolemic. No evidence of edema noted in the lower extremities. Heart and lungs are not examined due to COVID. VEHICLE [employer]ICE [employer]END[employer] exam is grossly intact. LABS: Sodium 134, potassium 4.2, serum creatinine 0.4. ASSESSMENT: 1. Hyponatremia which is chronic secondary to syndrome of inappropriate antidiuretic hormone, maintained on sodium chloride tabs, mostly holding out okay. However, sodium dropped to 127 yesterday. He did get a dose of tolvaptan yesterday and his sodium is up to 134 today. We will continue to monitor and continue with the sodium chloride tabs for now. Patient was maintained on fluid restriction; however, it was held, as he just got the tolvaptan yesterday. We will assess his fluid restriction tomorrow based on his repeat sodium. 2. COVID-19 pneumonia, slowly improving, maintained on steroids, status post remdesivir. 3. Scleroderma with target organ damage and pulmonary fibrosis. Patient was maintained on CellCept, currently on hold. PLAN: Repeat sodium tomorrow. Continue with sodium chloride tabs. MMODL / IJN: [id number] /
[2020-08-18] MEDS: OCTREOTIDE 100 MCG/ML INJ SQ SCH (20:34)
[2020-08-19] MEDS: PRUCALOPRIDE SUCCINATE 2 MG PO SCH (08:12)
[2020-08-19] MEDS: SILDENAFIL 20 MG TAB PO SCH (08:12)
[2020-08-19] MEDS: SODIUM CHLORIDE TAB 1 GM TAB PO SCH (08:12)
[2020-08-19] MEDS: MULTIVITAMINS, THERA 1 EACH TAB PO SCH (08:13)
[2020-08-19] MEDS: APIXABAN 5 MG TAB PO SCH (08:13)
[2020-08-19] MEDS: METOPROLOL SUCCINATE (ER) 25 MG TAB.ER.24H PO SCH (08:13)
[2020-08-19] MEDS: dexAMETHasone 2 MG TAB PO SCH (08:13)
[2020-08-19] MEDS: PANTOPRAZOLE 40 MG TABLET PO SCH (08:15)
--- NOTE | 2020-08-19 08:32 | P.PN ---
Subjective Progress Note Date: 08/19/20 Principal diagnosis: This is a 55-year-old male with scleroderma pulmonary fibrosis, GERD paroxysmal atrial fibrillation and he nods was admitted with Covid 19 infection and is seen because of hyponatremia from SIADH. He has been treated with 1 dose of 12. OF YESTERDAY HIS SODIUM IMPROVED TO 134 from a low of 127 This morning he says he is feeling much better has had cough but much improved and is on nasal cannula and is comfortable. No nausea vomiting is able to walk. Patient was not examined in the room but was spoken from the room because of the Covid 19 It denies any dizziness. Objective - Vital Signs Vital signs: Vital Signs Temp 97.5 F L 08/19/20 05:30 Pulse 91 08/19/20 05:30 Resp 20 08/19/20 05:30 BP 117/82 08/19/20 05:30 Pulse Ox 98 08/19/20 02:00 Intake & Output 08/18/20 08/19/20 08/19/20 18:59 06:59 18:59 Intake Total 200 Balance 200 Intake: Oral 200 Other: Voiding Method Toilet Toilet Urinal Urinal # Voids 4 Patient was seen from the doorway and not examined and he looks comfortable on nasal cannula oxygen is awake alert oriented He denies any edema - Labs CBC & Chem 7: 08/18/20 06:04 08/18/20 06:04 Assessment and Plan Plan: Impression 1. SIADH responded to tolerate time sodium improved from 127-134, as of yest erday he did 2. Mild degree of metabolic alkalosis, additionally component of chronic respiratory acidosis, with subsequent compensate metabolic alkalosis. On 08/17/2020 2 days ago pH was 7.44 pCO2 58 pO2 120 bicarb was 40 on blood gases, this morning his labs showed sodium 134, 4.2, 90 count 39. Creatinine 0.4. 3. Scleroderma lung and other organs with pulmonary hypertension. 4. History of proximal atrial fibrillation Recommendation 1. Fluid restriction to 1200 mL 2. High protein diet. 3. Follow-up if discharge with sodiums as needed .
[2020-08-19] MEDS: ALBUTEROL HFA INHALER INHALATION PRN (08:59)
[2020-08-19] MEDS: TYVASO 0.6 MG/ML INHALATION SCH (09:09)
--- NOTE | 2020-08-19 09:10 | P.DS ---
Providers Date of admission: 08/14/20 18:16 Expected date of discharge: 08/19/20 Attending physician: Madhavi Melo Consults: 08/14/20 18:17 Consult Physician Routine Consulting Provider: Noreen Chaves Consult Reason/Comments: Scleroderma, pulmonary fibrosis pulmonary hypertension Do you want consulting provider notified?: Yes 08/14/20 18:18 Consult Physician Routine Consulting Provider: Anny Jaimes Consult Reason/Comments: Hyponatremia Do you want consulting provider notified?: Yes 08/15/20 19:49 Consult Physician Routine Consulting Provider: Sabas Duvall Consult Reason/Comments: possible seizure Do you want consulting provider notified?: Yes, Notify in am 08/15/20 19:51 Consult Physician Routine Consulting Provider: Kym Reza Consult Reason/Comments: abnormal EKG Do you want consulting provider notified?: Yes, Notify in am Primary care physician: Madhavi Melo [facility] Course: This is a 55-year-old male patient with past medical history of gastroesophageal reflux disease and esophageal dysmotility, hypertension, secondary pulmonary hypertension, paroxysmal atrial fibrillation on eliquis, Raynaud's disease, remote history of tobacco use, chronic hypoxic respiratory failure on home O2 at 3 L nasal cannula, pulmonary fibrosis secondary to progressive systemic sclerosis or scleroderma. Biopsy in 2013 showed evidence of usual interstitial pneumonia. He follows regularly with pulmonary and rheumatology at [facility] and has considered lung transplant but has declined moving forward with this. He was hospitalized from August 05 through August 12 which time he was treated for acute hypoxic respiratory failure still secondary to scleroderma lung and pulmonary fibrosis along with COVID19 pneumonitis completed course of Remdesivir. Patient came into the office yesterday to have a recheck following admission and have blood work done. While in the office patient was found to be dyspneic with a pulse ox of 70% and that his portable oxygen tank was not working. Patient was afebrile, heart rate 76, blood pressure 130/94. Pulse ox 100% on oxygen. WBC 14.5, hemoglobin 13, platelet count 436. Sodium 128, potassium 3.7, chloride 86, BUN 35, creatinine 21, BUN 0.42. Blood sugar 67. Liver function tests normal. Lactic acid 1.16. Chest x-ray reveals multifocal bilateral airspace opacities related to Covid pneumonia unchanged. This morning, patient states that he is feeling much better from yesterday. He is complaining of significant right index finger pain due to ulceration. He states he woke up coughing this morning but improved at the time of the valve. He denies any nausea or vomiting. 08/17: Patient had episode of slurred speech, left-sided weakness and episode of unresponsiveness last night. Consult with neurology has been added and patient was seen by Dr. Duvall. He feels syncopal episode was vasovagal. No arrhythmia was noted. Less likely to be seizure activity. He also had the altered mental status with mild speech difficulty and left-sided weakness that is resolved this morning. Patient underwent a CAT scan of the brain that shows negative for acute process. Minimal left maxillary sinusitis. CTA of head and neck was normal. No large vessel occlusion, no aneurysm. Echocardiogram reveals EF of 50-55%. Recommendations to continue eliquis 5 mg daily and neurology has signed off. Patient is followed by nephrology regarding hyponatremia secondary to SIADH maintained on sodium chloride tablets and fluid restriction of 1.2 l. And mental status is back to his baseline this morning. He is complaining of stuffy nose and ears plugged sensation. We will add on Decadron 6 mg daily. PT and OT. Patient is on ensure 3 times daily. Patient is afebrile, heart rate 98, blood pressure 96/67, pulse ox 96% on 4 L nasal cannula. Repeat blood work reveals hemoglobin of 12.3. Sodium 127, potassium 3.6, chloride 87, CO2 37, BUN 14 and creatinine 0.36. 08/18: Patient breathing status is stable. He has pulse ox 100% on 4 L nasal cannula. Blood pressure 118/74, heart rate 77, afebrile. Repeat blood work reveals 70 BC 9.3, hemoglobin 11.5, platelet count 346. Sodium 134, potassium 4.2, chloride 90, CO2 39, BUN 16 creatinine 0.77. Liver function tests are normal. Patient's mental status is at his baseline. He is requesting to go to [facility] today. [facility] has been contacted and at this point, no beds are available that they will reassess tomorrow and see if patient even qualifies for transfer. This time they are refusing transfer as of today. Discharge diagnoses: 1. Acute chronic hypoxemic respiratory failure, multifactorial, in part related to underlying scleroderma lung/pulmonary fibrosis, as well as COVID 19 pneumonitis. Continue Ventolin inhaler, eliquis, pulmonary medicine consult appreciated. 2. Chronic hyponatremia secondary to SIADH. Consult with nephrology appreciated. Continue sodium chloride tablets. 3. Paroxysmal atrial fibrillation, status post ablation. Continue eliquis 5 mg twice daily, Toprol-XL 25 mg daily. 4. 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 No history of of lung transplantation. 5. Raynaud's disease, with digital ulceration and pain worse to the right index finger. 6. Hypertension. Continue Toprol-XL 25 mg daily. 7. Pulmonary hypertension. Continue Revatio 20 mg 3 times daily oral. 8. Gastroesophageal reflux disease and GI prophylaxis. Continue Protonix 40 mg oral twice daily. 9. Esophageal dysmotility secondary to scleroderma. Continue rifaximin 550 mg twice daily as needed, Revatio 20 mg 3 times daily, Prucalopride 2 mg daily. 10. Hyperlipidemia. 10. Chronic hypoxemic respiratory failure on home O2 at 3 L nasal cannula. 11. Thrombocytopenia, continue to monitor. 12. Unresponsive episode secondary to vasovagal, resolved. 13. Brief episode of altered mental status with mild speech difficulty and left-sided weakness now resolved. Possible delirium versus TIA. Patient is back to baseline. Patient Condition at Discharge: Stable Plan - Discharge Summary Discharge Rx Participant: No New Discharge Prescriptions: No Action Hyoscyamine Sulfate [Levsin-Sl] 0.125 mg SL Q4-6H PRN PRN Reason: CRAMPING Multivitamins, Thera [Multivitamin (formulary)] 1 tab PO DAILY Metoprolol Succinate [Toprol XL] 25 mg PO DAILY Fluticasone Nasal [place] [Flonase Nasal [place]] 2 spr EA NOSTRIL DAILY Albuterol Inhaler [Ventolin Hfa Inhaler] 4 puff INHALATION RT-Q4H PRN PRN Reason: Shortness Of Breath Prucalopride Succinate [Motegrity] 2 mg PO DAILY Ondansetron HCl [Zofran] 4 mg PO Q8H PRN PRN Reason: Nausea And Vomiting Rifaximin [Xifaxan] 550 mg PO BID PRN PRN Reason: IBS Sildenafil [Revatio] 20 mg PO TID Omeprazole 40 mg PO BID Apixaban [Eliquis] 5 mg PO BID Sandostatin 50mcg/Ml 50 mcg SQ HS Ipratropium [place] 0.06%Nasal [Atrovent Nasal 0.06%] 2 spray EA NOSTRIL BID Tyvaso 0.6mg/Ml 3 - 9 puff INHALATION RT-QID Sodium Chloride Tab 1 gm PO BID #60 tab Lidocaine HCl/Benzyl Alcohol [Salonpas Lidocain Pls 4-10% Cr] 1 applic TOPICAL Q6H PRN PRN Reason: Pain Discharge Medication List Albuterol Inhaler [Ventolin Hfa Inhaler] 4 puff INHALATION RT-Q4H PRN 08/05/20 [History] Apixaban [Eliquis] 5 mg PO BID 08/05/20 [History] Fluticasone Nasal [place] [Flonase Nasal [place]] 2 spr EA NOSTRIL DAILY 08/05/20 [History] Hyoscyamine Sulfate [Levsin-Sl] 0.125 mg SL Q4-6H PRN 08/05/20 [History] Ipratropium [place] 0.06%Nasal [Atrovent Nasal 0.06%] 2 spray EA NOSTRIL BID 08/05/20 [History] Metoprolol Succinate [Toprol XL] 25 mg PO DAILY 08/05/20 [History] Multivitamins, Thera [Multivitamin (formulary)] 1 tab PO DAILY 08/05/20 [History] Omeprazole 40 mg PO BID 08/05/20 [History] Ondansetron HCl [Zofran] 4 mg PO Q8H PRN 08/05/20 [History] Prucalopride Succinate [Motegrity] 2 mg PO DAILY 08/05/20 [History] Rifaximin [Xifaxan] 550 mg PO BID PRN 08/05/20 [History] Sandostatin 50mcg/Ml 50 mcg SQ HS 08/05/20 [History] Sildenafil [Revatio] 20 mg PO TID 08/05/20 [History] Tyvaso 0.6mg/Ml 3 - 9 puff INHALATION RT-QID 08/05/20 [History] Sodium Chloride Tab 1 gm PO BID #60 tab 08/12/20 [Rx] Lidocaine HCl/Benzyl Alcohol [Salonpas Lidocain Pls 4-10% Cr] 1 applic TOPICAL Q6H PRN 08/16/20 [History] Follow up Appointment(s)/Referral(s): Anne-Marie Helton MD [STAFF PHYSICIAN] - 2 Weeks Madhavi Melo MD [Primary Care Provider] - 1-2 days Activity/Diet/Wound Care/Special Instructions: HOME MEDS DOWN IN PHARMACY AND ALSO IN MED ROOM!!!!!!!!!!!!!
[2020-08-19 10:00] VITALS: BP 115/84; PULSE 83; RESP 16; TEMP 97.6
== END 2020-08-19 11:33 | disposition home health service (06) | DRG 177 ==
LOC: EC 15:54 → 4SSUR 18:16
PROVIDERS: ADMIT Internal Medicine; ATTEND Internal Medicine
DX: U07.1 COVID-19 (principal); J12.82 Pneumonia due to coronavirus disease 2019; J96.21 Acute and chronic respiratory failure with hypoxia; E87.2 Acidosis; I47.1 Supraventricular tachycardia; E22.2 Syndrome of inappropriate secretion of antidiuretic hormone; I48.0 Paroxysmal atrial fibrillation; M34.9 Systemic sclerosis, unspecified; I73.00 Raynaud's syndrome without gangrene; I10 Essential (primary) hypertension; R55 Syncope and collapse; I45.10 Unspecified right bundle-branch block; K21.9 Gastro-esophageal reflux disease without esophagitis; D69.6 Thrombocytopenia, unspecified; J84.112 Idiopathic pulmonary fibrosis; E78.5 Hyperlipidemia, unspecified; M34.1 CR(E)ST syndrome; K22.4 Dyskinesia of esophagus; I27.29 Other secondary pulmonary hypertension; Z87.891 Personal history of nicotine dependence; Z99.81 Dependence on supplemental oxygen; Z82.49 Family history of ischemic heart disease and other diseases of the circulatory system
CPT/HCPCS: 36415; 36600; 70450; 70496; 70498; 71045; 71046; 80048; 80053; 82805; 83605; 83735; 83935; 84146; 84295; 85025; 85027; 85610; 85730; 93005; 93306; 94640; 94760

== ENCOUNTER 2020-08-31 11:16 | Observation (INO) | payer BC ==
[2020-08-31 12:12] LABS: Basophils % (A) 0 %; Eosinophils # (A) 0.3 k/uL (0-0.7); Eosinophils % (A) 4 %; HCT 38.5 % (39.0-53.0); HGB 12.8 gm/dL (13.0-17.5); Lymphocytes # (A) 0.5 k/uL (1.0-4.8); Lymphocytes % (A) 7 %; MCH 32.4 pg (25.0-35.0); MCHC 33.3 g/dL (31.0-37.0); MCV 97.1 fL (80.0-100.0); Mean Platelet Volume 7.2; Monocytes # (A) 0.4 k/uL (0-1.0); Monocytes % (A) 6 %; Neutrophils # (A) 5.5 k/uL (1.3-7.7); Neutrophils % (A) 82 %; Platelet Count 273 k/uL (150-450); RBC 3.97 m/uL (4.30-5.90); WBC 6.8 k/uL (3.8-10.6)
--- NOTE | 2020-08-31 12:17 | CT ---
EXAMINATION TYPE: CT brain wo con DATE OF EXAM: 08/31/2020 HISTORY: altered mental status CT DLP: 1031 mGycm. Automated Exposure Control for Dose Reduction was Utilized. TECHNIQUE: CT scan of the head is performed without contrast. COMPARISON: CT brain August 16, 2020. FINDINGS: Exam slightly suboptimal with some motion artifact degradation. There is no acute intracra nial hemorrhage or midline shift identified. There is mild diffuse ventricular and sulcal prominence consistent with diffuse age-related cerebral atrophy. There is mild low-attenuation in the periventr icular white matter consistent with chronic small vessel ischemic change. Old fracture deformity medi al wall left orbit redemonstrated. Patchy dependent fluid in the left sphenoid sinus seen on current study axial image 4. IMPRESSION: No acute intracranial hemorrhage or midline shift. There is mild diffuse age-related ce rebral atrophy and chronic small vessel ischemic change redemonstrated. Possible new mild left-sided acute sphenoid sinusitis, correlate clinically.
[2020-08-31 12:28] LABS: Partial Thromboplastin Time 28.3 sec (22.0-30.0); Prothrombin Time 10.4 sec (9.0-12.0)
[2020-08-31 12:30] LABS: ALT 22 U/L (4-49); AST 53 U/L (17-59); Acetaminophen <10.0 ug/mL; African American GFR (CKD) >90 (>60 ml/min/1.73 sqM); Albumin 3.6 g/dL (3.5-5.0); Alcohol <10 mg/dL; Alkaline Phosphatase 62 U/L (38-126); Blood Urea Nitrogen 27 mg/dL (9-20); Calcium 8.7 mg/dL (8.4-10.2); Carbon Dioxide 39 mmol/L (22-30); Chloride 91 mmol/L (98-107); Creatine Kinase 229 U/L (55-170); Glucose 87 mg/dL (74-99); Non-African American GFR(CKD) >90 (>60 ml/min/1.73 sqM); Salicylate <1.0 mg/dL; Sodium 133 mmol/L (137-145); Total Bilirubin 0.6 mg/dL (0.2-1.3); Total Protein 6.5 g/dL (6.3-8.2)
--- NOTE | 2020-08-31 12:44 | XR ---
EXAMINATION TYPE: XR chest 1V DATE OF EXAM: 08/31/2020 COMPARISON: Chest x-ray August 15, 2020 and older studies HISTORY: Fall injury with pain. Altered mental status. COVID positive August 03. TECHNIQUE: Single frontal view of the chest is obtained. FINDINGS: There are persistent multifocal bilateral opacities on background chronic change. The card iac silhouette size is stable and upper limits of normal. The osseous structures are intact. IMPRESSION: As above. No significant change from most recent x-ray. Findings consistent with persist ent Covid-19 infection.
--- NOTE | 2020-08-31 12:46 | XR ---
EXAMINATION TYPE: XR pelvis AP view DATE OF EXAM: 08/31/2020 CLINICAL HISTORY: Fall injury with pain. TECHNIQUE: 4 views of the pelvis are attempted.. COMPARISON: None. FINDINGS: There is no acute fracture/dislocation evident in the pelvis. The hip and sacroiliac join ts appear symmetric and are thought within normal limits. Mild to borderline moderate axial joint spa ce loss in both hips. Pubic symphysis is intact. Suspect 2.1 cm chondroid lesion left proximal femur subtrochanteric level. There is 1.1 cm density over left sacrum possible phlebolith. IMPRESSION: There is no acute fracture or dislocation in the pelvis.
--- NOTE | 2020-08-31 12:47 | XR ---
EXAMINATION TYPE: XR wrist complete RT DATE OF EXAM: 08/31/2020 CLINICAL HISTORY: Pain. TECHNIQUE: Frontal, lateral and oblique images of the right wrist are obtained. 4 view scaphoid vie w is performed. COMPARISON: None FINDINGS: There is no acute fracture/dislocation evident in the right wrist. Moderate to severe narr owing base of first metacarpal with bony re-formation. Carpal joint spaces otherwise maintained. The overlying soft tissue appears unremarkable. IMPRESSION: As above.
[2020-08-31 12:51] LABS: Potassium 3.2 mmol/L (3.5-5.1)
[2020-08-31 13:00] LABS: Anion Gap 8 mmol/L
--- NOTE | 2020-08-31 14:00 | P.HPIM ---
History of Present Illness H&P Date: 08/31/20 HISTORY OF PRESENT ILLNESS This is a 55-year-old male patient with past medical history of gastroesophageal reflux disease and esophageal dysmotility, hypertension, secondary pulmonary hypertension, paroxysmal atrial fibrillation on eliquis, Raynaud's disease, remote history of tobacco use, chronic hypoxic respiratory failure on home O2 at 3 L nasal cannula, pulmonary fibrosis secondary to progressive systemic sclerosis or scleroderma. Biopsy in 2013 showed evidence of usual interstitial pneumonia. He follows regularly with pulmonary and rheumatology at [facility] and has considered lung transplant but has declined moving forward with this. He was hospitalized from August 05 through August 12 which time he was treated for acute hypoxic respiratory failure still secondary to scleroderma lung and pulmonary fibrosis along with COVID19 pneumonitis completed course of Remdesivir. Patient had a cystoscopy hospitalization for acute on chronic hypoxic respiratory failure and was discharged home on a program . Patient went home with his but has found that she is unable to care for him. She apparently has fallen 4 times in the last 24 hours. She is unable to help him up as he is too heavy for her. Patient presented to [facility] emergency center for evaluation. CAT scan of the brain showed no acute intracranial hemorrhage or midline shift. There is mild diffuse age-related cerebral atrophy and chronic small vessel ischemic change. Possible new left sided acute sphenoid sinusitis. Chest x-ray showed persistent changes consistent with Covid. A pelvis x-ray showed no acute fracture or dislocation. Right wrist x-ray shows no acute fracture or dislocation. He was afebrile, heart rate 88, blood pressure 107/81, pulse ox 93% on room air. INR 1.0. Sodium 133, potassium 3.2, chloride 91, CO2 39, BUN 27 creatinine 0.39. Ammonia level less than 9. Liver function tests normal. CK 229. Troponin negative. TSH 2.1. Acetaminophen, salicylate and alcohol levels all normal. Patient is awake alert he is oriented and able to answer all questions appropriately but his speech is very rapid repetitive main ding that his daughter be contacted to take care of him. Patient verbalizes that he does not want to go to rehab which is been asked on multiple occasions. Patient repeatedly asked for a warm blanket. Patient has had some behavioral type changes since his Covid diagnoses. He does not have any underlying mental health illness. The patient's will be contacted later today PFO. REVIEW OF SYSTEMS Constitutional: No fever, no chills, no night sweats. No weight change. Reports weakness, reports fatigue. No daytime sleepiness. EENT: No headache. No blurred vision or double vision, no loss of vision. No loss of Hearing, no ringing in the ears, no dizziness. No nasal drainage or congestion. No epistaxis. No sore throat. LungsDeniesss of breath, reports cough, no sputum production. No wheezing. Cardiovascular: No chest pain, no lower extremity edema. No palpitations. No paroxysmal nocturnal dyspnea. No orthopnea. No lightheadedness or dizziness. No syncopal episodes. Abdominal: No abdominal pain. No nausea, vomiting. No diarrhea. No constipa tion. No bloody or tarry stools.. No loss of appetite. Genitourinary: No dysuria, increased frequency, urgency. No urinary retention. Musculoskeletal: No myalgias. reportsle weakness, reportsit dysfunction, reportsnt falls. No back pain. No neck pain. Integumentary: Reports chronic wounds, no lesions. No rash or pruritus. No unusual bruising. No change in hair or nails. Neurologic: No aphasia. No facial droop. No change in mentation. No head injury. No headache. No paralysis. No paresthesia. Psychiatric: No depression. No anxiety. noted mood swings. Endocrine: No abnormal blood sugars. No weight change. SOCIAL HISTORY Patient was a smoker of half a pack per day for 11 years and quit in 1993. Denies alcohol abuse. Patient lives at home with his . FAMILY HISTORY Mother at age 47 and causes not known to the patient, father at age 56 from his second heart attack with history of heavy smoking and alcohol intake. Patient's 1 brother with no major medical problems. Patient has 2 sisters and one is from a motor vehicle accident. Second sister he does not have any contact with. Patient is one daughter with no major medical problems. PHYSICAL EXAMINATION Gen: This is a 55-year-old male. He is resting in bed and appears to be comfortable at rest and in no acute distress. HEENT: Head is atraumatic, normocephalic. Pupils equal, round. Sclerae is anicteric. NECK: Supple. No JVD. No lymphadenopathy. No thyromegaly. LUNGS: few scattered Rhonchi bilaterally. No intercostal retractions. HEART: Regular rate and rhythm. No murmur. ABDOMEN: Soft. Bowel sounds are present. No masses. No tenderness. EXTREMITIES: No pedal edema. No calf tenderness. Fingertip ulcerations with chronic dusky changes to the fingertips secondary to scleroderma. NEUROLOGICAL: Patient is awake, alert and oriented x3. Cranial nerves 2 through 12 are grossly intact. ASSESSMENT AND PLAN 1. Acute debilitation secondary to multiple underlying medical conditions including worsening scleroderma lung/pulmonary fibrosis, as well as post acute Covid syndrome. PT, OT, nursing home social worker consult. Fall precautions.. 2. Acute manic episode. No underlying history of psychiatric diagnoses. Consult with psychiatry. 3. Systemic scleroderma with pulmonary fibrosis, currently stable. Continue Ventolin inhaler. 4. Chronic hyponatremia, stable. 5. Paroxysmal atrial fibrillation, status post ablation. Continue eliquis 5 mg twice daily, Toprol-XL 25 mg daily. 6. 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 No history of of lung transplantation. 7. Raynaud's disease, with digital ulceration and pain worse to the right index finger. 8. Hypertension. Continue Toprol-XL 25 mg daily. 9. Pulmonary hypertension. Continue Revatio 20 mg 3 times daily oral. 10. Gastroesophageal reflux disease and GI prophylaxis. Continue Protonix 40 mg oral twice daily. 11. Esophageal dysmotility secondary to scleroderma. Continue rifaximin 550 mg twice daily as needed, Revatio 20 mg 3 times daily, Prucalopride 2 mg daily. 12. Hyperlipidemia. 13. Chronic hypoxemic respiratory failure on home O2 at 3 L nasal cannula. 14. DVT prophylaxis. Continue eliquis 5 mg twice daily. Patient will be admitted to the hospital for a minimum of 2 night stay. DISCHARGE PLAN Subacute rehab. Impression and plan of care have been directed as dictated by the signing physician. Shana Iverson nurse practitioner acting as scribe for signing physician. Past Medical History Past Medical History: GERD/Reflux, Hypertension, Supraventricular Tachycardia (SVT) Additional Past Medical History / Comment(s): Pulmonary fibrosis, scleroderma, SIBO, Raynauds, History of Any Multi-Drug Resistant Organisms: None Reported Past Surgical History: Appendectomy, Heart Catheterization Additional Past Surgical History / Comment(s): double lung transplant Past Anesthesia/Blood Transfusion Reactions: No Reported Reaction Past Psychological History: No Psychological Hx Reported Smoking Status: Former smoker Past Alcohol Use History: Daily Past Drug Use History: None Reported - Past Family History Father Family Medical History: Myocardial Infarction ([place]) Medications and Allergies Home Medications Medication Instructions Recorded Confirmed Type Albuterol Inhaler [Ventolin Hfa 4 puff INHALATION RT-Q4H PRN 08/05/20 08/31/20 History Inhaler] Apixaban [Eliquis] 5 mg PO BID 08/05/20 08/31/20 History Fluticasone Nasal [place] [Flonase 2 spr EA NOSTRIL DAILY 08/05/20 08/31/20 History Nasal [place]] Hyoscyamine Sulfate [Levsin-Sl] 0.125 mg SL Q4-6H PRN 08/05/20 08/31/20 History Ipratropium [place] 0.06%Nasal 2 spray EA NOSTRIL BID 08/05/20 08/31/20 History [Atrovent Nasal 0.06%] Metoprolol Succinate [Toprol XL] 25 mg PO DAILY 08/05/20 08/31/20 History Multivitamins, Thera [Multivitamin 1 tab PO DAILY 08/05/20 08/31/20 History (formulary)] Omeprazole 40 mg PO BID 08/05/20 08/31/20 History Ondansetron HCl [Zofran] 4 mg PO Q8H PRN 08/05/20 08/31/20 History Prucalopride Succinate [Motegrity] 2 mg PO DAILY 08/05/20 08/31/20 History Rifaximin [Xifaxan] 550 mg PO BID PRN 08/05/20 08/31/20 History Sandostatin 50mcg/Ml 50 mcg SQ HS 08/05/20 08/31/20 History Sildenafil [Revatio] 20 mg PO TID 08/05/20 08/31/20 History Tyvaso 0.6mg/Ml 3 - 9 puff INHALATION RT-QID 08/05/20 08/31/20 History Sodium Chloride Tab 1 gm PO BID #60 tab 08/12/20 08/31/20 Rx Lidocaine HCl/Benzyl Alcohol 1 applic TOPICAL Q6H PRN 08/16/20 08/31/20 History [Salonpas Lidocain Pls 4-10% Cr] Nitroglycerin Oint [Nitro-Bid Oint] 1 inch TRANSDERM Q6H PRN 08/31/20 08/31/20 History Olmesartan/Hydrochlorothiazide 1 tab PO DAILY 08/31/20 History [Benicar Hct 40-25 mg Tablet] hydrOXYzine HCL 10 mg PO TID 08/31/20 08/31/20 History Allergies Allergy/AdvReac Type Severity Reaction Status Date / Time hydrochlorothiazide Allergy Confusion Verified 08/31/20 13:17 Physical Exam Vitals: Vital Signs Temp Pulse Resp BP Pulse Ox 08/31/20 11:18 98.6 F 88 24 107/81 93 L Intake and Output 08/30/20 08/31/20 08/31/20 22:59 06:59 14:59 Other: Weight 68.039 kg Results CBC & Chem 7: 08/31/20 11:45 08/31/20 11:45 Labs: Abnormal Lab Results - Last 24 Hours (Table) 08/31/20 08/31/20 Range/Units 11:45 11:45 RBC 3.97 L (4.30-5.90) m/uL Hgb 12.8 L (13.0-17.5) gm/dL Hct 38.5 L (39.0-53.0) % Lymphocytes # 0.5 L (1.0-4.8) k/uL Sodium 133 L (137-145) mmol/L Potassium 3.2 L (3.5-5.1) mmol/L Chloride 91 L (98-107) mmol/L Carbon Dioxide 39 H (22-30) mmol/L BUN 27 H (9-20) mg/dL Creatinine 0.39 L (0.66-1.25) mg/dL Creatine Kinase 229 H (55-170) U/L
[2020-08-31] MEDS ORDERED: NALOXONE 0.4 MG/ML 1 ML VIAL IV PRN (14:49)
--- NOTE | 2020-08-31 14:49 | ED ---
Altered Mental Status HPI - General Chief Complaint: Altered Mental Status Stated Complaint: AMS Source: patient, EMS Mode of arrival: EMS Limitations: no limitations - History of Present Illness Initial Comments: Patient is a 55-year-old male with past medical history of scleroderma, pulmonary fibrosis, recent covid infection who presents emergency Department with altered mental status. states the patient has been more aggressive and delirious at home. He was recent discharge from her facility and the 13th after he did. He did have some delirium while hospitalized. He has no previous psychiatric history. Denies any chest pain or shortness of breath. No recent h ead trauma. Patient is manic upon evaluation. He is able to answer questions appropriately. States that his cannot care for him and he was dropped 4 times yesterday on the ground. He complains of buttock pain and right wrist pain. No other alleviating, precipitating or modifying factors - Related Data Home Medications Medication Instructions Recorded Confirmed Albuterol Inhaler [Ventolin Hfa 4 puff INHALATION RT-Q4H PRN 08/05/20 08/31/20 Inhaler] Apixaban [Eliquis] 5 mg PO BID 08/05/20 08/31/20 Fluticasone Nasal [place] [Flonase 2 spr EA NOSTRIL DAILY 08/05/20 08/31/20 Nasal [place]] Hyoscyamine Sulfate [Levsin-Sl] 0.125 mg SL Q4-6H PRN 08/05/20 08/31/20 Ipratropium [place] 0.06%Nasal 2 spray EA NOSTRIL BID 08/05/20 08/31/20 [Atrovent Nasal 0.06%] Metoprolol Succinate [Toprol XL] 25 mg PO DAILY 08/05/20 08/31/20 Multivitamins, Thera [Multivitamin 1 tab PO DAILY 08/05/20 08/31/20 (formulary)] Omeprazole 40 mg PO BID 08/05/20 08/31/20 Ondansetron HCl [Zofran] 4 mg PO Q8H PRN 08/05/20 08/31/20 Prucalopride Succinate [Motegrity] 2 mg PO DAILY 08/05/20 08/31/20 Rifaximin [Xifaxan] 550 mg PO BID PRN 08/05/20 08/31/20 Sandostatin 50mcg/Ml 50 mcg SQ HS 08/05/20 08/31/20 Sildenafil [Revatio] 20 mg PO TID 08/05/20 08/31/20 Tyvaso 0.6mg/Ml 3 - 9 puff INHALATION RT-QID 08/05/20 08/31/20 Lidocaine HCl/Benzyl Alcohol 1 applic TOPICAL Q6H PRN 08/16/20 08/31/20 [Salonpas Lidocain Pls 4-10% Cr] hydrOXYzine HCL 10 mg PO TID 08/31/20 08/31/20 Previous Rx's Medication Instructions Recorded Sodium Chloride Tab 1 gm PO BID #60 tab 08/12/20 Divalproex ER [Depakote ER] 500 mg PO HS tab.er.24h 09/04/20 HYDROcodone/APAP 7.5-325MG [Lilly 1 each PO Q6H PRN #12 tab 09/04/20 7.5-325] LORazepam [Ativan] 0.5 mg PO BID PRN #6 tab 09/04/20 OLANZapine [ZyPREXA] 2.5 mg PO BID tab 09/04/20 Allergies Allergy/AdvReac Type Severity Reaction Status Date / Time hydrochlorothiazide Allergy Confusion Verified 08/31/20 13:17 Review of Systems ROS Statement: Those systems with pertinent positive or pertinent negative responses have been documented in the HPI. ROS Other: All systems not noted in ROS Statement are negative. Past Medical History Past Medical History: GERD/Reflux, Hypertension, Supraventricular Tachycardia (SVT) Additional Past Medical History / Comment(s): Pulmonary fibrosis, scleroderma, SIBO, Raynauds, History of Any Multi-Drug Resistant Organisms: None Reported Past Surgical History: Appendectomy, Heart Catheterization Additional Past Surgical History / Comment(s): double lung transplant Past Anesthesia/Blood Transfusion Reactions: No Reported Reaction Past Psychological History: No Psychological Hx Reported Smoking Status: Former smoker Past Alcohol Use History: Daily Past Drug Use History: None Reported - Past Family History Father Family Medical History: Myocardial Infarction (MS) General Exam Limitations: no limitations, altered mental status General appearance: anxious, cachectic Head exam: Present: atraumatic, normocephalic, normal inspection Eye exam: Present: normal appearance, PERRL, EOMI. Absent: scleral icterus, conjunctival injection, periorbital swelling Neck exam: Present: normal inspection. Absent: tenderness, meningismus, lymphadenopathy Respiratory exam: Present: normal lung sounds bilaterally. Absent: respiratory distress, wheezes, rales, rhonchi, stridor Cardiovascular Exam: Present: regular rate, normal rhythm, normal heart sounds. Absent: systolic murmur, diastolic murmur, rubs, gallop, clicks GI/Abdominal exam: Present: soft, normal bowel sounds. Absent: distended, tenderness, guarding, rebound, rigid Neurological exam: Present: alert, oriented X3 Psychiatric exam: Present: agitated, manic Course Vital Signs 08/31/20 08/31/20 08/31/20 11:18 13:56 15:52 Temperature 98.6 F Pulse Rate 88 110 H 99 Pulse Rate [ Pulse Oximetery ] Respiratory 24 22 20 Rate Blood Pressure 107/81 115/62 118/62 Blood Pressure [Right Arm] O2 Sat by Pulse 93 L 95 96 Oximetry 08/31/20 08/31/20 18:00 18:34 Temperature 97.9 F 97.9 F Pulse Rate 99 Pulse Rate [ 51 L Pulse Oximetery ] Respiratory 18 20 Rate Blood Pressure 147/85 Blood Pressure 110/65 [Right Arm] O2 Sat by Pulse 91 L 95 Oximetry Medical Decision Making - Medical Decision Making Upon arrival patient was placed into room 6. A thorough history and physical exam is performed. Patient is able to answer all questions appropriate. He does demonstrate manic behavior. IV is established and laboratory studies are conducted. A sodium mildly low at 133. CT of the brain demonstrates no acute findings. Chest x-ray continues to demonstrate residual Covid infection. Pelv ic x-ray demonstrates no acute fracture. Wrist x-ray demonstrates no acute fracture dislocation. I did speak with Dr. Melo her does present to the emergency department. He does agree to admit the patient. Patient is currently awaiting a bed on the floor. Psychiatry was consult - Lab Data Result diagrams: 09/01/20 10:05 09/01/20 10:05 Lab Results 08/31/20 08/31/20 08/31/20 Range/Units 11:45 11:45 11:45 WBC 6.8 (3.8-10.6) k/uL RBC 3.97 L (4.30-5.90) m/uL Hgb 12.8 L (13.0-17.5) gm/dL Hct 38.5 L (39.0-53.0) % MCV 97.1 (80.0-100.0) fL MCH 32.4 (25.0-35.0) pg MCHC 33.3 (31.0-37.0) g/dL RDW 13.0 (11.5-15.5) % Plt Count 273 (150-450) k/uL MPV 7.2 Neutrophils % 82 % Lymphocytes % 7 % Monocytes % 6 % Eosinophils % 4 % Basophils % 0 % Neutrophils # 5.5 (1.3-7.7) k/uL Lymphocytes # 0.5 L (1.0-4.8) k/uL Monocytes # 0.4 (0-1.0) k/uL Eosinophils # 0.3 (0-0.7) k/uL Basophils # 0.0 (0-0.2) k/uL PT 10.4 (9.0-12.0) sec INR 1.0 (<1.2) APTT 28.3 (22.0-30.0) sec Sodium 133 L (137-145) mmol/L Potassium 3.2 L (3.5-5.1) mmol/L Chloride 91 L (98-107) mmol/L Carbon Dioxide 39 H (22-30) mmol/L Anion Gap 8 mmol/L BUN 27 H (9-20) mg/dL Creatinine 0.39 L (0.66-1.25) mg/dL Est GFR (CKD-EPI)AfAm >90 (>60 ml/min/1.73 sqM) Est GFR (CKD-EPI)NonAf >90 (>60 ml/min/1.73 sqM) Glucose 87 (74-99) mg/dL Calcium 8.7 (8.4-10.2) mg/dL Total Bilirubin 0.6 (0.2-1.3) mg/dL AST 53 (17-59) U/L ALT 22 (4-49) U/L Alkaline Phosphatase 62 (38-126) U/L Ammonia (<30) umol/L Creatine Kinase 229 H (55-170) U/L Troponin I (0.000-0.034) ng/mL Total Protein 6.5 (6.3-8.2) g/dL Albumin 3.6 (3.5-5.0) g/dL TSH 2.100 (0.465-4.680) mIU/L Salicylates <1.0 mg/dL Acetaminophen <10.0 ug/mL Serum Alcohol <10 mg/dL 08/31/20 08/31/20 Range/Units 11:45 11:45 WBC (3.8-10.6) k/uL RBC (4.30-5.90) m/uL Hgb (13.0-17.5) gm/dL Hct (39.0-53.0) % MCV (80.0-100.0) fL MCH (25.0-35.0) pg MCHC (31.0-37.0) g/dL RDW (11.5-15.5) % Plt Count (150-450) k/uL MPV Neutrophils % % Lymphocytes % % Monocytes % % Eosinophils % % Basophils % % Neutrophils # (1.3-7.7) k/uL Lymphocytes # (1.0-4.8) k/uL Monocytes # (0-1.0) k/uL Eosinophils # (0-0.7) k/uL Basophils # (0-0.2) k/uL PT (9.0-12.0) sec INR (<1.2) APTT (22.0-30.0) sec Sodium (137-145) mmol/L Potassium (3.5-5.1) mmol/L Chloride (98-107) mmol/L Carbon Dioxide (22-30) mmol/L Anion Gap mmol/L BUN (9-20) mg/dL Creatinine (0.66-1.25) mg/dL Est GFR (CKD-EPI)AfAm (>60 ml/min/1.73 sqM) Est GFR (CKD-EPI)NonAf (>60 ml/min/1.73 sqM) Glucose (74-99) mg/dL Calcium (8.4-10.2) mg/dL Total Bilirubin (0.2-1.3) mg/dL AST (17-59) U/L ALT (4-49) U/L Alkaline Phosphatase (38-126) U/L Ammonia <9 (<30) umol/L Creatine Kinase (55-170) U/L Troponin I 0.013 (0.000-0.034) ng/mL Total Protein (6.3-8.2) g/dL Albumin (3.5-5.0) g/dL TSH (0.465-4.680) mIU/L Salicylates mg/dL Acetaminophen ug/mL Serum Alcohol mg/dL - EKG Data EKG Comments: EKG demonstrates normal sinus rhythm with a ventricular rate of 77. PA interval 146. QRS 116. QTC of 520. Diffuse ST segment depression in the 3 through V6. Incomplete right bundle-branch block. EKG is compared to previous and does appear similar morphology Disposition Clinical Impression: COVID-19, Hyponatremia, Acute encephalopathy Disposition: ADMITTED IP TO THIS [facility] Condition: Stable Is patient prescribed a controlled substance at d/c from ED?: No Decision to Admit Reason: Admit from EC Decision Date: 08/31/20 Decision Time: 14:49
[2020-08-31] MEDS ORDERED: ONDANSETRON 4 MG TAB PO PRN (15:07)
[2020-08-31] MEDS ORDERED: [UNRECOGNIZED DRUG - OTHER] TOPICAL PRN (15:07)
[2020-08-31] MEDS ORDERED: LIDOCAINE TOPICAL PRN (15:07)
[2020-08-31] MEDS ORDERED: RIFAXIMIN 550 MG TABLET PO PRN (15:07)
[2020-08-31] MEDS: SODIUM CHLORIDE 0.9% 1,000 ML IV SCH (15:59)
[2020-08-31] MEDS: hydrOXYzine HCL 10 MG TAB PO SCH ×2 (19:05→22:45)
[2020-08-31] MEDS: SILDENAFIL 20 MG TAB PO SCH ×2 (19:05→22:46)
[2020-08-31] MEDS: APIXABAN 5 MG TAB PO SCH (22:44)
[2020-08-31] MEDS: PANTOPRAZOLE 40 MG TABLET PO SCH (22:45)
[2020-08-31] MEDS: OCTREOTIDE 100 MCG/ML INJ SQ SCH (22:46)
[2020-08-31] MEDS: IPRATROPIUM BROMIDE 0.06% NASAL SPRAY (15 ML) EA NOSTRIL SCH (22:56)
[2020-08-31] MEDS: SODIUM CHLORIDE TAB 1 GM TAB PO SCH (22:57)
[2020-09-01] MEDS ORDERED: LORazepam 0.5 MG TAB ONE ×2 (00:51→02:30)
[2020-09-01] MEDS: SODIUM CHLORIDE 0.9% 1,000 ML IV SCH (05:54)
[2020-09-01] MEDS ORDERED: PRUCALOPRIDE SUCCINATE 2 MG PO SCH (09:00)
[2020-09-01] MEDS: SODIUM CHLORIDE TAB 1 GM TAB PO SCH ×2 (10:01→20:43)
[2020-09-01] MEDS: PANTOPRAZOLE 40 MG TABLET PO SCH ×2 (10:02→20:43)
[2020-09-01] MEDS: hydrOXYzine HCL 10 MG TAB PO SCH (10:02)
[2020-09-01] MEDS: SILDENAFIL 20 MG TAB PO SCH ×3 (10:02→20:43)
[2020-09-01] MEDS: METOPROLOL SUCCINATE (ER) 25 MG TAB.ER.24H PO SCH (10:02)
[2020-09-01] MEDS: APIXABAN 5 MG TAB PO SCH ×2 (10:02→20:42)
[2020-09-01] MEDS: MULTIVITAMINS, THERA 1 EACH TAB PO SCH (10:03)
[2020-09-01] MEDS: FLUTICASONE 50MCG/SPRAY NASAL 16GM EA NOSTRIL SCH (10:03)
[2020-09-01 10:44] LABS: African American GFR (CKD) >90 (>60 ml/min/1.73 sqM); Anion Gap 6 mmol/L; Blood Urea Nitrogen 23 mg/dL (9-20); Calcium 8.6 mg/dL (8.4-10.2); Carbon Dioxide 37 mmol/L (22-30); Chloride 90 mmol/L (98-107); Glucose 113 mg/dL (74-99); Non-African American GFR(CKD) >90 (>60 ml/min/1.73 sqM); Potassium 3.5 mmol/L (3.5-5.1); Sodium 133 mmol/L (137-145)
[2020-09-01 10:48] LABS: Basophils % (A) 0 %; Eosinophils # (A) 0.1 k/uL (0-0.7); Eosinophils % (A) 1 %; HCT 39.6 % (39.0-53.0); HGB 12.9 gm/dL (13.0-17.5); Lymphocytes # (A) 0.5 k/uL (1.0-4.8); Lymphocytes % (A) 4 %; MCH 32.3 pg (25.0-35.0); MCHC 32.6 g/dL (31.0-37.0); MCV 99.3 fL (80.0-100.0); Mean Platelet Volume 7.1; Monocytes # (A) 0.6 k/uL (0-1.0); Monocytes % (A) 5 %; Neutrophils % (A) 89 %; Platelet Count 327 k/uL (150-450); RBC 3.99 m/uL (4.30-5.90); RDW 13.4 % (11.5-15.5); WBC 12.3 k/uL (3.8-10.6)
[2020-09-01] MEDS: HYDROcodone/APAP 7.5-325MG 1 EACH TAB PO PRN (11:24)
[2020-09-01] MEDS ORDERED: OLANZapine 2.5 MG TAB PO STA (11:43)
[2020-09-01] MEDS ORDERED: OLANZapine 5 MG TAB PO STA (11:43)
--- NOTE | 2020-09-01 12:51 | P.PN ---
Subjective Progress Note Date: 09/01/20 HISTORY OF PRESENT ILLNESS This is a 55-year-old male patient with past medical history of gastroesophageal reflux disease and esophageal dysmotility, hypertension, secondary pulmonary hypertension, paroxysmal atrial fibrillation on eliquis, Raynaud's disease, remote history of tobacco use, chronic hypoxic respiratory failure on home O2 at 3 L nasal cannula, pulmonary fibrosis secondary to progressive systemic sclerosis or scleroderma. Biopsy in 2013 showed evidence of usual interstitial pneumonia. He follows regularly with pulmonary and rheumatology at [facility] and has considered lung transplant but has declined moving forward with this. He was hospitalized from August 05 through August 12 which time he was treated for acute hypoxic respiratory failure still secondary to scleroderma lung and pulmonary fibrosis along with COVID19 pneumonitis completed course of Remdesivir. Patient had a cystoscopy hospitalization for acute on chronic hypoxic respiratory failure and was discharged home on a program . Patient went home with his but has found that she is unable to care for him. She apparently has fallen 4 times in the last 24 hours. She is unable to help him up as he is too heavy for her. Patient presented to [facility] emergency center for evaluation. CAT scan of the brain showed no acute intracranial hemorrhage or midline shift. There is mild diffuse age-related cerebral atrophy and chronic small vessel ischemic change. Possible new left sided acute sphenoid sinusitis. Chest x-ray showed persistent changes consistent with Covid. A pelvis x-ray showed no acute fracture or dislocation. Right wrist x-ray shows no acute fracture or dislocation. He was afebrile, heart rate 88, blood pressure 107/81, pulse ox 93% on room air. INR 1.0. Sodium 133, potassium 3.2, chloride 91, CO2 39, BUN 27 creatinine 0.39. Ammonia level less than 9. Liver function tests normal. CK 229. Troponin negative. TSH 2.1. Acetaminophen, salicylate and alcohol levels all normal. Patient is awake alert he is oriented and able to answer all questions appropriately but his speech is very rapid repetitive demanding that his daughter be contacted to take care of him. Patient verbalizes that he does not want to go to rehab which is been asked on multiple occasions. Patient repeatedly asked for a warm blanket. Patient has had some behavioral type changes since his Covid diagnoses. He does not have any underlying mental health illness. The patient's will be contacted later today PFO. 3/26: [facility]. He continues to have manic type behavior but is alert and oriented. Patient has been seen by psychiatry and started on Depakote ER 500 mg at bedtime, Zyprexa 7.5 mg once followed by 2.5 mg twice daily. Patient has been seen by social media editor with plans to start discharge planning. PT and OT are in place. Patient has been afebrile, heart rate 79, blood pressure 103/64, pulse ox 93% on 3 L nasal cannula. Repeat blood work reveals WBC 12.3, hemoglobin 12.9, platelet count 327. Sodium 133, potassium 3.5, chloride 90, CO2 37, BUN 23 and creatinine 0.43. Blood sugar 113. REVIEW OF SYSTEMS Constitutional: No fever, no chills, no night sweats. No weight change. Reports weakness, reports fatigue. No daytime sleepiness. EENT: No headache. No blurred vision or double vision, no loss of vision. No loss of Hearing, no ringing in the ears, no dizziness. No nasal drainage or congestion. No epistaxis. No sore throat. LungsDeniesss of breath, reports cough, no sputum production. No wheezing. Cardiovascular: No chest pain, no lower extremity edema. No palpitations. No paroxysmal nocturnal dyspnea. No orthopnea. No lightheadedness or dizziness. No syncopal episodes. Abdominal: No abdominal pain. No nausea, vomiting. No diarrhea. No constipation. No bloody or tarry stools.. No loss of appetite. Genitourinary: No dysuria, increased frequency, urgency. No urinary retention. Musculoskeletal: No myalgias. reportsle weakness, reportsit dysfunction, reportsnt falls. No back pain. No neck pain. Integumentary: Reports chronic wounds, no lesions. No rash or pruritus. No unusual bruising. No change in hair or nails. Neurologic: No aphasia. No facial droop. No change in mentation. No head injury. No headache. No paralysis. No paresthesia. Psychiatric: No depression. No anxiety. noted mood swings. Endocrine: No abnormal blood sugars. No weight change. PHYSICAL EXAMINATION Gen: This is a 55-year-old male. He is resting in bed and appears to be comfortable at rest and in no acute distress. HEENT: Head is atraumatic, normocephalic. Pupils equal, round. Sclerae is anicteric. NECK: Supple. No JVD. No lymphadenopathy. No thyromegaly. LUNGS: few scattered Rhonchi bilaterally. No intercostal retractions. HEART: Regular rate and rhythm. No murmur. ABDOMEN: Soft. Bowel sounds are present. No masses. No tenderness. EXTREMITIES: No pedal edema. No calf tenderness. Fingertip ulcerations with chronic dusky changes to the fingertips secondary to scleroderma. NEUROLOGICAL: Patient is awake, alert and oriented x3. Cranial nerves 2 through 12 are grossly intact. Patient has flight of ideas, speech is fast. And demanding ASSESSMENT AND PLAN 1. Acute debilitation secondary to multiple underlying medical conditions including worsening scleroderma lung/pulmonary fibrosis, as well as post acute Covid syndrome. PT, OT, social media editor consult. Fall precautions.. 2. Acute psychosis secondary to Covid 19. No underlying history of psychiatric diagnoses. Consult with psychiatry appreciated. Patient's been started on Depakote ER 500 mg at bedtime, Zyprexa 750 mg once followed by 2.5 mg twice daily. 3. Systemic scleroderma with pulmonary fibrosis, currently stable. Continue Ventolin inhaler. 4. Chronic hyponatremia, stable. 5. Paroxysmal atrial fibrillation, status post ablation. Continue eliquis 5 mg twice daily, Toprol-XL 25 mg daily. 6. 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 No history of of lung transplantation. 7. Raynaud's disease, with digital ulceration and pain worse to the right index finger. 8. Hypertension. Continue Toprol-XL 25 mg daily. 9. Pulmonary hypertension. Continue Revatio 20 mg 3 times daily oral. 10. Gastroesophageal reflux disease and GI prophylaxis. Continue Protonix 40 mg oral twice daily. 11. Esophageal dysmotility secondary to scleroderma. Continue rifaximin 550 mg twice daily as needed, Revatio 20 mg 3 times daily, Prucalopride 2 mg daily. 12. Hyperlipidemia. 13. Chronic hypoxemic respiratory failure on home O2 at 3 L nasal cannula. 14. DVT prophylaxis. Continue eliquis 5 mg twice daily. DISCHARGE PLAN Subacute rehab most likely on Friday or transfer to the psychiatric unit. Impression and plan of care have been directed as dictated by the signing physician. Shana Iverson nurse practitioner acting as scribe for signing physician. Objective - Vital Signs Vital signs: Vital Signs Temp 97.9 F 08/31/20 18:34 Pulse 99 08/31/20 18:34 Resp 20 09/01/20 02:00 BP 147/85 08/31/20 18:34 Pulse Ox 95 08/31/20 18:34 Intake & Output 08/31/20 09/01/20 09/01/20 18:59 06:59 18:59 Weight 68.039 kg 68.039 kg Other: Voiding Method Toilet Urinal # Voids 1 # Bowel Movements 1 - Labs CBC & Chem 7: 09/01/20 10:05 09/01/20 10:05 Labs: Abnormal Lab Results - Last 24 Hours (Table) 08/31/20 08/31/20 Range/Units 11:45 11:45 RBC 3.97 L (4.30-5.90) m/uL Hgb 12.8 L (13.0-17.5) gm/dL Hct 38.5 L (39.0-53.0) % Lymphocytes # 0.5 L (1.0-4.8) k/uL Sodium 133 L (137-145) mmol/L Potassium 3.2 L (3.5-5.1) mmol/L Chloride 91 L (98-107) mmol/L Carbon Dioxide 39 H (22-30) mmol/L BUN 27 H (9-20) mg/dL Creatinine 0.39 L (0.66-1.25) mg/dL Creatine Kinase 229 H (55-170) U/L
--- NOTE | 2020-09-01 13:27 | P.CN ---
Psychiatric Consult - . Consult date: 09/01/20 Consult:: IDENTIFYING DATA: This patient is a , employed, 55-year-old male with a significant history of scleroderma, esophageal dysmotility, pulmonary hypertension, atrial fibrillation, and chronic hypoxic respiratory failure who presented to [facility] for Altered Mental Status. REASON FOR CONSULT: Manic Behavior HISTORY OF PRESENT ILLNESS: The patient presented to the hospital on 08/31/1020 with a chief complaint of altered mental status. The patient was most recently admitted to this hospital from 08/12/2020 to 08/19/2020. and was treated for acute hypoxic respiratory failure secondary to pulmonary fibrosis along with Covid 19 pneumonia. During that course of treatment he completed a course of remdesivir and decadron. Currently, the patient is able to provide his medical history but is disorganized in doing so. He is presenting with pressured speech and is listing off his medical conditions including his scleroderma and possible need for lung transplantation in detail. He is not reporting any suicidal or homicidal ideation, intention, and/or plan. He is not reporting any auditory or visual hallucinations. He is denying any paranoia or other delusions. The patient reports no history of manic or psychotic behavior prior to his Covid diagnosis. Collateral information was provided by the patient's Geni Medellin. The patient's reports that the patient has not had any previous psychiatric history prior to him mahi Covid. She states that since mahi Covid, the patient has displayed significant manic behaviors. She reports that the patient has been displaying pressured speech, psychomotor agitation, and periods of excessive energy. She reports that the patient has been sleeping approximately only 3 hours per night. She does not report witnessing the patien t respond to any internal stimuli or endorse any paranoia. She does report that the patient does have a significant history of trauma and occasionally has nightmares regarding past traumatic events in his life. PAST PSYCHIATRIC HISTORY: The patient's reports that the patient may have symptoms of PTSD from trauma in the past. The patient has not been formally diagnosed with any mental illness prior to his admission. Both the patient and his report no significant history of psychotropic medications. The patient has been prescribed Vistaril 10 mg 3 times daily for anxiety. Patient and deny any previous psychiatric hospitalizations. Patient denies any psychiatric outpatient follow-up. Patient denies any history of suicide attempts in the past PAST MEDICAL HISTORY: Past Medical History: GERD/Reflux, Hypertension, Supraventricular Tachycardia (SVT) Additional Past Medical History / Comment(s): Pulmonary fibrosis, scleroderma, SIBO, Raynauds, History of Any Multi-Drug Resistant Organisms: None Reported Past Surgical History: Appendectomy, Heart Catheterization Additional Past Surgical History / Comment(s): double lung transplant Past Anesthesia/Blood Transfusion Reactions: No Reported Reaction ALLERGIES: hydrochlorothiazide CHEMICAL DEPENDENCY HISTORY: Both patient and reports the patient is not engage in any heavy alcohol, tobacco, or illicit drug use. FAMILY PSYCHIATRIC/SUBSTANCE USE HISTORY: The patient and his report no significant family history of mental illness or substance use disorders. SOCIAL HISTORY: The patient has been to his Geni for the last 25 years. 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 He has an associates degree in applied science. Him and his have a 22-year-old daughter who is in her last year at [employer]. Patient does have a history of incarceration but no active legal issues. MENTAL STATUS EXAM: General Appearance: Patient appears to be stated age is alert and intermittently cooperative. He appears emaciated and thin. Disheveled. Behavior: Psychomotor agitation is evident. The patient is constantly moving in bed and is attempting to cover himself with his bedsheets multiple times. Speech: Patient's speech is pressured, spontaneous, hyperverbal, difficult to interrupt, but with otherwise normal tone and volume. Mood/Affect: Patient reports their mood is "doing okay", affect is intense and expansive. Suicidality/Homicidality: Patient denies having any suicidal or homicidal ideation intent or plan. Perceptions: Patient denies any visual hallucinations and denies any auditory hallucinations Though content/process: delusional thought content is not evident. Thought process appears to be with the flight of ideas. Memory and concentration: AOX3, grossly intact for the purposes of this session. Can spell "WORLD" backwards Judgment and insight: fair IMPRESSIONS: Bipolar disorder, manic episode likely secondary to dexamethasone treatment VS. Covid-19 psychosis PLAN: -Significant discussion took place with the patient's regarding discharge disposition. The patient's is stating she is trying to have her transferred to [facility] for rehabilitation and relays that this is the desire of his outpatient physicians. She states they are wary about having the patient admitted to a Psychiatric unit as this may hinder this plan. -At this time, the patient DOES display criteria for inpatient psychiatric admission. We will hold admission at this time as the patient is not medically appropriate for transfer due to oxygen requirements. -EKG reviewed. QTc of 520 ms - NSR with Prolonged QT - Recheck QTc over this weekend. -Would recommend the following medication changes/additions: Start Zyprexa 2.5 mg by mouth for mood stabilization/psychosis - We will have to be conservative due to prolonged QTc interval Start Depakote 500 mg by mouth at bedtime for mood stabilization Increase hydroxyzine to 25 mg by mouth three times daily for anxiety -Continue 1:1 sitter for safety - Patient is impulsive and presents as a fall risk at this time. -Cannot leave AMA at this time. Patient will need a petition and certification if attempting to leave AMA. -Will continue to follow along. 09/01/20 13:26
[2020-09-01] MEDS: [UNRECOGNIZED DRUG - OTHER] TOPICAL PRN (16:01)
[2020-09-01] MEDS: IPRATROPIUM BROMIDE 0.06% NASAL SPRAY (15 ML) EA NOSTRIL SCH ×2 (16:18→20:43)
[2020-09-01] MEDS: hydrOXYzine HCL 25 MG TAB PO SCH ×2 (16:19→20:51)
[2020-09-01] MEDS: MOTEGRITY 2 MG PO SCH (16:19)
[2020-09-01] MEDS: OLANZapine 2.5 MG TAB PO SCH (20:42)
[2020-09-01] MEDS: DIVALPROEX ER 500 MG TAB.ER.24H PO SCH (20:42)
[2020-09-01] MEDS: LORazepam 0.5 MG TAB PO PRN (20:43)
[2020-09-01] MEDS: OCTREOTIDE 100 MCG/ML INJ SQ SCH (20:44)
[2020-09-01] MEDS ORDERED: OLANZapine 5 MG TAB PO SCH (21:00)
[2020-09-01] MEDS: ALBUTEROL HFA INHALER INHALATION PRN (21:07)
[2020-09-01 23:31] LABS: Appearance,Urine Clear (Clear); Bilirubin,Urine Negative (Negative); Blood,Urine Negative (Negative); Calcium Oxalate Crystals,Urine Few /hpf; Color,Urine Yellow; Glucose,Urine (UA) Negative (Negative); Ketones,Urine Negative (Negative); Leukocyte Esterase,Urine Negative (Negative); Mucus,Urine Many /hpf; Nitrite,Urine Negative (Negative); Protein,Urine 1+ (Negative); RBC,Urine 2 /hpf (0-5); Specific Gravity,Urine 1.035 (1.001-1.035); WBC,Urine 5 /hpf (0-5)
[2020-09-01 23:37] LABS: Amphetamine Screen,Urine Not Detected (NotDetected); Benzodiazepines Screen,Urine Detected (NotDetected); Cocaine Screen,Urine Not Detected (NotDetected); Opiate Screen,Urine Detected (NotDetected); Phencyclidine Screen,Urine Not Detected (NotDetected); Urn Cannabinoid Scrn Detected (NotDetected)
[2020-09-01 23:38] LABS: Barbiturate Screen,Urine Not Detected (NotDetected); Methadone Screen, Urine Not Detected (NotDetected); Oxycodone Screen, Urine Not Detected (NotDetected); Tricyclic Antidepressant,Urine Not Detected (NotDetected)
[2020-09-02] MEDS: ALBUTEROL HFA INHALER INHALATION PRN ×2 (08:00→11:59)
[2020-09-02] MEDS: FLUTICASONE 50MCG/SPRAY NASAL 16GM EA NOSTRIL SCH (09:22)
[2020-09-02] MEDS: PANTOPRAZOLE 40 MG TABLET PO SCH ×2 (09:22→22:41)
[2020-09-02] MEDS: MULTIVITAMINS, THERA 1 EACH TAB PO SCH (09:22)
[2020-09-02] MEDS: METOPROLOL SUCCINATE (ER) 25 MG TAB.ER.24H PO SCH (09:22)
[2020-09-02] MEDS: APIXABAN 5 MG TAB PO SCH ×2 (09:22→22:43)
[2020-09-02] MEDS: hydrOXYzine HCL 25 MG TAB PO SCH ×4 (09:23→22:41)
[2020-09-02] MEDS: MOTEGRITY 2 MG PO SCH (09:24)
[2020-09-02] MEDS: OLANZapine 2.5 MG TAB PO SCH ×2 (09:24→22:41)
[2020-09-02] MEDS: SILDENAFIL 20 MG TAB PO SCH ×4 (09:25→22:41)
[2020-09-02] MEDS: SODIUM CHLORIDE TAB 1 GM TAB PO SCH ×2 (09:25→22:41)
--- NOTE | 2020-09-02 10:32 | P.PN ---
Progress Note - Text Progress Note Date: 09/02/20 This 55 year old white male patient was admitted to Hospital because of the history of scleroderma and altered mental status. He also has a fibrosis of LUNGS. When he was admitted to Hospital he tested positive for COVID-19 pneumonia and was taking Remdesiver and Decadron. Subsequently he developed pressured speech, psychomotor agitation and was barely able to sleep for 3 hours at night. He does have a history of posttraumatic stress disorder. He developed prakash secondary to effects of possibly steroids that he was taking for pneumonia. He was started on Zyprexa 2.5 mg, Depakote 500 mg and Vistaril 25 mg 3 times daily. I did talk to his staff nurse who told me that he is drowsy, m umbling, hard to wake up at times. I met with the patient in his room and he went on to say that he is hungry, mouth is dry, his hands are cold. He has pressured speech and flight of ideas and is quite circumstantial. No motoric agitation was noted. His sleep has improved. This patient continues to show symptoms of prakash. I will keep him on same medication as yet. His manic psychosis is less but is still there and needs to stay on medication. I will not increase the dose given that his QTC was 520.
[2020-09-02] MEDS: HYDROcodone/APAP 7.5-325MG 1 EACH TAB PO PRN (13:36)
[2020-09-02] MEDS: LORazepam 0.5 MG TAB PO PRN (13:37)
[2020-09-02] MEDS: IPRATROPIUM BROMIDE 0.06% NASAL SPRAY (15 ML) EA NOSTRIL SCH (15:02)
--- NOTE | 2020-09-02 15:09 | P.PN ---
Subjective Progress Note Date: 09/02/20 HISTORY OF PRESENT ILLNESS This is a 55-year-old male patient with past medical history of gastroesophageal reflux disease and esophageal dysmotility, hypertension, secondary pulmonary hypertension, paroxysmal atrial fibrillation on eliquis, Raynaud's disease, remote history of tobacco use, chronic hypoxic respiratory failure on home O2 at 3 L nasal cannula, pulmonary fibrosis secondary to progressive systemic sclerosis or scleroderma. Biopsy in 2013 showed evidence of usual interstitial pneumonia. He follows regularly with pulmonary and rheumatology at [facility] and has considered lung transplant but has declined moving forward with this. He was hospitalized from August 05 through August 12 which time he was treated for acute hypoxic respiratory failure still secondary to scleroderma lung and pulmonary fibrosis along with COVID19 pneumonitis completed course of Remdesivir. Patient had a cystoscopy hospitalization for acute on chronic hypoxic respiratory failure and was discharged home on a program . Patient went home with his but has found that she is unable to care for him. She apparently has fallen 4 times in the last 24 hours. She is unable to help him up as he is too heavy for her. Patient presented to [facility] emergency center for evaluation. CAT scan of the brain showed no acute intracranial hemorrhage or midline shift. There is mild diffuse age-related cerebral atrophy and chronic small vessel ischemic change. Possible new left sided acute sphenoid sinusitis. Chest x-ray showed persistent changes consistent with Covid. A pelvis x-ray showed no acute fracture or dislocation. Right wrist x-ray shows no acute fracture or dislocation. He was afebrile, heart rate 88, blood pressure 107/81, pulse ox 93% on room air. INR 1.0. Sodium 133, potassium 3.2, chloride 91, CO2 39, BUN 27 creatinine 0.39. Ammonia level less than 9. Liver function tests normal. CK 229. Troponin negative. TSH 2.1. Acetaminophen, salicylate and alcohol levels all normal. Patient is awake alert he is oriented and able to answer all questions appropriately but his speech is very rapid repetitive demanding that his daughter be contacted to take care of him. Patient verbalizes that he does not want to go to rehab which is been asked on multiple occasions. Patient repeatedly asked for a warm blanket. Patient has had some behavioral type changes since his Covid diagnoses. He does not have any underlying mental health illness. The patient's will be contacted later today PFO. 3/26: Patient is seen on the [facility] floor today. He continues to have manic type behavior but is alert and oriented. Patient has been seen by psychiatry and started on Depakote ER 500 mg at bedtime, Zyprexa 7.5 mg once followed by 2.5 mg twice daily. Patient has been seen by transition social worker with plans to start discharge planning. PT and OT are in place. Patient has been afebrile, heart rate 79, blood pressure 103/64, pulse ox 93% on 3 L nasal cannula. Repeat blood work reveals WBC 12.3, hemoglobin 12.9, platelet count 327. Sodium 133, potassium 3.5, chloride 90, CO2 37, BUN 23 and creatinine 0.43. Blood sugar 113. 09/02: Patient continues to be manic with pressured speech was seen earlier by psychiatry was recommended to keep the patient on the same medication with Zyprexa, Vistaril, and Depakote, eventually he would require to go to subacute rehab in addition at [facility] we will send working with the transition social worker hopefully this will happen on Friday, patient currently still in manic episode due to the use of steroid according to the psychiatrist note, we will continue to monitor very closely, continue to monitor his QT interval, as the patient has severe scleroderma has been off CellCept, and also he has been having issues with generalized weakness and falling hopefully will have a plan for him to go to [facility] a Friday. REVIEW OF SYSTEMS Constitutional: No fever, no chills, no night sweats. No weight change. Reports weakness, reports fatigue. No daytime sleepiness. EENT: No headache. No blurred vision or double vision, no loss of vision. No loss of Hearing, no ringing in the ears, no dizziness. No nasal drainage or congestion. No epistaxis. No sore throat. LungsDeniesss of breath, reports cough, no sputum production. No wheezing. Cardiovascular: No chest pain, no lower extremity edema. No palpitations. No paroxysmal nocturnal dyspnea. No orthopnea. No lightheadedness or dizziness. No syncopal episodes. Abdominal: No abdominal pain. No nausea, vomiting. No diarrhea. No constipation. No bloody or tarry stools.. No loss of appetite. Genitourinary: No dysuria, increased frequency, urgency. No urinary retention. Musculoskeletal: No myalgias. reportsle weakness, reportsit dysfunction, reportsnt falls. No back pain. No neck pain. Integumentary: Reports chronic wounds, no lesions. No rash or pruritus. No unusual bruising. No change in hair or nails. Neurologic: No aphasia. No facial droop. No change in mentation. No head injury. No headache. No paralysis. No paresthesia. Psychiatric: No depression. No anxiety. noted mood swings. Endocrine: No abnormal blood sugars. No weight change. PHYSICAL EXAMINATION Gen: This is a 55-year-old male. He is resting in bed and appears to be comfortable at rest and in no acute distress. HEENT: Head is atraumatic, normocephalic. Pupils equal, round. Sclerae is anicteric. NECK: Supple. No JVD. No lymphadenopathy. No thyromegaly. LUNGS: few scattered Rhonchi bilaterally. No intercostal retractions. HEART: Regular rate and rhythm. No murmur. ABDOMEN: Soft. Bowel sounds are present. No masses. No tenderness. EXTREMITIES: No pedal edema. No calf tenderness. Fingertip ulcerations with chronic dusky changes to the fingertips secondary to scleroderma. NEUROLOGICAL: Patient is awake, alert and oriented x3. Cranial nerves 2 through 12 are grossly intact. Patient has flight of ideas, speech is fast. And demanding ASSESSMENT AND PLAN 1. Acute debilitation secondary to multiple underlying medical conditions including worsening scleroderma lung/pulmonary fibrosis, as well as post acute Covid syndrome. PT, OT, transition social worker consult. Fall precautions.. 2. Acute prakash with psychosis secondary to Covid 19. No underlying history of psychiatric diagnoses. Consult with psychiatry appreciated. Patient's been started on Depakote ER 500 mg at bedtime, Zyprexa 7.5 mg once followed by 2.5 mg twice daily. 3. Systemic scleroderma with pulmonary fibrosis, currently stable. Continue Ventolin inhaler. 4. Chronic hyponatremia, stable. 5. Paroxysmal atrial fibrillation, status post ablation. Continue eliquis 5 mg twice daily, Toprol-XL 25 mg daily. 6. 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 No history of of lung transplantation. 7. Raynaud's disease, with digital ulceration and pain worse to the right index finger. 8. Hypertension. Continue Toprol-XL 25 mg daily. 9. Pulmonary hypertension. Continue Revatio 20 mg 3 times daily oral. 10. Gastroesophageal reflux disease and GI prophylaxis. Continue Protonix 40 mg oral twice daily. 11. Esophageal dysmotility secondary to scleroderma. Continue rifaximin 550 mg twice daily as needed, Revatio 20 mg 3 times daily, Prucalopride 2 mg daily. 12. Hyperlipidemia. 13. Chronic hypoxemic respiratory failure on home O2 at 3 L nasal cannula. 14. DVT prophylaxis. Continue eliquis 5 mg twice daily. DISCHARGE PLAN Subacute rehab most likely on Friday . Objective - Vital Signs Vital signs: Vital Signs Temp 97.5 F L 09/02/20 14:00 Pulse 90 09/02/20 14:00 Resp 18 09/02/20 14:00 BP 103/68 09/02/20 14:00 Pulse Ox 97 09/02/20 14:00 Intake & Output 09/01/20 09/02/20 09/02/20 18:59 06:59 18:59 Intake Total 550 540 Output Total 200 Balance -200 550 540 Intake: Oral 550 540 Output: Urine 200 Other: Voiding Method Toilet Toilet Urinal Urinal # Voids 2 3 - Labs CBC & Chem 7: 09/01/20 10:05 09/01/20 10:05 Labs: Abnormal Lab Results - Last 24 Hours (Table) 09/01/20 Range/Units 23:06 Urine Protein 1+ H (Negative) Calcium Oxalate Crystal Few H (None) /hpf Urine Mucus Many H (None) /hpf Urine Opiates Screen Detected H (NotDetected) U Benzodiazepines Scrn Detected H (NotDetected) U Marijuana (THC) Screen Detected H (NotDetected)
[2020-09-02] MEDS: DIVALPROEX ER 500 MG TAB.ER.24H PO SCH (22:41)
[2020-09-02] MEDS: OCTREOTIDE 100 MCG/ML INJ SQ SCH (22:52)
[2020-09-03] MEDS: IPRATROPIUM BROMIDE 0.06% NASAL SPRAY (15 ML) EA NOSTRIL SCH ×3 (06:53→21:04)
[2020-09-03] MEDS: APIXABAN 5 MG TAB PO SCH ×2 (09:56→21:03)
[2020-09-03] MEDS: FLUTICASONE 50MCG/SPRAY NASAL 16GM EA NOSTRIL SCH (09:56)
[2020-09-03] MEDS: PANTOPRAZOLE 40 MG TABLET PO SCH ×2 (09:57→21:03)
[2020-09-03] MEDS: MULTIVITAMINS, THERA 1 EACH TAB PO SCH (09:57)
[2020-09-03] MEDS: METOPROLOL SUCCINATE (ER) 25 MG TAB.ER.24H PO SCH (09:57)
[2020-09-03] MEDS: hydrOXYzine HCL 25 MG TAB PO SCH ×3 (09:57→21:20)
[2020-09-03] MEDS: OLANZapine 2.5 MG TAB PO SCH ×2 (09:58→21:03)
[2020-09-03] MEDS: SILDENAFIL 20 MG TAB PO SCH ×3 (09:58→21:03)
[2020-09-03] MEDS: SODIUM CHLORIDE TAB 1 GM TAB PO SCH ×2 (09:59→21:03)
[2020-09-03] MEDS: MOTEGRITY 2 MG PO SCH (09:59)
[2020-09-03] MEDS: HYDROcodone/APAP 7.5-325MG 1 EACH TAB PO PRN ×3 (10:04→21:03)
--- NOTE | 2020-09-03 10:21 | P.PN ---
Progress Note - Text Progress Note Date: 09/03/20 I met with patient today. I also spoke to his staff nurse. This patient told me that he slept for 10 hours last night and he feels relaxed. He does not show any symptoms of prakash today. He has no pressured speech or loose associations. He appears to have been stabilized on this dose of medication.
--- NOTE | 2020-09-03 12:41 | P.PN ---
Subjective Progress Note Date: 09/03/20 HISTORY OF PRESENT ILLNESS This is a 55-year-old male patient with past medical history of gastroesophageal reflux disease and esophageal dysmotility, hypertension, secondary pulmonary hypertension, paroxysmal atrial fibrillation on eliquis, Raynaud's disease, remote history of tobacco use, chronic hypoxic respiratory failure on home O2 at 3 L nasal cannula, pulmonary fibrosis secondary to progressive systemic sclerosis or scleroderma. Biopsy in 2013 showed evidence of usual interstitial pneumonia. He follows regularly with pulmonary and rheumatology at [facility] and has considered lung transplant but has declined moving forward with this. He was hospitalized from August 05 through August 12 which time he was treated for acute hypoxic respiratory failure still secondary to scleroderma lung and pulmonary fibrosis along with COVID19 pneumonitis completed course of Remdesivir. Patient had a cystoscopy hospitalization for acute on chronic hypoxic respiratory failure and was discharged home on a program . Patient went home with his but has found that she is unable to care for him. She apparently has fallen 4 times in the last 24 hours. She is unable to help him up as he is too heavy for her. Patient presented to [facility] emergency center for evaluation. CAT scan of the brain showed no acute intracranial hemorrhage or midline shift. There is mild diffuse age-related cerebral atrophy and chronic small vessel ischemic change. Possible new left sided acute sphenoid sinusitis. Chest x-ray showed persistent changes consistent with Covid. A pelvis x-ray showed no acute fracture or dislocation. Right wrist x-ray shows no acute fracture or dislocation. He was afebrile, heart rate 88, blood pressure 107/81, pulse ox 93% on room air. INR 1.0. Sodium 133, potassium 3.2, chloride 91, CO2 39, BUN 27 creatinine 0.39. Ammonia level less than 9. Liver function tests normal. CK 229. Troponin negative. TSH 2.1. Acetaminophen, salicylate and alcohol levels all normal. Patient is awake alert he is oriented and able to answer all questions appropriately but his speech is very rapid repetitive demanding that his daughter be contacted to take care of him. Patient verbalizes that he does not want to go to rehab which is been asked on multiple occasions. Patient repeatedly asked for a warm blanket. Patient has had some behavioral type changes since his Covid diagnoses. He does not have any underlying mental health illness. The patient's will be contacted later today PFO. 3/26: Patient is seen on the [facility] floor today. He continues to have manic type behavior but is alert and oriented. Patient has been seen by psychiatry and started on Depakote ER 500 mg at bedtime, Zyprexa 7.5 mg once followed by 2.5 mg twice daily. Patient has been seen by manager social responsibility with plans to start discharge planning. PT and OT are in place. Patient has been afebrile, heart rate 79, blood pressure 103/64, pulse ox 93% on 3 L nasal cannula. Repeat blood work reveals WBC 12.3, hemoglobin 12.9, platelet count 327. Sodium 133, potassium 3.5, chloride 90, CO2 37, BUN 23 and creatinine 0.43. Blood sugar 113. 09/02: Patient continues to be manic with pressured speech was seen earlier by psychiatry was recommended to keep the patient on the same medication with Zyprexa, Vistaril, and Depakote, eventually he would require to go to subacute rehab in addition at [facility] we will send working with the manager social responsibility hopefully this will happen on Friday, patient currently still in manic episode due to the use of steroid according to the psychiatrist note, we will continue to monitor very closely, continue to monitor his QT interval, as the patient has severe scleroderma has been off CellCept, and also he has been having issues with generalized weakness and falling hopefully will have a plan for him to go to [facility] a Friday. 09/03: Patient sitting up in his chair no apparent distress, he does not appear to be manic at this point in time, he has no chest pain, he is less short of breath, he continues to have some coughing, he continued to have significant dysphagia due to scleroderma, continue with that chopped diet, patient would be transferred to [facility] hopefully tomorrow morning. REVIEW OF SYSTEMS Constitutional: No fever, no chills, no night sweats. No weight change. Reports weakness, reports fatigue. No daytime sleepiness. EENT: No headache. No blurred vision or double vision, no loss of vision. No loss of Hearing, no ringing in the ears, no dizziness. No nasal drainage or congestion. No epistaxis. No sore throat. LungsDeniesss of breath, reports cough, no sputum production. No wheezing. Cardiovascular: No chest pain, no lower extremity edema. No palpitations. No paroxysmal nocturnal dyspnea. No orthopnea. No lightheadedness or dizziness. No syncopal episodes. Abdominal: No abdominal pain. No nausea, vomiting. No diarrhea. No constipation. No bloody or tarry stools.. No loss of appetite. Genitourinary: No dysuria, increased frequency, urgency. No urinary retention. Musculoskeletal: No myalgias. reportsle weakness, reportsit dysfunction, reportsnt falls. No back pain. No neck pain. Integumentary: Reports chronic wounds, no lesions. No rash or pruritus. No unusual bruising. No change in hair or nails. Neurologic: No aphasia. No facial droop. No change in mentation. No head injury. No headache. No paralysis. No paresthesia. Psychiatric: No depression. No anxiety. noted mood swings. Endocrine: No abnormal blood sugars. No weight change. PHYSICAL EXAMINATION Gen: This is a 55-year-old male. He is resting in bed and appears to be comfortable at rest and in no acute distress. HEENT: Head is atraumatic, normocephalic. Pupils equal, round. Sclerae is anicteric. NECK: Supple. No JVD. No lymphadenopathy. No thyromegaly. LUNGS: few scattered Rhonchi bilaterally. No intercostal retractions. HEART: Regular rate and rhythm. No murmur. ABDOMEN: Soft. Bowel sounds are present. No masses. No tenderness. EXTREMITIES: No pedal edema. No calf tenderness. Fingertip ulcerations with chronic dusky changes to the fingertips secondary to scleroderma. NEUROLOGICAL: Patient is awake, alert and oriented x3. Cranial nerves 2 through 12 are grossly intact. Patient has flight of ideas, speech is fast. And demanding ASSESSMENT AND PLAN 1. Acute debilitation secondary to multiple underlying medical conditions including worsening scleroderma lung/pulmonary fibrosis, as well as post acute Covid syndrome. PT, OT, manager social responsibility consult. Fall precautions.. 2. Acute prakash with psychosis secondary to Covid 19. No underlying history of psychiatric diagnoses. Consult with psychiatry appreciated. Patient's been started on Depakote ER 500 mg at bedtime, Zyprexa 7.5 mg once followed by 2.5 mg twice daily. 3. Systemic scleroderma with pulmonary fibrosis, currently stable. Continue Ventolin inhaler. 4. Chronic hyponatremia, stable. 5. Paroxysmal atrial fibrillation, status post ablation. Continue eliquis 5 mg twice daily, Toprol-XL 25 mg daily. 6. 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 No history of of lung transplantation. 7. Raynaud's disease, with digital ulceration and pain worse to the right index finger. 8. Hypertension. Continue Toprol-XL 25 mg daily. 9. Pulmonary hypertension. Continue Revatio 20 mg 3 times daily oral. 10. Gastroesophageal reflux disease and GI prophylaxis. Continue Protonix 40 mg oral twice daily. 11. Esophageal dysmotility secondary to scleroderma. Continue rifaximin 550 mg twice daily as needed, Revatio 20 mg 3 times daily, Prucalopride 2 mg daily. 12. Hyperlipidemia. 13. Chronic hypoxemic respiratory failure on home O2 at 3 L nasal cannula. 14. DVT prophylaxis. Continue eliquis 5 mg twice daily. DISCHARGE PLAN Subacute rehab most likely on Friday . Objective - Vital Signs Vital signs: Vital Signs Temp 97.6 F 09/03/20 10:00 Pulse 60 09/03/20 10:00 Resp 18 09/03/20 10:00 BP 110/75 09/03/20 10:00 Pulse Ox 93 L 09/03/20 10:00 Intake & Output 09/02/20 09/03/20 09/03/20 18:59 06:59 18:59 Intake Total 540 200 Balance 540 200 Intake: Oral 540 200 Other: Voiding Method Toilet Toilet Toilet Urinal Urinal Urinal # Voids 3 2 - Labs CBC & Chem 7: 09/01/20 10:05 09/01/20 10:05
[2020-09-03] MEDS: ALBUTEROL HFA INHALER INHALATION PRN ×2 (14:58→20:24)
[2020-09-03] MEDS: DIVALPROEX ER 500 MG TAB.ER.24H PO SCH (21:03)
[2020-09-03] MEDS: OCTREOTIDE 100 MCG/ML INJ SQ SCH ×2 (21:04→21:39)
[2020-09-04] MEDS: FLUTICASONE 50MCG/SPRAY NASAL 16GM EA NOSTRIL SCH (08:34)
[2020-09-04] MEDS: MOTEGRITY 2 MG PO SCH (08:35)
[2020-09-04] MEDS: METOPROLOL SUCCINATE (ER) 25 MG TAB.ER.24H PO SCH ×2 (08:35→20:22)
[2020-09-04] MEDS: APIXABAN 5 MG TAB PO SCH ×2 (08:35→20:21)
[2020-09-04] MEDS: SODIUM CHLORIDE TAB 1 GM TAB PO SCH ×2 (08:36→20:22)
[2020-09-04] MEDS: hydrOXYzine HCL 25 MG TAB PO SCH ×3 (08:36→20:22)
[2020-09-04] MEDS: OLANZapine 2.5 MG TAB PO SCH ×2 (08:36→20:22)
[2020-09-04] MEDS: SILDENAFIL 20 MG TAB PO SCH ×3 (08:37→20:23)
[2020-09-04] MEDS: LORazepam 0.5 MG TAB PO PRN (09:17)
[2020-09-04] MEDS: [UNRECOGNIZED DRUG - OTHER] TOPICAL PRN (09:18)
[2020-09-04] MEDS: HYDROcodone/APAP 7.5-325MG 1 EACH TAB PO PRN ×2 (09:19→21:15)
[2020-09-04] MEDS: MULTIVITAMINS, THERA 1 EACH TAB PO SCH (10:50)
[2020-09-04] MEDS: PANTOPRAZOLE 40 MG TABLET PO SCH ×2 (10:50→20:22)
[2020-09-04] MEDS: IPRATROPIUM BROMIDE 0.06% NASAL SPRAY (15 ML) EA NOSTRIL SCH ×2 (10:51→20:14)
--- NOTE | 2020-09-04 12:59 | P.DS ---
Providers Date of admission: 08/31/20 14:49 Expected date of discharge: 09/07/20 Attending physician: Madhavi Melo Consults: 08/31/20 15:07 Consult Physician Urgent Consulting Provider: Benjamín Rojas Consult Reason/Comments: acute manic episode Do you want consulting provider notified?: Yes 09/04/20 09:50 Consult Physician Urgent Consulting Provider: Amita Melgoza Consult Reason/Comments: Patient converted into afib and is on eliquis, rate 120s. hx of afib/svt. Do you want consulting provider notified?: Yes Primary care physician: [facility] Course: HISTORY OF PRESENT ILLNESS This is a 55-year-old male patient with past medical history of gastroesophageal reflux disease and esophageal dysmotility, hypertension, secondary pulmonary hypertension, paroxysmal atrial fibrillation on eliquis, Raynaud's disease, remote history of tobacco use, chronic hypoxic respiratory failure on home O2 at 3 L nasal cannula, pulmonary fibrosis secondary to progressive systemic sclerosis or scleroderma. Biopsy in 2013 showed evidence of usual interstitial pneumonia. He follows regularly with pulmonary and rheumatology at [facility] and has considered lung transplant but has declined moving forward with this. He was hospitalized from August 05 through August 12 which time he was treated for acute hypoxic respiratory failure still secondary to scleroderma lung and pulmonary fibrosis along with COVID19 pneumonitis completed course of Remdesivir. Patient had a cystoscopy hospitalization for acute on chronic hypoxic respiratory failure and was discharged home on a program . Patient went home with his but has found that she is unable to care for him. She apparently has fallen 4 times in the last 24 hours. She is unable to help him up as he is too heavy for her. Patient presented to [facility] emergency center for evaluation. CAT scan of the brain showed no acute intracranial hemorrhage or midline shift. There is mild diffuse age-related cerebral atrophy and chronic small vessel ischemic change. Possible new left sided acute sphenoid sinusitis. Chest x-ray showed persistent changes consistent with Covid. A pelvis x-ray showed no acute fracture or dislocation. Right wrist x-ray shows no acute fracture or dislocation. He was afebrile, heart rate 88, blood pressure 107/81, pulse ox 93% on room air. INR 1.0. Sodium 133, potassium 3.2, chloride 91, CO2 39, BUN 27 creatinine 0.39. Ammonia level less than 9. Liver function tests normal. CK 229. Troponin negative. TSH 2.1. Acetaminophen, salicylate and alcohol levels all normal. Patient is awake alert he is oriented and able to answer all questions appropriately but his speech is very rapid repetitive demanding that his daughter be contacted to take care of him. Patient verbalizes that he does not want to go to rehab which is been asked on multiple occasions. Patient repeatedly asked for a warm blanket. Patient has had some behavioral type changes since his Covid diagnoses. He does not have any underlying mental health illness. The patient's will be contacted later today PFO. 09/01: [facility] floor today. He continues to have manic type behavior but is alert and oriented. Patient has been seen by psychiatry and started on Depakote ER 500 mg at bedtime, Zyprexa 7.5 mg once followed by 2.5 mg twice daily. Patient has been seen by forensic social worker with plans to start discharge planning. PT and OT are in place. Patient has been afebrile, heart rate 79, blood pressure 103/64, pulse ox 93% on 3 L nasal cannula. Repeat blood work reveals WBC 12.3, hemoglobin 12.9, platelet count 327. Sodium 133, potassium 3.5, chloride 90, CO2 37, BUN 23 and creatinine 0.43. Blood sugar 113. 09/02: Patient continues to be manic with pressured speech was seen earlier by psychiatry was recommended to keep the patient on the same medication with Zyprexa, Vistaril, and Depakote, eventually he would require to go to subacute rehab in addition at [facility] we will send working with the forensic social worker hopefully this will happen on Friday, patient currently still in manic episode due to the use of steroid according to the psychiatrist note, we will continue to monitor very closely, continue to monitor his QT interval, as the patient has severe scleroderma has been off CellCept, and also he has been having issues with generalized weakness and falling hopefully will have a plan for him to go to [facility] a Friday. 09/03: Patient sitting up in his chair no apparent distress, he does not appear to be manic at this point in time, he has no chest pain, he is less short of breath, he continues to have some coughing, he continued to have significant dysphagia due to scleroderma, continue with that chopped diet, patient would be transferred to [facility] hopefully tomorrow morning. 09/04: Patient has been reevaluated by psychiatry today and diagnosis is acute prakash secondary to dexamethasone treatment. Patient manic symptoms thought to be resolved. He has no suicidal ideation. No hallucinations. He does not require inpatient psychiatric care. Recommendations from psychiatry is to continue Zyprexa 2.5 mg for mood stabilization and psychosis, continue Depakote 500 mg at bedtime and reevaluate in 1-2 weeks. Psychiatry has signed off his case. Patient is afebrile, heart rate 72, blood pressure 103/74, pulse ox 100% on 3 L nasal cannula. Patient is currently on a chopped diet. 09/05: Consult with Dr. Rivera has been added and patient determined to be too good for rehab. [facility] is also evaluated patient for subacute rehab. Pulse ox is 91% on 2 L. He has been afebrile, heart rate 78, blood pressure 114/78. Patient is complaining of hemorrhoids and Anusol hs suppository added and patient will continue at the [facility]. Plan for discharge to rehab once arrangements are completed. Patient is having difficulty with drooling. Patient is waiting for insurance authorization. 09/06: Patient has been seen by cardiology with recommendations to continue Toprol-XL and eliquis. Social work has discussed discharge planning with the patient's and patient does not meet criteria for admission to subacute rehab and she has made arrangements with the block and case maker for home care. They a re moving some furniture to make arrangements for him. Patient has been afebrile, heart rate 70s, blood pressure 93/65, pulse ox 98% on 3 L nasal cannula. Patient will be discharged home tomorrow 09/07: Patient is completely awake alert and oriented and able to answer all questions during evaluation but had behavioral issues during the night. Social work is working with the patient's or discharge planning. At this time, patient does not meet criteria for inpatient rehab, subacute rehab. Patient requires supervision. He is impulsive. Psychiatry has reassess the patient with recommendations to increase Zyprexa 5 mg by mouth and continue Depakote 500 mg at bedtime for mood stabilization. He has been afebrile, heart rate 89, blood pressure 114/73, pulse ox 95% on 3 L nasal cannula. Patient will be discharged home today if arrangements can be completed. ASSESSMENT AND PLAN 1. Acute debilitation secondary to multiple underlying medical conditions incl uding worsening scleroderma lung/pulmonary fibrosis, as well as post acute Covid syndrome. 2. Acute prakash with psychosis secondary to Covid 19 and steroid use. 3. Systemic scleroderma with pulmonary fibrosis, currently stable. 4. Chronic hyponatremia, stable. 5. Paroxysmal atrial fibrillation, status post ablation. 6. 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 7. Raynaud's disease, with digital ulceration and pain worse to the right index finger. 8. Hypertension. 9. Pulmonary hypertension. 10. Gastroesophageal reflux disease. 11. Esophageal dysmotility secondary to scleroderma. 12. Hyperlipidemia. 13. Chronic hypoxemic respiratory failure on home O2 at 3 L nasal cannula. DISCHARGE PLAN Home with [facility] Impression and plan of care have been directed as dictated by the signing physician. Shana Iverson nurse practitioner acting as scribe for signing physician. Patient Condition at Discharge: Stable Plan - Discharge Summary Discharge Rx Participant: No New Discharge Prescriptions: New LORazepam [Ativan] 0.5 mg PO BID PRN #6 tab PRN Reason: Agitation HYDROcodone/APAP 7.5-325MG [[place] 7.5-325] 1 each PO Q6H PRN #12 tab PRN Reason: Pain Divalproex ER [Depakote ER] 500 mg PO HS #30 tab Hydrocortisone Suppository [Anusol-Hc] 25 mg RECTAL BID #10 supp OLANZapine [ZyPREXA] 5 mg PO BID #60 tab Continue Hyoscyamine Sulfate [Levsin-Sl] 0.125 mg SL Q4-6H PRN PRN Reason: CRAMPING Multivitamins, Thera [Multivitamin (formulary)] 1 tab PO DAILY Metoprolol Succinate [Toprol XL] 25 mg PO DAILY Fluticasone Nasal [place] [Flonase Nasal [place]] 2 spr EA NOSTRIL DAILY Albuterol Inhaler [Ventolin Hfa Inhaler] 4 puff INHALATION RT-Q4H PRN PRN Reason: Shortness Of Breath Prucalopride Succinate [Motegrity] 2 mg PO DAILY Ondansetron HCl [Zofran] 4 mg PO Q8H PRN PRN Reason: Nausea And Vomiting Rifaximin [Xifaxan] 550 mg PO BID PRN PRN Reason: IBS Sildenafil [Revatio] 20 mg PO TID Omeprazole 40 mg PO BID Apixaban [Eliquis] 5 mg PO BID Sandostatin 50mcg/Ml 50 mcg SQ HS Ipratropium Peck 0.06%Nasal [Atrovent Nasal 0.06%] 2 spray EA NOSTRIL BID Tyvaso 0.6mg/Ml 3 - 9 puff INHALATION RT-QID Sodium Chloride Tab 1 gm PO BID #60 tab Lidocaine HCl/Benzyl Alcohol [Salonpas Lidocain Pls 4-10% Cr] 1 applic TOPICAL Q6H PRN PRN Reason: Pain hydrOXYzine HCL 10 mg PO TID Discharge Medication List Albuterol Inhaler [Ventolin Hfa Inhaler] 4 puff INHALATION RT-Q4H PRN 08/05/20 [History] Apixaban [Eliquis] 5 mg PO BID 08/05/20 [History] Fluticasone Nasal [place] [Flonase Nasal [place]] 2 spr EA NOSTRIL DAILY 08/05/20 [History] Hyoscyamine Sulfate [Levsin-Sl] 0.125 mg SL Q4-6H PRN 08/05/20 [History] Ipratropium Peck 0.06%Nasal [Atrovent Nasal 0.06%] 2 spray EA NOSTRIL BID 08/05/20 [History] Metoprolol Succinate [Toprol XL] 25 mg PO DAILY 08/05/20 [History] Multivitamins, Thera [Multivitamin (formulary)] 1 tab PO DAILY 08/05/20 [History] Omeprazole 40 mg PO BID 08/05/20 [History] Ondansetron HCl [Zofran] 4 mg PO Q8H PRN 08/05/20 [History] Prucalopride Succinate [Motegrity] 2 mg PO DAILY 08/05/20 [History] Rifaximin [Xifaxan] 550 mg PO BID PRN 08/05/20 [History] Sandostatin 50mcg/Ml 50 mcg SQ HS 08/05/20 [History] Sildenafil [Revatio] 20 mg PO TID 08/05/20 [History] Tyvaso 0.6mg/Ml 3 - 9 puff INHALATION RT-QID 08/05/20 [History] Sodium Chloride Tab 1 gm PO BID #60 tab 08/12/20 [Rx] Lidocaine HCl/Benzyl Alcohol [Salonpas Lidocain Pls 4-10% Cr] 1 applic TOPICAL Q6H PRN 08/16/20 [History] hydrOXYzine HCL 10 mg PO TID 08/31/20 [History] HYDROcodone/APAP 7.5-325MG [[place] 7.5-325] 1 each PO Q6H PRN #12 tab 09/04/20 [Rx] LORazepam [Ativan] 0.5 mg PO BID PRN #6 tab 09/04/20 [Rx] Hydrocortisone Suppository [Anusol-Hc] 25 mg RECTAL BID #10 supp 09/05/20 [Rx] Divalproex ER [Depakote ER] 500 mg PO HS #30 tab 09/07/20 [Rx] OLANZapine [ZyPREXA] 5 mg PO BID #60 tab 09/07/20 [Rx] Follow up Appointment(s)/Referral(s): Madhavi Melo MD [Primary Care Provider] - 1 Week (at [facility]) [facility], [NON-STAFF] - As Needed Discharge Disposition: HOME WITH HOME HEALTH SERVICES
--- NOTE | 2020-09-04 13:22 | P.PN ---
Progress Note - Text Progress Note Date: 09/04/20 Interval History: Patient was seen at bedside. Patient is presenting well today. He is not displ aying any significant manic symptoms. He reports he is sleeping and eating well. Patient acknowledges his racing thoughts and pressured speech has significantly improved. He is currently not endorsing any suicidal or homicidal ideation, intention, and/or plan. He is not reporting any auditory or visual hallucinations. The patient is not reporting any significant side effects of his medications at this time. This provider contacted the patient's also reports that the patient appears to be doing much better in terms of his mental status. The patient is anticipated to be discharged to [facility] tomorrow. Mental Status Exam: General Appearance: Patient appears to be stated age is alert, directable, and cooperative. Patient does appear to be frail and thin. Hygiene and grooming appear improved. Behavior: Patient is calmly seated without any agitated behavior. Psychomotor activity appears normal today. Speech: Patient's speech is fluent and nonpressured. Mood/Affect: Mood is "doing alright." Affect is congruent and constricted. Suicidality/Homicidality: Patient denies having any suicidal or homicidal ideation intent or plan. Perceptions: Patient denies any visual hallucinations and denies any auditory hallucinations Though content/process: There is no evidence of any delusional thought content and thought process is linear and goal-directed. Memory and concentration: AOX3, grossly intact for the purposes of this session Judgment and insight: Improved Assessment Acute prakash secondary to dexamethasone treatment Plan: -At this time, the patient DOES NOT display criteria for inpatient psychiatric admission. Patient is cleared psychiatrically to be discharged to [facility]. -EKG reviewed. QTc of 520 ms - NSR with Prolonged QT - Recheck QTc over this weekend. -Would recommend the following medication changes/additions: Continue Zyprexa 2.5 mg by mouth for mood stabilization/psychosis Continue Depakote 500 mg by mouth at bedtime for mood stabilization -Patient may be re-evaluated in 1-2 weeks if there is a necessity to continue these medications. -Psychiatry will sign off at this time. Thank you for allowing us to participate in the patient's care. Please call or re-consult if necessary.
--- NOTE | 2020-09-04 14:40 | P.PN ---
Subjective Progress Note Date: 09/04/20 HISTORY OF PRESENT ILLNESS This is a 55-year-old male patient with past medical history of gastroesophageal reflux disease and esophageal dysmotility, hypertension, secondary pulmonary hypertension, paroxysmal atrial fibrillation on eliquis, Raynaud's disease, remote history of tobacco use, chronic hypoxic respiratory failure on home O2 at 3 L nasal cannula, pulmonary fibrosis secondary to progressive systemic sclerosis or scleroderma. Biopsy in 2013 showed evidence of usual interstitial pneumonia. He follows regularly with pulmonary and rheumatology at [facility] and has considered lung transplant but has declined moving forward with this. He was hospitalized from August 05 through August 12 which time he was treated for acute hypoxic respiratory failure still secondary to scleroderma lung and pulmonary fibrosis along with COVID19 pneumonitis completed course of Remdesivir. Patient had a cystoscopy hospitalization for acute on chronic hypoxic respiratory failure and was discharged home on a program . Patient went home with his but has found that she is unable to care for him. She apparently has fallen 4 times in the last 24 hours. She is unable to help him up as he is too heavy for her. Patient presented to [facility] emergency center for evaluation. CAT scan of the brain showed no acute intracranial hemorrhage or midline shift. There is mild diffuse age-related cerebral atrophy and chronic small vessel ischemic change. Possible new left sided acute sphenoid sinusitis. Chest x-ray showed persistent changes consistent with Covid. A pelvis x-ray showed no acute fracture or dislocation. Right wrist x-ray shows no acute fracture or dislocation. He was afebrile, heart rate 88, blood pressure 107/81, pulse ox 93% on room air. INR 1.0. Sodium 133, potassium 3.2, chloride 91, CO2 39, BUN 27 creatinine 0.39. Ammonia level less than 9. Liver function tests normal. CK 229. Troponin negative. TSH 2.1. Acetaminophen, salicylate and alcohol levels all normal. Patient is awake alert he is oriented and able to answer all questions appropriately but his speech is very rapid repetitive demanding that his daughter be contacted to take care of him. Patient verbalizes that he does not want to go to rehab which is been asked on multiple occasions. Patient repeatedly asked for a warm blanket. Patient has had some behavioral type changes since his Covid diagnoses. He does not have any underlying mental health illness. The patient's will be contacted later today PFO. 3/26: Patient is seen on the [facility] floor today. He continues to have manic type behavior but is alert and oriented. Patient has been seen by psychiatry and started on Depakote ER 500 mg at bedtime, Zyprexa 7.5 mg once followed by 2.5 mg twice daily. Patient has been seen by social sciences professor with plans to start discharge planning. PT and OT are in place. Patient has been afebrile, heart rate 79, blood pressure 103/64, pulse ox 93% on 3 L nasal cannula. Repeat blood work reveals WBC 12.3, hemoglobin 12.9, platelet count 327. Sodium 133, potassium 3.5, chloride 90, CO2 37, BUN 23 and creatinine 0.43. Blood sugar 113. 09/02: Patient continues to be manic with pressured speech was seen earlier by psychiatry was recommended to keep the patient on the same medication with Zyprexa, Vistaril, and Depakote, eventually he would require to go to subacute rehab in addition at [facility] we will send working with the social sciences professor hopefully this will happen on Friday, patient currently still in manic episode due to the use of steroid according to the psychiatrist note, we will continue to monitor very closely, continue to monitor his QT interval, as the patient has severe scleroderma has been off CellCept, and also he has been having issues with generalized weakness and falling hopefully will have a plan for him to go to [facility] a Friday. 09/03: Patient sitting up in his chair no apparent distress, he does not appear to be manic at this point in time, he has no chest pain, he is less short of breath, he continues to have some coughing, he continued to have significant dysphagia due to scleroderma, continue with that chopped diet, patient would be transferred to [facility] hopefully tomorrow morning. 09/04: Patient has been reevaluated by psychiatry today and diagnosis is acute prakash secondary to dexamethasone treatment. Patient manic symptoms thought to be resolved. He has no suicidal ideation. No hallucinations. He does not require inpatient psychiatric care. Recommendations from psychiatry is to continue Zyprexa 2.5 mg for mood stabilization and psychosis, continue Depakote 500 mg at bedtime and reevaluate in 1-2 weeks. Psychiatry has signed off his case. Patient is afebrile, heart rate 72, blood pressure 103/74, pulse ox 100% on 3 L nasal cannula. Patient is currently on a chopped diet. REVIEW OF SYSTEMS Constitutional: No fever, no chills, no night sweats. No weight change. Reports weakness, reports fatigue. No daytime sleepiness. EENT: No headache. No blurred vision or double vision, no loss of vision. No loss of Hearing, no ringing in the ears, no dizziness. No nasal drainage or congestion. No epistaxis. No sore throat. LungsDeniesss of breath, reports cough, no sputum production. No wheezing. Cardiovascular: No chest pain, no lower extremity edema. No palpitations. No paroxysmal nocturnal dyspnea. No orthopnea. No lightheadedness or dizziness. No syncopal episodes. Abdominal: No abdominal pain. No nausea, vomiting. No diarrhea. No constipation. No bloody or tarry stools.. No loss of appetite. Genitourinary: No dysuria, increased frequency, urgency. No urinary retention. Musculoskeletal: No myalgias. reportsle weakness, reportsit dysfunction, reportsnt falls. No back pain. No neck pain. Integumentary: Reports chronic wounds, no lesions. No rash or pruritus. No unusual bruising. No change in hair or nails. Neurologic: No aphasia. No facial droop. No change in mentation. No head injury. No headache. No paralysis. No paresthesia. Psychiatric: No depression. No anxiety. noted mood swings. Endocrine: No abnormal blood sugars. No weight change. PHYSICAL EXAMINATION Gen: This is a 55-year-old male. He is resting in bed and appears to be comfortable at rest and in no acute distress. HEENT: Head is atraumatic, normocephalic. Pupils equal, round. Sclerae is anicteric. NECK: Supple. No JVD. No lymphadenopathy. No thyromegaly. LUNGS: few scattered Rhonchi bilaterally. No intercostal retractions. HEART: Regular rate and rhythm. No murmur. ABDOMEN: Soft. Bowel sounds are present. No masses. No tenderness. EXTREMITIES: No pedal edema. No calf tenderness. Fingertip ulcerations with chronic dusky changes to the fingertips secondary to scleroderma. NEUROLOGICAL: Patient is awake, alert and oriented x3. Cranial nerves 2 through 12 are grossly intact. Patient has flight of ideas, speech is fast. And demanding ASSESSMENT AND PLAN 1. Acute debilitation secondary to multiple underlying medical conditions including worsening scleroderma lung/pulmonary fibrosis, as well as post acute Covid syndrome. PT, OT, social sciences professor consult. Fall precautions. 2. Acute psychosis secondary to Covid 19, possibly related to dexamethasone treatment. No underlying history of psychiatric diagnoses. Consult with psychiatry appreciated. Patient's been started on Depakote ER 500 mg at bedtime, Zyprexa 7.5 mg once followed by 2.5 mg twice daily. 3. Systemic scleroderma with pulmonary fibrosis, currently stable. Continue Ventolin inhaler. 4. Chronic hyponatremia, stable. 5. Paroxysmal atrial fibrillation, status post ablation. Continue eliquis 5 mg twice daily, Toprol-XL 25 mg daily. 6. 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 No history of of lung transplantation. 7. Raynaud's disease, with digital ulceration and pain worse to the right index finger. 8. Hypertension. Continue Toprol-XL 25 mg daily. 9. Pulmonary hypertension. Continue Revatio 20 mg 3 times daily oral. 10. Gastroesophageal reflux disease and GI prophylaxis. Continue Protonix 40 mg oral twice daily. 11. Esophageal dysmotility secondary to scleroderma. Continue rifaximin 550 mg twice daily as needed, Revatio 20 mg 3 times daily, Prucalopride 2 mg daily. 12. Hyperlipidemia. 13. Chronic hypoxemic respiratory failure on home O2 at 3 L nasal cannula. 14. DVT prophylaxis. Continue eliquis 5 mg twice daily. DISCHARGE PLAN Subacute rehab. Social work is following. Impression and plan of care have been directed as dictated by the signing physic ian. Shana Iverson nurse practitioner acting as scribe for signing physician. Objective - Vital Signs Vital signs: Vital Signs Temp 98.9 F 09/04/20 09:45 Pulse 72 09/04/20 09:45 Resp 18 09/04/20 09:45 BP 103/74 09/04/20 09:45 Pulse Ox 100 09/04/20 09:45 Intake & Output 09/03/20 09/04/20 09/04/20 18:59 06:59 18:59 Intake Total 540 Balance 540 Intake: Oral 540 Other: Voiding Method Toilet Toilet Urinal Urinal # Voids 2 2 # Bowel Movements 1 - Labs CBC & Chem 7: 09/01/20 10:05 09/01/20 10:05
[2020-09-04] MEDS: ALBUTEROL HFA INHALER INHALATION PRN ×2 (16:37→21:21)
[2020-09-04] MEDS: DIVALPROEX ER 500 MG TAB.ER.24H PO SCH (20:22)
[2020-09-04] MEDS: OCTREOTIDE 100 MCG/ML INJ SQ SCH (21:16)
[2020-09-05] MEDS: SILDENAFIL 20 MG TAB PO SCH ×3 (09:09→21:44)
[2020-09-05] MEDS: MOTEGRITY 2 MG PO SCH (09:09)
[2020-09-05] MEDS: APIXABAN 5 MG TAB PO SCH ×2 (09:09→21:40)
[2020-09-05] MEDS: OLANZapine 2.5 MG TAB PO SCH ×2 (09:09→21:40)
[2020-09-05] MEDS: hydrOXYzine HCL 25 MG TAB PO SCH ×3 (09:09→21:42)
[2020-09-05] MEDS: SODIUM CHLORIDE TAB 1 GM TAB PO SCH ×2 (09:09→21:42)
[2020-09-05] MEDS: MULTIVITAMINS, THERA 1 EACH TAB PO SCH (09:10)
[2020-09-05] MEDS: METOPROLOL SUCCINATE (ER) 25 MG TAB.ER.24H PO SCH (09:10)
[2020-09-05] MEDS: PANTOPRAZOLE 40 MG TABLET PO SCH ×2 (09:10→21:44)
[2020-09-05] MEDS: FLUTICASONE 50MCG/SPRAY NASAL 16GM EA NOSTRIL SCH (09:10)
[2020-09-05] MEDS: ALBUTEROL HFA INHALER INHALATION PRN ×3 (09:18→20:51)
--- NOTE | 2020-09-05 09:45 | P.CONS ---
History of Present Illness - Chief Complaint Medical debility - History of Present Illness I had the opportunity to see patient for inpatient rehab consultation with regard to medical debility. Patient admitted to [facility] August 31 with mental status change. Seen by psychiatry for acute panic episode. Diagnostic studies negative x-rays for fracture of pelvis and wrist. Chest x-ray consistent with persistent Covid pneumonia. Head CT with mild general atrophy. Patient is started therapies. PT reports standby assist to supervision for mobility including gait 40 feet without device. OT reports supervision for upper dressing and minimal assistance for lower dressing, bathing, toileting and funct ional mobility. The patient was inappropriate for therapies yesterday. Previous functional history as elicited from patient: 55-year-old right-handed white male who is who now lives in a first-floor of a 3 floor home with and [id number] daughter. Patient and have been moved to the first floor over the last couple of days due to mobility issues involving both. apparently has been knees on the patient with his pneumonia problem. Previously independent with her basic and advanced self-care tasks. Review of Systems Review of systems: ENT: Denies sneezes or discharge. Eyes: Denies discharge or photophobia. Cardiac: Denies chest pain or palpitation. Pulmonary: Denies cough or shortness of breath. Gastrointestinal: Denies nausea, emesis, constipation, diarrhea. Genitourinary: Denies discharge or frequency. Musculoskeletal: Denies muscle or bone aches. Neurologic: Denies motor or sensory change. Endocrine: Denies shakes or sweats. Oncology: Denies cancers. Dermatologic: Denies rash, itching, pruritus. ALLERGY/immunology: Denies sneezes, rashes. Past Medical History Past Medical History: GERD/Reflux, Hypertension, Supraventricular Tachycardia (SVT) Additional Past Medical History / Comment(s): Pulmonary fibrosis, scleroderma, SIBO, Raynauds, History of Any Multi-Drug Resistant Organisms: None Reported Past Surgical History: Appendectomy, Heart Catheterization Additional Past Surgical History / Comment(s): double lung transplant Past Anesthesia/Blood Transfusion Reactions: No Reported Reaction Past Psychological History: No Psychological Hx Reported Smoking Status: Former smoker Past Alcohol Use History: Daily Past Drug Use History: None Reported - Past Family History Father Family Medical History: Myocardial Infarction ([place]) Medications and Allergies Home Medications Medication Instructions Recorded Confirmed Type Albuterol Inhaler [Ventolin Hfa 4 puff INHALATION RT-Q4H PRN 08/05/20 08/31/20 History Inhaler] Apixaban [Eliquis] 5 mg PO BID 08/05/20 08/31/20 History Fluticasone Nasal [place] [Flonase 2 spr EA NOSTRIL DAILY 08/05/20 08/31/20 History Nasal [place]] Hyoscyamine Sulfate [Levsin-Sl] 0.125 mg SL Q4-6H PRN 08/05/20 08/31/20 History Ipratropium [place] 0.06%Nasal 2 spray EA NOSTRIL BID 08/05/20 08/31/20 History [Atrovent Nasal 0.06%] Metoprolol Succinate [Toprol XL] 25 mg PO DAILY 08/05/20 08/31/20 History Multivitamins, Thera [Multivitamin 1 tab PO DAILY 08/05/20 08/31/20 History (formulary)] Omeprazole 40 mg PO BID 08/05/20 08/31/20 History Ondansetron HCl [Zofran] 4 mg PO Q8H PRN 08/05/20 08/31/20 History Prucalopride Succinate [Motegrity] 2 mg PO DAILY 08/05/20 08/31/20 History Rifaximin [Xifaxan] 550 mg PO BID PRN 08/05/20 08/31/20 History Sandostatin 50mcg/Ml 50 mcg SQ HS 08/05/20 08/31/20 History Sildenafil [Revatio] 20 mg PO TID 08/05/20 08/31/20 History Tyvaso 0.6mg/Ml 3 - 9 puff INHALATION RT-QID 08/05/20 08/31/20 History Sodium Chloride Tab 1 gm PO BID #60 tab 08/12/20 08/31/20 Rx Lidocaine HCl/Benzyl Alcohol 1 applic TOPICAL Q6H PRN 08/16/20 08/31/20 History [Salonpas Lidocain Pls 4-10% Cr] hydrOXYzine HCL 10 mg PO TID 08/31/20 08/31/20 History Divalproex ER [Depakote ER] 500 mg PO HS tab.er.24h 09/04/20 Rx HYDROcodone/APAP 7.5-325MG [[place] 1 each PO Q6H PRN #12 tab 09/04/20 Rx 7.5-325] LORazepam [Ativan] 0.5 mg PO BID PRN #6 tab 09/04/20 Rx OLANZapine [ZyPREXA] 2.5 mg PO BID tab 09/04/20 Rx Allergies Allergy/AdvReac Type Severity Reaction Status Date / Time hydrochlorothiazide Allergy Confusion Verified 08/31/20 13:17 Physical Exam Vitals: Vital Signs Temp Pulse Resp BP Pulse Ox 09/05/20 06:00 97.6 F 60 17 119/78 99 09/05/20 02:00 97.4 F L 72 16 105/54 99 09/04/20 22:00 98.0 F 67 16 100/55 92 L 09/04/20 20:28 82 105/60 09/04/20 20:00 82 18 09/04/20 18:20 97.9 F 80 18 90/40 96 09/04/20 14:45 97.9 F 85 18 92/66 94 L 09/04/20 09:45 98.9 F 72 18 103/74 100 Intake and Output 09/04/20 09/05/20 09/05/20 22:59 06:59 14:59 Intake Total 360 Balance 360 Intake: Oral 360 Other: Voiding Method Toilet Urinal # Voids 2 2 Skin: Good color, texture, turgor. General: Thin build and comfortable appearance. Head: Normocephalic, atraumatic. Eyes: Symmetric. Pupils equal round. Ears: Symmetric. Hearing within normal limits. Mouth: Clear. Neck: Supple. Carotid without bruit. Cardiac: Regular rate and rhythm. Lungs: Clear anteriorly and posteriorly. Abdomen: Soft active nontender. Extremities: Normal tone. Neurological: Mental status: Alert, cooperative, pleasant. Some tangential thought noted. Cranial nerves: Symmetric facial tone and trapezius. Motor: Normal strength and isolation all 4 limbs. Sensation: Intact throughout. DTRs: Symmetric and equal throughout. Mobility: Sits and stands without assistance or verbal cueing or loss of balance and ambulated around room with assistance for oxygen line. Results CBC & Chem 7: 09/01/20 10:05 09/01/20 10:05 Assessment and Plan (1) Acute encephalopathy Current Visit: Yes Status: Acute Code(s): G93.40 - ENCEPHALOPATHY, UNSPECIFIED SNOMED Code(s): 38706501 (2) Interstitial lung disease Current Visit: No Status: Acute Code(s): J84.9 - INTERSTITIAL PULMONARY DISEASE, UNSPECIFIED SNOMED Code(s): 630989463 (3) Pneumonia due to COVID-19 virus Current Visit: No Status: Acute Code(s): U07.1 - COVID-19; J12.82 - Pneumonia due to coronavirus disease 2019 SNOMED Code(s): 681682235339842102 Plan: Impression: Diagnoses as noted above and to include hypertension, SVT and reflux. Comments and plan: At this time PT and OT are ongoing. Patient x-ray demonstrated ability to stand and ambulate around room physically independent and without the need for cueing for safety or any loss of balance. At this time, patient physically too good from rehab and this is documented by PT notes as well. OT does note some minimal assist for basic self-care tasks, was likely related to some confusion and mild generalized weakness, for which apparently has some concern. Thus he may consider discharge planning as appropriate per your familiarity with patient.
--- NOTE | 2020-09-05 11:18 | P.PN ---
Subjective Progress Note Date: 09/05/20 HISTORY OF PRESENT ILLNESS This is a 55-year-old male patient with past medical history of gastroesophageal reflux disease and esophageal dysmotility, hypertension, secondary pulmonary hypertension, paroxysmal atrial fibrillation on eliquis, Raynaud's disease, remote history of tobacco use, chronic hypoxic respiratory failure on home O2 at 3 L nasal cannula, pulmonary fibrosis secondary to progressive systemic sclerosis or scleroderma. Biopsy in 2013 showed evidence of usual interstitial pneumonia. He follows regularly with pulmonary and rheumatology at [facility] and has considered lung transplant but has declined moving forward with this. He was hospitalized from August 05 through August 12 which time he was treated for acute hypoxic respiratory failure still secondary to scleroderma lung and pulmonary fibrosis along with COVID19 pneumonitis completed course of Remdesivir. Patient had a cystoscopy hospitalization for acute on chronic hypoxic respiratory failure and was discharged home on a program . Patient went home with his but has found that she is unable to care for him. She apparently has fallen 4 times in the last 24 hours. She is unable to help him up as he is too heavy for her. Patient presented to [facility] emergency center for evaluation. CAT scan of the brain showed no acute intracranial hemorrhage or midline shift. There is mild diffuse age-related cerebral atrophy and chronic small vessel ischemic change. Possible new left sided acute sphenoid sinusitis. Chest x-ray showed persistent changes consistent with Covid. A pelvis x-ray showed no acute fracture or dislocation. Right wrist x-ray shows no acute fracture or dislocation. He was afebrile, heart rate 88, blood pressure 107/81, pulse ox 93% on room air. INR 1.0. Sodium 133, potassium 3.2, chloride 91, CO2 39, BUN 27 creatinine 0.39. Ammonia level less than 9. Liver function tests normal. CK 229. Troponin negative. TSH 2.1. Acetaminophen, salicylate and alcohol levels all normal. Patient is awake alert he is oriented and able to answer all questions appropriately but his speech is very rapid repetitive demanding that his daughter be contacted to take care of him. Patient verbalizes that he does not want to go to rehab which is been asked on multiple occasions. Patient repeatedly asked for a warm blanket. Patient has had some behavioral type changes since his Covid diagnoses. He does not have any underlying mental health illness. The patient's will be contacted later today PFO. 3/26: Patient is seen on the [facility] floor today. He continues to have manic type behavior but is alert and oriented. Patient has been seen by psychiatry and started on Depakote ER 500 mg at bedtime, Zyprexa 7.5 mg once followed by 2.5 mg twice daily. Patient has been seen by manager social services with plans to start discharge planning. PT and OT are in place. Patient has been afebrile, heart rate 79, blood pressure 103/64, pulse ox 93% on 3 L nasal cannula. Repeat blood work reveals WBC 12.3, hemoglobin 12.9, platelet count 327. Sodium 133, potassium 3.5, chloride 90, CO2 37, BUN 23 and creatinine 0.43. Blood sugar 113. 09/02: Patient continues to be manic with pressured speech was seen earlier by psychiatry was recommended to keep the patient on the same medication with Zyprexa, Vistaril, and Depakote, eventually he would require to go to subacute rehab in addition at [facility] we will send working with the manager social services hopefully this will happen on Friday, patient currently still in manic episode due to the use of steroid according to the psychiatrist note, we will continue to monitor very closely, continue to monitor his QT interval, as the patient has severe scleroderma has been off CellCept, and also he has been having issues with generalized weakness and falling hopefully will have a plan for him to go to [facility] a Friday. 09/03: Patient sitting up in his chair no apparent distress, he does not appear to be manic at this point in time, he has no chest pain, he is less short of breath, he continues to have some coughing, he continued to have significant dysphagia due to scleroderma, continue with that chopped diet, patient would be transferred to [facility] hopefully tomorrow morning. 09/04: Patient has been reevaluated by psychiatry today and diagnosis is acute prakash secondary to dexamethasone treatment. Patient manic symptoms thought to be resolved. He has no suicidal ideation. No hallucinations. He does not require inpatient psychiatric care. Recommendations from psychiatry is to continue Zyprexa 2.5 mg for mood stabilization and psychosis, continue Depakote 500 mg at bedtime and reevaluate in 1-2 weeks. Psychiatry has signed off his case. Patient is afebrile, heart rate 72, blood pressure 103/74, pulse ox 100% on 3 L nasal cannula. Patient is currently on a chopped diet. 09/05: Consult with Dr. Rivera has been added and patient determined to be too good for rehab. [facility] is also evaluated patient for subacute rehab. Pulse ox is 91% on 2 L. He has been afebrile, heart rate 78, blood pressure 114/78. Patient is complaining of hemorrhoids and Anusol hs suppository added and patient will continue at the [facility]. Plan for discharge to rehab once arrangements are completed. Patient is having difficulty with drooling. Patient is waiting for insurance authorization. REVIEW OF SYSTEMS Constitutional: No fever, no chills, no night sweats. No weight change. Reports weakness, reports fatigue. No daytime sleepiness. EENT: No headache. No blurred vision or double vision, no loss of vision. No dizziness. No nasal drainage or congestion. No epistaxis. No sore throat. LungsDeniesss of breath, reports cough, no sputum production. No wheezing. Cardiovascular: No chest pain, no lower extremity edema. No palpitations. No paroxysmal nocturnal dyspnea. No orthopnea. No lightheadedness or dizziness. No syncopal episodes. Abdominal: No abdominal pain. No nausea, vomiting. No diarrhea. No constipation. No bloody or tarry stools. Reports hemorrhoids. No loss of appetite. Genitourinary: No dysuria, increased frequency, urgency. No urinary retention. Musculoskeletal: No myalgias. reportsle weakness, reportsit dysfunction, reportsnt falls. No back pain. No neck pain. Integumentary: Reports chronic wounds, no lesions. No rash or pruritus. No unusual bruising. No change in hair or nails. Neurologic: No aphasia. No facial droop. No change in mentation. No head injury. No headache. No paralysis. No paresthesia. Psychiatric: No depression. No anxiety. noted mood swings. Endocrine: No abnormal blood sugars. No weight change. PHYSICAL EXAMINATION Gen: This is a 55-year-old male. He is resting in bed and appears to be comfortable at rest and in no acute distress. HEENT: Head is atraumatic, normocephalic. Pupils equal, round. Sclerae is anicteric. NECK: Supple. No JVD. No lymphadenopathy. No thyromegaly. LUNGS: few scattered Rhonchi bilaterally. No intercostal retractions. HEART: Regular rate and rhythm. No murmur. ABDOMEN: Soft. Bowel sounds are present. No masses. No tenderness. EXTREMITIES: No pedal edema. No calf tenderness. Fingertip ulcerations with chronic dusky changes to the fingertips secondary to scleroderma. NEUROLOGICAL: Patient is awake, alert and oriented x3. Cranial nerves 2 through 12 are grossly intact. Patient has flight of ideas, speech is fast. And demanding ASSESSMENT AND PLAN 1. Acute debilitation secondary to multiple underlying medical conditions including worsening scleroderma lung/pulmonary fibrosis, as well as post acute Covid syndrome. PT, OT, manager social services consult. Fall precautions. 2. Acute psychosis secondary to Covid 19, possibly related to dexamethasone treatment. Continue Depakote ER 500 mg at bedtime, Zyprexa 2.5 mg twice daily. 3. Systemic scleroderma with pulmonary fibrosis, currently stable. Continue Ventolin inhaler. 4. Chronic hyponatremia, stable. 5. Paroxysmal atrial fibrillation, status post ablation. Continue eliquis 5 mg twice daily, Toprol-XL 25 mg daily. 6. 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 No history of of lung transplantation. 7. Raynaud's disease, with digital ulceration and pain worse to the right index finger. 8. Hypertension. Continue Toprol-XL 25 mg daily. 9. Pulmonary hypertension. Continue Revatio 20 mg 3 times daily oral. 10. Gastroesophageal reflux disease and GI prophylaxis. Continue Protonix 40 mg oral twice daily. 11. Esophageal dysmotility secondary to scleroderma. Continue rifaximin 550 mg twice daily as needed, Revatio 20 mg 3 times daily, Prucalopride 2 mg daily. 12. Hyperlipidemia. 13. Chronic hypoxemic respiratory failure on home O2 at 3 L nasal cannula. 14. Hemorrhoids. Start Anusol. 15. DVT prophylaxis. Continue eliquis 5 mg twice daily. DISCHARGE PLAN Subacute rehab. Social work is following. Impression and plan of care have been directed as dictated by the signing physician. Shana Iverson nurse practitioner acting as scribe for signing physician. Objective - Vital Signs Vital signs: Vital Signs Temp 98.4 F 09/05/20 09:09 Pulse 78 09/05/20 09:09 Resp 18 03/30/21 09:09 BP 114/78 09/05/20 09:09 Pulse Ox 91 L 09/05/20 09:09 Intake & Output 09/04/20 09/05/20 09/05/20 18:59 06:59 18:59 Intake Total 360 Balance 360 Intake: Oral 360 Other: Voiding Method Toilet Urinal # Voids 2 2 - Labs CBC & Chem 7: 09/01/20 10:05 09/01/20 10:05
--- NOTE | 2020-09-05 13:17 | P.CRDCN ---
History of Present Illness History of present illness: HISTORY OF PRESENTING ILLNESS This is a pleasant 55-year-old male past medical history significant for scleroderma, pulmonary fibrosis, paroxysmal atrial fibrillation on long-term anticoagulation, history of SVT status post ablation, hypertension and former nicotine dependence. He denies prior history of coronary artery disease. He follows closely at the [facility] with an advanced pulmonary hypertension specialist as well as an customer assistance associate. We have been asked to see in consultation for atrial fibrillation. Per RN patient had an episode of atrial fibrillation with RVR, concern for ventricular tachycardia. Patient has been admitted to the hospital for alerted mental status/acute psychosis. Patient is now alert and oriented x 3. Vital signs stable. His alerted mental status was thought to be secondary to Covid-19 infection, possibly related to dexamethasone treatment. He was diagnosed with COVID 08/03 and had a lengthy stay in the ICU, discharged 08/12/2020. He was readmitted to the hospital on 08/14-08/19/2020 for syncope thought to be vasovagal. EKG obtained at that time revealed sinus mechanism with PAC's and right bundle branch block and T-wave inversion in the septal anterior leads. Consistent with previous EKG with no acute changes. Telemetry tracings indicate he was having intermittent episodes of atrial fibrillation. Echocardiogram obtained 08/16/20 revealed preserved LV systolic function with ejection fraction of 5055 percent, moderate concentric LVH, mild pulmonary hypertension with an RVSP of 38 mmHg moderate to severely enlarged right ventricle. On admission, covid-19 negative. EKG with sinus rhythm, right bundle branch block , T wave inversion in septal anterior leads, similar to prior EKG. Patient seen and examined at bedside, sitting up in chair. No acute distress. Telemetry reviewed- patient with episode of atrial fibrillation with aberrancy, no evidence of Vtach. Patient is currently in sinus rhythm HR 60s- 70s. No updated labs to review today. REVIEW OF SYSTEMS At the time of my exam: CONSTITUTIONAL: Denies fever or chills. CARDIOVASCULAR: Denies chest pain, shortness of breath, orthopnea, PND or palpitations. RESPIRATORY: Complains of cough. GASTROINTESTINAL: Denies abdominal pain, diarrhea, constipation, nausea or vomiting. MUSCULOSKELETAL: Denies myalgias. NEUROLOGIC: Denies numbness, tingling, headacbe or weakness. ENDOCRINE: Denies fatigue, weight change, polydipsia or polyurina. GENITOURINARY: Denies burning, hematuria or urgency with micturation. HEMATOLOGIC: Denies history of anemia or bleeding. PHYSICAL EXAMINATION Blood pressure 114/78 heart rate 78 afebrile and maintaining oxygen saturation on days. CONSTITUTIONAL: No apparent distress. HEENT: Head is normocephalic. Pupils are equal, round. Sclerae anicteric. Mucous membranes of the mouth are moist. No JVD. No carotid bruit. CHEST EXAMINATION: rhonchi throughout lung lehman. No chest wall tenderness is noted on palpation or with deep breathing. HEART EXAMINATION: Regular rate and rhythm. S1, S2 heard. Soft systolic ejection murmur at the left sternal border, no gallops or rub. ABDOMEN: Soft, nontender. Positive bowel sounds. EXTREMITIES: 2+ peripheral pulses, no lower extremity edema and no calf tenderness. NEUROLOGIC EXAMINATION: Patient is awake, alert and oriented x3. ASSESSMENT Pulmonary fibrosis Paroxysmal atrial fibrillation, currently maintaining sinus mechanism. Had episode of atrial fibrillation with aberrancy On Eliquis for thromboembolic protection. Previous COVID-19 infection Right bundle branch block History of SVT status post ablation Hypertension Former nicotine dependence PLAN -Continue elquis for thrmoboembolic protection -Can increase metoprolol succinate to 50mg daily -Patient should follow up with his moulder operator after discharge -Ok to discharge patient from cardiology perspective Nurse Practitioner note has been reviewed, I agree with a documented findings and plan of care. Patient was seen and examined. Past Medical History Past Medical History: GERD/Reflux, Hypertension, Supraventricular Tachycardia (SVT) Additional Past Medical History / Comment(s): Pulmonary fibrosis, scleroderma, SIBO, Raynauds, History of Any Multi-Drug Resistant Organisms: None Reported Past Surgical History: Appendectomy, Heart Catheterization Additional Past Surgical History / Comment(s): double lung transplant Past Anesthesia/Blood Transfusion Reactions: No Reported Reaction Past Psychological History: No Psychological Hx Reported Smoking Status: Former smoker Past Alcohol Use History: Daily Past Drug Use History: None Reported - Past Family History Father Family Medical History: Myocardial Infarction ([place]) Medications and Allergies Home Medications Medication Instructions Recorded Confirmed Type Albuterol Inhaler [Ventolin Hfa 4 puff INHALATION RT-Q4H PRN 08/05/20 08/31/20 History Inhaler] Apixaban [Eliquis] 5 mg PO BID 08/05/20 08/31/20 History Fluticasone Nasal Holiday [Flonase 2 spr EA NOSTRIL DAILY 08/05/20 08/31/20 History Nasal Holiday] Hyoscyamine Sulfate [Levsin-Sl] 0.125 mg SL Q4-6H PRN 08/05/20 08/31/20 History Ipratropium [place] 0.06%Nasal 2 spray EA NOSTRIL BID 08/05/20 08/31/20 History [Atrovent Nasal 0.06%] Metoprolol Succinate [Toprol XL] 25 mg PO DAILY 08/05/20 08/31/20 History Multivitamins, Thera [Multivitamin 1 tab PO DAILY 08/05/20 08/31/20 History (formulary)] Omeprazole 40 mg PO BID 08/05/20 08/31/20 History Ondansetron HCl [Zofran] 4 mg PO Q8H PRN 08/05/20 08/31/20 History Prucalopride Succinate [Motegrity] 2 mg PO DAILY 08/05/20 08/31/20 History Rifaximin [Xifaxan] 550 mg PO BID PRN 08/05/20 08/31/20 History Sandostatin 50mcg/Ml 50 mcg SQ HS 08/05/20 08/31/20 History Sildenafil [Revatio] 20 mg PO TID 08/05/20 08/31/20 History Tyvaso 0.6mg/Ml 3 - 9 puff INHALATION RT-QID 08/05/20 08/31/20 History Sodium Chloride Tab 1 gm PO BID #60 tab 08/12/20 08/31/20 Rx Lidocaine HCl/Benzyl Alcohol 1 applic TOPICAL Q6H PRN 08/16/20 08/31/20 History [Salonpas Lidocain Pls 4-10% Cr] hydrOXYzine HCL 10 mg PO TID 08/31/20 08/31/20 History Divalproex ER [Depakote ER] 500 mg PO HS tab.er.24h 09/04/20 Rx HYDROcodone/APAP 7.5-325MG [[place] 1 each PO Q6H PRN #12 tab 09/04/20 Rx 7.5-325] LORazepam [Ativan] 0.5 mg PO BID PRN #6 tab 09/04/20 Rx OLANZapine [ZyPREXA] 2.5 mg PO BID tab 09/04/20 Rx Hydrocortisone Suppository 25 mg RECTAL BID #10 supp 09/05/20 Rx [Anusol-Hc] Allergies Allergy/AdvReac Type Severity Reaction Status Date / Time hydrochlorothiazide Allergy Confusion Verified 08/31/20 13:17 Physical Exam Vitals: Vital Signs Temp Pulse Resp BP Pulse Ox 09/05/20 09:09 98.4 F 78 18 114/78 91 L 09/05/20 06:00 97.6 F 60 17 119/78 99 09/05/20 02:00 97.4 F L 72 16 105/54 99 09/04/20 22:00 98.0 F 67 16 100/55 92 L 09/04/20 20:28 82 105/60 09/04/20 20:00 82 18 09/04/20 18:20 97.9 F 80 18 90/40 96 09/04/20 14:45 97.9 F 85 18 92/66 94 L Intake and Output 09/04/20 09/05/20 09/05/20 22:59 06:59 14:59 Intake Total 360 Balance 360 Intake: Oral 360 Other: Voiding Method Toilet Urinal # Voids 2 2 Results 09/01/20 10:05 09/01/20 10:05 Current Medications Generic Name Dose Route Start Last Admin Trade Name Freq PRN Reason Stop Dose Admin Hydrocodone Bitart/Acetaminophen 1 each 09/01/20 08:35 09/04/20 21:15 Hydrocodone/Apap 7.5-325mg 1 Each Tab PO 1 each Q6H PRN Administration Pain Albuterol Sulfate 4 puff 08/31/20 15:07 09/05/20 09:18 Albuterol Hfa Inhaler INHALATION 4 puff RT-Q4H PRN Administration Shortness Of Breath Apixaban 5 mg 08/31/20 21:00 09/05/20 09:09 Apixaban 5 Mg Tab PO 5 mg BID PERCY Administration Divalproex Sodium 500 mg 09/01/20 21:00 09/04/20 20:22 Divalproex Er 500 Mg Tab.Er.24h PO 500 mg HS PERCY Administration Fluticasone Propionate 2 spray 09/01/20 09:00 09/05/20 09:10 Fluticasone 50mcg/Holiday Nasal 16gm EA NOSTRIL 2 spray DAILY PERCY Administration Hydroxyzine HCl 25 mg 09/01/20 16:00 09/05/20 09:09 Hydroxyzine Hcl 25 Mg Tab PO 25 mg TID PERCY Administration Hyoscyamine 0.125 mg 08/31/20 15:07 Hyoscyamine Sulfate 0.125 Mg Tab PO Q6H PRN CRAMPING Ipratropium [place] 2 spray 08/31/20 21:00 09/04/20 20:14 Ipratropium [place] 0.06% Nasal Holiday (15 Ml) EA NOSTRIL Not Given BID PERCY Lorazepam 0.5 mg 09/01/20 00:23 09/04/20 09:17 Lorazepam 0.5 Mg Tab PO 0.5 mg BID PRN Administration Agitation Metoprolol Succinate 25 mg 09/04/20 21:00 09/05/20 09:10 Metoprolol Succinate (Er) 25 Mg Tab.Er.24h PO 25 mg BID PERCY Administration Multivitamins 1 each 09/01/20 09:00 09/05/20 09:10 Multivitamins, Thera 1 Each Tab PO 1 each DAILY PERCY Administration Naloxone HCl 0.2 mg 08/31/20 14:49 Naloxone 0.4 Mg/Ml 1 Ml Vial IV Q2M PRN Opioid Reversal Salonpas Lidocain 1 applic 09/01/20 15:10 09/04/20 09:18 Pls 4-10% (Lidocaine TOPICAL 1 applic Hcl/Benzyl Alcohol Q6H PRN Administration 85 Gm Cream Pain Motegrity ( 2 mg 09/01/20 16:00 09/05/20 09:09 Prucalopride PO 2 mg Succinate) 2 Mg DAILY PERCY Administration Tablet Octreotide Acetate 50 mcg 08/31/20 21:00 09/04/20 21:16 Octreotide 100 Mcg/Ml Inj SQ 50 mcg HS PERCY Administration Olanzapine 2.5 mg 09/01/20 21:00 09/05/20 09:09 Olanzapine 2.5 Mg Tab PO 2.5 mg BID PERCY Administration Ondansetron HCl 4 mg 08/31/20 15:07 Ondansetron 4 Mg Tab PO Q8H PRN Nausea And Vomiting Pantoprazole Sodium 40 mg 08/31/20 21:00 09/05/20 09:10 Pantoprazole 40 Mg Tablet PO 40 mg BID PERCY Administration Rifaximin 550 mg 08/31/20 15:07 Rifaximin 550 Mg Tablet PO 09/30/20 15:08 BID PRN IBS Sildenafil Citrate 20 mg 08/31/20 16:00 09/05/20 09:09 Sildenafil 20 Mg Tab PO 20 mg TID PERCY Administration Sodium Chloride 1 gm 08/31/20 21:00 09/05/20 09:09 Sodium Chloride Tab 1 Gm Tab PO 1 gm BID PERCY Administration Intake and Output 09/04/20 09/05/20 09/05/20 22:59 06:59 14:59 Intake Total 360 Balance 360 Intake: Oral 360 Other: Voiding Method Toilet Urinal # Voids 2 2 09/01/20 10:05 09/01/20 10:05
[2020-09-05] MEDS: HYDROCORTISONE SUPPOSITORY 25 MG SUPP RECTAL SCH ×2 (16:39→21:40)
[2020-09-05] MEDS: IPRATROPIUM BROMIDE 0.06% NASAL SPRAY (15 ML) EA NOSTRIL SCH ×2 (16:48→21:45)
[2020-09-05] MEDS: DIVALPROEX ER 500 MG TAB.ER.24H PO SCH (21:40)
[2020-09-05] MEDS: OCTREOTIDE 100 MCG/ML INJ SQ SCH (21:45)
[2020-09-06] MEDS: LORazepam 0.5 MG TAB PO PRN (04:42)
[2020-09-06] MEDS: ALBUTEROL HFA INHALER INHALATION PRN ×3 (07:17→19:15)
[2020-09-06] MEDS: MULTIVITAMINS, THERA 1 EACH TAB PO SCH (08:28)
[2020-09-06] MEDS: METOPROLOL SUCCINATE (ER) 50 MG TAB.ER.24H PO SCH (08:28)
[2020-09-06] MEDS: PANTOPRAZOLE 40 MG TABLET PO SCH ×2 (08:28→21:03)
[2020-09-06] MEDS: hydrOXYzine HCL 25 MG TAB PO SCH ×3 (08:29→21:03)
[2020-09-06] MEDS: SODIUM CHLORIDE TAB 1 GM TAB PO SCH ×2 (08:29→21:03)
[2020-09-06] MEDS: OLANZapine 2.5 MG TAB PO SCH ×2 (08:29→21:04)
[2020-09-06] MEDS: MOTEGRITY 2 MG PO SCH (08:30)
[2020-09-06] MEDS: SILDENAFIL 20 MG TAB PO SCH ×3 (08:30→21:04)
[2020-09-06] MEDS: FLUTICASONE 50MCG/SPRAY NASAL 16GM EA NOSTRIL SCH (08:31)
[2020-09-06] MEDS: IPRATROPIUM BROMIDE 0.06% NASAL SPRAY (15 ML) EA NOSTRIL SCH ×2 (08:33→21:05)
[2020-09-06] MEDS: APIXABAN 5 MG TAB PO SCH ×2 (08:36→21:03)
[2020-09-06] MEDS: HYDROCORTISONE SUPPOSITORY 25 MG SUPP RECTAL SCH ×2 (08:37→21:03)
[2020-09-06 15:35] VITALS: BMI 20.3
--- NOTE | 2020-09-06 15:41 | P.PN ---
Subjective Progress Note Date: 09/06/20 HISTORY OF PRESENT ILLNESS This is a 55-year-old male patient with past medical history of gastroesophageal reflux disease and esophageal dysmotility, hypertension, secondary pulmonary hypertension, paroxysmal atrial fibrillation on eliquis, Raynaud's disease, remote history of tobacco use, chronic hypoxic respiratory failure on home O2 at 3 L nasal cannula, pulmonary fibrosis secondary to progressive systemic sclerosis or scleroderma. Biopsy in 2013 showed evidence of usual interstitial pneumonia. He follows regularly with pulmonary and rheumatology at [facility] and has considered lung transplant but has declined moving forward with this. He was hospitalized from August 05 through August 12 which time he was treated for acute hypoxic respiratory failure still secondary to scleroderma lung and pulmonary fibrosis along with COVID19 pneumonitis completed course of Remdesivir. Patient had a cystoscopy hospitalization for acute on chronic hypoxic respiratory failure and was discharged home on a program . Patient went home with his but has found that she is unable to care for him. She apparently has fallen 4 times in the last 24 hours. She is unable to help him up as he is too heavy for her. Patient presented to [facility] emergency center for evaluation. CAT scan of the brain showed no acute intracranial hemorrhage or midline shift. There is mild diffuse age-related cerebral atrophy and chronic small vessel ischemic change. Possible new left sided acute sphenoid sinusitis. Chest x-ray showed persistent changes consistent with Covid. A pelvis x-ray showed no acute fracture or dislocation. Right wrist x-ray shows no acute fracture or dislocation. He was afebrile, heart rate 88, blood pressure 107/81, pulse ox 93% on room air. INR 1.0. Sodium 133, potassium 3.2, chloride 91, CO2 39, BUN 27 creatinine 0.39. Ammonia level less than 9. Liver function tests normal. CK 229. Troponin negative. TSH 2.1. Acetaminophen, salicylate and alcohol levels all normal. Patient is awake alert he is oriented and able to answer all questions appropriately but his speech is very rapid repetitive demanding that his daughter be contacted to take care of him. Patient verbalizes that he does not want to go to rehab which is been asked on multiple occasions. Patient repeatedly asked for a warm blanket. Patient has had some behavioral type changes since his Covid diagnoses. He does not have any underlying mental health illness. The patient's will be contacted later today PFO. 3/26: Patient is seen on the [facility] floor today. He continues to have manic type behavior but is alert and oriented. Patient has been seen by psychiatry and started on Depakote ER 500 mg at bedtime, Zyprexa 7.5 mg once followed by 2.5 mg twice daily. Patient has been seen by social work associate with plans to start discharge planning. PT and OT are in place. Patient has been afebrile, heart rate 79, blood pressure 103/64, pulse ox 93% on 3 L nasal cannula. Repeat blood work reveals WBC 12.3, hemoglobin 12.9, platelet count 327. Sodium 133, potassium 3.5, chloride 90, CO2 37, BUN 23 and creatinine 0.43. Blood sugar 113. 09/02: Patient continues to be manic with pressured speech was seen earlier by psychiatry was recommended to keep the patient on the same medication with Zyprexa, Vistaril, and Depakote, eventually he would require to go to subacute rehab in addition at [facility] we will send working with the social work associate hopefully this will happen on Friday, patient currently still in manic episode due to the use of steroid according to the psychiatrist note, we will continue to monitor very closely, continue to monitor his QT interval, as the patient has severe scleroderma has been off CellCept, and also he has been having issues with generalized weakness and falling hopefully will have a plan for him to go to [facility] a Friday. 09/03: Patient sitting up in his chair no apparent distress, he does not appear to be manic at this point in time, he has no chest pain, he is less short of breath, he continues to have some coughing, he continued to have significant dysphagia due to scleroderma, continue with that chopped diet, patient would be transferred to [facility] hopefully tomorrow morning. 09/04: Patient has been reevaluated by psychiatry today and diagnosis is acute prakash secondary to dexamethasone treatment. Patient manic symptoms thought to be resolved. He has no suicidal ideation. No hallucinations. He does not require inpatient psychiatric care. Recommendations from psychiatry is to continue Zyprexa 2.5 mg for mood stabilization and psychosis, continue Depakote 500 mg at bedtime and reevaluate in 1-2 weeks. Psychiatry has signed off his case. Patient is afebrile, heart rate 72, blood pressure 103/74, pulse ox 100% on 3 L nasal cannula. Patient is currently on a chopped diet. 09/05: Consult with Dr. Rivera has been added and patient determined to be too good for rehab. [facility] is also evaluated patient for subacute rehab. Pulse ox is 91% on 2 L. He has been afebrile, heart rate 78, blood pressure 114/78. Patient is complaining of hemorrhoids and Anusol hs suppository added and patient will continue at the [facility]. Plan for discharge to rehab once arrangements are completed. Patient is having difficulty with drooling. Patient is waiting for insurance authorization. 09/06: Patient has been seen by cardiology with recommendations to continue Toprol-XL and eliquis. Social work has discussed discharge planning with the patient's and patient does not meet criteria for admission to subacute rehab and she has made arrangements with the field case manager for home care. They are moving some furniture to make arrangements for him. Patient has been afebrile, heart rate 70s, blood pressure 93/65, pulse ox 98% on 3 L nasal cannula. Patient will be discharged home tomorrow REVIEW OF SYSTEMS Constitutional: No fever, no chills, no night sweats. No weight change. Rep orts weakness, reports fatigue. No daytime sleepiness. EENT: No headache. No blurred vision or double vision, no loss of vision. No dizziness. No nasal drainage or congestion. No epistaxis. No sore throat. LungsDeniesss of breath, reports cough, no sputum production. No wheezing. Cardiovascular: No chest pain, no lower extremity edema. No palpitations. No paroxysmal nocturnal dyspnea. No orthopnea. No lightheadedness or dizziness. No syncopal episodes. Abdominal: No abdominal pain. No nausea, vomiting. No diarrhea. No constipation. No bloody or tarry stools. Reports hemorrhoids. No loss of appetite. Genitourinary: No dysuria, increased frequency, urgency. No urinary retention. Musculoskeletal: No myalgias. reports weakness, reports gait dysfunction, reportsnt falls. No back pain. No neck pain. Integumentary: Reports chronic wounds, no lesions. No rash or pruritus. No unusual bruising. No change in hair or nails. Neurologic: No aphasia. No facial droop. + change in mentation improved. No head injury. No headache. No paralysis. No paresthesia. Psychiatric: No depression. No anxiety. noted mood swings. Endocrine: No abnormal blood sugars. No weight change. PHYSICAL EXAMINATION Gen: This is a 55-year-old male. He is resting in bed and appears to be comfortable at rest and in no acute distress. HEENT: Head is atraumatic, normocephalic. Pupils equal, round. Sclerae is anicteric. NECK: Supple. No JVD. No lymphadenopathy. No thyromegaly. LUNGS: few scattered Rhonchi bilaterally. No intercostal retractions. HEART: Regular rate and rhythm. No murmur. ABDOMEN: Soft. Bowel sounds are present. No masses. No tenderness. EXTREMITIES: No pedal edema. No calf tenderness. Fingertip ulcerations with chronic dusky changes to the fingertips secondary to scleroderma. NEUROLOGICAL: Patient is awake, alert and oriented x3. Cranial nerves 2 through 12 are grossly intact. ASSESSMENT AND PLAN 1. Acute debilitation secondary to multiple underlying medical conditions including worsening scleroderma lung/pulmonary fibrosis, as well as post acute Covid syndrome. PT, OT, social work associate consult. Fall precautions. 2. Acute psychosis secondary to Covid 19, possibly related to dexamethasone treatment. Continue Depakote ER 500 mg at bedtime, Zyprexa 2.5 mg twice daily. 3. Systemic scleroderma with pulmonary fibrosis, currently stable. Continue Ventolin inhaler. 4. Chronic hyponatremia, stable. 5. Paroxysmal atrial fibrillation, status post ablation. Continue eliquis 5 mg twice daily, Toprol-XL 25 mg daily. 6. 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 No history of of lung transplantation. 7. Raynaud's disease, with digital ulceration and pain worse to the right index finger. 8. Hypertension. Continue Toprol-XL 25 mg daily. 9. Pulmonary hypertension. Continue Revatio 20 mg 3 times daily oral. 10. Gastroesophageal reflux disease and GI prophylaxis. Continue Protonix 40 mg oral twice daily. 11. Esophageal dysmotility secondary to scleroderma. Continue rifaximin 550 mg twice daily as needed, Revatio 20 mg 3 times daily, Prucalopride 2 mg daily. 12. Hyperlipidemia. 13. Chronic hypoxemic respiratory failure on home O2 at 3 L nasal cannula. 14. Hemorrhoids. Start Anusol. 15. DVT prophylaxis. Continue eliquis 5 mg twice daily. DISCHARGE PLAN Home with [facility] tomorrow. Impression and plan of care have been directed as dictated by the signing physician. Shana Iverson nurse practitioner acting as scribe for signing physician. Objective - Vital Signs Vital signs: Vital Signs Temp 97.8 F 09/06/20 14:55 Pulse 70 09/06/20 14:55 Resp 15 09/06/20 14:55 BP 93/65 09/06/20 14:55 Pulse Ox 98 09/06/20 14:55 Intake & Output 09/05/20 09/06/20 09/06/20 18:59 06:59 18:59 Intake Total 600 Output Total 1 Balance 600 -1 Weight 68.039 kg Intake: Oral 600 Output: Urine 1 Other: Voiding Method Toilet Toilet Urinal Urinal # Voids 3 2 # Bowel Movements 1 2 - Labs CBC & Chem 7: 09/01/20 10:05 09/01/20 10:05
[2020-09-06] MEDS: DIVALPROEX ER 500 MG TAB.ER.24H PO SCH (21:03)
[2020-09-06] MEDS: OCTREOTIDE 100 MCG/ML INJ SQ SCH (21:04)
[2020-09-07] MEDS: LORazepam 0.5 MG TAB PO PRN ×3 (00:51→20:56)
[2020-09-07] MEDS: HYOSCYAMINE SULFATE 0.125 MG TAB PO PRN ×2 (05:09→21:32)
[2020-09-07] MEDS: ALBUTEROL HFA INHALER INHALATION PRN ×4 (07:41→21:20)
[2020-09-07] MEDS: PANTOPRAZOLE 40 MG TABLET PO SCH ×2 (09:05→20:40)
[2020-09-07] MEDS: APIXABAN 5 MG TAB PO SCH ×2 (09:05→20:39)
[2020-09-07] MEDS: METOPROLOL SUCCINATE (ER) 50 MG TAB.ER.24H PO SCH (09:05)
[2020-09-07] MEDS: MULTIVITAMINS, THERA 1 EACH TAB PO SCH (09:05)
[2020-09-07] MEDS: SODIUM CHLORIDE TAB 1 GM TAB PO SCH ×2 (09:06→20:40)
[2020-09-07] MEDS: hydrOXYzine HCL 25 MG TAB PO SCH (09:06)
[2020-09-07] MEDS: MOTEGRITY 2 MG PO SCH (09:06)
[2020-09-07] MEDS: SILDENAFIL 20 MG TAB PO SCH ×3 (09:07→20:40)
[2020-09-07] MEDS: OLANZapine 2.5 MG TAB PO SCH (09:07)
[2020-09-07] MEDS: IPRATROPIUM BROMIDE 0.06% NASAL SPRAY (15 ML) EA NOSTRIL SCH ×2 (09:08→20:41)
[2020-09-07] MEDS: FLUTICASONE 50MCG/SPRAY NASAL 16GM EA NOSTRIL SCH (09:08)
[2020-09-07] MEDS: HYDROCORTISONE SUPPOSITORY 25 MG SUPP RECTAL SCH ×2 (09:08→20:42)
--- NOTE | 2020-09-07 10:36 | P.PN ---
Progress Note - Text Progress Note Date: 09/07/20 Interval History: Patient was seen at bedside. Patient is presents well to this provider. He is a lert and oriented in all spheres and is not endorsing any significant manic symptoms. He is not reporting any excessive energy, mood swings, irritability, or grandiosity. He responds to questioning appropriately. He reports no suicidal or homicidal ideation, intention, and/or plan. He reports no auditory or visual hallucinations. Of concern, the patient does appear to engage in bizarre behavior. He has been noted to be smearing his feces onto his bed and nasal cannula. When confronted, the patient is unable to provide a clear or coherent response as to reasons why. He expresses he feels like the nurses are mean and are judging him. He reports he has hemorrhoids that cause him to wipe frequently. He also reports that he has difficulty going to the restroom due to covid affecting his physical abilities, despite him being able to ambulate and perform fine motor tasks such as open and close a ziplock bag. Discussion with the patient's reveal the patient is not at his baseline. Mental Status Exam: General Appearance: Patient appears to be stated age is alert, directable, and cooperative. Patient does appear to be frail and thin. Hygiene and grooming are poor. Fecal matter rubbed onto his blanket. Behavior: Psychomotor activity is elevated. Patient appears restless and moving frequently. Speech: Patient's speech is fluent and nonpressured. Mood/Affect: Mood is "ready to go home." Affect is euthymic and with appropriate range. Suicidality/Homicidality: Patient denies having any suicidal or homicidal ideation intent or plan. Perceptions: Patient denies any visual hallucinations and denies any auditory hallucinations Though content/process: Some bizarre behaviors and thought content regarding his feces. Thought process otherwise appears linear. Memory and concentration: AOX3, grossly intact for the purposes of this session Judgment and insight: Improved Assessment Acute prakash secondary to dexamethasone treatment Plan: -At this time, the patient DOES display criteria for inpatient psychiatric admission. The patient does not appear to be at baseline and is displaying uncharacteristic odd/bizarre behaviors. We recommend placement to a Medical-Psychiatric facility due to his many comorbidities and medical complications. The patient requires Oxygen and is waiting lung transplant. -EKG, CBC, and CMP ordered. -Would recommend the following medication changes/additions: Increase Zyprexa to 5 mg by mouth for mood stabilization/psychosis Continue Depakote 500 mg by mouth at bedtime for mood stabilization -Psychiatry will continue to follow.
--- NOTE | 2020-09-07 11:14 | P.PN ---
Subjective Progress Note Date: 09/07/20 HISTORY OF PRESENT ILLNESS This is a 55-year-old male patient with past medical history of gastroesophageal reflux disease and esophageal dysmotility, hypertension, secondary pulmonary hypertension, paroxysmal atrial fibrillation on eliquis, Raynaud's disease, remote history of tobacco use, chronic hypoxic respiratory failure on home O2 at 3 L nasal cannula, pulmonary fibrosis secondary to progressive systemic sclerosis or scleroderma. Biopsy in 2013 showed evidence of usual interstitial pneumonia. He follows regularly with pulmonary and rheumatology at [facility] and has considered lung transplant but has declined moving forward with this. He was hospitalized from August 05 through August 12 which time he was treated for acute hypoxic respiratory failure still secondary to scleroderma lung and pulmonary fibrosis along with COVID19 pneumonitis completed course of Remdesivir. Patient had a cystoscopy hospitalization for acute on chronic hypoxic respiratory failure and was discharged home on a program . Patient went home with his but has found that she is unable to care for him. She apparently has fallen 4 times in the last 24 hours. She is unable to help him up as he is too heavy for her. Patient presented to [facility] emergency center for evaluation. CAT scan of the brain showed no acute intracranial hemorrhage or midline shift. There is mild diffuse age-related cerebral atrophy and chronic small vessel ischemic change. Possible new left sided acute sphenoid sinusitis. Chest x-ray showed persistent changes consistent with Covid. A pelvis x-ray showed no acute fracture or dislocation. Right wrist x-ray shows no acute fracture or dislocation. He was afebrile, heart rate 88, blood pressure 107/81, pulse ox 93% on room air. INR 1.0. Sodium 133, potassium 3.2, chloride 91, CO2 39, BUN 27 creatinine 0.39. Ammonia level less than 9. Liver function tests normal. CK 229. Troponin negative. TSH 2.1. Acetaminophen, salicylate and alcohol levels all normal. Patient is awake alert he is oriented and able to answer all questions appropriately but his speech is very rapid repetitive demanding that his daughter be contacted to take care of him. Patient verbalizes that he does not want to go to rehab which is been asked on multiple occasions. Patient repeatedly asked for a warm blanket. Patient has had some behavioral type changes since his Covid diagnoses. He does not have any underlying mental health illness. The patient's will be contacted later today PFO. 3/26: Patient is seen on the [facility] floor today. He continues to have manic type behavior but is alert and oriented. Patient has been seen by psychiatry and started on Depakote ER 500 mg at bedtime, Zyprexa 7.5 mg once followed by 2.5 mg twice daily. Patient has been seen by social media coordinator with plans to start discharge planning. PT and OT are in place. Patient has been afebrile, heart rate 79, blood pressure 103/64, pulse ox 93% on 3 L nasal cannula. Repeat blood work reveals WBC 12.3, hemoglobin 12.9, platelet count 327. Sodium 133, potassium 3.5, chloride 90, CO2 37, BUN 23 and creatinine 0.43. Blood sugar 113. 09/02: Patient continues to be manic with pressured speech was seen earlier by psychiatry was recommended to keep the patient on the same medication with Zyprexa, Vistaril, and Depakote, eventually he would require to go to subacute rehab in addition at [facility] we will send working with the social media coordinator hopefully this will happen on Friday, patient currently still in manic episode due to the use of steroid according to the psychiatrist note, we will continue to monitor very closely, continue to monitor his QT interval, as the patient has severe scleroderma has been off CellCept, and also he has been having issues with generalized weakness and falling hopefully will have a plan for him to go to [facility] a Friday. 09/03: Patient sitting up in his chair no apparent distress, he does not appear to be manic at this point in time, he has no chest pain, he is less short of breath, he continues to have some coughing, he continued to have significant dysphagia due to scleroderma, continue with that chopped diet, patient would be transferred to [facility] hopefully tomorrow morning. 09/04: Patient has been reevaluated by psychiatry today and diagnosis is acute prakash secondary to dexamethasone treatment. Patient manic symptoms thought to be resolved. He has no suicidal ideation. No hallucinations. He does not require inpatient psychiatric care. Recommendations from psychiatry is to continue Zyprexa 2.5 mg for mood stabilization and psychosis, continue Depakote 500 mg at bedtime and reevaluate in 1-2 weeks. Psychiatry has signed off his case. Patient is afebrile, heart rate 72, blood pressure 103/74, pulse ox 100% on 3 L nasal cannula. Patient is currently on a chopped diet. 09/05: Consult with Dr. Rivera has been added and patient determined to be too good for rehab. [facility] for [facility] rehab. Pulse ox is 91% on 2 L. He has been afebrile, heart rate 78, blood pressure 114/78. Patient is complaining of hemorrhoids and Anusol hs suppository added and patient will continue at the [facility]. Plan for discharge to rehab once arrangements are completed. Patient is having difficulty with drooling. Patient is waiting for insurance authorization. 09/06: Patient has been seen by cardiology with recommendations to continue Toprol-XL and eliquis. Social work has discussed discharge planning with the patient's and patient does not meet criteria for admission to subacute rehab and she has made arrangements with the therapeutic case manager for home care. They are moving some furniture to make arrangements for him. Patient has been afebrile, heart rate 70s, blood pressure 93/65, pulse ox 98% on 3 L nasal cannula. Patient will be discharged home tomorrow 09/07: Patient is completely awake alert and oriented and able to answer all questions during evaluation but had behavioral issues during the night. Social work is working with the patient's or discharge planning. At this time, patient does not meet criteria for inpatient rehab, subacute rehab. Patient requires supervision. He is impulsive. Psychiatry has reassess the patient with recommendations to increase Zyprexa 5 mg by mouth and continue Depakote 500 mg at bedtime for mood stabilization. He has been afebrile, heart rate 89, blood pressure 114/73, pulse ox 95% on 3 L nasal cannula. Patient will be discharged home today if arrangements can be completed. REVIEW OF SYSTEMS Constitutional: No fever, no chills, no night sweats. No weight change. Re ports weakness, reports fatigue. No daytime sleepiness. EENT: No headache. No blurred vision or double vision, no loss of vision. No dizziness. No nasal drainage or congestion. No epistaxis. No sore throat. LungsDeniesss of breath, reports cough, no sputum production. No wheezing. Cardiovascular: No chest pain, no lower extremity edema. No palpitations. No paroxysmal nocturnal dyspnea. No orthopnea. No lightheadedness or dizziness. No syncopal episodes. Abdominal: No abdominal pain. No nausea, vomiting. No diarrhea. No constipation. No bloody or tarry stools. Reports hemorrhoids. No loss of appetite. Genitourinary: No dysuria, increased frequency, urgency. No urinary retention. Musculoskeletal: No myalgias. reports weakness, reports gait dysfunction, reportsnt falls. No back pain. No neck pain. Integumentary: Reports chronic wounds, no lesions. No rash or pruritus. No unusual bruising. No change in hair or nails. Neurologic: No aphasia. No facial droop. + change in mentation improved. No head injury. No headache. No paralysis. No paresthesia. Psychiatric: No depression. No anxiety. noted mood swings. Endocrine: No abnormal blood sugars. No weight change. PHYSICAL EXAMINATION Gen: This is a 55-year-old male. He is resting in bed and appears to be comfortable at rest and in no acute distress. HEENT: Head is atraumatic, normocephalic. Pupils equal, round. Sclerae is anicteric. NECK: Supple. No JVD. No lymphadenopathy. No thyromegaly. LUNGS: few scattered Rhonchi bilaterally. No intercostal retractions. HEART: Regular rate and rhythm. No murmur. ABDOMEN: Soft. Bowel sounds are present. No masses. No tenderness. EXTREMITIES: No pedal edema. No calf tenderness. Fingertip ulcerations with chronic dusky changes to the fingertips secondary to scleroderma. NEUROLOGICAL: Patient is awake, alert and oriented x3. Cranial nerves 2 through 12 are grossly intact. ASSESSMENT AND PLAN 1. Acute debilitation secondary to multiple underlying medical conditions including worsening scleroderma lung/pulmonary fibrosis, as well as post acute Covid syndrome. PT, OT, social media coordinator consult. Fall precautions. 2. Acute psychosis secondary to Covid 19, possibly related to dexamethasone treatment. Continue Depakote ER 500 mg at bedtime, Zyprexa increased to 5 mg twice daily. 3. Systemic scleroderma with pulmonary fibrosis, currently stable. Continue Ventolin inhaler. 4. Chronic hyponatremia, stable. 5. Paroxysmal atrial fibrillation, status post ablation. Continue eliquis 5 mg twice daily, Toprol-XL 25 mg daily. 6. 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 No history of of lung transplantation. 7. Raynaud's disease, with digital ulceration and pain worse to the right index finger. 8. Hypertension. Continue Toprol-XL 25 mg daily. 9. Pulmonary hypertension. Continue Revatio 20 mg 3 times daily oral. 10. Gastroesophageal reflux disease and GI prophylaxis. Continue Protonix 40 mg oral twice daily. 11. Esophageal dysmotility secondary to scleroderma. Continue rifaximin 550 mg twice daily as needed, Revatio 20 mg 3 times daily, Prucalopride 2 mg daily. 12. Hyperlipidemia. 13. Chronic hypoxemic respiratory failure on home O2 at 3 L nasal cannula. 14. Hemorrhoids. Start Anusol. 15. DVT prophylaxis. Continue eliquis 5 mg twice daily. DISCHARGE PLAN Home with [facility]. Impression and plan of care have been directed as dictated by the signing physician. Shana Iverson nurse practitioner acting as scribe for signing physician. Objective - Vital Signs Vital signs: Vital Signs Temp 98.0 F 09/07/20 05:56 Pulse 51 L 09/07/20 05:56 Resp 16 09/07/20 05:56 BP 126/81 09/07/20 05:56 Pulse Ox 94 L 09/07/20 05:56 Intake & Output 09/06/20 09/07/20 09/07/20 18:59 06:59 18:59 Output Total 1 Balance -1 Weight 68.039 kg Output: Urine 1 Other: Voiding Method Toilet Urinal # Voids 3 # Bowel Movements 2 4 - Labs CBC & Chem 7: 09/01/20 10:05 09/01/20 10:05
[2020-09-07 12:48] LABS: Basophils # (A) 0.1 k/uL (0-0.2); Basophils % (A) 0 %; Eosinophils # (A) 0.2 k/uL (0-0.7); Eosinophils % (A) 2 %; HCT 34.4 % (39.0-53.0); HGB 11.3 gm/dL (13.0-17.5); Lymphocytes # (A) 0.8 k/uL (1.0-4.8); Lymphocytes % (A) 8 %; MCH 32.2 pg (25.0-35.0); MCHC 32.7 g/dL (31.0-37.0); MCV 98.4 fL (80.0-100.0); Mean Platelet Volume 7.4; Monocytes # (A) 0.8 k/uL (0-1.0); Monocytes % (A) 8 %; Neutrophils # (A) 8.8 k/uL (1.3-7.7); Neutrophils % (A) 82 %; Platelet Count 357 k/uL (150-450); RDW 13.5 % (11.5-15.5); WBC 10.8 k/uL (3.8-10.6)
[2020-09-07 12:50] LABS: ALT 16 U/L (4-49); AST 35 U/L (17-59); African American GFR (CKD) >90 (>60 ml/min/1.73 sqM); Albumin 3.2 g/dL (3.5-5.0); Albumin/Globulin Ratio 1.1; Alkaline Phosphatase 55 U/L (38-126); Anion Gap 3 mmol/L; Blood Urea Nitrogen 15 mg/dL (9-20); Calcium 8.5 mg/dL (8.4-10.2); Chloride 89 mmol/L (98-107); Globulin 2.9 g/dL; Glucose 80 mg/dL (74-99); Non-African American GFR(CKD) >90 (>60 ml/min/1.73 sqM); Potassium 4.4 mmol/L (3.5-5.1); Sodium 132 mmol/L (137-145); Total Bilirubin 0.4 mg/dL (0.2-1.3); Total Protein 6.1 g/dL (6.3-8.2)
[2020-09-07 12:56] LABS: Carbon Dioxide 40 mmol/L (22-30)
[2020-09-07] MEDS: DIVALPROEX ER 500 MG TAB.ER.24H PO SCH (20:39)
[2020-09-07] MEDS: OLANZapine 5 MG TAB PO SCH (20:39)
[2020-09-07] MEDS: OCTREOTIDE 100 MCG/ML INJ SQ SCH (20:56)
[2020-09-08] MEDS: LORazepam 0.5 MG TAB PO PRN (03:48)
[2020-09-08] MEDS: SODIUM CHLORIDE TAB 1 GM TAB PO SCH (09:03)
[2020-09-08] MEDS: SILDENAFIL 20 MG TAB PO SCH (09:03)
[2020-09-08] MEDS: APIXABAN 5 MG TAB PO SCH (09:03)
[2020-09-08] MEDS: METOPROLOL SUCCINATE (ER) 50 MG TAB.ER.24H PO SCH (09:03)
[2020-09-08] MEDS: PANTOPRAZOLE 40 MG TABLET PO SCH (09:03)
[2020-09-08] MEDS: HYDROCORTISONE SUPPOSITORY 25 MG SUPP RECTAL SCH (09:03)
[2020-09-08] MEDS: OLANZapine 5 MG TAB PO SCH (09:03)
[2020-09-08] MEDS: MULTIVITAMINS, THERA 1 EACH TAB PO SCH (09:03)
[2020-09-08] MEDS: FLUTICASONE 50MCG/SPRAY NASAL 16GM EA NOSTRIL SCH (09:04)
[2020-09-08] MEDS: MOTEGRITY 2 MG PO SCH (09:04)
[2020-09-08] MEDS: IPRATROPIUM BROMIDE 0.06% NASAL SPRAY (15 ML) EA NOSTRIL SCH (09:05)
[2020-09-08 10:27] VITALS: BP 121/83; PULSE 72; RESP 19; TEMP 97.3
--- NOTE | 2020-09-08 11:15 | P.DS ---
Providers Date of admission: 08/31/20 14:49 Expected date of discharge: 09/08/20 Attending physician: Madhavi Melo Consults: 08/31/20 15:07 Consult Physician Urgent Consulting Provider: Benjamín Rojas Consult Reason/Comments: acute manic episode Do you want consulting provider notified?: Yes 09/04/20 09:50 Consult Physician Urgent Consulting Provider: Amita Melgoza Consult Reason/Comments: Patient converted into afib and is on eliquis, rate 120s. hx of afib/svt. Do you want consulting provider notified?: Yes 09/05/20 07:46 Consult Physician Routine Consulting Provider: Flaco Rivera Consult Reason/Comments: inpt rehab Do you want consulting provider notified?: Yes Primary care physician: Madhavi Melo [facility] Course: HISTORY OF PRESENT ILLNESS This is a 55-year-old male patient with past medical history of gastroesophageal reflux disease and esophageal dysmotility, hypertension, secondary pulmonary hypertension, paroxysmal atrial fibrillation on eliquis, Raynaud's disease, remote history of tobacco use, chronic hypoxic respiratory failure on home O2 at 3 L nasal cannula, pulmonary fibrosis secondary to progressive systemic sclerosis or scleroderma. Biopsy in 2013 showed evidence of usual interstitial pneumonia. He follows regularly with pulmonary and rheumatology at [facility] and has considered lung transplant but has declined moving forward with this. He was hospitalized from August 05 through August 12 which time he was treated for acute hypoxic respiratory failure still secondary to scleroderma lung and pulmonary fibrosis along with COVID19 pneumonitis completed course of Remdesivir. Patient had a cystoscopy hospitalization for acute on chronic hypoxic respiratory failure and was discharged home on a program . Patient went home with his but has found that she is unable to care for him. She apparently has fallen 4 times in the last 24 hours. She is unable to help him up as he is too heavy for her. Patient presented to [facility] emergency center for evaluation. CAT scan of the brain showed no acute intracranial hemorrhage or midline shift. There is mild diffuse age-related cerebral atrophy and chronic small vessel ischemic change. Possible new left sided acute sphenoid sinusitis. Chest x-ray showed persistent changes consistent with Covid. A pelvis x-ray showed no acute fracture or dislocation. Right wrist x-ray shows no acute fracture or dislocation. He was afebrile, heart rate 88, blood pressure 107/81, pulse ox 93% on room air. INR 1.0. Sodium 133, potassium 3.2, chloride 91, CO2 39, BUN 27 creatinine 0.39. Ammonia level less than 9. Liver function tests normal. CK 229. Troponin negative. TSH 2.1. Acetaminophen, salicylate and alcohol levels all normal. Patient is awake alert he is oriented and able to answer all questions appropriately but his speech is very rapid repetitive roro nding that his daughter be contacted to take care of him. Patient verbalizes that he does not want to go to rehab which is been asked on multiple occasions. Patient repeatedly asked for a warm blanket. Patient has had some behavioral type changes since his Covid diagnoses. He does not have any underlying mental health illness. The patient's will be contacted later today PFO. 09/01: Patient is seen on the Med[facility] floor today. He continues to have manic type behavior but is alert and oriented. Patient has been seen by psychiatry and started on Depakote ER 500 mg at bedtime, Zyprexa 7.5 mg once followed by 2.5 mg twice daily. Patient has been seen by group social worker with plans to start discharge planning. PT and OT are in place. Patient has been afebrile, heart rate 79, blood pressure 103/64, pulse ox 93% on 3 L nasal cannula. Repeat blood work reveals WBC 12.3, hemoglobin 12.9, platelet count 327. Sodium 133, potassium 3.5, chloride 90, CO2 37, BUN 23 and creatinine 0.43. Blood sugar 113. 09/02: Patient continues to be manic with pressured speech was seen earlier by psychiatry was recommended to keep the patient on the same medication with Zyprexa, Vistaril, and Depakote, eventually he would require to go to subacute rehab in addition at [facility] we will send working with the group social worker hopefully this will happen on Friday, patient currently still in manic episode due to the use of steroid according to the psychiatrist note, we will continue to monitor very closely, continue to monitor his QT interval, as the patient has severe scleroderma has been off CellCept, and also he has been having issues with generalized weakness and falling hopefully will have a plan for him to go to [facility] a Friday. 09/03: Patient sitting up in his chair no apparent distress, he does not appear to be manic at this point in time, he has no chest pain, he is less short of breath, he continues to have some coughing, he continued to have significant dysphagia due to scleroderma, continue with that chopped diet, patient would be transferred to [facility] hopefully tomorrow morning. 09/04: Patient has been reevaluated by psychiatry today and diagnosis is acute prakash secondary to dexamethasone treatment. Patient manic symptoms thought to be resolved. He has no suicidal ideation. No hallucinations. He does not require inpatient psychiatric care. Recommendations from psychiatry is to continue Zyprexa 2.5 mg for mood stabilization and psychosis, continue Depakote 500 mg at bedtime and reevaluate in 1-2 weeks. Psychiatry has signed off his case. Patient is afebrile, heart rate 72, blood pressure 103/74, pulse ox 100% on 3 L nasal cannula. Patient is currently on a chopped diet. 09/05: Consult with Dr. Rivera has been added and patient determined to be too good for rehab. [facility] is also evaluated patient for subacute rehab. Pulse ox is 91% on 2 L. He has been afebrile, heart rate 78, blood pressure 114/78. Patient is complaining of hemorrhoids and Anusol hs suppository added and patient will continue at the [facility]. Plan for discharge to rehab once arrangements are completed. Patient is having difficulty with drool ing. Patient is waiting for insurance authorization. 09/06: Patient has been seen by cardiology with recommendations to continue Toprol-XL and eliquis. Social work has discussed discharge planning with the patient's and patient does not meet criteria for admission to subacute rehab and she has made arrangements with the manager of case management for home care. They are moving some furniture to make arrangements for him. Patient has been afebrile, heart rate 70s, blood pressure 93/65, pulse ox 98% on 3 L nasal cannula. Patient will be discharged home tomorrow 09/07: Patient is completely awake alert and oriented and able to answer all questions during evaluation but had behavioral issues during the night. Social work is working with the patient's or discharge planning. At this time, patient does not meet criteria for inpatient rehab, subacute rehab. Patient requires supervision. He is impulsive. Psychiatry has reassess the patient w ith recommendations to increase Zyprexa 5 mg by mouth and continue Depakote 500 mg at bedtime for mood stabilization. He has been afebrile, heart rate 89, blood pressure 114/73, pulse ox 95% on 3 L nasal cannula. Patient will be discharged home today if arrangements can be completed. 09/08: Patient is physically slower to move today. He is known to have some drooling by his nurse. Most likely symptoms are due to the increased Zyprexa which will be decreased back to the 2.[address] Melo spoke with the patient's in detail over the phone regarding discharge plan and at this time does not feel the patient needs psychiatric inpatient services. She is agreeable to that and is requesting referrals for psychiatric follow-up which will be provided by group social worker. Patient has been afebrile, heart rate 72, blood pressure 121/83, pulse ox 93% on room air and 96% on 3 L area patient will be discharged home today in stable condition. Home care has been arranged. ASSESSMENT AND PLAN 1. Acute debilitation secondary to multiple underlying medical conditions including worsening scleroderma lung/pulmonary fibrosis, as well as post acute Covid syndrome. 2. Acute psychosis secondary to Covid 19, possibly related to dexamethasone treatment. 3. Systemic scleroderma with pulmonary fibrosis, currently stable. 4. Chronic hyponatremia, stable. 5. Paroxysmal atrial fibrillation, status post ablation. 6. 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 7. Raynaud's disease, with digital ulcerations. 8. Hypertension. 9. Pulmonary hypertension. 10. Gastroesophageal reflux disease. 11. Esophageal dysmotility secondary to scleroderma. 12. Hyperlipidemia. 13. Chronic hypoxemic respiratory failure on home O2 at 3 L nasal cannula. 14. Hemorrhoids. 15. Chronic hypoxic respiratory failure with home O2. DISCHARGE PLAN Home with [facility]. Impression and plan of care have been directed as dictated by the signing physician. Shana Iverson nurse practitioner acting as scribe for signing physician. Patient Condition at Discharge: Stable Plan - Discharge Summary Discharge Rx Participant: No New Discharge Prescriptions: New LORazepam [Ativan] 0.5 mg PO BID PRN #6 tab PRN Reason: Agitation HYDROcodone/APAP 7.5-325MG [Spring 7.5-325] 1 each PO Q6H PRN #12 tab PRN Reason: Pain Divalproex ER [Depakote ER] 500 mg PO HS #30 tab OLANZapine [ZyPREXA] 2.5 mg PO BID #60 tab Hydrocortisone Suppository [Anusol-Hc] 25 mg RECTAL BID #10 supp Continue Hyoscyamine Sulfate [Levsin-Sl] 0.125 mg SL Q4-6H PRN PRN Reason: CRAMPING Multivitamins, Thera [Multivitamin (formulary)] 1 tab PO DAILY Metoprolol Succinate [Toprol XL] 25 mg PO DAILY Fluticasone Nasal [place] [Flonase Nasal [place]] 2 spr EA NOSTRIL DAILY Albuterol Inhaler [Ventolin Hfa Inhaler] 4 puff INHALATION RT-Q4H PRN PRN Reason: Shortness Of Breath Prucalopride Succinate [Motegrity] 2 mg PO DAILY Ondansetron HCl [Zofran] 4 mg PO Q8H PRN PRN Reason: Nausea And Vomiting Rifaximin [Xifaxan] 550 mg PO BID PRN PRN Reason: IBS Sildenafil [Revatio] 20 mg PO TID Omeprazole 40 mg PO BID Apixaban [Eliquis] 5 mg PO BID Sandostatin 50mcg/Ml 50 mcg SQ HS Ipratropium [place] 0.06%Nasal [Atrovent Nasal 0.06%] 2 spray EA NOSTRIL BID Tyvaso 0.6mg/Ml 3 - 9 puff INHALATION RT-QID Sodium Chloride Tab 1 gm PO BID #60 tab Lidocaine HCl/Benzyl Alcohol [Salonpas Lidocain Pls 4-10% Cr] 1 applic TOPICAL Q6H PRN PRN Reason: Pain hydrOXYzine HCL 10 mg PO TID Discharge Medication List Albuterol Inhaler [Ventolin Hfa Inhaler] 4 puff INHALATION RT-Q4H PRN 08/05/20 [History] Apixaban [Eliquis] 5 mg PO BID 08/05/20 [History] Fluticasone Nasal [place] [Flonase Nasal [place]] 2 spr EA NOSTRIL DAILY 08/05/20 [History] Hyoscyamine Sulfate [Levsin-Sl] 0.125 mg SL Q4-6H PRN 08/05/20 [History] Ipratropium [place] 0.06%Nasal [Atrovent Nasal 0.06%] 2 spray EA NOSTRIL BID 08/05/20 [History] Metoprolol Succinate [Toprol XL] 25 mg PO DAILY 08/05/20 [History] Multivitamins, Thera [Multivitamin (formulary)] 1 tab PO DAILY 08/05/20 [History] Omeprazole 40 mg PO BID 08/05/20 [History] Ondansetron HCl [Zofran] 4 mg PO Q8H PRN 08/05/20 [History] Prucalopride Succinate [Motegrity] 2 mg PO DAILY 08/05/20 [History] Rifaximin [Xifaxan] 550 mg PO BID PRN 08/05/20 [History] Sandostatin 50mcg/Ml 50 mcg SQ HS 08/05/20 [History] Sildenafil [Revatio] 20 mg PO TID 08/05/20 [History] Tyvaso 0.6mg/Ml 3 - 9 puff INHALATION RT-QID 08/05/20 [History] Sodium Chloride Tab 1 gm PO BID #60 tab 08/12/20 [Rx] Lidocaine HCl/Benzyl Alcohol [Salonpas Lidocain Pls 4-10% Cr] 1 applic TOPICAL Q6H PRN 08/16/20 [History] hydrOXYzine HCL 10 mg PO TID 08/31/20 [History] HYDROcodone/APAP 7.5-325MG [Spring 7.5-325] 1 each PO Q6H PRN #12 tab 09/04/20 [Rx] LORazepam [Ativan] 0.5 mg PO BID PRN #6 tab 09/04/20 [Rx] Hydrocortisone Suppository [Anusol-Hc] 25 mg RECTAL BID #10 supp 09/05/20 [Rx] Divalproex ER [Depakote ER] 500 mg PO HS #30 tab 09/07/20 [Rx] OLANZapine [ZyPREXA] 2.5 mg PO BID #60 tab 09/08/20 [Rx] Follow up Appointment(s)/Referral(s): Madhavi Melo MD [Primary Care Provider] - 1 Week (at [facility]) [facility], [NON-STAFF] - As Needed Discharge Disposition: TRANSFER TO PSYCH HOSP/UNIT
[2020-09-08] MEDS: ALBUTEROL HFA INHALER INHALATION PRN (11:37)
--- NOTE | 2020-09-08 12:59 | P.PN ---
Progress Note - Text Progress Note Date: 09/08/20 Interval History: Patient was seen at bedside. Patient is presents well to this provider. He is alert and oriented in all spheres and is not endorsing any significant manic symptoms. Patient states he had an accident yesterday causing his fecal matter to be smeared on his bed and all over. He maintains this was never any intention of his to do. He reports no suicidal or homicidal ideation, intention, and/or plan. He reports he is sleeping well. He denies any impulsivity, grandiosity, or significant mood swings. He has been adherent with his medications. Due to concerns for oversedation as well as drooling, his Zyprexa was decreased back to 2.5 mg twice daily. The patient is able to tolerate this medication today. As per discussion with the patient's nurse and the patient, the plan is to likely discharge the patient home. Mental Status Exam: General Appearance: Patient appears to be stated age is alert, directable, and cooperative. Patient does appear to be frail and thin. Hygiene and grooming is significantly improved. Patient is wearing a new sweater. Behavior: Psychomotor activity appears normal. Patient is resting in bed comfortably. Speech: Patient's speech is fluent and nonpressured. Mood/Affect: Mood is "feeling good Affect is euthymic and with appropriate r jadon. Suicidality/Homicidality: Patient denies having any suicidal or homicidal ideation intent or plan. Perceptions: Patient denies any visual hallucinations and denies any auditory hallucinations Though content/process: No delusional thought content is endorsed at this time. Thought process appears to be linear and logical. Memory and concentration: AOX3, grossly intact for the purposes of this session Judgment and insight: Improved Assessment Acute prakash secondary to dexamethasone treatment Plan: -At this time, the patient does not meet criteria for inpatient psychiatric hospitalization. We do recommend outpatient psychiatric follow-up concern if there is any continued manic or bizarre behaviors. -Would recommend the following medication changes/additions: Continue Zyprexa 2.5 mg by mouth twice a day for mood stabilizationon Continue Depakote 500 mg by mouth at bedtime for mood stabilization -Psychiatry will sign off at this time. Thank you for allowing us to participate in the patient's care. Please call if any questions or re-consult if necessary.
[2020-09-08] MEDS ORDERED: OLANZapine 2.5 MG TAB PO SCH (21:00)
== END 2020-09-08 14:30 | disposition home health service (06) ==
LOC: EC 11:16 → 6NMEDSUR 14:49 → 4SSUR 20:20 → 2ORMAIN 09-06 22:17 → 4SSUR 09-06 22:17
PROVIDERS: ADMIT Internal Medicine; ATTEND Internal Medicine
DX: R53.81 Other malaise (principal); J84.112 Idiopathic pulmonary fibrosis; M34.9 Systemic sclerosis, unspecified; U07.1 COVID-19; F23 Brief psychotic disorder; K21.9 Gastro-esophageal reflux disease without esophagitis; I10 Essential (primary) hypertension; I27.29 Other secondary pulmonary hypertension; F30.9 Manic episode, unspecified; E87.1 Hypo-osmolality and hyponatremia; I48.0 Paroxysmal atrial fibrillation; I73.00 Raynaud's syndrome without gangrene; J96.21 Acute and chronic respiratory failure with hypoxia; J12.82 Pneumonia due to coronavirus disease 2019; I45.10 Unspecified right bundle-branch block; K64.9 Unspecified hemorrhoids; R45.87 Impulsiveness; K22.4 Dyskinesia of esophagus; M25.531 Pain in right wrist; G93.40 Encephalopathy, unspecified; F43.10 Post-traumatic stress disorder, unspecified; E78.5 Hyperlipidemia, unspecified; I47.1 Supraventricular tachycardia; Z87.891 Personal history of nicotine dependence; Z79.02 Long term (current) use of antithrombotics/antiplatelets; Z79.01 Long term (current) use of anticoagulants; Z99.81 Dependence on supplemental oxygen; Z79.899 Other long term (current) drug therapy; Z90.49 Acquired absence of other specified parts of digestive tract; Z88.8 Allergy status to other drugs, medicaments and biological substances; Z91.81 History of falling; Z82.49 Family history of ischemic heart disease and other diseases of the circulatory system
CPT/HCPCS: 96361 ×3; 96372 ×6; 96360; 99285; 36415; 94640 ×13; 93005 ×3; 97116 ×3; 97162; 97530 ×2; 97535; 97166; 80053 ×2; 80048; 84443; 82140; 82550; 84484; 85025 ×3; 85610; 85730; 81001; 80306; 80143; 80320; 80179; 72170; 73110; 71045; 70450; G0378 ×9; J2354 ×6

== ENCOUNTER → 2020-10-04 | Outpatient (CLI) | payer BC ==
[2020-10-04 20:52] LABS: Basophils # (A) 0.02 X 10*3/uL (0.00-0.10); Basophils % (A) 0.3 %; Eosinophils # (A) 0.12 X 10*3/uL (0.04-0.35); Eosinophils % (A) 1.8 %; HCT 35.7 % (39.6-50.0); HGB 10.9 g/dL (13.0-17.0); Lymphocytes # (A) 0.67 X 10*3/uL (0.90-5.00); Lymphocytes % (A) 9.8 %; MCH 32.2 pg (27.0-32.0); MCHC 30.5 g/dL (32.0-37.0); MCV 105.6 fL (80.0-97.0); Mean Platelet Volume 11.3 fL (9.5-12.2); Monocytes # (A) 0.72 X 10*3/uL (0.20-1.00); Monocytes % (A) 10.6 %; Neutrophils # (A) 5.25 X 10*3/uL (1.80-7.70); Neutrophils % (A) 77.1 %; Platelet Count 207 X 10*3/uL (140-440); RBC 3.38 X 10*6/uL (4.40-5.60); RDW 15.8 % (11.5-14.5); WBC 6.81 X 10*3/uL (4.50-10.00)
[2020-10-05 02:12] LABS: African American GFR (CKD) 141.4 (60.0-200.0); Albumin 3.9 g/dL (3.80-4.90); Albumin/Globulin Ratio 1.56 (1.60-3.17); Calcium 8.8 mg/dL (8.7-10.3); Globulin 2.5 g/dL (1.6-3.3); Potassium 4.3 mmol/L (3.5-5.5); Total Bilirubin 0.4 mg/dL (0.2-1.2); Total Protein 6.4 g/dL (6.2-8.2)
== END | disposition home or self-care (01) ==
LOC: LABWHC1 14:03
PROVIDERS: ATTEND Internal Medicine
DX: M34.9 Systemic sclerosis, unspecified (principal); Z51.81 Encounter for therapeutic drug level monitoring
CPT/HCPCS: 36415; 80053; 85025

== ENCOUNTER → 2021-01-01 | Outpatient (CLI) | payer BC ==
[2021-01-01 19:31] LABS: African American GFR (CKD) 116.6 (60.0-200.0); Albumin 4.2 g/dL (3.80-4.90); Albumin/Globulin Ratio 1.56 (1.60-3.17); BUN/Creat Ratio 18.75 Ratio (12.00-20.00); Bilirubin, Conjugated 0.2 mg/dL (0.20-0.40); Bilirubin,Unconjugated 0.3 mg/dL; Calcium 9.2 mg/dL (8.7-10.3); Globulin 2.7 g/dL (1.6-3.3); Non-African American GFR(CKD) 100.6 (60.0-200.0); Total Bilirubin 0.5 mg/dL (0.2-1.2); Total Protein 6.9 g/dL (6.2-8.2)
== END | disposition home or self-care (01) ==
LOC: LABWHC1 14:00
PROVIDERS: ATTEND Internal Medicine
DX: J84.9 Interstitial pulmonary disease, unspecified (principal); I27.20 Pulmonary hypertension, unspecified; R79.89 Other specified abnormal findings of blood chemistry
CPT/HCPCS: 36415; 80048; 80076; 83880

== ENCOUNTER → 2021-12-21 | Outpatient (CLI) | payer BC ==
--- NOTE | 2021-12-21 07:55 | US ---
EXAMINATION TYPE: US gallbladder DATE OF EXAM: 12/21/2021 COMPARISON: NONE CLINICAL HISTORY: R10.33 PERIUMBILICAL PAIN. Patient states he was having periumbilical pain, but it has since resolved. Entire study was done intercostally due to excessive bowel gas EXAM MEASUREMENTS: Liver Length: 14.3 cm Gallbladder Wall: 0.30 cm CBD: 0.16 cm Right Kidney: 11.0 x 4.6 x 5.1 cm Pancreas: Obscured by bowel gas Liver: Left lobe obscured by bowel gas. Limited visualization. Parts visualized wnl. Gallbladder: ? Possible wall thickening. Limited visualization. No stones or sludge visualized. Evidence for sonographic Estevez's sign: No CBD: wnl Right Kidney: wnl Suboptimal evaluation of pancreas on initial images. Visualized portion of liver fairly homogeneous w ithout worrisome mass or ductal dilatation. No surrounding ascites. Gallbladder is poorly distended w ith wall thickness upper limits of normal. No intraluminal shadowing gallstones or surrounding ascite s. No right-sided hydronephrosis. IMPRESSION: Contracted gallbladder without shadowing mobile gallstones or ultrasound evidence for acu te cholecystitis.
== END | disposition home or self-care (01) ==
LOC: RADUSWWP 06:45
PROVIDERS: ATTEND Internal Medicine
DX: K82.8 Other specified diseases of gallbladder (principal)
CPT/HCPCS: 76705

== ENCOUNTER → 2024-10-11 | Outpatient (CLI) | payer BC, OTHER ==
[2024-10-11 21:23] LABS: BUN/Creat Ratio 23.12 Ratio (12.00-20.00); Blood Urea Nitrogen 18.5 mg/dL (9.0-27.0); Calcium 7.4 mg/dL (8.7-10.3); Carbon Dioxide 29.6 mmol/L (21.6-31.8); Chloride 94 mmol/L (96-109); Glucose 111 mg/dL (70-110); Potassium 4.3 mmol/L (3.5-5.5); Sodium 135 mmol/L (135-145)
[2024-10-11 23:32] LABS: NT-Pro-B-Type Natriuretic Pept 4432 pg/mL (0-125)
== END | disposition home or self-care (01) ==
LOC: LABWHC1 13:44
PROVIDERS: ATTEND Nurse Practitioner Acute Care
DX: I27.21 Secondary pulmonary arterial hypertension (principal); M35.9 Systemic involvement of connective tissue, unspecified; J96.10 Chronic respiratory failure, unspecified whether with hypoxia or hypercapnia; Z79.899 Other long term (current) drug therapy
CPT/HCPCS: 36415; 80048; 83880